=== PATIENT | female | born 1960 | race Caucasian/White ===

== ENCOUNTER 2016-03-21 04:31 | Inpatient (IN) | payer OTHER ==
[~2016-03-21] VITALS: Ht 160 cm; Wt 82.3 kg
[~2016-03-21 04:31] MED LIST: AMLO10TA2 PO; ATEN25TA PO; ETOD30CA PO; LISI40TAB PO; LYRI150C PO; PANT40TA2 PO; TIZA4CAP3 PO; TRAM50TA2 PO; XANA1TAB2 PO
[2016-03-21 05:57] LABS: ALBUMIN 2.8 GM/DL (3.2-5.2); ALBUMIN/GLOBULIN RATIO 0.65 (1.00-1.93); ALKALINE PHOSPHATASE 119 U/L (45-117); ALT/SGPT 22 U/L (12-78); ANION GAP 24 MEQ/L (8-16); AST/SGOT 31 U/L (15-37); BILIRUBIN,DIRECT < 0.1 MG/DL (0.0-0.2); BILIRUBIN,TOTAL 0.2 MG/DL (0.2-1.0); BLOOD UREA NITROGEN 17 MG/DL (7-18); CALCIUM LEVEL 8.7 MG/DL (8.5-10.1); CARBON DIOXIDE LEVEL 12 MEQ/L (21-32); CHLORIDE LEVEL 105 MEQ/L (98-107); CREATININE FOR GFR 1.85 MG/DL (0.55-1.02); GLOMERULAR FILTRATION RATE 30.4 (>51); GLUCOSE, FASTING 163 MG/DL (70-105); POTASSIUM SERUM 4.2 MEQ/L (3.5-5.1); SODIUM LEVEL 141 MEQ/L (136-145); T UPTAKE 33 % (30-39); THYROXINE (T4) 10.3 UG/DL (4.5-12.0); TOTAL PROTEIN 7.1 GM/DL (6.4-8.2)
[2016-03-21 06:11] LABS: BASO # 0.1 K/mm3 (0.0-0.2); BASO % 0.4 % (0.0-1.0); EOS # 0.2 K/mm3 (0.0-0.50); LARGE UNSTAINED CELL # 0.2 K/mm3 (0.0-0.4); LARGE UNSTAINED CELL % 1.3 % (0.0-4.0); LYMPH # 1.9 K/mm3 (1.5-4.5); LYMPH % 11.8 % (24.0-44.0); MEAN CORPUSCULAR HEMOGLOBIN 29.5 pg (27.0-33.0); MEAN CORPUSCULAR HGB CONC 32.2 g/dl (32.0-36.5); MEAN CORPUSCULAR VOLUME 91.6 fl (80.0-96.0); MONO # 0.4 K/mm3 (0.0-0.8); MONO % 2.5 % (0.0-5.0); NEUTROPHILS # 13.6 K/mm3 (1.8-7.7); PLATELET COUNT, AUTOMATED 695 k/mm3 (150-450); RED CELL DISTRIBUTION WIDTH 13.4 % (11.5-14.5); WHITE BLOOD COUNT 16.4 K/mm3 (4.0-10.0)
[2016-03-21 06:16] LABS: AMPHETAMINES LEVEL URINE NEGATIVE (NEGATIVE); BENZODIAZEPINES URINE POSITIVE (NEGATIVE); COCAINE METABOLITE URINE NEGATIVE (NEGATIVE); CONTROL LINE INT CTR LINE PRESENT; METHADONE URINE NEGATIVE (NEGATIVE); OPIATES URINE NEGATIVE (NEGATIVE); TRICYCLIC ANTIDEPRESS URINE NEGATIVE (NEGATIVE)
[2016-03-21 06:18] LABS: ABG BASE EXCESS -5.2 (-2.0-2.0); ABG DEVICE NASAL CANN; ABG HCO3 18.7 MEQ/L (22.0-26.0); ABG PARTIAL PRESSURE CO2 30.3 mmHg (35.0-45.0); ABG PARTIAL PRESSURE O2 112.4 mmHg (75.0-100.0); ABG STANDARD HCO3 20.2 MEQ/L (22.0-26.0); ABG TOTAL CO2 19.6 MEQ/L (22.0-29.0); ABG pH (ARTERIAL) 7.408 UNITS (7.350-7.450)
--- NOTE | 2016-03-21 06:30 | REPUSA ---
CLINICAL HISTORY: Syncope. TECHNIQUE: Multiple axial CT images were obtained through brain without IV contrast material. COMMENTS: The study shows normal configuration of sella turcica. There are no intra or extra-axial collections. There is no mass effect or midline shift. There is no evidence of hematoma formation. No hydrocephalus is present. The ventricles are symmetrical. No abnormal calcifications are present. No significant focal abnormalities are seen either in the posterior fossa or supratentorial compartme nt. IMPRESSION: No acute intracranial pathology. Thank you for your kind referral of this patient.
[2016-03-21 07:01] LABS: CALCIUM OXALATE CRYSTALS MODERATE
[2016-03-21] MEDS ORDERED: PRIMAXIN IV 500 MG VIAL As Ordered ONE (08:06)
[2016-03-21] MEDS ORDERED: ZANA4TAB PO (08:19)
[2016-03-21] MEDS ORDERED: PROA1AER INH (08:19)
--- NOTE | 2016-03-21 08:28 | REP ---
Clinical: Syncope . Comparison: 03/16/2016 . Findings: The mediastinum and cardiac silhouette are stable and within normal limits for portable technique. The lung mendieta demonstrate improved aeration with decreased left upper lobe infiltrate. No obvious pneumothorax. No obvious pleural effusion. Skeletal structures intact. Impression: Improved aeration with nearly resolved left upper lobe infiltrate. Signed by Dario Hassan MD 03/21/2016 08:19 A
[2016-03-21 08:36] LABS: MEAN CORPUSCULAR HEMOGLOBIN 28.8 pg (27.0-33.0); MEAN CORPUSCULAR HGB CONC 32.4 g/dl (32.0-36.5); MEAN CORPUSCULAR VOLUME 88.9 fl (80.0-96.0); RED CELL DISTRIBUTION WIDTH 14.2 % (11.5-14.5); WHITE BLOOD COUNT 22.2 K/mm3 (4.0-10.0)
[2016-03-21 09:06] LABS: MAGNESIUM LEVEL 1.8 MG/DL (1.8-2.4)
[2016-03-21] MEDS ORDERED: tiZANidine 4 MG TAB PO PRN (10:00)
[2016-03-21] MEDS ORDERED: ALBUTEROL 90 MCG/ACT 8GM HFA INHALER INH PRN (10:00)
[2016-03-21] MEDS ORDERED: LR 1,000 ML IV SCH (10:15)
[2016-03-21] MEDS ORDERED: ONDANSETRON 4MG/2ML VIAL (J2405) IV PRN (10:15)
--- NOTE | 2016-03-21 11:04 | REP ---
Clinical: Generalized abdominal pain. Comparison: 03/12/2016. Findings: Lung bases are relatively clear and previously noted bibasilar atelectasis has resolved. Visualized heart and pericardium normal. Liver, spleen, pancreas, gallbladder, left adrenal gland and right kidney are normal for noncontrast evaluation. Right adrenal gland demonstrates 2.2 cm stable benign adenoma. Left kidney demonstrates mild perinephric stranding and 2 mm nonobstructing calculus. The enteric system is without obstruction or acute inflammatory process. Normal terminal ileum and appendix identified in the right lower quadrant. Colonic and sigmoid diverticula noted without acute diverticulitis. Previously identified colitis has resolved. Pelvis demonstrates partially collapsed normal bladder and age-appropriate uterus/adnexa. No pelvic fluid. No ascites. No free air. No adenopathy. Abdominal aorta normal caliber without aneurysm. Musculoskeletal structures intact and stable. Impression: 1. Previously noted colitis resolved. 2. Stable right adrenal adenoma and 2 mm nonobstructing left renal calculus. 3. Colonic and sigmoid diverticula without acute diverticulitis. 4. No acute intra-abdominal or pelvic pathology appreciated. Signed by Dario Hassan MD 03/21/2016 10:55 A
--- NOTE | 2016-03-21 11:30 | EDDOCDS ---
Physician Documentation [facility] Name: Shellie Rod Age: 55 yrs Sex: Female : 1960 Arrival Date: 03/21/2016 Time: 04:31 Bed 1 Private MD: Disposition: 03/21/16 08:31 Hospitalization ordered by Deysi Cordova for Inpatient Admission. Preliminary diagnosis is Other seizures. - Bed requested for PCU. - Status is Inpatient Admission. dls - Condition is Stable. - Problem is new. - Symptoms are resolved. Historical: - Allergies: No known drug Allergies; - Home Meds: 1. Unknown - PMHx: Unable to obtain; - PSHx: Unable to obtain; - Social history: patient is postictal. unable to attain, Smoking status: unknown if patient ever smoked tobacco. - Family history: Not pertinent. - : Unable to assess if pt is on anticoagulants. Unable to Verify Home Med List with the patient / caregiver. - Exposure Risk Screening:: Unable to Assess. 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 LMP N/A - Post-menopause dls Vital Signs: 04:52 BP 86 / 51; Pulse 86; Resp 16; Temp 97.2(A); Pulse Ox 98% 3 lpm ; Pain 0/10; kas2 05:15 BP 121 / 74 (auto/); af2 05:15 Pulse 102 MON; Pulse Ox 99% ; af2 05:30 BP 142 / 96 (auto/); af2 05:30 Pulse 114 MON; Resp 16 S; Pulse Ox 98% on 2 lpm NC; af2 05:45 Pulse 91 MON; Pulse Ox 99% ; af2 05:45 BP 116 / 73 (auto/); af2 06:00 BP 118 / 75 (auto/); af2 06:00 Pulse 87 MON; Resp 18 S; Pulse Ox 96% on 2 lpm NC; af2 06:15 BP 115 / 75 (auto/); dls 06:15 Pulse 81 MON; Pulse Ox 98% ; dls 06:30 BP 136 / 79 (auto/); dls 06:30 Pulse 87 MON; Pulse Ox 99% ; dls 06:45 BP 147 / 85 (auto/); dls 06:45 Pulse 77 MON; Pulse Ox 98% ; dls 07:00 BP 143 / 86 (auto/); dls 07:00 Pulse 83 MON; Pulse Ox 100% ; dls 07:15 BP 133 / 81 (auto/); dls 07:15 Pulse 81 MON; Pulse Ox 99% ; dls 07:29 BP 133 / 81 (auto/); dls 07:29 Pulse 76 MON; Pulse Ox 99% ; dls 07:45 BP 133 / 78 (auto/); dls 07:45 Pulse 78 MON; Pulse Ox 99% ; dls 08:00 BP 127 / 73 (auto/); dls 08:00 Pulse 76 MON; Pulse Ox 99% ; dls 09:00 BP 142 / 73 (auto/); dls 09:00 Pulse 86 MON; Pulse Ox 96% ; dls 09:15 BP 141 / 79 (auto/); dls 09:15 Pulse 83 MON; Pulse Ox 96% ; dls 09:30 BP 141 / 79 (auto/); dls 09:30 Pulse 85 MON; Pulse Ox 98% ; dls 09:45 BP 146 / 77 (auto/); dls 09:45 Pulse 82 MON; Pulse Ox 97% ; dls 10:00 BP 142 / 81 (auto/); dls 10:00 Pulse 88 MON; Pulse Ox 97% ; dls 10:15 BP 158 / 85 (auto/); dls 10:15 Pulse 87 MON; Pulse Ox 96% ; dls 10:30 BP 144 / 71 (auto/); dls 10:35 Pulse 85 MON; Pulse Ox 97% ; dls 10:44 BP 158 / 84 (auto/); dls 10:44 Pulse 84 MON; Pulse Ox 97% ; dls 10:59 BP 158 / 86 (auto/); dls 10:59 Pulse 92 MON; Pulse Ox 98% ; dls 11:14 BP 154 / 86 (auto/); dls 11:14 Pulse 81 MON; Pulse Ox 97% ; dls 11:14 Temp 97.6(T); dls MDM: 05:35 Call Respiratory ordered. cs11 05:35 CT Head Without Contrast Ordered. EDMS 05:35 Call Respiratory complete. tmm1 05:36 CBC with Diff Ordered. EDMS 05:36 MED Profile Ordered. EDMS 05:36 Liver Profile Ordered. EDMS 05:36 Cardiac Marker Panel Ordered. EDMS 05:36 Thyroid Profile Ordered. EDMS 05:36 Ammonia ([place] Tube on Ice, Not [place]) Ordered. EDMS 05:36 -Arterial Blood Gas Ordered. EDMS 05:36 Urine Toxicology Ordered. EDMS 05:36 Urinalysis Ordered. EDMS 05:36 Urine Culture Ordered. EDMS 05:36 Chest, 1 View Ordered. EDMS 05:37 ECG WITH READING ER PHYS+CARDIAG ordered. EDMS 06:02 Financial registration complete. hs2 06:35 [facility] Payment Agreement was scanned into [employer] and attached to record. hs2 07:14 ETHYL ALCOHOL (ETHANOL) Ordered. EDMS 07:20 CBC with Diff Reviewed. sd1 07:20 MED Profile Reviewed. sd1 07:20 Liver Profile Reviewed. sd1 07:20 Ammonia ([place] Tube on Ice, Not [place]) Reviewed. sd1 07:20 -Arterial Blood Gas Reviewed. sd1 07:20 Urine Toxicology Reviewed. sd1 07:20 Urinalysis Reviewed. sd1 07:20 Cardiac Marker Panel Reviewed. sd1 07:20 Thyroid Profile Reviewed. sd1 07:20 CT Head Without Contrast Reviewed. sd1 07:24 BED REQUEST+ADM ordered. EDMS 07:24 Lactic Acid ([place] tube on ice) Ordered. EDMS 07:24 Osmolality, Serum Ordered. EDMS 07:25 Acetaminophen Level Ordered. EDMS 07:25 Complete Blood Count Ordered. EDMS 07:25 Ethyl Alcohol (ethanol) Ordered. EDMS 07:25 Salicylate Level Ordered. EDMS 07:25 Thyroid Stimulating Hormone Ordered. EDMS 07:26 NS 0.9% 1000 ml IV at 250 mL/hr continuous ordered. sd1 08:00 MED Profile Reviewed. sd1 08:00 Liver Profile Reviewed. sd1 08:00 Cardiac Marker Panel Reviewed. sd1 08:00 Thyroid Profile Reviewed. sd1 08:00 ETHYL ALCOHOL (ETHANOL) Reviewed. sd1 08:13 Imipenem-Cilastatin 500 mg IVPB at 100 mL/hr once over 1 hrs; reconstitute first with dy 10mL of NS, then add to 100mL of NS ordered. 08:17 -Blood Culture (Adults Only), peripheral from different site, or from device/port/PICC sd1 etc. if present ordered. 08:18 -Blood Culture Ordered. EDMS 08:29 CARDIAC INJURY PROFILE Ordered. EDMS 08:29 TROPONIN Ordered. EDMS 08:31 -Blood Culture (Adults Only), peripheral from different site, or from device/port/PICC jb5 etc. if present complete. 08:31 BLOOD CULTURES Ordered. EDMS 08:51 MAGNESIUM LEVEL Ordered. EDMS 08:57 T-Sheet-- Draft Copy was scanned into [employer] and attached to record. [facility] 10:01 CT ABD & PELVIS W/O CONTRAST Ordered. EDMS 10:01 C REACTIVE PROTEIN QUANTITATIV Ordered. EDMS 10:01 BASIC METABOLIC PROFILE Ordered. EDMS 10:01 MRI Brain without Contrast Ordered. EDMS 10:04 PHYSICAL THERAPY EVAL & TREAT ordered. EDMS 10:05 Admission / Observation Status ordered. EDMS 10:06 LOW FAT LOW CHOLESTEROL DIET ordered. EDMS Administered Medications: 08:13 CANCELLED (Other Intervention Used): Imipenem-Cilastatin 500 mg IV at calculated rate dy once 08:52 Drug: Imipenem-Cilastatin 500 mg [imipenem-cilastatin 500 mg intravenous solution] dls Route: IVPB; Rate: 100 mL/hr; Infused Over: 1 hrs; Site: left antecubital; 10:20 Follow up: IV Status: Completed infusion dls 08:53 Drug: NS 0.9% 1000 ml [sodium chloride 0.9 % intravenous solution] Route: IV; Rate: 250 dls mL/hr; Site: right wrist; Signatures: Dispatcher [employer] [facility]VA Violeta Garcia MD MD sd1 Licha Aldridge RN Lorelei Bryant RN RN dls Youngs, David, RN RN dy Baker, Janet, MORTGAGE PROFESSIONAL MORTGAGE PROFESSIONAL jb5 Pablo Astorga, DO cs11 Jenna Bennett, MORTGAGE PROFESSIONAL MORTGAGE PROFESSIONAL tmm1 Tiffanie Jaeger RN RN af2 Ann-Marie Holguin, Reg Reg hs2 Henrietta Cortes RN RN michael [facility] The chart was reviewed and I authenticate all verbal orders and agree with the evaluation and treatment provided.Corrections: (The following items were deleted from the chart) 07:14 07:07 ETHYL ALCOHOL (ETHANOL)+LAB ordered. EDMS EDMS 07:49 04:45 Allergies: Unable to obtain; kas2 dy 08:13 07:50 Imipenem-Cilastatin 500 mg IV at calculated rate once ordered. sd1 dy 08:30 08:15 TROPONIN+LAB ordered. EDMS EDMS 08:30 08:15 CARDIAC INJURY PROFILE+LAB ordered. EDVA EDMS 08:51 07:24 MAGNESIUM LEVEL+LAB ordered. EDMS EDMS Attachments: 06:35 [facility] Payment Agreement hs2 08:57 T-Sheet-- Draft Copy [facility]h [facility]
--- NOTE | 2016-03-21 11:30 | EDDOCDS ---
Nurse's Notes [facility] Name: Shellie Rod Age: 55 yrs Sex: Female : 1960 Arrival Date: 03/21/2016 Time: 04:31 Bed 1 Private MD: Diagnosis: Other seizures Presentation: 03/21 04:42 Presenting complaint: EMS states: was in next room to the bathroom and her kas2 thump in the next room. Found patient on the floor face down and unresponsive. EMS got there and patient had two witnessed seizures for them the last one lasting about a minute. SpO2 91% on RA. FSBS 162 mg/dL. No history of seizures. Adult Sepsis Screening: The patient does not have new or worsening altered mentation. Patient's respiratory rate is less than 22. Systolic blood pressure is greater than 100. Patient has a qSOFA score of 0- Negative Sepsis Screen. Suicide/Homicide risk assessment- the patient denies having any suicidal and/or homicidal ideations and does not present with any other emotional, behavioral or mental health complaints. 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 Transition of care: patient was not received from another setting of care. 04:42 Acuity: MATT Level 2 [facility] 04:42 Method Of Arrival: Ambulance [facility] Triage Assessment: 04:45 General: Appears in no apparent distress, well nourished, well groomed, Behavior is kas2 postictal. Pain: Unable to use pain scale. Patient is unresponsive. Pt Declines HIV testing. Neurological: Level of Consciousness is post ictal, Pupils are pinpoint. Cardiovascular: Capillary refill < 3 seconds Heart tones present Rhythm is sinus rhythm No ectopy. Respiratory: Airway is patent Respiratory effort is even, unlabored, Respiratory pattern is regular, symmetrical, snoring Breath sounds are clear bilaterally. GI: Abdomen is distended, obese, Bowel sounds present X 4 quads. Abd is soft and non tender X 4 quads. Derm: Skin is intact, Skin is dry, Skin is pale, Skin temperature is warm. 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 Unknown - PMHx: Unable to obtain; - PSHx: Unable to obtain; - Social history: patient is postictal. unable to attain, Smoking status: unknown if patient ever smoked tobacco. - Family history: Not pertinent. - : Unable to assess if pt is on anticoagulants. Unable to Verify Home Med List with the patient / caregiver. - Exposure Risk Screening:: Unable to Assess. Screenin:13 Screening information is obtained from the patient. Fall risk: At risk due to age, The af2 following interventions are performed due to a positive Fall Risk Screen: Fall Risk is added to Special Handling on the patient Summary Screen. A Fall Risk Bracelet was applied to the patient. Side Rails are placed in the up position. A Call Gould is given with instruction to call for help when getting out of bed. Assistance ADL's: requires no assistance with activities of daily living. Abuse/DV Screen: The patient / caregiver reports he/she is: not in a situation that causes fear, pain or injury. Nutritional screening: No deficits noted. Advance Directives: Further advance directive information is declined. home support is adequate. Assessment: 04:45 General: Appears ill, Behavior is quiet. Neurological: Level of Consciousness is post af2 ictal. Respiratory: Airway is patent Respiratory effort is even. Derm: Skin is pale. 04:55 General: See triage note.. kas2 05:24 General: Appears in no apparent distress, Behavior is cooperative, pt assisted to use af2 bed hunter at this time. . 06:15 General: Appears in no apparent distress, comfortable, Behavior is cooperative. af2 Neurological: Level of Consciousness is awake, alert. Cardiovascular: Rhythm is sinus rhythm No ectopy. Respiratory: Airway is patent Respiratory effort is even, unlabored. Derm: Skin is pale. 08:55 General: Pt resting quietly on stretcher no s/s seizure activity Additional lab studier dls drawn IV NS infusing at 250cc/he right wrist site remains patent and clear IV meds infusing well left antecubital site also remains patent and clear awaiting admission to hospital seizure precautions maintained.. 10:15 General: Pt sleeping off and on vital signs remain stable no s/s of any seizure dls activity.. Vital Signs: 04:52 BP 86 / 51; Pulse 86; Resp 16; Temp 97.2(A); Pulse Ox 98% 3 lpm ; Pain 0/10; kas2 05:15 BP 121 / 74 (auto/); af2 05:15 Pulse 102 MON; Pulse Ox 99% ; af2 05:30 BP 142 / 96 (auto/); af2 05:30 Pulse 114 MON; Resp 16 S; Pulse Ox 98% on 2 lpm NC; af2 05:45 Pulse 91 MON; Pulse Ox 99% ; af2 05:45 BP 116 / 73 (auto/); af2 06:00 BP 118 / 75 (auto/); af2 06:00 Pulse 87 MON; Resp 18 S; Pulse Ox 96% on 2 lpm NC; af2 06:15 BP 115 / 75 (auto/); dls 06:15 Pulse 81 MON; Pulse Ox 98% ; dls 06:30 BP 136 / 79 (auto/); dls 06:30 Pulse 87 MON; Pulse Ox 99% ; dls 06:45 BP 147 / 85 (auto/); dls 06:45 Pulse 77 MON; Pulse Ox 98% ; dls 07:00 BP 143 / 86 (auto/); dls 07:00 Pulse 83 MON; Pulse Ox 100% ; dls 07:15 BP 133 / 81 (auto/); dls 07:15 Pulse 81 MON; Pulse Ox 99% ; dls 07:29 BP 133 / 81 (auto/); dls 07:29 Pulse 76 MON; Pulse Ox 99% ; dls 07:45 BP 133 / 78 (auto/); dls 07:45 Pulse 78 MON; Pulse Ox 99% ; dls 08:00 BP 127 / 73 (auto/); dls 08:00 Pulse 76 MON; Pulse Ox 99% ; dls 09:00 BP 142 / 73 (auto/); dls 09:00 Pulse 86 MON; Pulse Ox 96% ; dls 09:15 BP 141 / 79 (auto/); dls 09:15 Pulse 83 MON; Pulse Ox 96% ; dls 09:30 BP 141 / 79 (auto/); dls 09:30 Pulse 85 MON; Pulse Ox 98% ; dls 09:45 BP 146 / 77 (auto/); dls 09:45 Pulse 82 MON; Pulse Ox 97% ; dls 10:00 BP 142 / 81 (auto/); dls 10:00 Pulse 88 MON; Pulse Ox 97% ; dls 10:15 BP 158 / 85 (auto/); dls 10:15 Pulse 87 MON; Pulse Ox 96% ; dls 10:30 BP 144 / 71 (auto/); dls 10:35 Pulse 85 MON; Pulse Ox 97% ; dls 10:44 BP 158 / 84 (auto/); dls 10:44 Pulse 84 MON; Pulse Ox 97% ; dls 10:59 BP 158 / 86 (auto/); dls 10:59 Pulse 92 MON; Pulse Ox 98% ; dls 11:14 BP 154 / 86 (auto/); dls 11:14 Pulse 81 MON; Pulse Ox 97% ; dls 11:14 Temp 97.6(T); dls Vitals: 04:52 Log In Time N/A - ambulance arrival. [facility] ED Course: 04:42 Henrietta Cortes RN is Primary Nurse. tmm1 04:42 Patient visited by Jenna Bennett PCA. tmm1 04:42 Patient moved to 9 tmm1 04:44 Triage Initiated kas2 04:52 Patient moved to 1 sls1 04:54 Pablo Astorga DO is Attending Physician. cs11 04:54 Patient visited by Pablo Astorga DO. cs11 04:55 Inserted saline lock: 18 gauge in left antecubital area and blood collected. The kas2 patient tolerated the procedure well. No procedures done that require assistance. 04:55 O2 via nasal cannula \T\ 2L/min. kas2 04:56 Patient visited by Henrietta Cortes RN. kas2 04:56 equipment monitor phototypesetting on. Pulse ox on. NIBP on. kas2 05:26 Patient visited by Tiffanie Jaeger RN. af2 06:13 The patient / caregiver is instructed regarding the plan of care and ED course. Patient af2 has correct armband on for positive identification. Placed in gown. 06:14 Patient visited by Tiffanie Jaeger RN. af2 06:14 -Arterial Blood Gas Sent. jc3 06:15 Patient visited by Tiffanie Jaeger RN. af2 06:16 Patient visited by Tiffanie Jaeger RN. af2 06:35 [facility] Payment Agreement was scanned into [employer] and attached to record. hs2 06:37 Patient name changed from Shellie\S\\S\Brimmer\S\ to Shellie\S\ \S\Brimmer. EDMS 06:46 CT Head Without Contrast Returned. EDMS 06:49 Patient visited by Tiffanie Jaeger RN. af2 06:49 EKG done. (by ED staff). Reviewed by Pablo Astorga DO. jrd 07:10 Attending Physician role handed off by Pablo Astorga DO sd1 07:10 Violeta Garcia MD is Attending Physician. sd1 07:35 Primary Nurse role handed off by Henrietta Cortes RN deg 07:55 Patient visited by Aurelio Oconnor. jml1 08:27 -Blood Culture Sent. jb5 08:27 Acetaminophen Level Sent. jb5 08:27 Complete Blood Count Sent. jb5 08:27 Ethyl Alcohol (ethanol) Sent. jb5 08:27 Thyroid Stimulating Hormone Sent. jb5 08:27 Salicylate Level Sent. jb5 08:31 Deysi Cordova is Hospitalizing Provider. sd1 08:37 Chest, 1 View Returned. EDMS 08:52 MAGNESIUM LEVEL Sent. dls 08:57 T-Sheet-- Draft Copy was scanned into [employer] and attached to record. [facility] 09:37 Patient visited by Patricia Ferrell PCA. jb5 11:24 CT ABD & PELVIS W/O CONTRAST Returned. EDMS Administered Medications: 08:13 CANCELLED (Other Intervention Used): Imipenem-Cilastatin 500 mg IV at calculated rate dy once 08:52 Drug: Imipenem-Cilastatin 500 mg [imipenem-cilastatin 500 mg intravenous solution] dls Route: IVPB; Rate: 100 mL/hr; Infused Over: 1 hrs; Site: left antecubital; 10:20 Follow up: IV Status: Completed infusion dls 08:53 Drug: NS 0.9% 1000 ml [sodium chloride 0.9 % intravenous solution] Route: IV; Rate: 250 dls mL/hr; Site: right wrist; RT: 06:15 ABG's drawn from right radial artery pressure held for 5 minutes no bleeding noted jc3 pressure bandage applied specimen sent pt. tolerated well. Order Results: Lab Order: CBC with Diff; SPEC'M 03/21/16 04:47 Test: WHITE BLOOD COUNT; Value: 16.4; Range: 4.0-10.0; Abnormal: Above high normal; Units: K/mm3; Status: F Test: RED BLOOD COUNT; Value: 3.31; Range: 4.00-5.40; Abnormal: Below low normal; Units: M/mm3; Status: F Test: HEMOGLOBIN; Value: 9.8; Range: 12.0-16.0; Abnormal: Below low normal; Units: g/dl; Status: F Test: HEMATOCRIT; Value: 30.3; Range: 36.0-47.0; Abnormal: Below low normal; Units: %; Status: F Test: MEAN CORPUSCULAR VOLUME; Value: 91.6; Range: 80.0-96.0; Units: fl; Status: F Test: MEAN CORPUSCULAR HEMOGLOBIN; Value: 29.5; Range: 27.0-33.0; Units: pg; Status: F Test: MEAN CORPUSCULAR HGB CONC; Value: 32.2; Range: 32.0-36.5; Units: g/dl; Status: F Test: RED CELL DISTRIBUTION WIDTH; Value: 13.4; Range: 11.5-14.5; Units: %; Status: F Test: PLATELET COUNT, AUTOMATED; Value: 695; Range: 150-450; Abnormal: Above high normal; Units: k/mm3; Status: F Test: NEUTROPHILS %; Value: 83.0; Range: 36.0-66.0; Abnormal: Above high normal; Units: %; Status: F Test: LYMPH %; Value: 11.8; Range: 24.0-44.0; Abnormal: Below low normal; Units: %; Status: F Test: MONO %; Value: 2.5; Range: 0.0-5.0; Units: %; Status: F Test: EOS %; Value: 1.0; Range: 0.0-3.0; Units: %; Status: F Test: BASO %; Value: 0.4; Range: 0.0-1.0; Units: %; Status: F Test: LARGE UNSTAINED CELL %; Value: 1.3; Range: 0.0-4.0; Units: %; Status: F Test: NEUTROPHILS #; Value: 13.6; Range: 1.8-7.7; Abnormal: Above high normal; Units: K/mm3; Status: F Test: LYMPH #; Value: 1.9; Range: 1.5-4.5; Units: K/mm3; Status: F Test: MONO #; Value: 0.4; Range: 0.0-0.8; Units: K/mm3; Status: F Test: EOS #; Value: 0.2; Range: 0.0-0.50; Units: K/mm3; Status: F Test: BASO #; Value: 0.1; Range: 0.0-0.2; Units: K/mm3; Status: F Test: LARGE UNSTAINED CELL #; Value: 0.2; Range: 0.0-0.4; Units: K/mm3; Status: F Lab Order: MED Profile; SPEC'M 03/21/16 04:47 Test: GLUCOSE, FASTING; Value: 163; Range: 70-105; Abnormal: Above high normal; Units: MG/DL; Status: F Test: BLOOD UREA NITROGEN; Value: 17; Range: 7-18; Units: MG/DL; Status: F Test: CREATININE FOR GFR; Value: 1.85; Range: 0.55-1.02; Abnormal: Above high normal; Units: MG/DL; Status: F Test: GLOMERULAR FILTRATION RATE; Value: 30.4; Range: >51; Abnormal: Below low normal; Status: F Test: SODIUM LEVEL; Value: 141; Range: 136-145; Units: MEQ/L; Status: F Test: POTASSIUM SERUM; Value: 4.2; Range: 3.5-5.1; Units: MEQ/L; Status: F Test: CHLORIDE LEVEL; Value: 105; Range: 98-107; Units: MEQ/L; Status: F Test: CARBON DIOXIDE LEVEL; Value: 12; Range: 21-32; Abnormal: Below low normal; Units: MEQ/L; Status: F Test: ANION GAP; Value: 24; Range: 8-16; Abnormal: Above high normal; Units: MEQ/L; Status: F Test: CALCIUM LEVEL; Value: 8.7; Range: 8.5-10.1; Units: MG/DL; Status: F Test Note: ; Units are mL/min/1.73 m2 Chronic Kidney Disease Staging per NKF: Stage I & II GFR >=60 Normal to Mildly Decreased Stage III GFR 30-59 Moderately Decreased Stage IV GFR 15-29 Severely Decreased Stage V GFR <15 Very Little GFR Left ESRD GFR <15 on [employer] Lab Order: Liver Profile; SPEC'M 03/21/16 04:47 Test: AST/SGOT; Value: 31; Range: 15-37; Units: U/L; Status: F Test: ALT/SGPT; Value: 22; Range: 12-78; Units: U/L; Status: F Test: ALKALINE PHOSPHATASE; Value: 119; Range: 45-117; Abnormal: Above high normal; Units: U/L; Status: F Test: BILIRUBIN,TOTAL; Value: 0.2; Range: 0.2-1.0; Units: MG/DL; Status: F Test: BILIRUBIN,DIRECT; Value: < 0.1; Range: 0.0-0.2; Units: MG/DL; Status: F Test: TOTAL PROTEIN; Value: 7.1; Range: 6.4-8.2; Units: GM/DL; Status: F Test: ALBUMIN; Value: 2.8; Range: 3.2-5.2; Abnormal: Below low normal; Units: GM/DL; Status: F Test: ALBUMIN/GLOBULIN RATIO; Value: 0.65; Range: 1.00-1.93; Abnormal: Below low normal; Status: F Lab Order: Cardiac Marker Panel; SPEC'M 03/21/16 04:47 Test: CPK CREATINE PHOSPHOKINASE; Value: 51; Range: 26-192; Units: U/L; Status: F Test: CK-MB VALUE MASS; Value: 1.0; Range: 0.0-3.6; Units: NG/ML; Status: F Test: MB/CK RELATIVE INDEX; Value: 1.96; Range: < OR =4; Status: F Test: TROPONIN I; Value: < 0.02; Range: < 0.10; Units: NG/ML; Status: F Test Note: ; DIAGNOSIS CRITERIA MMB ng/ml Relative Index (RI) NON-AMI < or = 5 N/A [place] > 5 < or = 4 AMI > 5 > 4 Lab Order: Thyroid Profile; SPEC'M 03/21/16 04:47 Test: T UPTAKE; Value: 33; Range: 30-39; Units: %; Status: F Test: THYROXINE (T4); Value: 10.3; Range: 4.5-12.0; Units: UG/DL; Status: F Test: FREE THYROXINE INDEX; Value: 3.4; Range: 1.3-4.8; Units: %; Status: F Test: THYROID STIMULATING HORMONE; Value: 3.190; Range: 0.358-3.740; Units: uIU/ML; Status: F Lab Order: Ammonia ([place] Tube on Ice, Not [place]); SPEC'M 03/21/16 04:47 Test: AMMONIA; Value: 49; Range: <32; Abnormal: Above high normal; Units: uMOL/L; Status: F Lab Order: -Arterial Blood Gas; SPEC'M 03/21/16 06:12 Test: ABG pH (ARTERIAL); Value: 7.408; Range: 7.350-7.450; Units: UNITS; Status: F Test: ABG PARTIAL PRESSURE CO2; Value: 30.3; Range: 35.0-45.0; Abnormal: Below low normal; Units: mmHg; Status: F Test: ABG PARTIAL PRESSURE O2; Value: 112.4; Range: 75.0-100.0; Abnormal: Above high normal; Units: mmHg; Status: F Test: ABG TOTAL CO2; Value: 19.6; Range: 22.0-29.0; Abnormal: Below low normal; Units: MEQ/L; Status: F Test: ABG HCO3; Value: 18.7; Range: 22.0-26.0; Abnormal: Below low normal; Units: MEQ/L; Status: F Test: ABG BASE EXCESS; Value: -5.2; Range: -2.0-2.0; Abnormal: Below low normal; Status: F Test: ABG STANDARD HCO3; Value: 20.2; Range: 22.0-26.0; Abnormal: Below low normal; Units: MEQ/L; Status: F Test: ABG O2 SATURATION; Value: 98.2; Range: 95.0-99.0; Units: %; Status: F Test: ABG DEVICE; Value: NASAL FAISAL; Status: F Lab Order: Urine Toxicology; SPEC'M 03/21/16 05:45 Test: AMPHETAMINES LEVEL URINE; Value: NEGATIVE; Range: NEGATIVE; Status: F Test: BARBITURATES URINE; Value: NEGATIVE; Range: NEGATIVE; Status: F Test: BENZODIAZEPINES URINE; Value: POSITIVE; Range: NEGATIVE; Abnormal: Above high normal; Status: F Test: CANNABINOIDS URINE; Value: NEGATIVE; Range: NEGATIVE; Status: F Test: COCAINE METABOLITE URINE; Value: NEGATIVE; Range: NEGATIVE; Status: F Test: METHADONE URINE; Value: NEGATIVE; Range: NEGATIVE; Status: F Test: OPIATES URINE; Value: NEGATIVE; Range: NEGATIVE; Status: F Test: TRICYCLIC ANTIDEPRESS URINE; Value: NEGATIVE; Range: NEGATIVE; Status: F Test Note: ; ALL PRESUMPTIVE POSITIVE FINDINGS ARE UNCONFIRMED NORMAL VALUES THRESHOLD IN NG/ML AMPHETAMINES 1000 METHAMPHETAMINES 1000 BARBITURATES 300 BENZODIAZEPINES 300 CANNABINOIDS (THC) 50 COCAINE METABOLITE 300 METHADONE 300 OPIATES 300 PHENCYCLIDINE 25 TRICYCLIC ANTIDEPRESSANTS 1000 RESULTS ARE FOR MEDICAL PURPOSES ONLY. ALL URINE SPECIMENS WILL BE SAVED FOR 3 DAYS. IF CONFIRMATION OF A PRESUMPTIVE POSTIVE SCREEN RESULT IS DESIRED, CALL CHEMISTRY ([phone]) AND REQUEST URINE TO BE SENT TO REFERENCE LAB. FOR A LIST OF CLOSELY RELATED COMPOUNDS PLEASE CALL THE LAB. Lab Order: Urinalysis; SPEC'M 03/21/16 05:45 Test: APPEARANCE, URINE; Value: TURBID; Range: CLEAR; Abnormal: Above high normal; Status: F Test: COLOR, URINE; Value: TIFFANIE; Range: YELLOW; Status: F Test: PH,URINE; Value: 5.0; Range: 5.0-9.0; Units: UNITS; Status: F Test: SPECIFIC GRAVITY URINE AUTO; Value: 1.015; Range: 1.002-1.035; Status: F Test: PROTEIN, URINE AUTO; Value: 2+; Range: NEGATIVE; Abnormal: Above high normal; Units: mg/dL; Status: F Test: GLUCOSE, URINE (UA) AUTO; Value: NEGATIVE; Range: NEGATIVE; Units: mg/dL; Status: F Test: KETONE, URINE AUTO; Value: NEGATIVE; Range: NEGATIVE; Units: mg/dL; Status: F Test: UROBILINOGEN, URINE AUTO; Value: 0.2; Range: 0.0-2.0; Units: mg/dL; Status: F Test: BILIRUBIN, URINE AUTO; Value: NEGATIVE; Range: NEGATIVE; Status: F Test: NITRITE, URINE AUTO; Value: NEGATIVE; Range: NEGATIVE; Status: F Test: LEUKOCYTE ESTERASE, URINE AUTO; Value: 2+; Range: NEGATIVE; Abnormal: Above high normal; Status: F Test: BLOOD, URINE BLOOD; Value: 1+; Range: NEGATIVE; Abnormal: Above high normal; Status: F Test: SPERM, URINE AUTO; Range: NONE; Status: I Test: WBC, URINE AUTO; Value: 79; Range: 0-3; Abnormal: Above high normal; Units: /HPF; Status: F Test: RBC, URINE AUTO; Value: 35; Range: 0-3; Abnormal: Above high normal; Units: /HPF; Status: F Test: BACTERIA, URINE AUTO; Value: 1+; Range: NEGATIVE; Abnormal: Above high normal; Status: F Test: SQUAMOUS EPITHELIAL CELL UR AU; Value: 127; Range: 0-6; Units: /HPF; Status: F Test: MUCUS, URINE; Value: MODERATE; Range: NEGATIVE; Status: F Test: HYALINE CAST, URINE AUTO; Value: 0; Range: 0-1; Units: /LPF; Status: F Test: GRANULAR CAST, URINE AUTO; Value: 22; Range: NONE; Units: /LPF; Status: F Test: CALCIUM OXALATE CRYSTALS; Value: MODERATE; Range: NONE; Status: F Lab Order: ETHYL ALCOHOL (ETHANOL); [facility] 03/21/16 04:47 Test: ETHYL ALCOHOL (ETHANOL); Value: < 0.003; Range: 0.000-0.010; Units: %; Status: F Lab Order: Lactic Acid ([place] tube on ice); SPEC 03/21/16 08:23 Test: LACTIC ACID LEVEL, LACTATE; Value: 1.1; Range: 0.4-2.0; Units: MMOL/L; Status: F Lab Order: Osmolality, Serum; 03/21/16 08:23 Test: OSMOLALITY SERUM; Value: 291; Range: 275-295; Units: MOSM/KG; Status: F Lab Order: Acetaminophen Level; 03/21/16 08:23 Test: ACETAMINOPHEN LEVEL; Value: < 2.0; Range: 10.0-30.0; Abnormal: Below low normal; Units: UG/ML; Status: F Lab Order: Complete Blood Count; SPEC 03/21/16 08:23 Test: WHITE BLOOD COUNT; Value: 22.2; Range: 4.0-10.0; Abnormal: Above high normal; Units: K/mm3; Status: F Test: RED BLOOD COUNT; Value: 3.20; Range: 4.00-5.40; Abnormal: Below low normal; Units: M/mm3; Status: F Test: HEMOGLOBIN; Value: 9.2; Range: 12.0-16.0; Abnormal: Below low normal; Units: g/dl; Status: F Test: HEMATOCRIT; Value: 28.4; Range: 36.0-47.0; Abnormal: Below low normal; Units: %; Status: F Test: MEAN CORPUSCULAR VOLUME; Value: 88.9; Range: 80.0-96.0; Units: fl; Status: F Test: MEAN CORPUSCULAR HEMOGLOBIN; Value: 28.8; Range: 27.0-33.0; Units: pg; Status: F Test: MEAN CORPUSCULAR HGB CONC; Value: 32.4; Range: 32.0-36.5; Units: g/dl; Status: F Test: RED CELL DISTRIBUTION WIDTH; Value: 14.2; Range: 11.5-14.5; Units: %; Status: F Test: PLATELET COUNT, AUTOMATED; Value: 669; Range: 150-450; Abnormal: Above high normal; Units: k/mm3; Status: F Lab Order: Ethyl Alcohol (ethanol); SPEC' 03/21/16 08:23 Test: ETHYL ALCOHOL (ETHANOL); Value: < 0.003; Range: 0.000-0.010; Units: %; Status: F Lab Order: Salicylate Level; SPEC 03/21/16 08:23 Test: SALICYLATE LEVEL; Value: < 1.7; Range: 5.0-30.0; Abnormal: Below low normal; Units: MG/DL; Status: F Lab Order: Thyroid Stimulating Hormone; SPEC' 03/21/16 08:23 Test: THYROID STIMULATING HORMONE; Value: 1.590; Range: 0.358-3.740; Units: uIU/ML; Status: F Lab Order: CARDIAC INJURY PROFILE; SPEC' 03/21/16 08:23 Test: CPK CREATINE PHOSPHOKINASE; Value: 54; Range: 26-192; Units: U/L; Status: F Test: CK-MB VALUE MASS; Value: 1.1; Range: 0.0-3.6; Units: NG/ML; Status: F Test: MB/CK RELATIVE INDEX; Value: 2.03; Range: < OR =4; Status: F Test Note: ; DIAGNOSIS CRITERIA MMB ng/ml Relative Index (RI) NON-AMI < or = 5 N/A [place] > 5 < or = 4 AMI > 5 > 4 Lab Order: TROPONIN; SPEC'M 03/21/16 08:23 Test: TROPONIN I; Value: 0.02; Range: < 0.10; Units: NG/ML; Status: F Test Note: ; Troponin I Reference Interval for [employer] [place] LOCI: 99th Percentile= 0.00-0.045 ng/ml Risk Stratification: <= 0.10 ng/ml Decreased Risk for Adverse Clinical Events. 0.10-1.50 ng/ml Increased Risk for Adverse Clinical Events. Evaluation of additional criterion and/or repeat testing in 2-6 hours is suggested to rule out myocardial damage. >= 1.50 ng/ml Indicative of Myocardial Injury. Lab Order: MAGNESIUM LEVEL; SPEC'M 03/21/16 08:23 Test: MAGNESIUM LEVEL; Value: 1.8; Range: 1.8-2.4; Units: MG/DL; Status: F Lab Order: C REACTIVE PROTEIN QUANTITATIV; SPEC'M 03/21/16 08:09 Test: C REACTIVE PROTEIN QUANTITATIV; Value: 1.86; Range: 0.00-0.30; Abnormal: Above high normal; Units: MG/DL; Status: F Radiology Order: CT Head Without Contrast Test: CT Head Without Contrast REASON FOR EXAMINATION: Syncope; ; CLINICAL HISTORY: Syncope.; TECHNIQUE: Multiple axial CT images were obtained through brain without IV contrast material.; COMMENTS:; The study shows normal configuration of sella turcica.; There are no intra or extra-axial collections. There is no mass effect or midline shift. There is no; evidence of hematoma formation. No hydrocephalus is present.; The ventricles are symmetrical. No abnormal calcifications are present.; No significant focal abnormalities are seen either in the posterior fossa or supratentorial compartme; nt.; IMPRESSION:; No acute intracranial pathology.; Thank you for your kind referral of this patient.; ; ; Radiology Order: Chest, 1 View Test: Chest, 1 View REASON FOR EXAMINATION: Syncope; Clinical: Syncope .; ; Comparison: 03/16/2016 .; ; Findings:; The mediastinum and cardiac silhouette are stable and within normal limits for; portable technique. The lung mendieta demonstrate improved aeration with decreased; left upper lobe infiltrate. No obvious pneumothorax. No obvious pleural; effusion. Skeletal structures intact.; ; Impression:; Improved aeration with nearly resolved left upper lobe infiltrate.; ; ; Signed by; Dario Hassan MD 03/21/2016 08:19 A; Radiology Order: CT ABD & PELVIS W/O CONTRAST Test: CT ABD & PELVIS W/O CONTRAST REASON FOR EXAMINATION: abd pain; Clinical: Generalized abdominal pain.; ; Comparison: 03/12/2016.; ; Findings:; Lung bases are relatively clear and previously noted bibasilar atelectasis has; resolved. Visualized heart and pericardium normal.; ; Liver, spleen, pancreas, gallbladder, left adrenal gland and right kidney are; normal for noncontrast evaluation. Right adrenal gland demonstrates 2.2 cm stable; benign adenoma. Left kidney demonstrates mild perinephric stranding and 2 mm; nonobstructing calculus. The enteric system is without obstruction or acute; inflammatory process. Normal terminal ileum and appendix identified in the right; lower quadrant. Colonic and sigmoid diverticula noted without acute; diverticulitis. Previously identified colitis has resolved. Pelvis demonstrates; partially collapsed normal bladder and age-appropriate uterus/adnexa. No pelvic; fluid. No ascites. No free air. No adenopathy. Abdominal aorta normal caliber; without aneurysm. Musculoskeletal structures intact and stable.; ; Impression:; 1. Previously noted colitis resolved.; 2. Stable right adrenal adenoma and 2 mm nonobstructing left renal calculus.; 3. Colonic and sigmoid diverticula without acute diverticulitis.; 4. No acute intra-abdominal or pelvic pathology appreciated.; ; ; Signed by; Dario Hassan MD 03/21/2016 10:55 A; Outcome: 08:31 Decision to Hospitalize by Provider. sd1 11:24 Discharge Assessment: Patient awake, alert and oriented x 3. No cognitive and/or dls functional deficits noted. Patient verbalized understanding of disposition instructions. Patient awake and alert. Oriented to person, place and time. patient administered narcotics - no. The following High Risk Discharge criteria are identified: None. Admitted to PCU accompanied by nurse, via stretcher, on monitor, with chart. Condition: stable. CT Study completed. Property :Personal belongings accompany Pt. 11:26 Admission hand-off: Report Faxed Fax receipt verified by PCU staff. dls 11:29 Patient left the ED. dls Signatures: Dispatcher [employer] EDMS Violeta Garcia MD MD sd1 Isabell Carreon, Fire Boss Unit deg Lorelei Rivas, RN RN dls Genie, Lamont, RN RN dy Mariaelena Patricia, GAMEMASTER GAMEMASTER jb5 Andres,Adán jc3 Clair Greer, RN RN sls1 Aurelio cOonnor jml1 Pablo Astorga, DO cs11 Jenna Bennett, GAMEMASTER GAMEMASTER tmm1 Adán Tellez, GAMEMASTER GAMEMASTER jrd Tiffanie JaegerRN RN af2 Ann-Marie Holguin, Reg Reg hs2 Henrietta Cortes RN RN michael2 Violeta Wynn Corrections: (The following items were deleted from the chart) 07:49 04:45 Allergies: Unable to obtain; kas2 dy 08:30 08:27 CARDIAC INJURY PROFILE+LAB sent. jb5 EDMS 08:30 08:27 TROPONIN+LAB sent. 5 EDMS MTDD
[2016-03-21 11:40] VITALS: BP 155/90
[2016-03-21 12:38] LABS: ANION GAP 13 MEQ/L (8-16); BLOOD UREA NITROGEN 12 MG/DL (7-18); CALCIUM LEVEL 8.4 MG/DL (8.5-10.1); CARBON DIOXIDE LEVEL 21 MEQ/L (21-32); CHLORIDE LEVEL 113 MEQ/L (98-107); CREATININE FOR GFR 1.01 MG/DL (0.55-1.02); GLOMERULAR FILTRATION RATE > 60.0 (>51); GLUCOSE, FASTING 77 MG/DL (70-105); POTASSIUM SERUM 3.3 MEQ/L (3.5-5.1); SODIUM LEVEL 147 MEQ/L (136-145)
[2016-03-21] MEDS ORDERED: LORazepam 2 MG/ML VIAL (J2060) IV PRN (12:45)
[2016-03-21] MEDS ORDERED: levETIRAcetam 1,000 MG in D5W 100 ML IV ONE (13:00)
[2016-03-21] MEDS: cefTRIAXone SOD 1 GM in D5W MINI-BAG PLUS 50 ML IV SCH (13:18)
[2016-03-21] MEDS: PANTOPRAZOLE 40MG TAB (PROTONIX) PO SCH (13:18)
[2016-03-21] MEDS: ALPRAZolam 0.5 MG TAB PO PRN (13:18)
[2016-03-21 16:00] VITALS: BP 119/67
[2016-03-21] MEDS ORDERED: POTASSIUM CHLORIDE 10 MEQ SR TABLET PO ONE (16:00)
[2016-03-21 16:02] LABS: MAGNESIUM LEVEL 1.7 MG/DL (1.8-2.4)
[2016-03-21] MEDS: amLODIPine 10 MG TAB PO SCH (16:42)
[2016-03-21] MEDS: ATENOLOL 12.5MG PER 1/2 TABLET PO SCH (16:42)
[2016-03-21] MEDS ORDERED: MAG SULF 1GM/100ML (MAG RUN) 1 GM in APPROPRIATE DILUENT 1 EA IV ONE (17:00)
[2016-03-21 19:17] VITALS: BP 137/85
--- NOTE | 2016-03-21 19:41 | HPE ---
DATE OF ADMISSION: 03/21/2016 PRIMARY CARE PROVIDER: Lorelei Michaud CHIEF COMPLAINT: Seizure disorder. HISTORY OF PRESENT ILLNESS: This is a 55-year-old female patient with underlying medical history of asthma, chronic pain issues, hypertension, chronic neck and back pain. The patient was initially admitted to the hospital on 03/12/2016. Initially got admitted for unresponsiveness and aspiration pneumonia and hypoxic respiratory failure requiring intubation. The patient was subsequently also hypernatremic, dehydration. The patient was subsequently intubated. Following extubation, the patient left against medical advice. This time, per patient and patient's , around 3:00 o'clock this morning, the patient reported stomach upset with no diarrhea, no dysuria, but just stomach upset. Around 3:00 o'clock this morning, the heard the patient making some noise in the bathroom and subsequently was found on the floor unresponsive, shaking. Subsequently, emergency medical services (EMS) was called. When EMS arrived, the patient is more arousable, and lifted onto the stretcher. Subsequently, the patient had another episode and en route here the patient was given Versed for a third episode with EMS. In the emergency room, the patient was a little bit drowsy, but became more responsive, initially postictal. The patient was more responsive. Reported tongue biting with tongue lesions. Denies any illicit drug use. Denies any alcohol drinking. Denies any chest pain, pressure, discomfort. Denies any neurological deficits. Denies any fevers or chills. No urinary or bowel incontinence. The patient is able to move all four extremities. Reported some abrasion of the patient's nose. ALLERGIES: No known drug allergies. HOME MEDICATIONS: - ProAir inhalation four times a day as needed - Xanax 1 mg by mouth as needed for anxiety - Norvasc 10 mg by mouth daily - atenolol 12.5 mg by mouth daily - Protonix 40 mg by mouth daily - Lyrica 150 mg by mouth twice a day - Zanaflex 1 mg by mouth three times a day as needed - Tramadol 10 mg by mouth three times a day as needed PAST SURGICAL HISTORY: None. SOCIAL HISTORY: The patient denies smoking. Denies alcohol drinking. Denies any illicit drug use. Lives at home with . FAMILY HISTORY: Noncontributory. REVIEW OF SYSTEMS: The patient denies any headache. Reported mild drowsiness. Reported episode of seizure, as mentioned above. Denies any vision change or hearing change. Reported tongue biting. Denies any shortness of breath or cough. Denies any chest pain, pressure or discomfort. Denies any nausea or vomiting. Reported stomach upset. Denies any diarrhea or constipation. Denies any urinary complaints. Denies any lower extremity swelling. Denies any abnormal bleeding or bruising. Denies depression or suicidality. PHYSICAL EXAMINATION: VITAL SIGNS: Blood pressure 118/75, pulse 87, respirations 18, temperature 97.2, pulse oximetry 96% on 2 liters nasal cannula. EKG: Sinus rhythm at 75. GENERAL: The patient is alert and oriented times three. In no acute distress. Mildly drowsy. HEENT: Nasal abrasion, no bleeding. Normocephalic. Positive tongue hemorrhage and laceration. NECK: Supple. PULMONARY: Bilaterally clear to auscultation. CARDIAC: Regular rate and rhythm. Normal S1, S2. ABDOMEN: Soft. No significant tenderness. No rebound or guarding. Positive bowel sounds. EXTREMITIES: No edema in bilateral lower extremities. NEUROLOGIC: Cranial nerves II through XII grossly intact. No focal deficit. Able to move all four extremities. LABORATORY DATA: WBC 22, hemoglobin and hematocrit 9.2/28.4, platelets 669. Chemistry: Sodium 147, potassium 3.3, chloride 117, bicarbonate 21, BUN 12, creatinine 1.01. CT scan of the brain showed no acute intracranial pathology. CT of the abdomen, previously resolved colitis. Right adrenal adenoma. Stable 2 mm nonobstructing left renal calculus. Sigmoid diverticula. ASSESSMENT AND PLAN: This is a 55-year-old female patient, obese, with underlying medical history of asthma, hypertension, chronic pain, admitted with episodes of seizure. 1. Episodes of seizure. Loaded with Keppra 1 gram. Started on Keppra 500 mg by mouth twice a day. Telemetry, seizure precautions, fall precautions. Neurology consulted. EEG and MRI. Neuro checks. 2. Leukocytosis. Likely reactive versus underlying pneumonia. The patient was previously treated for aspiration pneumonia. UA has been positive. Possible source includes pneumonia versus urinary tract infection (UTI). We will place the patient on Rocephin for now pending the finalized culture. 3. Chronic kidney disease. BUN and creatinine at baseline. IV fluids for hydration given the patient is mildly hypernatremic. 4. Hypokalemias, supplement potassium. 5. History of asthma. The patient is currently not having any wheeze. Continue inhalers as needed. 6. Chronic pain. Continue home medications. 7. Anxiety. Continue home medications. 8. Hypertension. Continue home medications. Monitor blood pressure. 9. Deep vein thrombosis (DVT) prophylaxis. Heparin subcutaneously. DISPOSITION: Pending MRI, EEG, neurology consultation, finalized cultures.
[2016-03-21] MEDS: SENOKOT S TAB PO SCH (21:42)
[2016-03-21] MEDS: levETIRAcetam 250MG TABLET (KEPPRA) PO SCH (21:42)
[2016-03-21] MEDS: PREGABALIN 75 MG CAP(LYRICA) PO SCH (21:42)
[2016-03-21] MEDS: HEPARIN SOD (PORCINE) 5000 UNITS/ML VIAL SC SCH (21:43)
[2016-03-21] MEDS: ACETAMINOPHEN TAB 650MG DOSE (2X325MG) PO PRN (21:58)
[2016-03-21 23:51] VITALS: BP 136/65
[2016-03-22 05:19] LABS: MEAN CORPUSCULAR HGB CONC 32.4 g/dl (32.0-36.5); MEAN CORPUSCULAR VOLUME 89.2 fl (80.0-96.0); RED CELL DISTRIBUTION WIDTH 14.4 % (11.5-14.5); WHITE BLOOD COUNT 15.1 K/mm3 (4.0-10.0)
[2016-03-22 05:21] VITALS: BP 121/74
[2016-03-22 05:38] LABS: ANION GAP 11 MEQ/L (8-16); BLOOD UREA NITROGEN 7 MG/DL (7-18); CARBON DIOXIDE LEVEL 24 MEQ/L (21-32); CHLORIDE LEVEL 112 MEQ/L (98-107); GLOMERULAR FILTRATION RATE > 60.0 (>51); GLUCOSE, FASTING 83 MG/DL (70-105); POTASSIUM SERUM 3.2 MEQ/L (3.5-5.1); SODIUM LEVEL 147 MEQ/L (136-145)
[2016-03-22 08:00] VITALS: BP 123/56
[2016-03-22] MEDS ORDERED: POTASSIUM CHLORIDE 10 MEQ SR TABLET PO ONE (08:00)
[2016-03-22] MEDS: amLODIPine 10 MG TAB PO SCH (09:33)
[2016-03-22] MEDS: levETIRAcetam 250MG TABLET (KEPPRA) PO SCH ×2 (09:33→21:26)
[2016-03-22] MEDS: PREGABALIN 75 MG CAP(LYRICA) PO SCH ×2 (09:33→21:26)
[2016-03-22] MEDS: ATENOLOL 12.5MG PER 1/2 TABLET PO SCH (09:34)
[2016-03-22] MEDS: PANTOPRAZOLE 40MG TAB (PROTONIX) PO SCH (09:34)
[2016-03-22] MEDS: SENOKOT S TAB PO SCH ×2 (09:34→21:26)
[2016-03-22] MEDS: HEPARIN SOD (PORCINE) 5000 UNITS/ML VIAL SC SCH ×2 (09:34→21:26)
--- NOTE | 2016-03-22 09:48 | ECGEPIP ---
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
[2016-03-22] MEDS ORDERED: KEPP250T5 PO (11:01)
[2016-03-22 12:00] VITALS: BP 119/56
[2016-03-22] MEDS: cefTRIAXone SOD 1 GM in D5W MINI-BAG PLUS 50 ML IV SCH (12:18)
[2016-03-22] MEDS: ACETAMINOPHEN TAB 650MG DOSE (2X325MG) PO PRN (12:59)
--- NOTE | 2016-03-22 15:01 | DSES ---
DATE OF ADMISSION: 03/21/2016 DATE OF DISCHARGE: 03/22/2016 Time patient was seen was this morning at 10 a.m. ADMISSION DIAGNOSES: 1. Episodes of seizure. 2. Leukocytosis. 3. Chronic kidney disease. 4. Hypokalemia. 5. History of asthma. 6. Chronic pain. 7. Anxiety. 8. Hypertension. DISCHARGE DIAGNOSES: 1. Episodes of seizure. 2. Leukocytosis. 3. Chronic kidney disease. 4. Hypokalemia. 5. History of asthma. 6. Chronic pain. 7. Anxiety. 8. Hypertension. 9. Patient also has a stable right adrenal adenoma which was 2.2 cm. Possible followup per primary care provider. CONSULTANTS: Dr. Sunday Gutierrez from neurology. PROCEDURES AND IMAGING: Patient had a CT head on 03/21/2016, showed no acute intracranial pathology. Also on 03/21/2016, patient had a CT of abdomen and pelvis without contrast which showed previously noted colitis resolved, stable right adrenal adenoma, 2 mm nonobstructing left renal calculi, and colonic and sigmoid diverticula without acute diverticulitis, no acute intraabdominal or pelvic pathology appreciated. HISTORY OF PRESENT ILLNESS: 55-year-old female with past medical history of asthma, chronic pain issue, hypertension, chronic neck pain and back pain. Patient initially admitted to hospital on 03/12/2016, for unresponsiveness and aspiration pneumonia and hypoxia, respiratory failure requiring intubation. Patient was subsequently found to be hypernatremic and dehydrated and subsequently intubated. Following extubation, patient left against medical advice (AMA). This time, per patient and her , around 3 a.m. in the morning of admission, patient developed some stomach upset, no diarrhea or dysuria, and also around 3 a.m. her heard patient making some noise in the bathroom. Subsequently, she was found on the floor, unresponsive, and shaking. Also subsequently, emergency medical services (EMS) was called and arrived. At this point patient was more arousable and lifted off the stretcher. On route to the hospital, patient had another episode of seizure and was given Versed by EMS. In the emergency room, patient continued to be a little bit drowsy, however was somewhat responsive and improved by the time of interview. Patient reported tongue biting and tongue lesions. Denies any illicit drug use. Denies any alcohol drinking. Denies any chest pain, pressure, discomfort, or any neurological deficit. Denies any fever or chills. No urinary or bowel incontinence. Patient is able to move all four extremities however and does report to some abrasions at patient's nose. HOSPITAL COURSE: On day of admission, patient was loaded with 1 gram of Keppra and was started on Keppra 500 mg twice a day. Neurology, Dr. Gutierrez, was consulted. EEG and MRI were ordered. Patient refused to go to MRI on the day of admission due to patient feels like she was choking due to the tongue biting. Therefore, on the next day, patient felt better and she agreed with an MRI. EEG was also done on the next day. After discussion with neurologist, Dr. Gutierrez, he agreed that patient may leave the hospital once the MRI and EEG were performed and once patient has been cleared with physical therapy (PT). DISCHARGED: Home with services, possibly per physical therapy (PT) recommendations. ACTIVITY: As tolerated. DIET: Low cholesterol diet. LABORATORY DATA PENDING: Including: Renin aldosterone level. DISCHARGE MEDICATIONS: Including: - Keppra 500 mg one tablet by mouth twice a day Continue home medications: Including: - ProAir two puff inhalation four times a day as needed - Xanax 1 mg one tablet by mouth as needed - amlodipine 10 mg one tablet by mouth daily - atenolol 12.5 mg one tablet by mouth daily - pantoprazole 40 mg one tablet by mouth daily - Lyrica 150 mg one tablet by mouth twice a day - Zanaflex 4 mg one tablet by mouth three times a day as needed Stopped medications: Including: - tramadol 50 mg one tablet by mouth three times a day as needed ADDITIONAL INSTRUCTIONS: Patient should followup with primary care provider within 1 week, also with Dr. Gutierrez within 1-2 weeks. Primary care provider may decide to followup on her adrenal adenoma. If patient develops any additional seizures or any fever greater than 100.4 or any focal weakness or change of sensations, patient should call primary care provider or go to emergency room. Patient has been discussed with attending doctor, Dr. Cordova. My preceptor for this patient encounter was Dr. Deysi Cordova. The preceptor was physically present in the building during the encounter and was fully available. As needed, all aspects of the patient interview, examination, medical decision making process, and medical care plan development were reviewed and approved by the preceptor. The preceptor is aware and concurs with the plan as stated in the body of this note and will attest to such by his cosignature. I have both independently examined this patient as well as reviewed the note. I have discussed in detail with the resident the findings and plan of treatment as documented in the residents note. I will continue to follow the patient and offer further guidance to the patients care as necessary during this hospital stay. Note DC on hold due to positive blood culture and deconditioning. Deysi BERGERON
--- NOTE | 2016-03-22 16:19 | REP ---
INDICATION: Headache and seizure PROCEDURE: Standard axial and sagittal T1 and T2-weighted sequences along with diffusion/ADC mapping sequence. COMPARISON STUDIES: CT dated 03/19/2016 FINDINGS: The ventricles and sulci are age appropriate. No intra-axial or extra-axial lesions are identified. There is no mass effect, or extracerebral collection. No acute or chronic intracranial hemorrhage or infarcts are identified. The cerebral hemispheres, cerebellum and brainstem are unremarkable. The sella and suprasellar regions are unremarkable. The craniocervical junction is within normal limits. The midline structures are within normal limits. The mastoid air cells and paranasal sinuses are unremarkable. The calvarium and skull base are also unremarkable. CONCLUSION: Unremarkable noncontrast MRI of the brain. Signed by Dario Hassan MD 03/22/2016 04:09 P
[2016-03-22 16:24] VITALS: BP 120/75
[2016-03-22] MEDS: ALPRAZolam 0.5 MG TAB PO PRN (16:31)
[2016-03-22 19:29] VITALS: BP 119/72
[2016-03-23] MEDS: ACETAMINOPHEN TAB 650MG DOSE (2X325MG) PO PRN ×4 (00:34→18:16)
[2016-03-23 00:37] VITALS: BP 137/82
[2016-03-23 06:00] VITALS: BP 112/74
[2016-03-23 06:34] LABS: MEAN CORPUSCULAR HEMOGLOBIN 29.2 pg (27.0-33.0); MEAN CORPUSCULAR HGB CONC 32.2 g/dl (32.0-36.5); MEAN CORPUSCULAR VOLUME 90.7 fl (80.0-96.0); RED CELL DISTRIBUTION WIDTH 13.8 % (11.5-14.5); WHITE BLOOD COUNT 11.8 K/mm3 (4.0-10.0)
[2016-03-23 06:42] LABS: ANION GAP 11 MEQ/L (8-16); BLOOD UREA NITROGEN 11 MG/DL (7-18); CALCIUM LEVEL 8.6 MG/DL (8.5-10.1); CARBON DIOXIDE LEVEL 25 MEQ/L (21-32); CHLORIDE LEVEL 110 MEQ/L (98-107); CREATININE FOR GFR 0.93 MG/DL (0.55-1.02); GLOMERULAR FILTRATION RATE > 60.0 (>51); GLUCOSE, FASTING 94 MG/DL (70-105); MAGNESIUM LEVEL 1.6 MG/DL (1.8-2.4); POTASSIUM SERUM 3.5 MEQ/L (3.5-5.1); SODIUM LEVEL 146 MEQ/L (136-145)
[2016-03-23] MEDS ORDERED: POTASSIUM CHLORIDE 10 MEQ SR TABLET PO ONE (07:30)
[2016-03-23] MEDS ORDERED: MAG SULF 1GM/100ML (MAG RUN) 1 GM in APPROPRIATE DILUENT 1 EA IV ONE (07:30)
--- NOTE | 2016-03-23 07:30 | CR ---
DATE OF CONSULTATION: 03/22/2016 REFERRING PHYSICIAN: Deysi Cordova MD REASON FOR CONSULTATION: Seizures. HISTORY OF PRESENT ILLNESS: Shellie Rod is a 55-year-old woman with a history of chronic neck and back pain, hypertension who was at her baseline state of health until the night before. She was also admitted on March 12 for unresponsiveness and had aspiration pneumonia resulting in hypoxic respiratory failure requiring intubation. After extubation, she left against medical advice. The night before her admission this time around 3:00 a.m., the patient reported stomach upset without diarrhea or dysuria. heard her fall down in the bathroom and later found her on the floor with shaking of her arms and legs. When emergency medical services arrived there, the patient had another seizure. She had a third seizure in the ambulance. She has history of chronic low back pain for which she has been taking tramadol for the last few months. She denies any headaches or neck pain. She denies any alcohol intake or major heading injuries in past. PAST MEDICAL HISTORY: Chronic low back pain. Hypertension. Asthma. CURRENT MEDICATIONS: - ProAir inhalation four times a day as needed - Xanax 1 mg by mouth three times a day as needed - Norvasc 10 mg by mouth daily - atenolol 12.5 mg by mouth daily - Protonix 40 mg by mouth daily - Lyrica 150 mg by mouth twice a day - tramadol - patient is unsure whether she takes 50 or 100 mg by mouth three times a day as needed - Zanaflex 2 mg by mouth three times a day as needed SOCIAL HISTORY: She has three children. She lives with her . She does not work. She denies smoking, alcohol or illicit drugs. ALLERGIES: None. FAMILY HISTORY: There is no family history of seizures. REVIEW OF SYSTEMS: All systems were reviewed and were found to be noncontributory except as mentioned in history present illness. PHYSICAL EXAMINATION: Temperature 97.8, pulse 94, respiratory rate 18, blood pressure 123/56. Heart regular rate and rhythm. Lungs clear to auscultation. Abdomen soft, nontender, nondistended. Neurological exam: Patient is awake, alert, oriented to place, person and time. Normal speech, comprehension and repetition. Extraocular muscles are intact. No facial weakness. Tongue and uvula are midline. 5/5 strength in all four extremities. Deep tendon flexes 2+ throughout. Normal sensation. Gait is normal. DIAGNOSTIC STUDIES: CT scan of her head is within normal limits. Her hemoglobin is 8.9. WBC is 15.1, platelet count 671. Her blood alcohol level is less than 0.003. Urine toxicology screen is positive for benzodiazepine, which she probably got in the emergency department. ASSESSMENT: 1. Suspected generalized tonic-clonic seizures. 2. History of chronic low back pain and use of tramadol, which can induce seizures. PLAN 1. Continue physical 150 mg by mouth twice a day. 2. Continue Keppra 500 mg by mouth twice a day. 3. Discontinue tramadol. 4. EEG. 5. Seizure precautions including no driving for six months. 6. Follow with us in one to two weeks after hospital discharge.
[2016-03-23] MEDS ORDERED: MAALOX 30 ML SUSP *UDC PO PRN (08:15)
[2016-03-23] MEDS: ALPRAZolam 0.5 MG TAB PO PRN (08:21)
[2016-03-23] MEDS: SENOKOT S TAB PO SCH ×2 (08:22→20:27)
[2016-03-23] MEDS: PANTOPRAZOLE 40MG TAB (PROTONIX) PO SCH (08:23)
[2016-03-23] MEDS: levETIRAcetam 250MG TABLET (KEPPRA) PO SCH ×2 (08:23→20:27)
[2016-03-23] MEDS: PREGABALIN 75 MG CAP(LYRICA) PO SCH ×2 (08:24→20:27)
[2016-03-23 08:29] VITALS: BP 123/73
[2016-03-23] MEDS: ATENOLOL 12.5MG PER 1/2 TABLET PO SCH (08:31)
[2016-03-23] MEDS: HEPARIN SOD (PORCINE) 5000 UNITS/ML VIAL SC SCH ×2 (08:31→20:28)
[2016-03-23] MEDS: amLODIPine 10 MG TAB PO SCH (08:31)
[2016-03-23 08:35] LABS: INR 1.05
[2016-03-23] MEDS: cefTRIAXone SOD 1 GM in D5W MINI-BAG PLUS 50 ML IV SCH (12:18)
--- NOTE | 2016-03-23 12:30 | EDDOCDS ---
Physician Documentation [facility] Name: Shellie Rod Age: 55 yrs Sex: Female : 1960 Arrival Date: 03/21/2016 Time: 04:31 Bed 1 Private MD: Disposition: 03/21/16 08:31 Hospitalization ordered by Deysi Cordova for Inpatient Admission. Preliminary diagnosis is Other seizures. - Bed requested for PCU. - Status is Inpatient Admission. dls - Condition is Stable. - Problem is new. - Symptoms are resolved. Historical: - Allergies: No known drug Allergies; - Home Meds: 1. Unknown - PMHx: Unable to obtain; - PSHx: Unable to obtain; - Social history: patient is postictal. unable to attain, Smoking status: unknown if patient ever smoked tobacco. - Family history: Not pertinent. - : Unable to assess if pt is on anticoagulants. Unable to Verify Home Med List with the patient / caregiver. - Exposure Risk Screening:: Unable to Assess. 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 LMP N/A - Post-menopause dls Vital Signs: 04:52 BP 86 / 51; Pulse 86; Resp 16; Temp 97.2(A); Pulse Ox 98% 3 lpm ; Pain 0/10; kas2 05:15 BP 121 / 74 (auto/); af2 05:15 Pulse 102 MON; Pulse Ox 99% ; af2 05:30 BP 142 / 96 (auto/); af2 05:30 Pulse 114 MON; Resp 16 S; Pulse Ox 98% on 2 lpm NC; af2 05:45 Pulse 91 MON; Pulse Ox 99% ; af2 05:45 BP 116 / 73 (auto/); af2 06:00 BP 118 / 75 (auto/); af2 06:00 Pulse 87 MON; Resp 18 S; Pulse Ox 96% on 2 lpm NC; af2 06:15 BP 115 / 75 (auto/); dls 06:15 Pulse 81 MON; Pulse Ox 98% ; dls 06:30 BP 136 / 79 (auto/); dls 06:30 Pulse 87 MON; Pulse Ox 99% ; dls 06:45 BP 147 / 85 (auto/); dls 06:45 Pulse 77 MON; Pulse Ox 98% ; dls 07:00 BP 143 / 86 (auto/); dls 07:00 Pulse 83 MON; Pulse Ox 100% ; dls 07:15 BP 133 / 81 (auto/); dls 07:15 Pulse 81 MON; Pulse Ox 99% ; dls 07:29 BP 133 / 81 (auto/); dls 07:29 Pulse 76 MON; Pulse Ox 99% ; dls 07:45 BP 133 / 78 (auto/); dls 07:45 Pulse 78 MON; Pulse Ox 99% ; dls 08:00 BP 127 / 73 (auto/); dls 08:00 Pulse 76 MON; Pulse Ox 99% ; dls 09:00 BP 142 / 73 (auto/); dls 09:00 Pulse 86 MON; Pulse Ox 96% ; dls 09:15 BP 141 / 79 (auto/); dls 09:15 Pulse 83 MON; Pulse Ox 96% ; dls 09:30 BP 141 / 79 (auto/); dls 09:30 Pulse 85 MON; Pulse Ox 98% ; dls 09:45 BP 146 / 77 (auto/); dls 09:45 Pulse 82 MON; Pulse Ox 97% ; dls 10:00 BP 142 / 81 (auto/); dls 10:00 Pulse 88 MON; Pulse Ox 97% ; dls 10:15 BP 158 / 85 (auto/); dls 10:15 Pulse 87 MON; Pulse Ox 96% ; dls 10:30 BP 144 / 71 (auto/); dls 10:35 Pulse 85 MON; Pulse Ox 97% ; dls 10:44 BP 158 / 84 (auto/); dls 10:44 Pulse 84 MON; Pulse Ox 97% ; dls 10:59 BP 158 / 86 (auto/); dls 10:59 Pulse 92 MON; Pulse Ox 98% ; dls 11:14 BP 154 / 86 (auto/); dls 11:14 Pulse 81 MON; Pulse Ox 97% ; dls 11:14 Temp 97.6(T); dls MDM: 05:35 Call Respiratory ordered. cs11 05:35 CT Head Without Contrast Ordered. EDMS 05:35 Call Respiratory complete. tmm1 05:36 CBC with Diff Ordered. EDMS 05:36 MED Profile Ordered. EDMS 05:36 Liver Profile Ordered. EDMS 05:36 Cardiac Marker Panel Ordered. EDMS 05:36 Thyroid Profile Ordered. EDMS 05:36 Ammonia ([place] Tube on Ice, Not [place]) Ordered. EDMS 05:36 -Arterial Blood Gas Ordered. EDMS 05:36 Urine Toxicology Ordered. EDMS 05:36 Urinalysis Ordered. EDMS 05:36 Urine Culture Ordered. EDMS 05:36 Chest, 1 View Ordered. EDMS 05:37 ECG WITH READING ER PHYS+CARDIAG ordered. EDMS 06:02 Financial registration complete. hs2 06:35 [facility] Payment Agreement was scanned into Smart[employer] and attached to record. hs2 07:14 ETHYL ALCOHOL (ETHANOL) Ordered. EDMS 07:20 CBC with Diff Reviewed. sd1 07:20 MED Profile Reviewed. sd1 07:20 Liver Profile Reviewed. sd1 07:20 Ammonia ([place] Tube on Ice, Not [place]) Reviewed. sd1 07:20 -Arterial Blood Gas Reviewed. sd1 07:20 Urine Toxicology Reviewed. sd1 07:20 Urinalysis Reviewed. sd1 07:20 Cardiac Marker Panel Reviewed. sd1 07:20 Thyroid Profile Reviewed. sd1 07:20 CT Head Without Contrast Reviewed. sd1 07:24 BED REQUEST+ADM ordered. EDMS 07:24 Lactic Acid ([place] tube on ice) Ordered. EDMS 07:24 Osmolality, Serum Ordered. EDMS 07:25 Acetaminophen Level Ordered. EDMS 07:25 Complete Blood Count Ordered. EDMS 07:25 Ethyl Alcohol (ethanol) Ordered. EDMS 07:25 Salicylate Level Ordered. EDMS 07:25 Thyroid Stimulating Hormone Ordered. EDMS 07:26 NS 0.9% 1000 ml IV at 250 mL/hr continuous ordered. sd1 08:00 MED Profile Reviewed. sd1 08:00 Liver Profile Reviewed. sd1 08:00 Cardiac Marker Panel Reviewed. sd1 08:00 Thyroid Profile Reviewed. sd1 08:00 ETHYL ALCOHOL (ETHANOL) Reviewed. sd1 08:13 Imipenem-Cilastatin 500 mg IVPB at 100 mL/hr once over 1 hrs; reconstitute first with dy 10mL of NS, then add to 100mL of NS ordered. 08:17 -Blood Culture (Adults Only), peripheral from different site, or from device/port/PICC sd1 etc. if present ordered. 08:18 -Blood Culture Ordered. EDMS 08:29 CARDIAC INJURY PROFILE Ordered. EDMS 08:29 TROPONIN Ordered. EDMS 08:31 -Blood Culture (Adults Only), peripheral from different site, or from device/port/PICC jb5 etc. if present complete. 08:31 BLOOD CULTURES Ordered. EDMS 08:51 MAGNESIUM LEVEL Ordered. EDMS 08:57 T-Sheet-- Draft Copy was scanned into Smartpay and attached to record. se 10:01 CT ABD & PELVIS W/O CONTRAST Ordered. EDMS 10:01 C REACTIVE PROTEIN QUANTITATIV Ordered. EDMS 10:01 BASIC METABOLIC PROFILE Ordered. EDMS 10:01 MRI Brain without Contrast Ordered. EDMS 10:04 PHYSICAL THERAPY EVAL & TREAT ordered. EDMS 10:05 Admission / Observation Status ordered. EDMS 10:06 LOW FAT LOW CHOLESTEROL DIET ordered. EDMS 01 10:05 Rhythm Strip was scanned into [employer] and attached to record. gb 10:06 Radiology Report was scanned into [employer] and attached to record. gb Administered Medications: 03/21 08:13 CANCELLED (Other Intervention Used): Imipenem-Cilastatin 500 mg IV at calculated rate dy once 08:52 Drug: Imipenem-Cilastatin 500 mg [imipenem-cilastatin 500 mg intravenous solution] dls Route: IVPB; Rate: 100 mL/hr; Infused Over: 1 hrs; Site: left antecubital; 10:20 Follow up: IV Status: Completed infusion dls 08:53 Drug: NS 0.9% 1000 ml [sodium chloride 0.9 % intravenous solution] Route: IV; Rate: 250 dls mL/hr; Site: right wrist; Signatures: Dispatcher [employer] EDDC Violeta Garcia MD MD sd1 Licha Aldridge RN Lorelei Bryant RN RN dls Leda Vasquez, Reg Reg gb Lamont Prescott, RN RN Patricia Lawton, SUTURE POLISHER SUTURE POLISHER jb5 Pablo Astorga DO DO cs11 Jenna Bennett, SUTURE POLISHER SUTURE POLISHER tmm1 Tiffanie JaegerRN RN af2 Ann-Marie Holguin, Reg Reg hs2 Henrietta CortesRN RN Violeta Ellis se The chart was reviewed and I authenticate all verbal orders and agree with the evaluation and treatment provided.Corrections: (The following items were deleted from the chart) 07:14 07:07 ETHYL ALCOHOL (ETHANOL)+LAB ordered. EDDC EDMS 07:49 04:45 Allergies: Unable to obtain; kas2 dy 08:13 07:50 Imipenem-Cilastatin 500 mg IV at calculated rate once ordered. sd1 dy 08:30 08:15 TROPONIN+LAB ordered. EDMS EDMS 08:30 08:15 CARDIAC INJURY PROFILE+LAB ordered. EDMS EDMS 08:51 07:24 MAGNESIUM LEVEL+LAB ordered. EDMS EDMS Attachments: 06:35 [facility] Payment Agreement hs2 08:57 T-Sheet-- Draft Copy [facility] Chart Complete [facility]
--- NOTE | 2016-03-23 12:30 | EDDOCDS ---
Physician Documentation [facility] Name: Shellie Rod Age: 55 yrs Sex: Female : 1960 Arrival Date: 03/21/2016 Time: 04:31 Bed 1 Private MD: Disposition: 03/21/16 08:31 Hospitalization ordered by Deysi Cordova for Inpatient Admission. Preliminary diagnosis is Other seizures. - Bed requested for PCU. - Status is Inpatient Admission. dls - Condition is Stable. - Problem is new. - Symptoms are resolved. Historical: - Allergies: No known drug Allergies; - Home Meds: 1. Unknown - PMHx: Unable to obtain; - PSHx: Unable to obtain; - Social history: patient is postictal. unable to attain, Smoking status: unknown if patient ever smoked tobacco. - Family history: Not pertinent. - : Unable to assess if pt is on anticoagulants. Unable to Verify Home Med List with the patient / caregiver. - Exposure Risk Screening:: Unable to Assess. 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 LMP N/A - Post-menopause dls Vital Signs: 04:52 BP 86 / 51; Pulse 86; Resp 16; Temp 97.2(A); Pulse Ox 98% 3 lpm ; Pain 0/10; kas2 05:15 BP 121 / 74 (auto/); af2 05:15 Pulse 102 MON; Pulse Ox 99% ; af2 05:30 BP 142 / 96 (auto/); af2 05:30 Pulse 114 MON; Resp 16 S; Pulse Ox 98% on 2 lpm NC; af2 05:45 Pulse 91 MON; Pulse Ox 99% ; af2 05:45 BP 116 / 73 (auto/); af2 06:00 BP 118 / 75 (auto/); af2 06:00 Pulse 87 MON; Resp 18 S; Pulse Ox 96% on 2 lpm NC; af2 06:15 BP 115 / 75 (auto/); dls 06:15 Pulse 81 MON; Pulse Ox 98% ; dls 06:30 BP 136 / 79 (auto/); dls 06:30 Pulse 87 MON; Pulse Ox 99% ; dls 06:45 BP 147 / 85 (auto/); dls 06:45 Pulse 77 MON; Pulse Ox 98% ; dls 07:00 BP 143 / 86 (auto/); dls 07:00 Pulse 83 MON; Pulse Ox 100% ; dls 07:15 BP 133 / 81 (auto/); dls 07:15 Pulse 81 MON; Pulse Ox 99% ; dls 07:29 BP 133 / 81 (auto/); dls 07:29 Pulse 76 MON; Pulse Ox 99% ; dls 07:45 BP 133 / 78 (auto/); dls 07:45 Pulse 78 MON; Pulse Ox 99% ; dls 08:00 BP 127 / 73 (auto/); dls 08:00 Pulse 76 MON; Pulse Ox 99% ; dls 09:00 BP 142 / 73 (auto/); dls 09:00 Pulse 86 MON; Pulse Ox 96% ; dls 09:15 BP 141 / 79 (auto/); dls 09:15 Pulse 83 MON; Pulse Ox 96% ; dls 09:30 BP 141 / 79 (auto/); dls 09:30 Pulse 85 MON; Pulse Ox 98% ; dls 09:45 BP 146 / 77 (auto/); dls 09:45 Pulse 82 MON; Pulse Ox 97% ; dls 10:00 BP 142 / 81 (auto/); dls 10:00 Pulse 88 MON; Pulse Ox 97% ; dls 10:15 BP 158 / 85 (auto/); dls 10:15 Pulse 87 MON; Pulse Ox 96% ; dls 10:30 BP 144 / 71 (auto/); dls 10:35 Pulse 85 MON; Pulse Ox 97% ; dls 10:44 BP 158 / 84 (auto/); dls 10:44 Pulse 84 MON; Pulse Ox 97% ; dls 10:59 BP 158 / 86 (auto/); dls 10:59 Pulse 92 MON; Pulse Ox 98% ; dls 11:14 BP 154 / 86 (auto/); dls 11:14 Pulse 81 MON; Pulse Ox 97% ; dls 11:14 Temp 97.6(T); dls MDM: 05:35 Call Respiratory ordered. cs11 05:35 CT Head Without Contrast Ordered. EDMS 05:35 Call Respiratory complete. tmm1 05:36 CBC with Diff Ordered. EDMS 05:36 MED Profile Ordered. EDMS 05:36 Liver Profile Ordered. EDMS 05:36 Cardiac Marker Panel Ordered. EDMS 05:36 Thyroid Profile Ordered. EDMS 05:36 Ammonia ([place] Tube on Ice, Not [place]) Ordered. EDMS 05:36 -Arterial Blood Gas Ordered. EDMS 05:36 Urine Toxicology Ordered. EDMS 05:36 Urinalysis Ordered. EDMS 05:36 Urine Culture Ordered. EDMS 05:36 Chest, 1 View Ordered. EDMS 05:37 ECG WITH READING ER PHYS+CARDIAG ordered. EDMS 06:02 Financial registration complete. hs2 06:35 [facility] Payment Agreement was scanned into [employer] and attached to record. hs2 07:14 ETHYL ALCOHOL (ETHANOL) Ordered. EDMS 07:20 CBC with Diff Reviewed. sd1 07:20 MED Profile Reviewed. sd1 07:20 Liver Profile Reviewed. sd1 07:20 Ammonia ([place] Tube on Ice, Not [place]) Reviewed. sd1 07:20 -Arterial Blood Gas Reviewed. sd1 07:20 Urine Toxicology Reviewed. sd1 07:20 Urinalysis Reviewed. sd1 07:20 Cardiac Marker Panel Reviewed. sd1 07:20 Thyroid Profile Reviewed. sd1 07:20 CT Head Without Contrast Reviewed. sd1 07:24 BED REQUEST+ADM ordered. EDMS 07:24 Lactic Acid ([place] tube on ice) Ordered. EDMS 07:24 Osmolality, Serum Ordered. EDMS 07:25 Acetaminophen Level Ordered. EDMS 07:25 Complete Blood Count Ordered. EDMS 07:25 Ethyl Alcohol (ethanol) Ordered. EDMS 07:25 Salicylate Level Ordered. EDMS 07:25 Thyroid Stimulating Hormone Ordered. EDMS 07:26 NS 0.9% 1000 ml IV at 250 mL/hr continuous ordered. sd1 08:00 MED Profile Reviewed. sd1 08:00 Liver Profile Reviewed. sd1 08:00 Cardiac Marker Panel Reviewed. sd1 08:00 Thyroid Profile Reviewed. sd1 08:00 ETHYL ALCOHOL (ETHANOL) Reviewed. sd1 08:13 Imipenem-Cilastatin 500 mg IVPB at 100 mL/hr once over 1 hrs; reconstitute first with dy 10mL of NS, then add to 100mL of NS ordered. 08:17 -Blood Culture (Adults Only), peripheral from different site, or from device/port/PICC sd1 etc. if present ordered. 08:18 -Blood Culture Ordered. EDMS 08:29 CARDIAC INJURY PROFILE Ordered. EDMS 08:29 TROPONIN Ordered. EDMS 08:31 -Blood Culture (Adults Only), peripheral from different site, or from device/port/PICC jb5 etc. if present complete. 08:31 BLOOD CULTURES Ordered. EDMS 08:51 MAGNESIUM LEVEL Ordered. EDMS 08:57 T-Sheet-- Draft Copy was scanned into [employer] and attached to record. se 10:01 CT ABD & PELVIS W/O CONTRAST Ordered. EDMS 10:01 C REACTIVE PROTEIN QUANTITATIV Ordered. EDMS 10:01 BASIC METABOLIC PROFILE Ordered. EDMS 10:01 MRI Brain without Contrast Ordered. EDMS 10:04 PHYSICAL THERAPY EVAL & TREAT ordered. EDMS 10:05 Admission / Observation Status ordered. EDMS 10:06 LOW FAT LOW CHOLESTEROL DIET ordered. EDMS 01 10:05 Rhythm Strip was scanned into [employer] and attached to record. gb 10:06 Radiology Report was scanned into [employer] and attached to record. gb Administered Medications: 03/21 08:13 CANCELLED (Other Intervention Used): Imipenem-Cilastatin 500 mg IV at calculated rate dy once 08:52 Drug: Imipenem-Cilastatin 500 mg [imipenem-cilastatin 500 mg intravenous solution] dls Route: IVPB; Rate: 100 mL/hr; Infused Over: 1 hrs; Site: left antecubital; 10:20 Follow up: IV Status: Completed infusion dls 08:53 Drug: NS 0.9% 1000 ml [sodium chloride 0.9 % intravenous solution] Route: IV; Rate: 250 dls mL/hr; Site: right wrist; Signatures: Dispatcher [employer] EDIL Violeta Garcia MD MD sd1 Licha Aldridge RN Lorelei Bryant RN RN dls Leda Vasquez, Reg Reg gb Lamont Prescott, RN RN Patricia Lawton, ELECTRIC MOTOR ASSEMBLER ELECTRIC MOTOR ASSEMBLER jb5 Pablo Astorga DO DO cs11 Jenna Bennett, ELECTRIC MOTOR ASSEMBLER ELECTRIC MOTOR ASSEMBLER tmm1 Tiffanie JaegerRN RN af2 Ann-Marie Holguin, Reg Reg hs2 Henrietta CortesRN RN Violeta Ellis se The chart was reviewed and I authenticate all verbal orders and agree with the evaluation and treatment provided.Corrections: (The following items were deleted from the chart) 07:14 07:07 ETHYL ALCOHOL (ETHANOL)+LAB ordered. EDIL EDMS 07:49 04:45 Allergies: Unable to obtain; kas2 dy 08:13 07:50 Imipenem-Cilastatin 500 mg IV at calculated rate once ordered. sd1 dy 08:30 08:15 TROPONIN+LAB ordered. EDMS EDMS 08:30 08:15 CARDIAC INJURY PROFILE+LAB ordered. EDMS EDMS 08:51 07:24 MAGNESIUM LEVEL+LAB ordered. EDMS EDMS Attachments: 06:35 [facility] Payment Agreement hs2 08:57 T-Sheet-- Draft Copy [facility] Chart [facility]
--- NOTE | 2016-03-23 12:31 | EDDOCDS ---
Nurse's Notes [facility] Name: Shellie Rod Age: 55 yrs Sex: Female : 1960 Arrival Date: 03/21/2016 Time: 04:31 Bed 1 Private MD: Diagnosis: Other seizures Presentation: 03/21 04:42 Presenting complaint: EMS states: was in next room to the bathroom and her kas2 thump in the next room. Found patient on the floor face down and unresponsive. EMS got there and patient had two witnessed seizures for them the last one lasting about a minute. SpO2 91% on RA. FSBS 162 mg/dL. No history of seizures. Adult Sepsis Screening: The patient does not have new or worsening altered mentation. Patient's respiratory rate is less than 22. Systolic blood pressure is greater than 100. Patient has a qSOFA score of 0- Negative Sepsis Screen. Suicide/Homicide risk assessment- the patient denies having any suicidal and/or homicidal ideations and does not present with any other emotional, behavioral or mental health complaints. 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 Transition of care: patient was not received from another setting of care. 04:42 Acuity: MATT Level 2 [facility] 04:42 Method Of Arrival: Ambulance [facility] Triage Assessment: 04:45 General: Appears in no apparent distress, well nourished, well groomed, Behavior is kas2 postictal. Pain: Unable to use pain scale. Patient is unresponsive. Pt Declines HIV testing. Neurological: Level of Consciousness is post ictal, Pupils are pinpoint. Cardiovascular: Capillary refill < 3 seconds Heart tones present Rhythm is sinus rhythm No ectopy. Respiratory: Airway is patent Respiratory effort is even, unlabored, Respiratory pattern is regular, symmetrical, snoring Breath sounds are clear bilaterally. GI: Abdomen is distended, obese, Bowel sounds present X 4 quads. Abd is soft and non tender X 4 quads. Derm: Skin is intact, Skin is dry, Skin is pale, Skin temperature is warm. 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 Unknown - PMHx: Unable to obtain; - PSHx: Unable to obtain; - Social history: patient is postictal. unable to attain, Smoking status: unknown if patient ever smoked tobacco. - Family history: Not pertinent. - : Unable to assess if pt is on anticoagulants. Unable to Verify Home Med List with the patient / caregiver. - Exposure Risk Screening:: Unable to Assess. Screenin:13 Screening information is obtained from the patient. Fall risk: At risk due to age, The af2 following interventions are performed due to a positive Fall Risk Screen: Fall Risk is added to Special Handling on the patient Summary Screen. A Fall Risk Bracelet was applied to the patient. Side Rails are placed in the up position. A Call Gould is given with instruction to call for help when getting out of bed. Assistance ADL's: requires no assistance with activities of daily living. Abuse/DV Screen: The patient / caregiver reports he/she is: not in a situation that causes fear, pain or injury. Nutritional screening: No deficits noted. Advance Directives: Further advance directive information is declined. home support is adequate. Assessment: 04:45 General: Appears ill, Behavior is quiet. Neurological: Level of Consciousness is post af2 ictal. Respiratory: Airway is patent Respiratory effort is even. Derm: Skin is pale. 04:55 General: See triage note.. kas2 05:24 General: Appears in no apparent distress, Behavior is cooperative, pt assisted to use af2 bed hunter at this time. . 06:15 General: Appears in no apparent distress, comfortable, Behavior is cooperative. af2 Neurological: Level of Consciousness is awake, alert. Cardiovascular: Rhythm is sinus rhythm No ectopy. Respiratory: Airway is patent Respiratory effort is even, unlabored. Derm: Skin is pale. 08:55 General: Pt resting quietly on stretcher no s/s seizure activity Additional lab studier dls drawn IV NS infusing at 250cc/he right wrist site remains patent and clear IV meds infusing well left antecubital site also remains patent and clear awaiting admission to hospital seizure precautions maintained.. 10:15 General: Pt sleeping off and on vital signs remain stable no s/s of any seizure dls activity.. Vital Signs: 04:52 BP 86 / 51; Pulse 86; Resp 16; Temp 97.2(A); Pulse Ox 98% 3 lpm ; Pain 0/10; kas2 05:15 BP 121 / 74 (auto/); af2 05:15 Pulse 102 MON; Pulse Ox 99% ; af2 05:30 BP 142 / 96 (auto/); af2 05:30 Pulse 114 MON; Resp 16 S; Pulse Ox 98% on 2 lpm NC; af2 05:45 Pulse 91 MON; Pulse Ox 99% ; af2 05:45 BP 116 / 73 (auto/); af2 06:00 BP 118 / 75 (auto/); af2 06:00 Pulse 87 MON; Resp 18 S; Pulse Ox 96% on 2 lpm NC; af2 06:15 BP 115 / 75 (auto/); dls 06:15 Pulse 81 MON; Pulse Ox 98% ; dls 06:30 BP 136 / 79 (auto/); dls 06:30 Pulse 87 MON; Pulse Ox 99% ; dls 06:45 BP 147 / 85 (auto/); dls 06:45 Pulse 77 MON; Pulse Ox 98% ; dls 07:00 BP 143 / 86 (auto/); dls 07:00 Pulse 83 MON; Pulse Ox 100% ; dls 07:15 BP 133 / 81 (auto/); dls 07:15 Pulse 81 MON; Pulse Ox 99% ; dls 07:29 BP 133 / 81 (auto/); dls 07:29 Pulse 76 MON; Pulse Ox 99% ; dls 07:45 BP 133 / 78 (auto/); dls 07:45 Pulse 78 MON; Pulse Ox 99% ; dls 08:00 BP 127 / 73 (auto/); dls 08:00 Pulse 76 MON; Pulse Ox 99% ; dls 09:00 BP 142 / 73 (auto/); dls 09:00 Pulse 86 MON; Pulse Ox 96% ; dls 09:15 BP 141 / 79 (auto/); dls 09:15 Pulse 83 MON; Pulse Ox 96% ; dls 09:30 BP 141 / 79 (auto/); dls 09:30 Pulse 85 MON; Pulse Ox 98% ; dls 09:45 BP 146 / 77 (auto/); dls 09:45 Pulse 82 MON; Pulse Ox 97% ; dls 10:00 BP 142 / 81 (auto/); dls 10:00 Pulse 88 MON; Pulse Ox 97% ; dls 10:15 BP 158 / 85 (auto/); dls 10:15 Pulse 87 MON; Pulse Ox 96% ; dls 10:30 BP 144 / 71 (auto/); dls 10:35 Pulse 85 MON; Pulse Ox 97% ; dls 10:44 BP 158 / 84 (auto/); dls 10:44 Pulse 84 MON; Pulse Ox 97% ; dls 10:59 BP 158 / 86 (auto/); dls 10:59 Pulse 92 MON; Pulse Ox 98% ; dls 11:14 BP 154 / 86 (auto/); dls 11:14 Pulse 81 MON; Pulse Ox 97% ; dls 11:14 Temp 97.6(T); dls Vitals: 04:52 Log In Time N/A - ambulance arrival. [facility] ED Course: 04:42 Henrietta Cortes RN is Primary Nurse. tmm1 04:42 Patient visited by Jenna Bennett PCA. tmm1 04:42 Patient moved to 9 tmm1 04:44 Triage Initiated kas2 04:52 Patient moved to 1 sls1 04:54 Pablo Astorga DO is Attending Physician. cs11 04:54 Patient visited by Pablo Astorga DO. cs11 04:55 Inserted saline lock: 18 gauge in left antecubital area and blood collected. The kas2 patient tolerated the procedure well. No procedures done that require assistance. 04:55 O2 via nasal cannula \T\ 2L/min. kas2 04:56 Patient visited by Henrietta Cortes RN. kas2 04:56 library monitor on. Pulse ox on. NIBP on. kas2 05:26 Patient visited by Tiffanie Jaeger RN. af2 06:13 The patient / caregiver is instructed regarding the plan of care and ED course. Patient af2 has correct armband on for positive identification. Placed in gown. 06:14 Patient visited by Tiffanie Jaeger RN. af2 06:14 -Arterial Blood Gas Sent. jc3 06:15 Patient visited by Tiffanie Jaeger RN. af2 06:16 Patient visited by Tiffanie Jaeger RN. af2 06:35 [facility] Payment Agreement was scanned into [employer] and attached to record. hs2 06:37 Patient name changed from Shellie\S\\S\Brimmer\S\ to Shellie\S\ \S\Brimmer. EDMS 06:46 CT Head Without Contrast Returned. EDMS 06:49 Patient visited by Tiffanie Jaeger RN. af2 06:49 EKG done. (by ED staff). Reviewed by Pablo Astorga DO. jrd 07:10 Attending Physician role handed off by Pablo Astorga DO sd1 07:10 Violeta Garcia MD is Attending Physician. sd1 07:35 Primary Nurse role handed off by Henrietta Cortes RN deg 07:55 Patient visited by Aurelio Oconnor. jml1 08:27 -Blood Culture Sent. jb5 08:27 Acetaminophen Level Sent. jb5 08:27 Complete Blood Count Sent. jb5 08:27 Ethyl Alcohol (ethanol) Sent. jb5 08:27 Thyroid Stimulating Hormone Sent. jb5 08:27 Salicylate Level Sent. jb5 08:31 Deysi Cordova is Hospitalizing Provider. sd1 08:37 Chest, 1 View Returned. EDMS 08:52 MAGNESIUM LEVEL Sent. dls 08:57 T-Sheet-- Draft Copy was scanned into [employer] and attached to record. se 09:37 Patient visited by Patricia Ferrell PCA. jb5 11:24 CT ABD & PELVIS W/O CONTRAST Returned. EDMS 03/22 10:05 Rhythm Strip was scanned into [employer] and attached to record. gb 10:06 Radiology Report was scanned into [employer] and attached to record. gb Administered Medications: 03/21 08:13 CANCELLED (Other Intervention Used): Imipenem-Cilastatin 500 mg IV at calculated rate dy once 08:52 Drug: Imipenem-Cilastatin 500 mg [imipenem-cilastatin 500 mg intravenous solution] dls Route: IVPB; Rate: 100 mL/hr; Infused Over: 1 hrs; Site: left antecubital; 10:20 Follow up: IV Status: Completed infusion dls 08:53 Drug: NS 0.9% 1000 ml [sodium chloride 0.9 % intravenous solution] Route: IV; Rate: 250 dls mL/hr; Site: right wrist; Attachments: 03/22 10:05 Rhythm Strip gb RT: 03/21 06:15 ABG's drawn from right radial artery pressure held for 5 minutes no bleeding noted jc3 pressure bandage applied specimen sent pt. tolerated well. Order Results: Lab Order: CBC with Diff; SPEC'M 03/21/16 04:47 Test: WHITE BLOOD COUNT; Value: 16.4; Range: 4.0-10.0; Abnormal: Above high normal; Units: K/mm3; Status: F Test: RED BLOOD COUNT; Value: 3.31; Range: 4.00-5.40; Abnormal: Below low normal; Units: M/mm3; Status: F Test: HEMOGLOBIN; Value: 9.8; Range: 12.0-16.0; Abnormal: Below low normal; Units: g/dl; Status: F Test: HEMATOCRIT; Value: 30.3; Range: 36.0-47.0; Abnormal: Below low normal; Units: %; Status: F Test: MEAN CORPUSCULAR VOLUME; Value: 91.6; Range: 80.0-96.0; Units: fl; Status: F Test: MEAN CORPUSCULAR HEMOGLOBIN; Value: 29.5; Range: 27.0-33.0; Units: pg; Status: F Test: MEAN CORPUSCULAR HGB CONC; Value: 32.2; Range: 32.0-36.5; Units: g/dl; Status: F Test: RED CELL DISTRIBUTION WIDTH; Value: 13.4; Range: 11.5-14.5; Units: %; Status: F Test: PLATELET COUNT, AUTOMATED; Value: 695; Range: 150-450; Abnormal: Above high normal; Units: k/mm3; Status: F Test: NEUTROPHILS %; Value: 83.0; Range: 36.0-66.0; Abnormal: Above high normal; Units: %; Status: F Test: LYMPH %; Value: 11.8; Range: 24.0-44.0; Abnormal: Below low normal; Units: %; Status: F Test: MONO %; Value: 2.5; Range: 0.0-5.0; Units: %; Status: F Test: EOS %; Value: 1.0; Range: 0.0-3.0; Units: %; Status: F Test: BASO %; Value: 0.4; Range: 0.0-1.0; Units: %; Status: F Test: LARGE UNSTAINED CELL %; Value: 1.3; Range: 0.0-4.0; Units: %; Status: F Test: NEUTROPHILS #; Value: 13.6; Range: 1.8-7.7; Abnormal: Above high normal; Units: K/mm3; Status: F Test: LYMPH #; Value: 1.9; Range: 1.5-4.5; Units: K/mm3; Status: F Test: MONO #; Value: 0.4; Range: 0.0-0.8; Units: K/mm3; Status: F Test: EOS #; Value: 0.2; Range: 0.0-0.50; Units: K/mm3; Status: F Test: BASO #; Value: 0.1; Range: 0.0-0.2; Units: K/mm3; Status: F Test: LARGE UNSTAINED CELL #; Value: 0.2; Range: 0.0-0.4; Units: K/mm3; Status: F Lab Order: MED Profile; SPEC'M 03/21/16 04:47 Test: GLUCOSE, FASTING; Value: 163; Range: 70-105; Abnormal: Above high normal; Units: MG/DL; Status: F Test: BLOOD UREA NITROGEN; Value: 17; Range: 7-18; Units: MG/DL; Status: F Test: CREATININE FOR GFR; Value: 1.85; Range: 0.55-1.02; Abnormal: Above high normal; Units: MG/DL; Status: F Test: GLOMERULAR FILTRATION RATE; Value: 30.4; Range: >51; Abnormal: Below low normal; Status: F Test: SODIUM LEVEL; Value: 141; Range: 136-145; Units: MEQ/L; Status: F Test: POTASSIUM SERUM; Value: 4.2; Range: 3.5-5.1; Units: MEQ/L; Status: F Test: CHLORIDE LEVEL; Value: 105; Range: 98-107; Units: MEQ/L; Status: F Test: CARBON DIOXIDE LEVEL; Value: 12; Range: 21-32; Abnormal: Below low normal; Units: MEQ/L; Status: F Test: ANION GAP; Value: 24; Range: 8-16; Abnormal: Above high normal; Units: MEQ/L; Status: F Test: CALCIUM LEVEL; Value: 8.7; Range: 8.5-10.1; Units: MG/DL; Status: F Test Note: ; Units are mL/min/1.73 m2 Chronic Kidney Disease Staging per NKF: Stage I & II GFR >=60 Normal to Mildly Decreased Stage III GFR 30-59 Moderately Decreased Stage IV GFR 15-29 Severely Decreased Stage V GFR <15 Very Little GFR Left ESRD GFR <15 on SAP DEVELOPER Lab Order: Liver Profile; SPEC'M 03/21/16 04:47 Test: AST/SGOT; Value: 31; Range: 15-37; Units: U/L; Status: F Test: ALT/SGPT; Value: 22; Range: 12-78; Units: U/L; Status: F Test: ALKALINE PHOSPHATASE; Value: 119; Range: 45-117; Abnormal: Above high normal; Units: U/L; Status: F Test: BILIRUBIN,TOTAL; Value: 0.2; Range: 0.2-1.0; Units: MG/DL; Status: F Test: BILIRUBIN,DIRECT; Value: < 0.1; Range: 0.0-0.2; Units: MG/DL; Status: F Test: TOTAL PROTEIN; Value: 7.1; Range: 6.4-8.2; Units: GM/DL; Status: F Test: ALBUMIN; Value: 2.8; Range: 3.2-5.2; Abnormal: Below low normal; Units: GM/DL; Status: F Test: ALBUMIN/GLOBULIN RATIO; Value: 0.65; Range: 1.00-1.93; Abnormal: Below low normal; Status: F Lab Order: Cardiac Marker Panel; [facility] 03/21/16 04:47 Test: CPK CREATINE PHOSPHOKINASE; Value: 51; Range: 26-192; Units: U/L; Status: F Test: CK-MB VALUE MASS; Value: 1.0; Range: 0.0-3.6; Units: NG/ML; Status: F Test: MB/CK RELATIVE INDEX; Value: 1.96; Range: < OR =4; Status: F Test: TROPONIN I; Value: < 0.02; Range: < 0.10; Units: NG/ML; Status: F Test Note: ; DIAGNOSIS CRITERIA MMB ng/ml Relative Index (RI) NON-AMI < or = 5 N/A [place] > 5 < or = 4 AMI > 5 > 4 Lab Order: Thyroid Profile; [facility]03/21/16 04:47 Test: T UPTAKE; Value: 33; Range: 30-39; Units: %; Status: F Test: THYROXINE (T4); Value: 10.3; Range: 4.5-12.0; Units: UG/DL; Status: F Test: FREE THYROXINE INDEX; Value: 3.4; Range: 1.3-4.8; Units: %; Status: F Test: THYROID STIMULATING HORMONE; Value: 3.190; Range: 0.358-3.740; Units: uIU/ML; Status: F Lab Order: Ammonia ([place] Tube on Ice, Not [place]); SPEC03/21/16 04:47 Test: AMMONIA; Value: 49; Range: <32; Abnormal: Above high normal; Units: uMOL/L; Status: F Lab Order: -Arterial Blood Gas; 03/21/16 06:12 Test: ABG pH (ARTERIAL); Value: 7.408; Range: 7.350-7.450; Units: UNITS; Status: F Test: ABG PARTIAL PRESSURE CO2; Value: 30.3; Range: 35.0-45.0; Abnormal: Below low normal; Units: mmHg; Status: F Test: ABG PARTIAL PRESSURE O2; Value: 112.4; Range: 75.0-100.0; Abnormal: Above high normal; Units: mmHg; Status: F Test: ABG TOTAL CO2; Value: 19.6; Range: 22.0-29.0; Abnormal: Below low normal; Units: MEQ/L; Status: F Test: ABG HCO3; Value: 18.7; Range: 22.0-26.0; Abnormal: Below low normal; Units: MEQ/L; Status: F Test: ABG BASE EXCESS; Value: -5.2; Range: -2.0-2.0; Abnormal: Below low normal; Status: F Test: ABG STANDARD HCO3; Value: 20.2; Range: 22.0-26.0; Abnormal: Below low normal; Units: MEQ/L; Status: F Test: ABG O2 SATURATION; Value: 98.2; Range: 95.0-99.0; Units: %; Status: F Test: ABG DEVICE; Value: NASAL FAISAL; Status: F Lab Order: Urine Toxicology; 03/21/16 05:45 Test: AMPHETAMINES LEVEL URINE; Value: NEGATIVE; Range: NEGATIVE; Status: F Test: BARBITURATES URINE; Value: NEGATIVE; Range: NEGATIVE; Status: F Test: BENZODIAZEPINES URINE; Value: POSITIVE; Range: NEGATIVE; Abnormal: Above high normal; Status: F Test: CANNABINOIDS URINE; Value: NEGATIVE; Range: NEGATIVE; Status: F Test: COCAINE METABOLITE URINE; Value: NEGATIVE; Range: NEGATIVE; Status: F Test: METHADONE URINE; Value: NEGATIVE; Range: NEGATIVE; Status: F Test: OPIATES URINE; Value: NEGATIVE; Range: NEGATIVE; Status: F Test: TRICYCLIC ANTIDEPRESS URINE; Value: NEGATIVE; Range: NEGATIVE; Status: F Test Note: ; ALL PRESUMPTIVE POSITIVE FINDINGS ARE UNCONFIRMED NORMAL VALUES THRESHOLD IN NG/ML AMPHETAMINES 1000 METHAMPHETAMINES 1000 BARBITURATES 300 BENZODIAZEPINES 300 CANNABINOIDS (THC) 50 COCAINE METABOLITE 300 METHADONE 300 OPIATES 300 PHENCYCLIDINE 25 TRICYCLIC ANTIDEPRESSANTS 1000 RESULTS ARE FOR MEDICAL PURPOSES ONLY. ALL URINE SPECIMENS WILL BE SAVED FOR 3 DAYS. IF CONFIRMATION OF A PRESUMPTIVE POSTIVE SCREEN RESULT IS DESIRED, CALL CHEMISTRY ([phone]) AND REQUEST URINE TO BE SENT TO REFERENCE LAB. FOR A LIST OF CLOSELY RELATED COMPOUNDS PLEASE CALL THE LAB. Lab Order: Urinalysis; SPEC'M 03/21/16 05:45 Test: APPEARANCE, URINE; Value: TURBID; Range: CLEAR; Abnormal: Above high normal; Status: F Test: COLOR, URINE; Value: TIFFANIE; Range: YELLOW; Status: F Test: PH,URINE; Value: 5.0; Range: 5.0-9.0; Units: UNITS; Status: F Test: SPECIFIC GRAVITY URINE AUTO; Value: 1.015; Range: 1.002-1.035; Status: F Test: PROTEIN, URINE AUTO; Value: 2+; Range: NEGATIVE; Abnormal: Above high normal; Units: mg/dL; Status: F Test: GLUCOSE, URINE (UA) AUTO; Value: NEGATIVE; Range: NEGATIVE; Units: mg/dL; Status: F Test: KETONE, URINE AUTO; Value: NEGATIVE; Range: NEGATIVE; Units: mg/dL; Status: F Test: UROBILINOGEN, URINE AUTO; Value: 0.2; Range: 0.0-2.0; Units: mg/dL; Status: F Test: BILIRUBIN, URINE AUTO; Value: NEGATIVE; Range: NEGATIVE; Status: F Test: NITRITE, URINE AUTO; Value: NEGATIVE; Range: NEGATIVE; Status: F Test: LEUKOCYTE ESTERASE, URINE AUTO; Value: 2+; Range: NEGATIVE; Abnormal: Above high normal; Status: F Test: BLOOD, URINE BLOOD; Value: 1+; Range: NEGATIVE; Abnormal: Above high normal; Status: F Test: SPERM, URINE AUTO; Range: NONE; Status: I Test: WBC, URINE AUTO; Value: 79; Range: 0-3; Abnormal: Above high normal; Units: /HPF; Status: F Test: RBC, URINE AUTO; Value: 35; Range: 0-3; Abnormal: Above high normal; Units: /HPF; Status: F Test: BACTERIA, URINE AUTO; Value: 1+; Range: NEGATIVE; Abnormal: Above high normal; Status: F Test: SQUAMOUS EPITHELIAL CELL UR AU; Value: 127; Range: 0-6; Units: /HPF; Status: F Test: MUCUS, URINE; Value: MODERATE; Range: NEGATIVE; Status: F Test: HYALINE CAST, URINE AUTO; Value: 0; Range: 0-1; Units: /LPF; Status: F Test: GRANULAR CAST, URINE AUTO; Value: 22; Range: NONE; Units: /LPF; Status: F Test: CALCIUM OXALATE CRYSTALS; Value: MODERATE; Range: NONE; Status: F Lab Order: ETHYL ALCOHOL (ETHANOL); 03/21/16 04:47 Test: ETHYL ALCOHOL (ETHANOL); Value: < 0.003; Range: 0.000-0.010; Units: %; Status: F Lab Order: Lactic Acid ([place] tube on ice); 03/21/16 08:23 Test: LACTIC ACID LEVEL, LACTATE; Value: 1.1; Range: 0.4-2.0; Units: MMOL/L; Status: F Lab Order: Osmolality, Serum; 03/21/16 08:23 Test: OSMOLALITY SERUM; Value: 291; Range: 275-295; Units: MOSM/KG; Status: F Lab Order: Acetaminophen Level; 03/21/16 08:23 Test: ACETAMINOPHEN LEVEL; Value: < 2.0; Range: 10.0-30.0; Abnormal: Below low normal; Units: UG/ML; Status: F Lab Order: Complete Blood Count; 03/21/16 08:23 Test: WHITE BLOOD COUNT; Value: 22.2; Range: 4.0-10.0; Abnormal: Above high normal; Units: K/mm3; Status: F Test: RED BLOOD COUNT; Value: 3.20; Range: 4.00-5.40; Abnormal: Below low normal; Units: M/mm3; Status: F Test: HEMOGLOBIN; Value: 9.2; Range: 12.0-16.0; Abnormal: Below low normal; Units: g/dl; Status: F Test: HEMATOCRIT; Value: 28.4; Range: 36.0-47.0; Abnormal: Below low normal; Units: %; Status: F Test: MEAN CORPUSCULAR VOLUME; Value: 88.9; Range: 80.0-96.0; Units: fl; Status: F Test: MEAN CORPUSCULAR HEMOGLOBIN; Value: 28.8; Range: 27.0-33.0; Units: pg; Status: F Test: MEAN CORPUSCULAR HGB CONC; Value: 32.4; Range: 32.0-36.5; Units: g/dl; Status: F Test: RED CELL DISTRIBUTION WIDTH; Value: 14.2; Range: 11.5-14.5; Units: %; Status: F Test: PLATELET COUNT, AUTOMATED; Value: 669; Range: 150-450; Abnormal: Above high normal; Units: k/mm3; Status: F Lab Order: Ethyl Alcohol (ethanol); SPEC03/21/16 08: Test: ETHYL ALCOHOL (ETHANOL); Value: < 0.003; Range: 0.000-0.010; Units: %; Status: F Lab Order: Salicylate Level; SPEC03/21/16 08:23 Test: SALICYLATE LEVEL; Value: < 1.7; Range: 5.0-30.0; Abnormal: Below low normal; Units: MG/DL; Status: F Lab Order: Thyroid Stimulating Hormone; SPEC03/21/16 08:23 Test: THYROID STIMULATING HORMONE; Value: 1.590; Range: 0.358-3.740; Units: uIU/ML; Status: F Lab Order: CARDIAC INJURY PROFILE; SPEC03/21/16 08:23 Test: CPK CREATINE PHOSPHOKINASE; Value: 54; Range: 26-192; Units: U/L; Status: F Test: CK-MB VALUE MASS; Value: 1.1; Range: 0.0-3.6; Units: NG/ML; Status: F Test: MB/CK RELATIVE INDEX; Value: 2.03; Range: < OR =4; Status: F Test Note: ; DIAGNOSIS CRITERIA MMB ng/ml Relative Index (RI) NON-AMI < or = 5 N/A [place] > 5 < or = 4 AMI > 5 > 4 Lab Order: TROPONIN; SPEC'M 03/21/16 08:23 Test: TROPONIN I; Value: 0.02; Range: < 0.10; Units: NG/ML; Status: F Test Note: ; Troponin I Reference Interval for iGo LOCI: 99th Percentile= 0.00-0.045 ng/ml Risk Stratification: <= 0.10 ng/ml Decreased Risk for Adverse Clinical Events. 0.10-1.50 ng/ml Increased Risk for Adverse Clinical Events. Evaluation of additional criterion and/or repeat testing in 2-6 hours is suggested to rule out myocardial damage. >= 1.50 ng/ml Indicative of Myocardial Injury. Lab Order: MAGNESIUM LEVEL; SPEC'M 03/21/16 08:23 Test: MAGNESIUM LEVEL; Value: 1.8; Range: 1.8-2.4; Units: MG/DL; Status: F Lab Order: C REACTIVE PROTEIN QUANTITATIV; SPEC'M 03/21/16 08:09 Test: C REACTIVE PROTEIN QUANTITATIV; Value: 1.86; Range: 0.00-0.30; Abnormal: Above high normal; Units: MG/DL; Status: F Radiology Order: CT Head Without Contrast Test: CT Head Without Contrast REASON FOR EXAMINATION: Syncope; ; CLINICAL HISTORY: Syncope.; TECHNIQUE: Multiple axial CT images were obtained through brain without IV contrast material.; COMMENTS:; The study shows normal configuration of sella turcica.; There are no intra or extra-axial collections. There is no mass effect or midline shift. There is no; evidence of hematoma formation. No hydrocephalus is present.; The ventricles are symmetrical. No abnormal calcifications are present.; No significant focal abnormalities are seen either in the posterior fossa or supratentorial compartme; nt.; IMPRESSION:; No acute intracranial pathology.; Thank you for your kind referral of this patient.; ; ; Radiology Order: Chest, 1 View Test: Chest, 1 View REASON FOR EXAMINATION: Syncope; Clinical: Syncope .; ; Comparison: 03/16/2016 .; ; Findings:; The mediastinum and cardiac silhouette are stable and within normal limits for; portable technique. The lung mendieta demonstrate improved aeration with decreased; left upper lobe infiltrate. No obvious pneumothorax. No obvious pleural; effusion. Skeletal structures intact.; ; Impression:; Improved aeration with nearly resolved left upper lobe infiltrate.; ; ; Signed by; Dario Hassan MD 03/21/2016 08:19 A; Radiology Order: CT ABD & PELVIS W/O CONTRAST Test: CT ABD & PELVIS W/O CONTRAST REASON FOR EXAMINATION: abd pain; Clinical: Generalized abdominal pain.; ; Comparison: 03/12/2016.; ; Findings:; Lung bases are relatively clear and previously noted bibasilar atelectasis has; resolved. Visualized heart and pericardium normal.; ; Liver, spleen, pancreas, gallbladder, left adrenal gland and right kidney are; normal for noncontrast evaluation. Right adrenal gland demonstrates 2.2 cm stable; benign adenoma. Left kidney demonstrates mild perinephric stranding and 2 mm; nonobstructing calculus. The enteric system is without obstruction or acute; inflammatory process. Normal terminal ileum and appendix identified in the right; lower quadrant. Colonic and sigmoid diverticula noted without acute; diverticulitis. Previously identified colitis has resolved. Pelvis demonstrates; partially collapsed normal bladder and age-appropriate uterus/adnexa. No pelvic; fluid. No ascites. No free air. No adenopathy. Abdominal aorta normal caliber; without aneurysm. Musculoskeletal structures intact and stable.; ; Impression:; 1. Previously noted colitis resolved.; 2. Stable right adrenal adenoma and 2 mm nonobstructing left renal calculus.; 3. Colonic and sigmoid diverticula without acute diverticulitis.; 4. No acute intra-abdominal or pelvic pathology appreciated.; ; ; Signed by; Dario Hassan MD 03/21/2016 10:55 A; Outcome: 08:31 Decision to Hospitalize by Provider. sd1 11:24 Discharge Assessment: Patient awake, alert and oriented x 3. No cognitive and/or dls functional deficits noted. Patient verbalized understanding of disposition instructions. Patient awake and alert. Oriented to person, place and time. patient administered narcotics - no. The following High Risk Discharge criteria are identified: None. Admitted to PCU accompanied by nurse, via stretcher, on monitor, with chart. Condition: stable. CT Study completed. Property :Personal belongings accompany Pt. 11:26 Admission hand-off: Report Faxed Fax receipt verified by PCU staff. dls 11:29 Patient left the ED. dls Signatures: Dispatcher [employer] EDVioleta Szymanski MD MD sd1 Isabell Carreon, [employer] deg Lorelei Rivas, RN RN dls Leda Vasquez, Reg Reg gb Lamont Prescott, RN RN Patricia Lawton, SECURITY TECH SECURITY TECH jb5 Adán Campos3 Clair Greer, RN RN sls1 Aurelio Oconnor jml1 Pablo Astorga, DO cs11 Jenna Bennett, SECURITY TECH SECURITY TECH tmm1 Adán Tellez, SECURITY TECH SECURITY TECH jrd Tiffanie Jaeger,RN RN af2 AnnM-arie Holguin, Reg Reg hs2 Henrietta Cortes,RN RN michael2 Violeta Wynn Corrections: (The following items were deleted from the chart) 07:49 04:45 Allergies: Unable to obtain; kas2 dy 08:30 08:27 CARDIAC INJURY PROFILE+LAB sent. jb5 EDMS 08:30 08:27 TROPONIN+LAB sent. jb5 EDMS Chart Complete MTDD
[2016-03-23] MEDS ORDERED: SODIUM CHLORIDE 0.9% 1000 ML IV ONE (13:45)
[2016-03-23 14:00] VITALS: BP 109/72
--- NOTE | 2016-03-23 14:18 | IPN ---
DATE: 03/23/2016 Time patient was seen was this morning around 1014. The patient has been seen and examined at the bedside. The patient did not go home yesterday due to she still feels weak and does not feel well. Per patient, she still has abdominal discomfort similar to where she had a seizure last time. Otherwise, she denies any fever or chills, any chest pain, shortness of breath, abdominal pain, nausea, vomiting, diarrhea or constipation. Denies any other current new complaints. PHYSICAL EXAMINATION: VITAL SIGNS: Temperature is 97.7, pulse 78, respirations 18, blood pressure 112/74, with oxygen saturating at 96% in room air. The patient's total input yesterday was 2114, total output was 1395. GENERAL: The patient is a morbidly obese middle-aged female who was alert, awake , oriented times three. Does not appear to be in any distress, resting comfortably in bed with her head elevated at 30 degrees, otherwise following all commands. HEENT: Normocephalic atraumatic. Extraocular muscles intact. Mucosa moist. Neck is supple. No neck lymphadenopathy. CARDIOVASCULAR: Regular rate and rhythm. S1, S2. No murmur, rubs or gallops. LUNGS: Clear to auscultation bilaterally. No rales or rhonchi. ABDOMEN: Positive bowel sounds. Soft, nontender, nondistended. No signs of ecchymosis. EXTREMITIES: No edema, clubbing or cyanosis. SKIN: Warm and dry. NEURO: Cranial nerves II through XII intact. Nonfocal. No auditory deficit. The patient does have a hyperreflexia of bilateral lower extremities however. LABS: WBC 11.8, hemoglobin 9.1, hematocrit 28.1 with platelet count notable for 654. Sodium 146, potassium 3.5, chloride 110, bicarbonate 25, BUN 11, creatinine 0.93 , GFR greater than 60, glucose 94. Serum osmolality was 297, lactic acid 1.9, calcium 8.6, magnesium 1.6, lipase 535. Blood culture times two are pending. MRSA screening is pending. Blood culture from 2 days ago preliminary results shows gram positive cocci in clusters times one. Patient had an MRI of the brain yesterday that shows unremarkable noncontrast MRI of the brain. ASSESSMENT/PLAN: 55-year-old female with the past medical history of obesity, asthma, hypertension, chronic pain admitted for episodes of seizure. 1. Episodes of seizure: Possibly secondary to tramadol. Continue Keppra and neurology has been consulted. Will follow neurology recommendation. The patient also received an MRI of the brain and also EEG. MRI did not show any acute findings. EEG will be read by Dr. Gutierrez and the patient will followup with him outpatient. At this point, the patient was cleared to be discharged yesterday by neurology. However the patient still does not feel well, therefore, she stayed. In addition, her blood culture times one also shows gram positive cocci in clusters. Will continue to monitor. 2. Possible bacteremia with 1 out of 2 positive blood culture for gram positive cocci. The patient is currently on Rocephin. She did have a pneumonia a few weeks ago which has been proven. Chest x-ray on 03/21/2015 does snow resolving left upper lobe infiltrate. Will continue to monitor. Continue Rocephin. 3. The patient does have a mildly elevated lipase today, which was 535, likely secondary to dehydration. Will give the patient a small bolus of normal saline 500 mL and will check lipase again tomorrow morning. 4. Chronic kidney disease. The patient is back to baseline. 5. Hypokalemia, resolved. 6. Hypomagnesemia, repleted. 7. History of asthma: Continue inhaler. 8. Chronic pain: The patient's tramadol has been discontinued due to possibly causing seizure. 9. Anxiety: Continue home medication. 10. Hypertension: Continue home medication. 11. History of leaving against medical advice (AMA). The patient was in the hospital the last time for pneumonia and she left AMA. 12. Deep venous thrombosis prophylaxis: On Subcutaneous heparin. DISPOSITION: Neurology has cleared the patient to leave yesterday, however, today she has a positive blood culture 1 out of 2. In addition, she does not feel well and has abdominal discomfort. Will continue to monitor the patient in the hospital and discharge her once her symptoms improve. The patient has been discussed with the attending doctor, Dr. Cordova. My preceptor for this patient encounter was Dr. Deysi Cordova. The preceptor was physically present in the building during the encounter and was fully available. As needed, all aspects of the patient interview, examination, medical decision making process, and medical care plan development were reviewed and approved by the preceptor. The preceptor is aware and concurs with the plan as stated in the body of this note and will attest to such by his/her cosignature. I have both independently examined this patient as well as reviewed the note. I have discussed in detail with the resident the findings and plan of treatment as documented in the residents note. I will continue to follow the patient and offer further guidance to the patients care as necessary during this hospital stay. Deysi BERGERON
[2016-03-23 22:00] VITALS: BP 116/73
[2016-03-24 06:00] VITALS: BP 105/62
[2016-03-24] MEDS: ACETAMINOPHEN TAB 650MG DOSE (2X325MG) PO PRN ×3 (06:37→20:38)
[2016-03-24 06:42] LABS: MEAN CORPUSCULAR HEMOGLOBIN 28.6 pg (27.0-33.0); MEAN CORPUSCULAR HGB CONC 31.7 g/dl (32.0-36.5); MEAN CORPUSCULAR VOLUME 90.2 fl (80.0-96.0); RED CELL DISTRIBUTION WIDTH 13.7 % (11.5-14.5); WHITE BLOOD COUNT 10.8 K/mm3 (4.0-10.0)
[2016-03-24 06:52] LABS: ANION GAP 9 MEQ/L (8-16); BLOOD UREA NITROGEN 11 MG/DL (7-18); CALCIUM LEVEL 8.8 MG/DL (8.5-10.1); CARBON DIOXIDE LEVEL 27 MEQ/L (21-32); CHLORIDE LEVEL 109 MEQ/L (98-107); CREATININE FOR GFR 0.95 MG/DL (0.55-1.02); GLOMERULAR FILTRATION RATE > 60.0 (>51); GLUCOSE, FASTING 101 MG/DL (70-105); MAGNESIUM LEVEL 1.7 MG/DL (1.8-2.4); POTASSIUM SERUM 3.6 MEQ/L (3.5-5.1); SODIUM LEVEL 145 MEQ/L (136-145)
[2016-03-24] MEDS ORDERED: POTASSIUM CHLORIDE 10 MEQ SR TABLET PO ONE (07:15)
[2016-03-24] MEDS ORDERED: MAG SULF 1GM/100ML (MAG RUN) 1 GM in APPROPRIATE DILUENT 1 EA IV ONE (07:15)
[2016-03-24] MEDS: HEPARIN SOD (PORCINE) 5000 UNITS/ML VIAL SC SCH ×2 (08:39→20:38)
[2016-03-24] MEDS: amLODIPine 10 MG TAB PO SCH (08:40)
[2016-03-24] MEDS: SENOKOT S TAB PO SCH ×2 (08:40→20:38)
[2016-03-24] MEDS: PANTOPRAZOLE 40MG TAB (PROTONIX) PO SCH (08:40)
[2016-03-24] MEDS: PREGABALIN 75 MG CAP(LYRICA) PO SCH ×2 (08:41→20:38)
[2016-03-24] MEDS: ATENOLOL 12.5MG PER 1/2 TABLET PO SCH (08:41)
[2016-03-24] MEDS: levETIRAcetam 250MG TABLET (KEPPRA) PO SCH ×2 (08:42→20:37)
--- NOTE | 2016-03-24 08:42 | EEG ---
DATE OF PROCEDURE: 03/22/2016 REFERRING PHYSICIAN: Dr. Deysi Cordova DIAGNOSIS: Seizure. EEG NUMBER: [id number] CLINICAL HISTORY: The patient is a 55-year-old woman with a history of seizures. She is currently on tramadol, Lyrica, Keppra, ceftriaxone, amlodipine, atenolol, etc. TECHNICAL DESCRIPTION: This digital EEG was recorded by 21 scalp, ear and two EKG electrodes and was reviewed in bipolar and referential montages following reformatting in 10-20 [employer] Electrode Placement System. INTERPRETATION: The patient was noted to be in awake and drowsy states during this EEG. Resting awake background consisted of well-formed posterior dominant rhythm with anterior/posterior gradient comprising of 9 Hz alpha activity measuring 15 - 40 microvolts in amplitude, which was symmetric and reactive to eye opening. Attenuation of posterior dominant rhythm was seen during transition into drowsiness. Stage I and II sleep were reviewed and were symmetric bilaterally. Hyperventilation could not be performed. Photic stimulation at 3-30 Hz elicited symmetric photic driving, especially at mid frequencies. EKG revealed normal sinus rhythm. No focal, lateralizing or epileptiform abnormalities were seen. No clinical or electrographic seizures were recorded. CONCLUSION: This EEG in awake, drowsy states, stage I and II sleep is within normal limits.
[2016-03-24] MEDS: ALPRAZolam 0.5 MG TAB PO PRN ×2 (08:54→20:43)
--- NOTE | 2016-03-24 12:15 | IPN ---
DATE: 03/24/2016 Time patient was seen was this morning at 9:00 a.m. The patient was seen and examined at the bedside. No acute events overnight. The patient feels better. He no longer has an upset stomach. He denies any fever or chills, any chest pain, trouble breathing, any diarrhea or constipation , or any problem with urination. Denies any other current new complaints. PHYSICAL EXAMINATION: VITAL SIGNS: Temperature is 96.7, pulse 91, respirations 18, blood pressure 105/62, with oxygen saturating at 93% on room air. GENERAL: The patient is a morbidly obese female who was alert, awake, oriented times three. Does not appear to be in distress, resting comfortably in bed with head elevated at 30 degrees. HEENT: Normocephalic atraumatic. Extraocular muscles intact. Mucosa moist. Neck is supple. No neck lymphadenopathy. CARDIOVASCULAR: Regular rate and rhythm. S1, S2. Difficult to assess due to body habitus. LUNGS: Clear to auscultation bilaterally. No rales or rhonchi. ABDOMEN: Positive bowel sounds. Soft, nontender, nondistended. No peritoneal signs. No ecchymosis. EXTREMITIES: No edema, clubbing or cyanosis. The patient however does have reduced coordination with impaired finger to nose with the right arm. Otherwise finger to nose was within normal limits on the left side. Also lower extremity heel to byrnes was within normal limits. SKIN: Warm and dry. Neurologic: Cranial nerves II-XII intact. LABS: WBC 10.8, hemoglobin 9, hematocrit 28.5 with a platelet count of 592. Sodium 145, potassium 3.6, chloride 109, bicarbonate 27, BUN 11, creatinine 0.95 , GFR 60, glucose 101, calcium 8.8, magnesium 1.7. Lipase today is slightly improved, it was 428. Blood culture times two shows no growth after 24 hours. Patient's blood culture from three days ago however, one of the two, shows positive for gram positive cocci in clusters. No new imaging. The patient also had an EEG done yesterday. Result today shows the EEG was Stage 1 and Stage 2 and is within normal limits. ASSESSMENT/PLAN: 55-year-old female with the past medical history of obesity, asthma, hypertension, and chronic pain admitted for episode of seizure. 1. Episodes of seizure, possibly secondary to tramadol side effect. Patient has been discontinued. Neurology has been consulted. Appreciate their recommendation. Continue Keppra. MRI of the brain has been negative. EEG has been within normal limits. However, patient still feels weak. Also has positive blood culture. Therefore, the patient stayed waiting for result. Continue patient on antibiotic Rocephin. 2. Possible bacteremia, 1 out of 2 blood cultures. Continue Rocephin currently. Will follow the new blood culture. 3. Mildly elevated lipase yesterday, likely secondary to dehydration and seizure. Patient did receive a small bolus of normal saline 500 mL. Will continue to monitor. 4. Chronic kidney disease. Currently back to baseline. 5. Hypokalemia, resolved. 6. Hypomagnesemia, repleted. 7. History of asthma. Continue inhaler. 8. Chronic pain. Tramadol has been discontinued due to possible seizure. 9. Anxiety. Continue home medication. 10. Hypertension. Continue home medication. 11. History of leaving against medical advice (AMA) on last admission for pneumonia. Continue to monitor. 12. Deep venous thrombosis prophylaxis. On Subcutaneous heparin. DISPOSITION: Neurology has cleared the patient to go two days ago; however, patient's blood culture shows gram positive cocci. Will continue to follow up with the culture and continue patient on IV antibiotic. The patient has been discussed with the attending doctor, Dr. Cordova. My preceptor for this patient encounter was Dr. Deysi Cordova. The preceptor was physically present in the building during the encounter and was fully available. As needed, all aspects of the patient interview, examination, medical decision making process, and medical care plan development were reviewed and approved by the preceptor. The preceptor is aware and concurs with the plan as stated in the body of this note and will attest to such by his/her cosignature. I have both independently examined this patient as well as reviewed the note. I have discussed in detail with the resident the findings and plan of treatment as documented in the residents note. I will continue to follow the patient and offer further guidance to the patients care as necessary during this hospital stay. Deysi BERGERON
[2016-03-24] MEDS: cefTRIAXone SOD 1 GM in D5W MINI-BAG PLUS 50 ML IV SCH (12:49)
[2016-03-24 14:00] VITALS: BP 123/83
[2016-03-24 22:00] VITALS: BP_SYST 117; BP_SYST 139; BP_DIAS 69; BP_DIAS 72
[2016-03-25 06:00] VITALS: BP_SYST 121; BP_SYST 134; BP_DIAS 77; BP_DIAS 78
[2016-03-25 07:26] LABS: MEAN CORPUSCULAR HEMOGLOBIN 28.9 pg (27.0-33.0); MEAN CORPUSCULAR HGB CONC 31.7 g/dl (32.0-36.5); MEAN CORPUSCULAR VOLUME 91.1 fl (80.0-96.0); RED CELL DISTRIBUTION WIDTH 13.8 % (11.5-14.5); WHITE BLOOD COUNT 11.6 K/mm3 (4.0-10.0)
[2016-03-25 07:47] LABS: ANION GAP 11 MEQ/L (8-16); BLOOD UREA NITROGEN 12 MG/DL (7-18); CALCIUM LEVEL 9.1 MG/DL (8.5-10.1); CARBON DIOXIDE LEVEL 26 MEQ/L (21-32); CHLORIDE LEVEL 107 MEQ/L (98-107); CREATININE FOR GFR 0.96 MG/DL (0.55-1.02); GLOMERULAR FILTRATION RATE > 60.0 (>51); GLUCOSE, FASTING 104 MG/DL (70-105); MAGNESIUM LEVEL 1.7 MG/DL (1.8-2.4); POTASSIUM SERUM 3.8 MEQ/L (3.5-5.1); SODIUM LEVEL 144 MEQ/L (136-145)
--- NOTE | 2016-03-25 08:36 | PHACANCOPD ---
PHARMACY VANCOMYCIN DOSING Pt Demographics Demographics Patient Age:55 , Weight:82.500 , Gender: female Adjusted Body Weight Date: 03/25/16, Adjusted Body Weight: [64.44] Kg Vancomycin Vancomycin indication: sepsis Vancomycin Target Ranges: 15-20 mcg/ml Vancomycin Load Y/N: Yes Load Dose Date Time Vancomycin Load Dose: 1500 mg Date: 03/25/16 Time: 0900 Vancomycin Dose Date: 03/25/16. Current Vancomycin Dose: [1g IV Q12H] Intermittent Dosing?: No Labs Labs Item Value Date Time White Blood Count 11.6 K/mm3 H 03/25/16 0702 White Blood Count 10.8 K/mm3 H 03/24/16 0622 White Blood Count 11.8 K/mm3 H 03/23/16 0608 Creatinine 0.96 MG/DL 03/25/16 0702 Creatinine 0.95 MG/DL 03/24/16 0622 Creatinine 0.93 MG/DL 03/23/16 0608 Micro Microbiology 03/23/16 Blood Culture - Preliminary, Resulted No growth after 24 hours . All specim... 03/23/16 Blood Culture - Preliminary, Resulted No growth after 24 hours . All specim... 03/21/16 Blood Culture - Preliminary, Resulted No Growth after 72 hours. All specime... 03/21/16 Blood Culture - Final, Complete Staphylococcus Epidermidis 03/23/16 MRSA Screen - Final, Complete 03/21/16 Urine Culture - Final, Complete Yeast Like Organism Creatinine Clearance Date:03/25/16. Estimated Creatinine Clearance: [~60.3 ml/min]. Pending Labs Vancomycin trough scheduled 03/27/16 @0800 Assessment and Plan Maintaining Current Dose?: Yes Reason for dose change: No Dose Change Pharmacist Note Pharmacist Note Date: 03/25/16. Pharmacist note: Day #1 Vancomycin initiated with a 1500 mg loading dose followed by a maintenance regimen of 1g IV Q12H for the treatment of sepsis - aiming for a goal trough of 15-20 mcg/ml. Patient is currently afebrile, but spiked a fever of 101.2 within the last 24 hours. WBC is elevated. Blood cultures from 03/21/16 grew staph epi 03/22. Repeat blood cultures are pending. MRSA screen was negative and patient has no PMH of MRSA. Patient was previously on vancomycin here at [facility] during 03/11/16 admission for the treatment of sepsis/pneumonia. A trough has been scheduled for 03/27/16 @ 0800, prior to the 5th dose. We will continue to monitor the patient and make adjustments as needed. YUNIOR [facility] Mar 25, 2016 08:36
[2016-03-25] MEDS: ATENOLOL 12.5MG PER 1/2 TABLET PO SCH (08:56)
[2016-03-25] MEDS: PANTOPRAZOLE 40MG TAB (PROTONIX) PO SCH (08:56)
[2016-03-25] MEDS: ASPIRIN 81 MG ENTERIC TAB PO SCH (08:57)
[2016-03-25] MEDS: ALPRAZolam 0.5 MG TAB PO PRN ×3 (08:58→20:52)
[2016-03-25] MEDS: levETIRAcetam 250MG TABLET (KEPPRA) PO SCH ×2 (08:58→20:51)
[2016-03-25] MEDS: amLODIPine 10 MG TAB PO SCH (08:58)
[2016-03-25] MEDS: HEPARIN SOD (PORCINE) 5000 UNITS/ML VIAL SC SCH ×2 (08:59→20:51)
[2016-03-25] MEDS: PREGABALIN 75 MG CAP(LYRICA) PO SCH ×2 (08:59→20:52)
[2016-03-25] MEDS: VANCOMYCIN HCL 1,000 MG, VIAL MATE ADAPTER 1 EACH in D5W 250 ML IV SCH ×2 (09:00→20:51)
[2016-03-25] MEDS: SENOKOT S TAB PO SCH ×2 (09:00→20:52)
[2016-03-25] MEDS ORDERED: MAG SULF 1GM/100ML (MAG RUN) 1 GM in APPROPRIATE DILUENT 1 EA IV ONE (09:00)
[2016-03-25] MEDS ORDERED: VANCOMYCIN HCL 500 MG in D5W MINI-BAG PLUS 100 ML IV ONE (10:00)
--- NOTE | 2016-03-25 12:07 | REP ---
CHEST, TWO VIEWS: Two views of the chest are performed and compared to multiple prior exams, most recent of which is 03/21/2016. There appears to be fibroatelectatic change in the left base. There may be some mild streaky residual infiltrate in the left upper lobe but this appears improved compared to the prior study. No new infiltrates are seen. Cardiac silhouette is upper limits of normal in size. The mediastinal silhouette is unchanged. There are mild degenerative changes of the spine. IMPRESSION: Improved left upper lobe infiltrate with possible mild residual. No new infiltrates. Signed by Ochoa Clark MD 03/25/2016 03:21 P
[2016-03-25] MEDS: cefTRIAXone SOD 1 GM in D5W MINI-BAG PLUS 50 ML IV SCH (13:04)
[2016-03-25 14:00] VITALS: BP 103/64
[2016-03-25] MEDS: ACETAMINOPHEN TAB 650MG DOSE (2X325MG) PO PRN (16:58)
--- NOTE | 2016-03-25 19:24 | IPN ---
DATE: 03/25/2016 TIME SEEN: This morning at 10:45. SUBJECTIVE: The patient is seen and examined at the bedside. No acute events overnight. The patient did have a fever, however, yesterday at 10 p.m. temperature was 101.2. However, the patient denies any chills, denies any additional discomfort in the stomach. However, she did have diarrhea three times yesterday as well. Denies any chest pain, trouble breathing, any nausea or vomiting, any problem with urination. Denies any change of sensation. Denies any weakness on any side of her body. PHYSICAL EXAMINATION: VITAL SIGNS: Temperature was 97.7, pulse 89, respirations 16, blood pressure 121/78, oxygen saturation 97% on room air. GENERAL: The patient is an obese, middle-aged female who is alert, awake, oriented times three. Does not appear to be in distress. Resting comfortably in bed with her head elevated at 30 degrees. HEENT: Normocephalic, atraumatic. Extraocular muscles intact. Mucus moist. NECK: Supple, no neck lymphadenopathy. CARDIOVASCULAR: Regular rate and rhythm. S1, S2. The patient does have a 3/6 systolic heart murmur. LUNGS: Clear to auscultation bilaterally. No wheezes, rales, or rhonchi. ABDOMEN: Positive bowel sounds. Soft, nontender. No peritoneal signs or ecchymosis. EXTREMITIES: No edema, clubbing or cyanosis. SKIN: Warm and dry. NEUROLOGIC: Cranial nerves II through XII intact. Patient's finger to nose has improved on the right side. Muscle strength 5/5 bilaterally upper and lower extremities. LABORATORY DATA: WBC 11.6, hemoglobin 10, hematocrit 31.5, with platelet count of 603. MCV was 91.1%. Sodium 144, potassium 3.8, chloride 107, bicarbonate 26, BUN 11, creatinine was 0.96, GFR greater than 60, fasting glucose 104, calcium 9.1, magnesium 1.7. MICROBIOLOGY: The patient had repeat urinalysis today that shows improvement compared to four days ago with 4 WBC , 4 RBC, and 1+ bacteria. The patient's urine culture is pending. The patient had a respiratory panel this morning that shows negative for respiratory panel, and she also has a blood culture from two days ago that shows no growth after two days. However, her blood culture from four days ago, one out of two shows Staphylococcus epidermidis which was sensitive to gentamicin and Zyvox, tetracycline, Bactrim, vancomycin. Resistant to clindamycin, erythromycin , oxacillin, and penicillin G. IMAGING: The patient had a two-view chest x-ray today, shows improved left upper lobe infiltrate with possible mild residual. No new infiltrate. ASSESSMENT AND PLAN: A 55-year-old female with past medical history of obesity, asthma, hypertension, chronic pain, admitted for episodes of seizure. 1. Episodes of seizure, possibly secondary to tramadol side effect. Neurology has been consulted. We will follow Dr. Gutierrez's recommendation. Recommended to discontinue tramadol and start the patient on Keppra. MRI of the brain has been negative. Electroencephalogram (EEG) was within normal limits. The patient, however, still felt weak. Therefore, she was not discharged two days ago, and also yesterday, blood culture came back to be positive, shows Staphylococcus epidermidis, and the patient has been started on vancomycin today. 2. Possible bacteremia, one out of two blood cultures. The patient has been started on vancomycin. Rocephin has been discontinued. 3. Elevated lipase yesterday. Patient did receive a small bolus of normal saline 500 mL and shows improvement. The patient denies any abdominal pain. The patient, however, does have some diarrhea yesterday and abscess on the stomach is no longer present. 4. Chronic kidney disease. Back to baseline. 5. Hypokalemia, resolved. 6. Hypomagnesemia, repleted. 7. History of asthma. Continue inhaler. 8. Chronic pain. Tramadol discontinued due to possibly causing the seizure. 9. Anxiety. Continue home medication. 10. Hypertension. Continue home medication. 11. History of leaving against medical advice (AMA) on last admission for pneumonia. Continue to monitor. 12. Deep venous thrombosis (DVT) prophylaxis. On subcutaneous heparin. DISPOSITION: Neurology has cleared the patient to leave three days ago; however, patient has positive blood culture; therefore, the patient was kept for further observation. So far, the new blood culture has not shown any organisms. We will IV vancomycin. The patient has been discussed with the attending doctor, Dr. Cordova. My preceptor for this patient encounter was Dr. Deysi Cordova. The preceptor was physically present in the building during the encounter and was fully available as needed. All aspects of the patient interview, examination, medical decision making process, and medical care plan development were reviewed and approved by the preceptor. The preceptor is aware and concurs with the plan as stated in the body of this note and will attest to such by his/her co-signature. I have both independently examined this patient as well as reviewed the note. I have discussed in detail with the resident the findings and plan of treatment as documented in the residents note. I will continue to follow the patient and offer further guidance to the patients care as necessary during this hospital stay. Deysi BERGERON
[2016-03-25 22:00] VITALS: BP 100/63
[2016-03-26 00:06] LABS: ALDOSTERONE <1.0 ng/dL (0.0-30.0)
[2016-03-26] MEDS: ACETAMINOPHEN TAB 650MG DOSE (2X325MG) PO PRN ×2 (05:52→11:41)
[2016-03-26] MEDS: ALPRAZolam 0.5 MG TAB PO PRN ×2 (05:52→11:41)
[2016-03-26 06:00] VITALS: BP 99/63
[2016-03-26 07:03] LABS: MEAN CORPUSCULAR HEMOGLOBIN 29.1 pg (27.0-33.0); MEAN CORPUSCULAR HGB CONC 31.9 g/dl (32.0-36.5); MEAN CORPUSCULAR VOLUME 91.2 fl (80.0-96.0); RED CELL DISTRIBUTION WIDTH 14.7 % (11.5-14.5); WHITE BLOOD COUNT 10.7 K/mm3 (4.0-10.0)
[2016-03-26 07:34] LABS: ANION GAP 11 MEQ/L (8-16); BLOOD UREA NITROGEN 15 MG/DL (7-18); CALCIUM LEVEL 8.6 MG/DL (8.5-10.1); CARBON DIOXIDE LEVEL 25 MEQ/L (21-32); CHLORIDE LEVEL 109 MEQ/L (98-107); CREATININE FOR GFR 0.92 MG/DL (0.55-1.02); GLOMERULAR FILTRATION RATE > 60.0 (>51); GLUCOSE, FASTING 103 MG/DL (70-105); MAGNESIUM LEVEL 1.6 MG/DL (1.8-2.4); POTASSIUM SERUM 3.8 MEQ/L (3.5-5.1); SODIUM LEVEL 145 MEQ/L (136-145)
[2016-03-26] MEDS: ATENOLOL 12.5MG PER 1/2 TABLET PO SCH ×2 (08:16→08:17)
[2016-03-26] MEDS: VANCOMYCIN HCL 1,000 MG, VIAL MATE ADAPTER 1 EACH in D5W 250 ML IV SCH (08:16)
[2016-03-26] MEDS: HEPARIN SOD (PORCINE) 5000 UNITS/ML VIAL SC SCH (08:16)
[2016-03-26] MEDS: PREGABALIN 75 MG CAP(LYRICA) PO SCH (08:16)
[2016-03-26 08:17] VITALS: BP 99/63
[2016-03-26] MEDS: SENOKOT S TAB PO SCH (08:17)
[2016-03-26] MEDS: amLODIPine 10 MG TAB PO SCH (08:17)
[2016-03-26] MEDS: PANTOPRAZOLE 40MG TAB (PROTONIX) PO SCH (08:17)
[2016-03-26] MEDS: ASPIRIN 81 MG ENTERIC TAB PO SCH (08:17)
[2016-03-26] MEDS: levETIRAcetam 250MG TABLET (KEPPRA) PO SCH (08:17)
[2016-03-26] MEDS ORDERED: BACT800T5 PO (09:59)
[2016-03-26] MEDS ORDERED: MAG SULF 1GM/100ML (MAG RUN) 1 GM in APPROPRIATE DILUENT 1 EA IV ONE (10:15)
[2016-03-26] MEDS ORDERED: XANA1TAB2 PO (10:48)
--- NOTE | 2016-03-26 19:20 | DSES ---
DATE OF ADMISSION: 03/21/2016 DATE OF DISCHARGE: 03/26/2016 PRIMARY CARE PROVIDER: Licha Michaud NEUROLOGIST: Dr. Gutierrez FINAL DIAGNOSES: Seizure disorder. Possible Gram-positive bacteremia. Elevated lipase. Acute kidney injury. Hypokalemia. Hypomagnesemia. History of asthma. Chronic pain. Anxiety. Hypertension. Recent history of pneumonia, aspiration. HISTORY OF PRESENT ILLNESS: This is a 55-year-old female patient with underlying medical history of asthma, chronic pain, hypertension, chronic neck and back pain. The patient was initially admitted to the hospital on 03/12/2016 for unresponsiveness, aspiration pneumonia, hypoxic respiratory failure requiring intubation, hypernatremia and dehydration. The patient was extubated and following extubation, the patient left against medical advice. This time, the patient was brought in by . Around 3 o'clock in the morning, reported upset stomach with no diarrhea, no dysuria and around 3 o'clock in the morning, the patient's heard a noise in the bathroom and subsequently found the patient unresponsive on the floor shaking with tonic-clonic movement. Emergency medical services (EMS) arrived. When EMS arrived, the patient was more arousable. When lifted onto the stretcher, the patient had another episodes of seizure. Subsequently, en route here, the patient also had additional seizure, was given Versed by EMS in the emergency room. The patient was a bit drowsy, more responsive, initially postictal, later returned to baseline. Positive tongue biting. Denies any illicit drug use. Denies any alcohol. Denies any chest pain or discomfort. Denies any neurological deficits. Denies any fevers or chills, bowel or bladder incontinence. Subsequently, the patient was admitted. Neurology, Dr. Gutierrez, has been consulted. The patient was loaded on Keppra and had one episode of seizure on the day of admission, given Ativan, loaded on Keppra, started on Keppra 500 mg oral twice a day. Cultures were sent. Initially started on antibiotics for urinary tract infection (UTI) and possible pneumonia given patient left previously against medical advice. Cultures were sent and appreciated and C-reactive protein was followed. Physical therapy was done. As per Dr. Gutierrez, possible seizure due to tramadol given tramadol lowers seizure threshold. Subsequently tramadol was discontinued. The patient had no further episodes of seizure. Originally planned to discharge the patient on 03/22/2016, discharge was postponed for severe deconditioning and also preliminary positive blood culture. Subsequently discharge has been on hold and deep vein thrombosis (DVT) prophylaxis provided, physical therapy was done. Final blood culture returned with Staphylococcus epidermidis. The patient currently feels much better and ready for discharge for further care as an outpatient. Home health care referral has been made. VITAL SIGNS: Temperature 98.4, pulse 96, respirations 14, blood pressure 99/63, pulse oximetry 95% on room air. LABORATORY: WBC 10.7, hemoglobin and hematocrit 9.3 over 29, platelets 444. Sodium 145, potassium 3.8, chloride 109, bicarbonate 25, BUN 15, creatinine 0.92. DISCHARGE MEDICATIONS: - Bactrim double strength one tablet by mouth twice a day for 3 more days - Keppra 500 mg by mouth twice a day - ProAir inhalation four times a day as needed - Norvasc 10 mg by mouth daily - atenolol 12.5 mg by mouth daily - Protonix 40 mg by mouth daily - Lyrica 150 mg by mouth twice a day - Zanaflex 4 mg by mouth three times a day as needed - The patient's Xanax 1 mg by mouth as needed was continued. Tramadol was discontinued. DISCHARGE INSTRUCTIONS: The patient was instructed to followup with primary care provider in 7 days, followup with neurologist in 1-2 weeks. MRI done during this admission was negative. EEG was also done during this admission.
== END 2016-03-26 12:05 | disposition home health service (06) | DRG 53 ==
LOC: M ED 04:31 → M ED INP 10:03 → M PCU 11:35 → M MS5PR 03-23 00:30
PROVIDERS: ADMIT Hospitalist; ATTEND Hospitalist
DX: G40.409 Other generalized epilepsy and epileptic syndromes, not intractable, without status epilepticus (principal); N17.9 Acute kidney failure, unspecified; R78.81 Bacteremia; E83.42 Hypomagnesemia; I12.9 Hypertensive chronic kidney disease with stage 1 through stage 4 chronic kidney disease, or unspecified chronic kidney disease; E66.9 Obesity, unspecified; D72.829 Elevated white blood cell count, unspecified; N18.9 Chronic kidney disease, unspecified; E87.6 Hypokalemia; J45.909 Unspecified asthma, uncomplicated; G89.29 Other chronic pain; F41.9 Anxiety disorder, unspecified; E86.0 Dehydration; M54.5 Low back pain; M54.2 Cervicalgia; R19.7 Diarrhea, unspecified; E78.89 Other lipoprotein metabolism disorders; Z68.32 Body mass index [BMI] 32.0-32.9, adult; B95.8 Unspecified staphylococcus as the cause of diseases classified elsewhere; Z79.899 Other long term (current) drug therapy

== ENCOUNTER → 2016-03-30 | Outpatient (CLI) | payer OTHER ==
[~2016-03-30] MED LIST changes: +BACT800T5 PO; +KEPP250T5 PO; +PROA1AER INH; +ZANA4TAB PO
--- NOTE | 2016-03-30 12:14 | REP ---
PA and lateral chest 03/30/2016 Indication Staphylococcus pneumonia Comparison made with prior chest radiographs 03/11/2016 03/13/16, 03/21/16, 03/25/16 Findings: The cardiomediastinal silhouette is normal. Mild interstitial changes are seen with left upper lobe predominance. This is most compatible with sequela of previous pneumonia. On there were bilateral patchy upper lobe infiltrates. There are no visualized pleural effusions. The bones and soft tissues within normal limits Impression: mild interstitial changes persist within the left upper lobe primarily. Pt. previously had bilateral upper lobe pneumonias as can be seen with aspiration, yet alveolar infiltrates have resolved. Recommend followup to complete resolution Signed by Martha Donato MD 03/30/2016 12:06 P
[2016-03-30 13:22] LABS: BASO % 0.6 % (0.0-1.0); EOS # 0.3 K/mm3 (0.0-0.50); EOS % 3.2 % (0.0-3.0); LYMPH # 1.4 K/mm3 (1.5-4.5); LYMPH % 14.6 % (24.0-44.0); MEAN CORPUSCULAR HEMOGLOBIN 29.9 pg (27.0-33.0); MEAN CORPUSCULAR HGB CONC 32.1 g/dl (32.0-36.5); MEAN CORPUSCULAR VOLUME 93.2 fl (80.0-96.0); MONO # 0.5 K/mm3 (0.0-0.8); MONO % 4.8 % (0.0-5.0); NEUTROPHILS # 7.2 K/mm3 (1.8-7.7); NEUTROPHILS % 75.4 % (36.0-66.0); RED CELL DISTRIBUTION WIDTH 13.8 % (11.5-14.5); WHITE BLOOD COUNT 9.6 K/mm3 (4.0-10.0)
[2016-03-30 13:34] LABS: ALBUMIN 3.1 GM/DL (3.2-5.2); ALBUMIN/GLOBULIN RATIO 0.78 (1.00-1.93); BILIRUBIN,TOTAL 0.4 MG/DL (0.2-1.0); CALCIUM LEVEL 8.9 MG/DL (8.5-10.1); CREATININE FOR GFR 1.79 MG/DL (0.55-1.02); GLOMERULAR FILTRATION RATE 31.5 (>51); POTASSIUM SERUM 4.8 MEQ/L (3.5-5.1); TOTAL PROTEIN 7.1 GM/DL (6.4-8.2)
== END | disposition home or self-care (01) ==
LOC: M WUC 11:19
PROVIDERS: ATTEND Physician Assistant Medical
DX: E86.0 Dehydration (principal); J15.29 Pneumonia due to other staphylococcus

== ENCOUNTER → 2016-04-27 | Outpatient (CLI) | payer OTHER ==
[2016-04-27 13:07] LABS: BASO # 0.1 K/mm3 (0.0-0.2); BASO % 0.8 % (0.0-1.0); EOS # 0.3 K/mm3 (0.0-0.50); EOS % 2.4 % (0.0-3.0); LYMPH # 1.6 K/mm3 (1.5-4.5); LYMPH % 14.5 % (24.0-44.0); MEAN CORPUSCULAR HGB CONC 31.8 g/dl (32.0-36.5); MEAN CORPUSCULAR VOLUME 91.1 fl (80.0-96.0); MONO # 0.3 K/mm3 (0.0-0.8); MONO % 2.5 % (0.0-5.0); NEUTROPHILS # 8.6 K/mm3 (1.8-7.7); NEUTROPHILS % 79.4 % (36.0-66.0); RED CELL DISTRIBUTION WIDTH 13.3 % (11.5-14.5); WHITE BLOOD COUNT 10.8 K/mm3 (4.0-10.0)
[2016-04-27 13:37] LABS: ALBUMIN 4.3 GM/DL (3.2-5.2); ALBUMIN/GLOBULIN RATIO 0.96 (1.00-1.93); BILIRUBIN,TOTAL 0.4 MG/DL (0.2-1.0); CALCIUM LEVEL 9.6 MG/DL (8.5-10.1); CREATININE FOR GFR 2.35 MG/DL (0.55-1.02); PHOSPHORUS LEVEL 3.8 MG/DL (2.5-4.9); TOTAL PROTEIN 8.8 GM/DL (6.4-8.2)
[2016-04-27 13:40] LABS: POTASSIUM SERUM 5.4 MEQ/L (3.5-5.1)
== END | disposition home or self-care (01) ==
LOC: M WUC 11:41
PROVIDERS: ATTEND Physician Assistant Medical
DX: G40.89 Other seizures (principal)

== ENCOUNTER → 2016-05-07 | Outpatient (CLI) | payer OTHER ==
--- NOTE | 2016-05-07 15:13 | REP ---
RENAL ULTRASOUND: HISTORY: Renal failure. The kidneys are normal in echogenicity. The right kidney measures 5 cm in transverse by 4.5 cm in AP by 10.5 cm in cephalocaudal dimensions. The left kidney measures 4 cm in transverse by 4.6 cm in AP by 10.1 cm in cephalocaudal dimensions. There is no hydronephrosis or mass. There are no filling defects in the urinary bladder. IMPRESSION: Normal renal ultrasound. Signed by Pawan Prather MD 05/07/2016 03:30 P
== END | disposition home or self-care (01) ==
LOC: M RAD 13:41
PROVIDERS: ATTEND Physician Assistant Medical
DX: N19 Unspecified kidney failure (principal)

== ENCOUNTER → 2016-06-02 | Outpatient (CLI) | payer OTHER ==
[2016-06-02 18:12] LABS: ALBUMIN 3.9 GM/DL (3.2-5.2); ALKALINE PHOSPHATASE 82 U/L (45-117); ALT/SGPT 22 U/L (12-78); ANION GAP 12 MEQ/L (8-16); AST/SGOT 21 U/L (15-37); BILIRUBIN,TOTAL 0.4 MG/DL (0.2-1.0); BLOOD UREA NITROGEN 20 MG/DL (7-18); CALCIUM LEVEL 9.6 MG/DL (8.5-10.1); CARBON DIOXIDE LEVEL 26 MEQ/L (21-32); CHLORIDE LEVEL 104 MEQ/L (98-107); CREATININE FOR GFR 0.59 MG/DL (0.55-1.02); GLOMERULAR FILTRATION RATE > 60.0 (>51); GLUCOSE, FASTING 90 MG/DL (70-105); POTASSIUM SERUM 3.8 MEQ/L (3.5-5.1); SODIUM LEVEL 142 MEQ/L (136-145); TOTAL PROTEIN 7.8 GM/DL (6.4-8.2)
[2016-06-02 18:17] LABS: BASO # 0.1 K/mm3 (0.0-0.2); BASO % 0.6 % (0.0-1.0); EOS # 0.2 K/mm3 (0.0-0.50); EOS % 2.1 % (0.0-3.0); LYMPH # 3.1 K/mm3 (1.5-4.5); LYMPH % 28.1 % (24.0-44.0); MEAN CORPUSCULAR HEMOGLOBIN 29.6 pg (27.0-33.0); MEAN CORPUSCULAR HGB CONC 32.8 g/dl (32.0-36.5); MEAN CORPUSCULAR VOLUME 90.1 fl (80.0-96.0); MONO # 0.6 K/mm3 (0.0-0.8); MONO % 5.3 % (0.0-5.0); NEUTROPHILS # 6.5 K/mm3 (1.8-7.7); NEUTROPHILS % 62.3 % (36.0-66.0); RED CELL DISTRIBUTION WIDTH 15.2 % (11.5-14.5); WHITE BLOOD COUNT 10.5 K/mm3 (4.0-10.0)
== END ==
LOC: M WUC 12:38
PROVIDERS: ATTEND Physician Assistant Medical
DX: N19 Unspecified kidney failure (principal)

== ENCOUNTER → 2016-06-18 | Outpatient (CLI) | payer OTHER ==
--- NOTE | 2016-06-18 10:32 | REP ---
MR CERVICAL SPINE WITHOUT CONTRAST: HISTORY: Cervicalgia. COMPARISON: 09/09/2015 A disc bulge with associated osteophyte formation is present at the C5-6 level. There is minimal effacement of the thecal sac without spinal cord compression. Bilateral uncinate process hypertrophy is present. This produces minimal narrowing of the C5 neural foramina. There is no other disc bulge or herniation. The remaining neural foramina are patent. The spinal cord is normal in signal intensity. The C5-6 intervertebral disc is decreased in height consistent with disc degeneration. Increased signal intensity on T2-weighted images is present in the endplates of the C5 and C6 vertebral bodies. This represents degenerative change. IMPRESSION: There is cervical spondylosis at the C5-6 level without spinal cord compression. There is no change compared to the previous study. Signed by Pawan Prathre MD 06/18/2016 10:47 A
== END ==
LOC: M RAD 09:26
PROVIDERS: ATTEND Physician Assistant Medical
DX: M47.812 Spondylosis without myelopathy or radiculopathy, cervical region (principal)

== ENCOUNTER → 2016-07-06 | Outpatient (CLI) | payer OTHER ==
--- NOTE | 2016-07-06 12:18 | REP ---
LUMBAR SPINE, SEVEN VIEWS: HISTORY: Back pain. There is no acute fracture or subluxation. The L3-4 through L5-S1 intervertebral discs are decreased in height consistent with disc degeneration. The facet joints are normal in appearance. IMPRESSION: Degenerative change as described above. Signed by Pawan Prather MD 07/06/2016 12:33 P
--- NOTE | 2016-07-06 13:09 | REP ---
RIGHT SHOULDER, THREE VIEWS: HISTORY: Pain. There is no acute fracture or dislocation. The joint spaces are normal in appearance. IMPRESSION: There is no acute fracture or dislocation. Signed by Pawan Prather MD 07/06/2016 01:17 P
== END ==
LOC: M WUC 11:34
PROVIDERS: ATTEND Physician Assistant Medical
DX: M51.36 Other intervertebral disc degeneration, lumbar region (principal); M51.37 Other intervertebral disc degeneration, lumbosacral region

== ENCOUNTER → 2016-08-03 | Outpatient (CLI) | payer OTHER ==
[2016-08-03 13:51] LABS: BASO % 0.5 % (0.0-1.0); EOS # 0.2 K/mm3 (0.0-0.50); LYMPH # 1.9 K/mm3 (1.5-4.5); LYMPH % 17.7 % (24.0-44.0); MEAN CORPUSCULAR HEMOGLOBIN 29.9 pg (27.0-33.0); MEAN CORPUSCULAR HGB CONC 33.4 g/dl (32.0-36.5); MEAN CORPUSCULAR VOLUME 89.5 fl (80.0-96.0); MONO # 0.6 K/mm3 (0.0-0.8); NEUTROPHILS # 7.2 K/mm3 (1.8-7.7); NEUTROPHILS % 72.6 % (36.0-66.0); RED CELL DISTRIBUTION WIDTH 13.6 % (11.5-14.5); WHITE BLOOD COUNT 9.8 K/mm3 (4.0-10.0)
[2016-08-03 14:03] LABS: ALBUMIN 3.7 GM/DL (3.2-5.2); ALBUMIN/GLOBULIN RATIO 0.93 (1.00-1.93); ALKALINE PHOSPHATASE 90 U/L (45-117); ALT/SGPT 35 U/L (12-78); ANION GAP 7 MEQ/L (8-16); AST/SGOT 24 U/L (15-37); BILIRUBIN,TOTAL 0.3 MG/DL (0.2-1.0); BLOOD UREA NITROGEN 15 MG/DL (7-18); CALCIUM LEVEL 9.6 MG/DL (8.5-10.1); CARBON DIOXIDE LEVEL 28 MEQ/L (21-32); CHLORIDE LEVEL 106 MEQ/L (98-107); CREATININE FOR GFR 0.65 MG/DL (0.55-1.02); GLOMERULAR FILTRATION RATE > 60.0 (>51); GLUCOSE, FASTING 101 MG/DL (70-105); POTASSIUM SERUM 3.6 MEQ/L (3.5-5.1); SODIUM LEVEL 141 MEQ/L (136-145); TOTAL PROTEIN 7.7 GM/DL (6.4-8.2)
[2016-08-05 13:38] LABS: ALBUMIN 4.19 GM/DL (3.29-5.55); ALBUMIN % 54.4 % (55.8-66.1); GAMMA GLOBULIN % 12.3 % (11.1-18.8)
[2016-08-10 00:06] LABS: Lyme Disease IgG/IgM Antibodie <0.91 ISR (0.00-0.90); Lyme Disease IgM Ab Quantitati <0.80 index (0.00-0.79)
== END ==
LOC: M WUC 10:02
PROVIDERS: ATTEND Physician Assistant Medical
DX: M13.80 Other specified arthritis, unspecified site (principal)

== ENCOUNTER → 2016-08-06 | Outpatient (CLI) | payer OTHER ==
--- NOTE | 2016-08-06 13:06 | REP ---
MRI LUMBAR SPINE WITHOUT CONTRAST: 08/06/2016. Comparison x-ray: 07/06/2016. Clinical history: Low back pain, sacroiliitis bilateral. Technique: Sagittal T1, T2 STIR images with axial T1 and T2 sequences provided. Findings: Normal lordosis is slightly reduced on the sagittal images. The vertebral body heights and marrow signal are normal throughout the lower thoracic spine from T11 through the S2 segment. The disc space heights show slight narrowing at L4-5 and L5-S1 with slight loss of disc water signal while L3-4 levels and above in the lumbar spine maintain height and water signal compression deformity or destructive lesion in the vertebral bodies. Conus terminates at the T12-L1 level. T11-12, T12-L1, L1-2 and L2-3 disc levels show no bulge herniation and no spinal or foraminal stenosis. At L3-4 there is very mild disc bulge flattening ventral thecal sac. Cross-sectional area of the canal ample. Some hypertrophic facet changes. Foramina show ample perineural fat without nerve root compression. At L4-5 some mild broad-based disc bulge flattening ventral thecal sac. Some ligamentum flavum and facet hypertrophic changes are present, this causes mild central canal stenosis. The left L5 root in the canal is displaced posteriorly. Bulge extends into the left foramen with a small protrusion there. The right foramen shows ample subarachnoid space. Left foramen shows slight loss of perineural fat but no nerve root compression. At L5-S1 disc bulge at posterior osteophytic ridge and this abuts the S1 nerve roots, but cross-sectional area of the canal was adequate. There are some hypertrophic facet change. Foramina show adequate perineural fat. Impression: 1. Some mild degenerative disc changes at L4-5 which shows a broad-based disc bulge abutting and displacing the left L5 nerve root in the central canal and left lateral disc protrusion into the foramen but this does not cause compression of the L4 root. 2. Disc bulge at L5- S1 with central protrusion but not causing a central canal stenosis. Foramina appears adequate. Levels from L3-4 and above were unremarkable. Signed by Gino Berrios MD 08/06/2016 02:55 P
== END ==
LOC: M RAD 11:01
PROVIDERS: ATTEND Pain Medicine Interventional Pain Medicine
DX: M70.60 Trochanteric bursitis, unspecified hip (principal); M46.1 Sacroiliitis, not elsewhere classified; M51.36 Other intervertebral disc degeneration, lumbar region; M79.1 Myalgia; M70.22 Olecranon bursitis, left elbow; M50.20 Other cervical disc displacement, unspecified cervical region; M50.320 Other cervical disc degeneration, mid-cervical region, unspecified level; M47.812 Spondylosis without myelopathy or radiculopathy, cervical region; M51.06 Intervertebral disc disorders with myelopathy, lumbar region; M51.17 Intervertebral disc disorders with radiculopathy, lumbosacral region; Y93.9 Activity, unspecified

== ENCOUNTER → 2016-10-28 | Outpatient (CLI) | payer OTHER ==
[~2016-10-28] MED LIST changes: -PROA1AER INH; +PROAAER10 INH
[2016-10-28 14:06] LABS: BASO % 0.6 % (0.0-1.0); EOS # 0.1 K/mm3 (0.0-0.50); EOS % 1.2 % (0.0-3.0); LYMPH # 1.3 K/mm3 (1.5-4.5); LYMPH % 13.7 % (24.0-44.0); MEAN CORPUSCULAR HEMOGLOBIN 30.8 pg (27.0-33.0); MEAN CORPUSCULAR HGB CONC 33.6 g/dl (32.0-36.5); MEAN CORPUSCULAR VOLUME 91.7 fl (80.0-96.0); MONO # 0.3 K/mm3 (0.0-0.8); MONO % 3.2 % (0.0-5.0); NEUTROPHILS # 7.1 K/mm3 (1.8-7.7); NEUTROPHILS % 80.7 % (36.0-66.0); RED CELL DISTRIBUTION WIDTH 15.5 % (11.5-14.5); WHITE BLOOD COUNT 8.8 K/mm3 (4.0-10.0)
[2016-10-28 14:08] LABS: ALBUMIN 3.6 GM/DL (3.2-5.2); ALBUMIN/GLOBULIN RATIO 0.82 (1.00-1.93); ALKALINE PHOSPHATASE 109 U/L (45-117); ALT/SGPT 42 U/L (12-78); ANION GAP 8 MEQ/L (8-16); AST/SGOT 27 U/L (15-37); BILIRUBIN,TOTAL 0.6 MG/DL (0.2-1.0); BLOOD UREA NITROGEN 16 MG/DL (7-18); CALCIUM LEVEL 9.1 MG/DL (8.5-10.1); CARBON DIOXIDE LEVEL 28 MEQ/L (21-32); CHLORIDE LEVEL 102 MEQ/L (98-107); CREATININE FOR GFR 0.59 MG/DL (0.55-1.02); FERRITIN 42 NG/ML (8-252); GLOMERULAR FILTRATION RATE > 60.0 (>51); GLUCOSE, FASTING 121 MG/DL (70-105); POTASSIUM SERUM 3.3 MEQ/L (3.5-5.1); SODIUM LEVEL 138 MEQ/L (136-145)
[2016-10-28 14:32] LABS: FOLATE > 24.0 NG/ML; VITAMIN B12 LEVEL 413 PG/ML
[2016-10-30 00:06] LABS: Lyme Disease IgG/IgM Antibodie <0.91 ISR (0.00-0.90); Lyme Disease IgM Ab Quantitati <0.80 index (0.00-0.79)
[2016-11-01 14:53] LABS: ALBUMIN 4.56 GM/DL (3.29-5.55); GAMMA GLOBULIN % 13.2 % (11.1-18.8)
== END ==
LOC: M WUC 12:04
PROVIDERS: ATTEND Physician Assistant Medical
DX: R53.83 Other fatigue (principal)

== ENCOUNTER → 2016-11-12 | Outpatient (CLI) | payer OTHER ==
[~2016-11-12] MED LIST changes: +ACID1CAP PO; +FLAG500T PO; +LISI-538 PO; +MULT1TAB10 PO; +POTA10CA PO; +SOMA350T PO; +VANC125C2 PO
--- NOTE | 2016-11-12 15:19 | REP ---
CT abdomen and pelvis with IV and oral contrast: History: Nausea, vomiting, diarrhea. Mid abdominal pain and bloating. Comparison study: March 21, 2016. CT contrast dose: 100 ml of intravenous Isovue 370. CT findings: Preliminary digital over hauler helper radiograph is unremarkable. The lung bases are clear. Liver shows mild diffuse fatty infiltration, but remains normal in size and homogeneous in texture. No gallbladder abnormality is seen. Spleen is unremarkable. There is a low-density lesion in the right adrenal gland consistent with an adrenal adenoma. This measures 2.1 cm in greatest diameter and is unchanged from the March 21, 2016 prior study. Left adrenal is normal. No pancreatic abnormality is observed. The kidneys enhance symmetrically. There is an intrarenal calculus in the lower pole of the left kidney again seen 3 mm in size. No hydronephrosis is seen. Normal appendix is seen. Large and small bowel loops are normal in the abdomen and pelvis. There is mild left colonic diverticulosis. Uterus and adnexal regions are unremarkable. Urinary bladder is intact. No bony destructive lesion is seen. Impression: Left colonic diverticulosis. Intrarenal calculus lower pole left kidney. Mild diffuse fatty infiltration of the liver. Otherwise unremarkable CT study abdomen and pelvis with IV and oral contrast. Signed by Kalen Mccarthy MD 11/12/2016 04:58 P
== END ==
LOC: M RAD 11:15
PROVIDERS: ATTEND Physician Assistant Medical
DX: K57.90 Diverticulosis of intestine, part unspecified, without perforation or abscess without bleeding (principal); K76.0 Fatty (change of) liver, not elsewhere classified

== ENCOUNTER → 2016-11-12 | Outpatient (CLI) | payer OTHER ==
[~2016-11-12] MED LIST changes: +GASTROGRAFIN SOLUTION 30ML (Q9963) As Ordered ONE; +ISOVUE-370 76% 100ML VIAL (Q9967) As Ordered ONE
--- NOTE | 2016-11-12 12:18 | REP ---
CT LUMBAR SPINE WITHOUT CONTRAST: HISTORY: Back pain. COMPARISON: MR 08/06/2016 There is no disc bulge or herniation at the L1-2 and L2-3 levels. The nerves exit the neural foramina without compression. A diffuse disc bulge is present at the L3-4 level. There is minimal compression of the thecal sac. The L3 nerves exit the neural foramina without compression. A diffuse disc bulge is present at the L4-5 level. There is hypertrophy of the ligamenta flava and posterior articulating facets. These findings produce mild central canal stenosis. The L4 nerves exit the neural foramina without compression. A diffuse disc bulge is present at the L5-S1 level. This abuts the thecal sac and S1 nerves. There is hypertrophy of the posterior articulating facets. The L5 nerves exit the neural foramina without compression. The L4-5 intervertebral disc is decreased in height consistent with disc degeneration. The vertebral bodies are normal in height. There is no subluxation. IMPRESSION: 1. Diffuse disc bulge at the L3-4 level with minimal thecal sac compression. 2. Mild central canal stenosis at the L4-5 level secondary to disc bulge , ligamentous and facet hypertrophy. 3. Diffuse bulge at the L5-S1 level. This abuts the thecal sac and S1 nerves. Signed by Pawan Prather MD 11/12/2016 12:21 P
== END ==
LOC: M RAD 11:23
PROVIDERS: ATTEND Neurological Surgery
DX: M51.26 Other intervertebral disc displacement, lumbar region (principal); M51.27 Other intervertebral disc displacement, lumbosacral region
CPT/HCPCS: 72131; Q9963; Q9967

== ENCOUNTER → 2016-12-23 | Outpatient (CLI) | payer OTHER ==
[~2016-12-23] MED LIST changes: -GASTROGRAFIN SOLUTION 30ML (Q9963) As Ordered ONE; -ISOVUE-370 76% 100ML VIAL (Q9967) As Ordered ONE
--- NOTE | 2016-12-23 13:08 | REP ---
LUMBAR SPINE, SEVEN VIEWS: HISTORY: Back pain. COMPARISON: 07/06/2016. There is no acute fracture. The L3-4 through L5-S1 intervertebral discs are decreased in height consistent with disc degeneration. The facet joints are normal in appearance. There are 4 mm of grade 1 spondylolisthesis of L4 and 5 with flexion. This is not seen in neutral extension radiographs. IMPRESSION: Degenerative change as described above. Signed by Pawan Prather MD 12/23/2016 01:16 P
== END ==
LOC: M RAD 11:38
PROVIDERS: ATTEND Neurological Surgery
DX: M51.36 Other intervertebral disc degeneration, lumbar region (principal); M51.37 Other intervertebral disc degeneration, lumbosacral region

== ENCOUNTER → 2016-12-23 | Outpatient (CLI) | payer OTHER ==
--- NOTE | 2016-12-23 13:14 | REP ---
Digital diagnostic bilateral mammography with CAD and focused left breast sonography: History: Left breast lump. Comparison mammography July 29, 2014. Mammographic findings: A skin marker is affixed to the skin at the site of the palpable lump which projects in the upper outer quadrant. Routine views of the left breast are augmented by magnified focal spot compression images. Routine views of the right breast were obtained. There are scattered fibroglandular elements bilaterally in a pattern which is symmetric and unchanged. No density is seen in the area of the palpable lump on the left. No abnormal density or microcalcification or architectural distortion is seen on either side mammographically. Sonographic findings: The left breast is scanned from 12 o'clock to 2 o'clock through the area of palpable lump at 1 o'clock. Mildly heterogeneous fibroglandular background echotexture is seen. No cyst, mass, or acoustic shadowing is seen. No architectural distortion is seen. Impression: BI-RADS category 1 negative bilateral breast imaging. This negative report should not dissuade one from biopsy of a palpable lump depending on its clinical characteristics. Clinical follow-up is advised. This mammogram was interpreted with the aid of an FDA-approved computer-aided detection system. The patient states she/he had a clinical breast exam in November of 2016. The patient letter being requested is m2. Signed by Kalen Mccarthy MD 12/23/2016 05:20 P
== END ==
LOC: M RAD 10:39
PROVIDERS: ATTEND Nurse Practitioner Women's Health
DX: N63.20 Unspecified lump in the left breast, unspecified quadrant (principal)
CPT/HCPCS: 76642; G0204

== ENCOUNTER → 2016-12-24 | Outpatient (CLI) | payer OTHER ==
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
== END ==
LOC: M PAIN 13:45
PROVIDERS: ATTEND Nurse Practitioner Family
DX: G89.29 Other chronic pain (principal); M51.26 Other intervertebral disc displacement, lumbar region; M54.2 Cervicalgia; R19.7 Diarrhea, unspecified; M79.7 Fibromyalgia; J45.909 Unspecified asthma, uncomplicated; F41.9 Anxiety disorder, unspecified; K21.9 Gastro-esophageal reflux disease without esophagitis; Z87.442 Personal history of urinary calculi; Z79.899 Other long term (current) drug therapy

== ENCOUNTER → 2016-12-24 | Outpatient (REF) | payer OTHER | LOC: M LAB REF 13:41 | PROVIDERS: ATTEND Internal Medicine Gastroenterology | DX: Z12.11 Encounter for screening for malignant neoplasm of colon (principal); R19.7 Diarrhea, unspecified ==

== ENCOUNTER 2017-02-04 11:49 | Day surgery (SDC) | payer OTHER ==
[~2017-02-04] VITALS: Ht 160 cm; Wt 93.9 kg
[2017-02-04] MEDS: NS 1,000 ML IV ONE (12:00)
[2017-02-04] MEDS ORDERED: FECAL MICROBIOTA PREPARATION 250 ML BTL (J3590) XX ONE (13:00)
[2017-02-04] MEDS ORDERED: LIDOCAINE 2% INJ 100 MG/5 ML SDV (FOR ANES.) As Ordered ONE (13:52)
[2017-02-04] MEDS ORDERED: PROPOFOL 500 MG/50 ML VIAL As Ordered ONE (13:52)
--- NOTE | 2017-02-04 14:07 | ROOR ---
Patient Name: Shellie Rod Procedure Date: 02/04/2017 1:49 PM Date of : 1960 Age: 56 Room: [facility] Gender: Female Note Status: Finalized Procedure: Total Colonoscopy to Cecum + Fecal Microbiota Transplant (Bacteriotherapy) Indications: Fecal transplant for treatment of Clostridium difficile diarrhea Providers: Billy Sepulveda MD Referring MD: NISH ALVARENGA Requesting Provider: Medicines: Monitored Anesthesia Care Complications: No immediate complications. Procedure: Pre-Anesthesia Assessment: - The heart rate, respiratory rate, oxygen saturations, blood pressure, adequacy of pulmonary ventilation, and response to care were monitored throughout the procedure. The Colonoscope was introduced through the anus and advanced to the cecum, identified by appendiceal orifice and ileocecal valve. The colonoscopy was performed without difficulty. The patient tolerated the procedure well. The quality of the bowel preparation was good. Findings: The perianal and digital rectal examinations were normal. Non-bleeding internal hemorrhoids were found during retroflexion. The hemorrhoids were small and Grade I (internal hemorrhoids that do not prolapse). No other significant abnormalities were identified in a careful examination of the remainder of the colon. Fecal Microbiota Transplant (Bacteriotherapy): Donor stool was prepared as per protocol. Approximately 250 mL of the emulsified donor stool was instilled in the cecum. A detailed colonoscopic exam could not be performed upon scope withdrawal secondary to limited visibility from the instilled stool. The exam was otherwise without abnormality on direct and retroflexion views. Impression: - Non-bleeding internal hemorrhoids. - The examination was otherwise normal on direct and retroflexion views. - Fecal Microbiota Transplant (Bacteriotherapy) performed in the cecum. - No specimens collected. - The exam was otherwise normal to the cecum. Recommendation: - Patient has a contact number available for emergencies. The signs and symptoms of potential delayed complications were discussed with the patient. Return to normal activities tomorrow. Written discharge instructions were provided to the patient. - Resume previous diet. - Discharge patient to home. - Continue present medications. - Repeat colonoscopy PRN. - Return to referring physician. - The findings and recommendations were discussed with the patient's family. Billy Sepulveda MD Billy Sepulveda MD 02/04/2017 2:07:25 PM This report has been signed electronically. Number of Addenda: 0 Note Initiated On: 02/04/2017 1:49 PM Estimated Blood Loss: Estimated blood loss: none.
[2017-02-04 14:20] VITALS: BP 145/86
== END 2017-02-04 15:25 | disposition home or self-care (01) ==
LOC: M OPP 11:49
PROVIDERS: ATTEND Internal Medicine Gastroenterology
DX: A04.71 Enterocolitis due to Clostridium difficile, recurrent (principal); R19.7 Diarrhea, unspecified; K64.0 First degree hemorrhoids; I10 Essential (primary) hypertension; I34.0 Nonrheumatic mitral (valve) insufficiency; M19.90 Unspecified osteoarthritis, unspecified site; F41.9 Anxiety disorder, unspecified; F32.9 Major depressive disorder, single episode, unspecified; R56.9 Unspecified convulsions; J45.909 Unspecified asthma, uncomplicated; G47.30 Sleep apnea, unspecified; R06.83 Snoring; Z79.899 Other long term (current) drug therapy

== ENCOUNTER → 2017-02-15 | Outpatient (CLI) | payer OTHER ==
--- NOTE | 2017-03-02 23:50 | ECWPNPC ---
PATIENT NAME: MARGA GALINDO : 1960 GENDER: FEMALE VISIT DATE: 02/15/2017 DISCHARGE DATE: 02/15/17 1137 VISIT LOCKED DATE TIME: PHYSICIAN: RICHARDSON BEASLEY RESOURCE: RICHARDSON BEASLEY REASON FOR APPOINTMENT 1. MEDS HISTORY OF PRESENT ILLNESS HISTORY OF PRESENT ILLNESS: HERE FOR F/U AFTER INITIAL EVALUATION OF CHRONIC LOW BACK PAIN.SUFFERING FROM CHRONIC C-DIFF AND UNDER GASTROENTEROLOGY CARE.RECENT STOOL TRANSPLANT BUT CONTINUES WITH SEVERE DIARHEA.CURRENTLY USING SOMA 350MG TID WHICH IS SOMEWHART HELPFUL.PRIMARY CARE IS ASKING US TO TAKE OVER MEDICINE MANAGEMENT.PAYAL RECOMMENDED THAT SHE USE SOMA 350MG PRN AND NOT TID.IWILL GIVE HER 60 TABS FOR ONE MONTH SUPPLY. PAIN THE PATIENT DESCRIBES THE PAIN... FALL RISK SCREENING: SCREENING :NO FALLS IN THE PAST YEAR CURRENT MEDICATIONS TAKING PROAIR HFA 108 (90 BASE) MCG/ACT AEROSOL SOLUTION 2 PUFFS NEEDED INHALATION QID PRN TAKING LOSARTAN POTASSIUM 50 MG TABLET 1 TABLET ORALLY ONCE A DAY TAKING NORVASC 5 MG TABLET 1 TABLET ORALLY ONCE A DAY TAKING ATENOLOL 25 MG TABLET 1/2 TABLET ORALLY ONCE A DAY TAKING PANTOPRAZOLE SODIUM 40 MG TABLET DELAYED RELEASE 1 TABLET ORALLY ONCE A DAY TAKING XANAX 1 MG TABLET 1 TABLET ORALLY THREE TIMES DAILY NEEDED TAKING SOMA 350 MG TABLET 1 TABLET NEEDED ORALLY THREE TIMES DAILY NEEDED MEDICATION LIST REVIEWED AND RECONCILED WITH THE PATIENT PAST MEDICAL HISTORY 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 MAYBE 1 PEPSI EVERY OTHER DAY AND RARE EXPRESSO EXERCISE: TRIES TO WALK BUT IT HURTS TOO MUCH, TAKES SOMA TO TRY TO BE ABLE TO DO STUFF. CHRISTIAN [id number] NONE NO GNOSTICIST BELIEFS THAT WOULD IMPACT HEALTH CARE. LANGUAGE LANGUAGES SPOKEN:BERMUDIAN EDUCATION LEVEL OF EDUCATION:HIGH SCHOOL LEARNING BARRIERS / SPECIAL NEEDS BARRIERS TO LEARNING?NO VISION IMPAIRED?YES :CORRECTIVE LENSES MISCELLANEOUS: HAD LIVED IN [place]. JUST CAME BACK HERE (GREW UP HERE) IN 2013 3 KIDS LIVE IN [place]. PAIN CLINIC PFS, CLERGY, PUBLIC HEALTH REFERRALS PFS REFERRAL NEEDED?NO CLERGY REFERRAL NEEDED?NO PUBLIC HEALTH REFERRAL NEEDED?NO WAS THE PROVIDER NOTIFIED OF ANY PERTINENT INFO?NO HAS THE PATIENT BEEN EDUCATED REGARDING HIS/HER PLAN OF CARE?YES HAS THE PATIENT BEEN EDUCATED REGARDING PAIN, THE RISK FOR PAIN, THE IMPORTANCE OF EFFECTIVE PAIN MANAGEMENT, AND THE PAIN ASSESSMENT PROCESS?YES PATIENT: DENIES ABUSE OR MISUSE OF ANY MEDICATION, DENIES USE OF ANY ILLEGAL SUBSTANCES. ADVANCE DIRECTIVES HEALTH CARE PROXY?NO WOULD YOU LIKE MORE INFORMATION?NO LIVING WILL?NO WOULD YOU LIKE MORE INFORMATION?NO HOSPITALIZATION/MAJOR DIAGNOSTIC PROCEDURE SEIZURE UNSURE OF REASON/ POSSIBLE RXN TO TRAMADOL MAR 21 2016 PNEUMONIA FEB 2016 REVIEW OF SYSTEMS REVIEWED BY: PROVIDER: RICHARDSON KAPLAN . CONSTITUTIONAL: ANY CHANGE IN YOUR MEDICAL CONDITION? YES, C-DIFF X1 YEAR. PT STATES SHE HAS HAD THIS SINCE LAST YEAR AFTER BEING HOSPITALIZED. PT STATES SHE HAS BEEN SEEING DR SERNA FOR THIS AND ON RESIDENTIAL ABX, NOT NOW. PT REPORTS STOOL TRANSPLANT DONE 01/2017 . CHILLS NO . FEVER NO . INFECTION: DO YOU HAVE NEW INFECTIONS? NO . DO YOU HAVE HISTORY OF MRSA? NO . MUSCULOSKELETAL: ANY NEW PATTERNS OF PAIN OR NUMBNESS? NO . GASTROENTEROLOGY: ANY NEW CHANGE IN BOWEL CONTROL? NO . GENITOURINARY: ANY NEW CHANGE IN BLADDER CONTROL? NO . IS THERE A CHANCE YOU COULD BE ? NO . HEMATOLOGY/LYMPH: DO YOU TAKE ANY BLOOD THINNERS? (FOR EXAMPLE- COUMADIN, PLAVIX, AGGRENOX, PLATEL, PRADAXA, OR XARELTO) NO . WHEN WAS YOUR LAST DOSE? DATE: TIME: . NEUROLOGY: HAVE YOU FALLEN IN THE PAST 6 MONTHS? NO . ANY NEW EXTREMITY NUMBNESS OR WEAKNESS? NO . CARDIOLOGY: DO YOU HAVE A PACEMAKER OR DEFIBRILLATOR? NO . RESPIRATORY: HAVE YOU BEEN SICK IN THE PAST WEEK? NO . FEVER NO . FLU LIKE SYMPTOMS? NO . COUGH NO . INTEGUMENTARY: DO YOU HAVE ANY RASHES OR OPEN SORES? NO . ALLERGIC/IMMUNO: ARE YOU ALLERGIC TO SHELLFISH OR IV DYE? NO . ANY NEW ALLERGIES? NO . PSYCHIATRIC: DO YOU HAVE THOUGHTS OF HURTING YOURSELF OR SOMEONE ELSE? NO . ARE YOU ABUSED, NEGLECTED, OR IN AN UNSAFE ENVIRONMENT? NO . ENDOCRINOLOGY: ARE YOU DIABETIC? NO . OTHER: DO YOU NEED ANY PRESCRIPTIONS? YES, ATENOLOL . IF YES, PLEASE LIST: ____ . ANY NEW PROBLEMS WITH YOUR MEDICATIONS? NO . WHEN DID YOU LAST EAT? ____ . WHEN DID YOU LAST DRINK? ____ . WHAT DID YOU LAST DRINK? ____ . NAME OF PERSON DRIVING YOU HOME? ____ . DO YOU HAVE ANY OTHER QUESTIONS OR CONCERNS NO . VITAL SIGNS WT 212.0 LBS, HT 63 IN, BMI 37.55 INDEX, BP 118/75 MM HG, HR 130 /MIN, RR 16 /MIN, TEMP 98.0 F, OXYGEN SAT % 96%, [place] [id number], REVIEWED BY: KAILA HR 130, RN Nima AWARE- TL. EXAMINATION GENERAL EXAMINATION: GENERAL APPEARANCE:AWAKE,ALERT. PSYCHAFFECT NORMAL. NECK:TRACHEA MIDLINE. NO CERVICAL OR SUPRACLAVICULAR LYMPHADENOPATHY NOTED. LUNGS:LUNG KIM ARE CLEAR TO AUSCULTATION BILATERALLY. GOOD MOVEMENT OF AIR. HEART:S1, S2 IN A REGULAR RATE AND RHYTHM. NO SIGNIFICANT MURMURS, RUBS OR GALLOPS NOTED. BACK:MULTIPLE AREAS OF TENDERNESS NOTED OVER CERVICAL AXIS AND LUMBAR AXIS.TENDERNESS OVER CERVICAL AND LUMBAR PARASPINALS.. ABDOMEN:SOFT, BOWEL SOUNDS PRESENT. MUSCULOSKELETAL:MUSCLE STRENGTH TESTING 5/5 BILATERAL UPPER AND LOWER EXTREMITIES. NEUROLOGIC EXAM:NORMAL SENSATION OVER UPPER AND LOWER EXTREMITIES. DIAGNOSTIC TESTS REVIEWEDMRI L/S [id number]-REVIEWED. ASSESSMENTS PROTRUSION OF LUMBAR INTERVERTEBRAL DISC - M51.26 (PRIMARY) CERVICALGIA - M54.2 TREATMENT PROTRUSION OF LUMBAR INTERVERTEBRAL DISC DECREASE SOMA TABLET, 350 MG, 1 TABLET NEEDED, ORALLY, Q8H PRN MDD3 #60 TAB SHOULD LAST 30 DAYS, 30 DAY(S), 60, REFILLS 2 PROCEDURE CODES FA211 ESTABILISHED PATIENT [facility]AC[facility] CHARGE DISPOSITION & COMMUNICATION FOLLOW UP 2 MONTHS ELECTRONICALLY SIGNED BY EUSEBIO MATHIAS ON 03/02/2017 AT 01:27 PM EST DISCLAIMER : THIS IS A VISIT SUMMARY EXTRACTED FROM THE [employer] CHART. IT IS NOT A COPY OF THE [employer] PROGRESS NOTE. MTDD
== END ==
LOC: M PAIN 10:30
PROVIDERS: ATTEND Nurse Practitioner Family
DX: G89.29 Other chronic pain (principal); M51.26 Other intervertebral disc displacement, lumbar region; M54.2 Cervicalgia; M79.1 Myalgia; J45.909 Unspecified asthma, uncomplicated; F41.9 Anxiety disorder, unspecified; K21.9 Gastro-esophageal reflux disease without esophagitis; A04.72 Enterocolitis due to Clostridium difficile, not specified as recurrent; Z79.899 Other long term (current) drug therapy; Z88.5 Allergy status to narcotic agent

== ENCOUNTER → 2017-02-15 | Outpatient (REF) | payer OTHER | LOC: M LAB REF 11:14 | PROVIDERS: ATTEND Internal Medicine Gastroenterology | DX: Z12.11 Encounter for screening for malignant neoplasm of colon (principal); R19.7 Diarrhea, unspecified ==

== ENCOUNTER → 2017-03-29 | Outpatient (REF) | payer OTHER ==
[2017-03-30 15:13] LABS: TOTAL PROTEIN,RANDOM URINE 101.1 MG/DL (0.0-12.0)
== END ==
LOC: M LAB REF 03-30 13:26
DX: E87.6 Hypokalemia (principal); I15.9 Secondary hypertension, unspecified; I10 Essential (primary) hypertension; R80.9 Proteinuria, unspecified

== ENCOUNTER → 2017-05-13 | Outpatient (CLI) | payer OTHER | LOC: M PAIN 09:45 | DX: M51.26 Other intervertebral disc displacement, lumbar region (principal); Z86.19 Personal history of other infectious and parasitic diseases; Z79.899 Other long term (current) drug therapy; Z88.8 Allergy status to other drugs, medicaments and biological substances; Z87.19 Personal history of other diseases of the digestive system | CPT/HCPCS: G0463 ==

== ENCOUNTER → 2017-05-30 | Outpatient (REF) | payer OTHER | LOC: M LAB REF 14:44 | DX: R19.7 Diarrhea, unspecified (principal) ==

== ENCOUNTER → 2017-06-27 | Outpatient (CLI) | payer OTHER ==
[~2017-06-27] MED LIST changes: -ACID1CAP PO; -AMLO10TA2 PO; -ATEN25TA PO; -BACT800T5 PO; -ETOD30CA PO; -FLAG500T PO; +ISOVUE-M 300 61% 15ML VIAL (Q9967) As Ordered; -KEPP250T5 PO; +LIDOCAINE 1% SDV INJ 30 ML VIAL As Ordered; -LISI-538 PO; -LISI40TAB PO; -LYRI150C PO; -MULT1TAB10 PO; -PANT40TA2 PO; -POTA10CA PO; -PROAAER10 INH; -SOMA350T PO; -TIZA4CAP3 PO; -TRAM50TA2 PO; -VANC125C2 PO; -XANA1TAB2 PO; -ZANA4TAB PO; +diazePAM 5 MG TAB As Ordered; +diphenhydrAMINE 25 MG CAP As Ordered; +methylPREDNISolone SUSP 40 MG/ML (DEPO-medrol) VIAL (J1030) As Ordered; +oxyCODONE 5MG TAB As Ordered
== END ==
LOC: M PAIN 14:00
DX: G89.29 Other chronic pain (principal); M51.16 Intervertebral disc disorders with radiculopathy, lumbar region; J45.909 Unspecified asthma, uncomplicated; F41.9 Anxiety disorder, unspecified; K21.9 Gastro-esophageal reflux disease without esophagitis; R06.83 Snoring; I12.9 Hypertensive chronic kidney disease with stage 1 through stage 4 chronic kidney disease, or unspecified chronic kidney disease; N18.9 Chronic kidney disease, unspecified; Z79.899 Other long term (current) drug therapy; Z88.5 Allergy status to narcotic agent; Z86.69 Personal history of other diseases of the nervous system and sense organs; Z98.890 Other specified postprocedural states
CPT/HCPCS: J1030

== ENCOUNTER 2017-09-16 10:15 | Day surgery (SDC) | payer OTHER ==
[2017-09-16] MEDS: NS 1,000 ML IV (10:55)
[2017-09-16] MEDS ORDERED: PROPOFOL 200 MG/20 ML VIAL As Ordered ×2 (11:09→11:54)
[2017-09-16] MEDS ORDERED: LIDOCAINE 2% INJ 100 MG/5 ML SDV (FOR ANES.) As Ordered (11:18)
== END 2017-09-16 12:39 | disposition home or self-care (01) ==
LOC: M OPP 10:15
DX: R19.7 Diarrhea, unspecified (principal); K64.0 First degree hemorrhoids; I10 Essential (primary) hypertension; E78.5 Hyperlipidemia, unspecified; I34.1 Nonrheumatic mitral (valve) prolapse; Z86.19 Personal history of other infectious and parasitic diseases; K21.9 Gastro-esophageal reflux disease without esophagitis; M19.90 Unspecified osteoarthritis, unspecified site; M54.9 Dorsalgia, unspecified; F41.9 Anxiety disorder, unspecified; R56.9 Unspecified convulsions; Z78.0 Asymptomatic menopausal state; J45.909 Unspecified asthma, uncomplicated; G47.30 Sleep apnea, unspecified; R06.83 Snoring; Z87.442 Personal history of urinary calculi; Z87.19 Personal history of other diseases of the digestive system; Z79.899 Other long term (current) drug therapy
CPT/HCPCS: 45380

== ENCOUNTER → 2017-09-28 | Outpatient (REF) | payer OTHER ==
[2017-09-28 19:12] LABS: TOTAL PROTEIN,RANDOM URINE 65.2 MG/DL (0.0-12.0)
== END ==
LOC: M LAB REF 17:05
DX: I10 Essential (primary) hypertension (principal); R80.9 Proteinuria, unspecified

== ENCOUNTER → 2017-10-04 | Outpatient (CLI) | payer OTHER | LOC: M PAIN 10:45 | DX: M51.26 Other intervertebral disc displacement, lumbar region (principal); J45.909 Unspecified asthma, uncomplicated; K21.9 Gastro-esophageal reflux disease without esophagitis; I10 Essential (primary) hypertension; E55.9 Vitamin D deficiency, unspecified; E78.5 Hyperlipidemia, unspecified; Z79.899 Other long term (current) drug therapy; Z88.8 Allergy status to other drugs, medicaments and biological substances | CPT/HCPCS: G0463 ==

== ENCOUNTER → 2017-10-06 | Outpatient (CLI) | payer OTHER ==
[~2017-10-06] MED LIST changes: +E-Z-GAS II EFFERVESCENT PACKET (SODIUM BICARB./CITRIC ACID/SIMETHICONE) As Ordered; +E-Z-HD 98% w/w 340GM SUSP BTL As Ordered; +E-Z-PAQUE 96% w/w SUSP 176GM BTL As Ordered; -ISOVUE-M 300 61% 15ML VIAL (Q9967) As Ordered; -LIDOCAINE 1% SDV INJ 30 ML VIAL As Ordered; -diazePAM 5 MG TAB As Ordered; -diphenhydrAMINE 25 MG CAP As Ordered; -methylPREDNISolone SUSP 40 MG/ML (DEPO-medrol) VIAL (J1030) As Ordered; -oxyCODONE 5MG TAB As Ordered
== END ==
LOC: M RAD 09:20
DX: R19.7 Diarrhea, unspecified (principal)
CPT/HCPCS: 74245

== ENCOUNTER → 2017-11-09 | Outpatient (CLI) | payer OTHER ==
[2017-11-09 17:08] LABS: BASO # 0.1 10^3/uL (0.0-0.2); BASO % 0.5 % (0.0-1.0); EOS # 0.2 10^3/uL (0.0-0.50); EOS % 1.5 % (0.0-3.0); HEMATOCRIT 38.8 % (36.0-47.0); HEMOGLOBIN 12.3 g/dl (12.0-15.5); IMMATURE GRANULOCYTE % 0.5 % (0-3.0); LYMPH # 2.1 10^3/uL (1.5-4.5); MEAN CORPUSCULAR HEMOGLOBIN 27.6 pg (27.0-33.0); MEAN CORPUSCULAR HGB CONC 31.7 g/dl (32.0-36.5); MONO # 0.7 10^3/uL (0.0-0.8); MONO % 6.2 % (0.0-5.0); NEUTROPHILS # 7.5 10^3/uL (1.8-7.7); NEUTROPHILS % 71.3 % (36.0-66.0); PLATELET COUNT, AUTOMATED 266 10^3/uL (150-450); RED BLOOD COUNT 4.46 10^6/uL (4.00-5.40); RED CELL DISTRIBUTION WIDTH 14.9 % (11.5-14.5); WHITE BLOOD COUNT 10.5 10^3/uL (4.0-10.0)
[2017-11-09 17:37] LABS: TOTAL 25(OH) VITAMIN D 23.9 NG/ML (30.0-100.0)
[2017-11-09 17:48] LABS: ALBUMIN 3.6 GM/DL (3.2-5.2); ALBUMIN/GLOBULIN RATIO 0.86 (1.00-1.93); ALKALINE PHOSPHATASE 194 U/L (45-117); ALT/SGPT 126 U/L (12-78); ANION GAP 11 MEQ/L (8-16); AST/SGOT 81 U/L (7-37); BILIRUBIN,TOTAL 0.7 MG/DL (0.2-1.0); BLOOD UREA NITROGEN 16 MG/DL (7-18); CALCIUM LEVEL 8.9 MG/DL (8.5-10.1); CARBON DIOXIDE LEVEL 26 MEQ/L (21-32); CHLORIDE LEVEL 101 MEQ/L (98-107); CHOLESTEROL LEVEL 221 MG/DL (<200); CHOLESTEROL RISK RATIO 4.604 (<5); CREATININE FOR GFR 0.64 MG/DL (0.55-1.30); GLOMERULAR FILTRATION RATE > 60.0 (>51); GLUCOSE, FASTING 128 MG/DL (70-100); HDL CHOLESTEROL 48 MG/DL (>40); NON-HDL-C 173 MG/DL; POTASSIUM SERUM 4.1 MEQ/L (3.5-5.1); SODIUM LEVEL 138 MEQ/L (136-145); TOTAL PROTEIN 7.8 GM/DL (6.4-8.2); TRIGLYCERIDES LEVEL 1224 MG/DL (<150)
[2017-11-09 18:26] LABS: ESTIMATED AVERAGE GLUCOSE 108 MG/DL (60-110); HEMOGLOBIN A1c 5.4 %
[2017-11-09 18:44] LABS: MAU/CREAT RATIO 151.1 MCG/MG (0.0-30.0)
== END ==
LOC: M WUC 13:23
DX: E78.2 Mixed hyperlipidemia (principal); R73.09 Other abnormal glucose
CPT/HCPCS: 80053

== ENCOUNTER → 2017-12-13 | Outpatient (CLI) | payer OTHER ==
[~2017-12-13] MED LIST changes: -E-Z-GAS II EFFERVESCENT PACKET (SODIUM BICARB./CITRIC ACID/SIMETHICONE) As Ordered; -E-Z-HD 98% w/w 340GM SUSP BTL As Ordered; -E-Z-PAQUE 96% w/w SUSP 176GM BTL As Ordered; +ISOVUE-M 300 61% 15ML VIAL (Q9967) As Ordered; +LIDOCAINE 1% SDV INJ 30 ML VIAL As Ordered; +diazePAM 5 MG TAB As Ordered; +diphenhydrAMINE 25 MG CAP As Ordered; +methylPREDNISolone SUSP 40 MG/ML (DEPO-medrol) VIAL (J1030) As Ordered; +oxyCODONE 5MG TAB As Ordered
== END ==
LOC: M PAIN 14:45
DX: M51.16 Intervertebral disc disorders with radiculopathy, lumbar region (principal); K52.9 Noninfective gastroenteritis and colitis, unspecified; J45.909 Unspecified asthma, uncomplicated; F41.9 Anxiety disorder, unspecified; K21.9 Gastro-esophageal reflux disease without esophagitis; N18.9 Chronic kidney disease, unspecified; I12.9 Hypertensive chronic kidney disease with stage 1 through stage 4 chronic kidney disease, or unspecified chronic kidney disease; G40.909 Epilepsy, unspecified, not intractable, without status epilepticus; M79.1 Myalgia; Z88.5 Allergy status to narcotic agent; Z79.899 Other long term (current) drug therapy
CPT/HCPCS: J1030

== ENCOUNTER → 2017-12-30 | Outpatient (REF) | payer OTHER ==
[2017-12-30 17:40] LABS: CHLORIDE,RANDOM URINE 42 MEQ/L
== END ==
LOC: M LAB REF 17:04
DX: I15.9 Secondary hypertension, unspecified (principal)
CPT/HCPCS: 82436

== ENCOUNTER → 2018-01-03 | Outpatient (CLI) | payer OTHER | LOC: M PAIN 11:30 | DX: M51.26 Other intervertebral disc displacement, lumbar region (principal); J45.909 Unspecified asthma, uncomplicated; K52.9 Noninfective gastroenteritis and colitis, unspecified; F41.9 Anxiety disorder, unspecified; Z87.442 Personal history of urinary calculi; K21.9 Gastro-esophageal reflux disease without esophagitis; R06.83 Snoring; N18.9 Chronic kidney disease, unspecified; I12.9 Hypertensive chronic kidney disease with stage 1 through stage 4 chronic kidney disease, or unspecified chronic kidney disease; G40.909 Epilepsy, unspecified, not intractable, without status epilepticus; M79.18 Myalgia, other site; Z79.899 Other long term (current) drug therapy; Z88.5 Allergy status to narcotic agent | CPT/HCPCS: G0463 ==

== ENCOUNTER → 2018-01-20 | Outpatient (CLI) | payer OTHER ==
[2018-01-22 00:06] LABS: TISSUE TRANSGLUTAMINASE IgA <2 U/mL (0-3)
== END ==
LOC: M LAB 11:49
DX: K52.9 Noninfective gastroenteritis and colitis, unspecified (principal)
CPT/HCPCS: 82784

== ENCOUNTER → 2018-01-24 | Outpatient (CLI) | payer OTHER | LOC: M PAIN 11:15 | DX: G89.29 Other chronic pain (principal); M51.16 Intervertebral disc disorders with radiculopathy, lumbar region; J45.909 Unspecified asthma, uncomplicated; F41.9 Anxiety disorder, unspecified; K21.9 Gastro-esophageal reflux disease without esophagitis; R06.83 Snoring; N18.9 Chronic kidney disease, unspecified; I12.9 Hypertensive chronic kidney disease with stage 1 through stage 4 chronic kidney disease, or unspecified chronic kidney disease; R56.9 Unspecified convulsions; Z79.899 Other long term (current) drug therapy; Z88.5 Allergy status to narcotic agent | CPT/HCPCS: J1030 ==

== ENCOUNTER → 2018-02-22 | Outpatient (REF) | payer OTHER ==
[2018-02-27 14:10] LABS: 5HIAA 24HR URINE 0.9 mg/24 hr (0.0-14.9); 5HIAA TOTAL URINE 0.9 mg/L (Undefined); PANCREATIC ELASTASE STOOL >500 (>200)
== END ==
LOC: M LAB REF 12:41
DX: K52.9 Noninfective gastroenteritis and colitis, unspecified (principal)
CPT/HCPCS: 83497

== ENCOUNTER → 2018-04-06 | Outpatient (REF) | payer OTHER ==
[~2018-04-06] MED LIST changes: +ACID1CAP PO; +AMLO10TA5 PO; +ATEN25TA PO; +BACT800T5 PO; +DRIS50003 PO; +ETOD30CA PO; +FLAG500T PO; -ISOVUE-M 300 61% 15ML VIAL (Q9967) As Ordered; +KEPP250T5 PO; +KLOR10TA76 PO; -LIDOCAINE 1% SDV INJ 30 ML VIAL As Ordered; +LISI-538 PO; +LISI40TA PO; +LISI40TAB PO; +LOSA100T50 PO; +LYRI150C PO; +MULT1TAB10 PO; +PANT40TA3 PO; +PROAAER10 INH; +SIMV20TA2 PO; +SOMA350T PO; +TIZA4CAP PO; +TRAM50TA2 PO; +VANC125C2 PO; +XANA1TAB2 PO; +ZANA4TAB PO; -diazePAM 5 MG TAB As Ordered; -diphenhydrAMINE 25 MG CAP As Ordered; -methylPREDNISolone SUSP 40 MG/ML (DEPO-medrol) VIAL (J1030) As Ordered; -oxyCODONE 5MG TAB As Ordered
[2018-04-06 13:35] LABS: BASO # 0.1 10^3/uL (0.0-0.2); BASO % 0.6 % (0.0-1.0); EOS # 0.2 10^3/uL (0.0-0.50); EOS % 1.6 % (0.0-3.0); HEMATOCRIT 34.6 % (36.0-47.0); HEMOGLOBIN 10.9 g/dl (12.0-15.5); LYMPH # 2.1 10^3/uL (1.5-4.5); LYMPH % 17.2 % (24.0-44.0); MEAN CORPUSCULAR HEMOGLOBIN 27.7 pg (27.0-33.0); MEAN CORPUSCULAR HGB CONC 31.5 g/dl (32.0-36.5); MONO # 0.9 10^3/uL (0.0-0.8); MONO % 7.6 % (0.0-5.0); NEUTROPHILS # 8.7 10^3/uL (1.8-7.7); NEUTROPHILS % 72.7 % (36.0-66.0); PLATELET COUNT, AUTOMATED 337 10^3/uL (150-450); RED BLOOD COUNT 3.93 10^6/uL (4.00-5.40)
[2018-04-06 13:51] LABS: HEMOGLOBIN A1c 5.4 %
[2018-04-06 14:02] LABS: ALBUMIN 3.5 GM/DL (3.2-5.2); ALT/SGPT 38 U/L (12-78); BILIRUBIN,TOTAL 0.5 MG/DL (0.2-1.0); BLOOD UREA NITROGEN 15 MG/DL (7-18); CALCIUM LEVEL 7.8 MG/DL (8.5-10.1); CARBON DIOXIDE LEVEL 29 MEQ/L (21-32); CHLORIDE LEVEL 100 MEQ/L (98-107); CHOLESTEROL LEVEL 167 MG/DL (<200); CHOLESTEROL RISK RATIO 2.569 (<5); CREATININE FOR GFR 0.59 MG/DL (0.55-1.30); GLOMERULAR FILTRATION RATE > 60.0 (>51); GLUCOSE, FASTING 126 MG/DL (70-100); HDL CHOLESTEROL 65 MG/DL (>40); LDL CHOLESTEROL 38 MG/DL (<100); NON-HDL-C 102 MG/DL; SODIUM LEVEL 140 MEQ/L (136-145); TOTAL PROTEIN 7.3 GM/DL (6.4-8.2); TRIGLYCERIDES LEVEL 319 MG/DL (<150)
[2018-04-06 14:09] LABS: TOTAL 25(OH) VITAMIN D 48.8 NG/ML (30.0-100.0)
== END ==
LOC: M LABWUC 13:12
PROVIDERS: ATTEND Physician Assistant
DX: I10 Essential (primary) hypertension (principal); R73.01 Impaired fasting glucose; E78.2 Mixed hyperlipidemia; E55.9 Vitamin D deficiency, unspecified

== ENCOUNTER → 2018-04-12 | Outpatient (CLI) | payer OTHER ==
--- NOTE | 2018-04-25 02:00 | ECWPNPC ---
PATIENT NAME: MARGA GUZMAN : 1960 GENDER: FEMALE VISIT DATE: 04/12/2018 DISCHARGE DATE: 04/12/18 1153 VISIT LOCKED DATE TIME: PHYSICIAN: RICHARDSON BEASLEY RESOURCE: RICHARDSON BEASLEY REASON FOR APPOINTMENT 1. POST PROC HISTORY OF PRESENT ILLNESS HISTORY OF PRESENT ILLNESS: HERE FOR POST PROCEDURE F/U.HAD L4/5 INTRALAMINAR LESI ON 01-24-18.REPORTING IMPROVEMENT IN PAIN POST PROCEDURE FOR ABOUT 20 DAYS THEN PAIN RETURNED AND HAS BEEN SEVERE SINCE.RATING PAIN VAS 9/10.PAIN HAS BEEN TRAVELING DOWN LEFT LEG. USING SOMA PERIODICALLY FOR SEVERE PAIN WITHOUT MUCH IMPROVEMENT.DISCUSSED MEDICATION AND TREATMENT OPTIONS. PAIN THE PATIENT DESCRIBES THE PAIN... THE PATIENT DESCRIBES THE PAIN... FALL RISK SCREENING: SCREENING :NO FALLS IN THE PAST YEAR CURRENT MEDICATIONS TAKING PROAIR HFA 108 (90 BASE) MCG/ACT AEROSOL SOLUTION 2 PUFFS NEEDED INHALATION QID PRN TAKING TYLENOL EXTRA STRENGTH 500 MG TABLET 1 TABLET NEEDED ORALLY EVERY 8 HRS TAKING PANTOPRAZOLE SODIUM 40 MG TABLET DELAYED RELEASE 1 TABLET ORALLY ONCE A DAY TAKING DRISDOL 31133 UNIT CAPSULE 1 CAPSULE ORALLY WEEKLY TAKING XANAX 1 MG TABLET 1 TABLET ORALLY THREE TIMES DAILY NEEDED TAKING LOSARTAN POTASSIUM 100 MG TABLET 1 TABLET ORALLY ONCE A DAY TAKING ATENOLOL 25 MG TABLET 1 TABLET ORALLY ONCE A DAY IN EVENING TAKING ATENOLOL 50 MG TABLET 1 TABLET ORALLY ONCE A DAY IN A.M. 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 1 SON(S) , 2 DAUGHTER(S) - HEALTHY. DAUGHTERS: 1988, 1998. SOCIAL HISTORY GENERAL: TOBACCO USE ARE YOU A:NONSMOKER ALCOHOL SCREENING DID YOU HAVE A DRINK CONTAINING ALCOHOL IN THE PAST YEAR?YES HOW OFTEN DID YOU HAVE A DRINK CONTAINING ALCOHOL IN THE PAST YEAR?TWO TO THREE TIMES PER WEEK (3 POINTS) POINTS3 INTERPRETATIONPOSITIVE RECREATIONAL DRUG USE DRUG USE?NO CAFFEINE CAFFEINE USE?YES HOW OFTEN AND HOW MUCH? MAYBE 1 PEPSI EVERY OTHER DAY AND RARE EXPRESSO SEXUAL HX HAD SEX IN THE LAST 12 MONTHS (VAGINAL, ORAL, OR ANAL)?NO HAVE YOU EVER HAD AN STD?NO LMP:04/10/2014 HIV / HEP-C SCREENING HIV TEST OFFERED TO PATIENT:YES 06/10/2017 PT DECLINED DATE OFFERED:06/10/2017 BROCHURE PROVIDED TO PATIENTYES HEP-C TEST OFFERED TO PATIENT:YES 06/10/2017 PT DECLINED DATE OFFERED:06/10/2017 TEST ACCEPTED:NO LATTER DAY [id number] NONE NO SCIENTOLOGY BELIEFS THAT WOULD IMPACT HEALTH CARE. LANGUAGE LANGUAGES SPOKEN:TAMAZIGHT EDUCATION LEVEL OF EDUCATION:HIGH SCHOOL LEARNING BARRIERS / SPECIAL NEEDS BARRIERS TO LEARNING?NO VISION IMPAIRED?YES :CORRECTIVE LENSES DOMESTIC VIOLENCE STATUS: DENIES 12/2017 DIET: NO CONCENTRATED SWEETS.. EXERCISE: TRIES TO WALK BUT IT HURTS TOO MUCH, TAKES SOMA TO TRY TO BE ABLE TO DO STUFF. PAIN CLINIC PFS, CLERGY, PUBLIC HEALTH REFERRALS PFS REFERRAL NEEDED?NO CLERGY REFERRAL NEEDED?NO PUBLIC HEALTH REFERRAL NEEDED?NO WAS THE PROVIDER NOTIFIED OF ANY PERTINENT INFO?NO HAS THE PATIENT BEEN EDUCATED REGARDING HIS/HER PLAN OF CARE?YES HAS THE PATIENT BEEN EDUCATED REGARDING PAIN, THE RISK FOR PAIN, THE IMPORTANCE OF EFFECTIVE PAIN MANAGEMENT, AND THE PAIN ASSESSMENT PROCESS?YES ADVANCE DIRECTIVE ADVANCE DIRECTIVE DISCUSSED WITH PATIENT:YES DECLINED INFO AND ASSISTANCE AT THIS TIME REVIEWED WITH PT 01/03/18 1208 BV REVIEWED WITH PT 04/12/18 1102 BV. HOSPITALIZATION/MAJOR DIAGNOSTIC PROCEDURE SEIZURE UNSURE OF REASON/ POSSIBLE RXN TO TRAMADOL MAR 21 2016 PNEUMONIA FEB 2016 REVIEW OF SYSTEMS REVIEWED BY: PROVIDER: RICHARDSON KAPLAN . CONSTITUTIONAL: ANY CHANGE IN YOUR MEDICAL CONDITION? NO . CHILLS NO . FEVER NO . INFECTION: DO YOU HAVE NEW INFECTIONS? NO . DO YOU HAVE HISTORY OF MRSA? NO . MUSCULOSKELETAL: ANY NEW PATTERNS OF PAIN OR NUMBNESS? PT STATES PAIN IN LOWER BACK HAS BEEN INCREASING IN INTENSITY AND FREQUENCY OVER THE PAST COUPLE WEEKS . GASTROENTEROLOGY: ANY NEW CHANGE IN BOWEL CONTROL? NO . GENITOURINARY: ANY NEW CHANGE IN BLADDER CONTROL? NO . IS THERE A CHANCE YOU COULD BE ? NO . HEMATOLOGY/LYMPH: DO YOU TAKE ANY BLOOD THINNERS? (FOR EXAMPLE- COUMADIN, PLAVIX, AGGRENOX, PLATEL, PRADAXA, OR XARELTO) NO . WHEN WAS YOUR LAST DOSE? DATE: TIME: . NEUROLOGY: HAVE YOU FALLEN IN THE PAST 12 MONTHS? NO . ANY NEW EXTREMITY NUMBNESS OR WEAKNESS? NO . CARDIOLOGY: DO YOU HAVE A PACEMAKER OR DEFIBRILLATOR? NO . RESPIRATORY: HAVE YOU BEEN SICK IN THE PAST WEEK? NO . FEVER NO . FLU LIKE SYMPTOMS? NO . COUGH NO . INTEGUMENTARY: DO YOU HAVE ANY RASHES OR OPEN SORES? NO . ALLERGIC/IMMUNO: ARE YOU ALLERGIC TO IV DYE? NO . ANY NEW ALLERGIES? NO . PSYCHIATRIC: DO YOU HAVE THOUGHTS OF HURTING YOURSELF OR SOMEONE ELSE? NO . ARE YOU ABUSED, NEGLECTED, OR IN AN UNSAFE ENVIRONMENT? NO . ENDOCRINOLOGY: ARE YOU DIABETIC? NO . OTHER: DO YOU NEED ANY PRESCRIPTIONS? NO . IF YES, PLEASE LIST: ____ . ANY NEW PROBLEMS WITH YOUR MEDICATIONS? NO . WHEN DID YOU LAST EAT? ____ . WHEN DID YOU LAST DRINK? ____ . WHAT DID YOU LAST DRINK? ____ . NAME OF PERSON DRIVING YOU HOME? ____ . DO YOU HAVE ANY OTHER QUESTIONS OR CONCERNS NO . VITAL SIGNS WT 217.6 LBS, HT 63 IN, BMI 38.54 INDEX, BP 149/78 MM HG, HR 89 /MIN, RR 18 /MIN, TEMP 97.9 F, OXYGEN SAT % 92%, NA INITIALS AW 1101, REVIEWED BY: BV. EXAMINATION GENERAL EXAMINATION: GENERAL APPEARANCE:AWAKE,ALERT . PSYCHAFFECT NORMAL . NECK:TRACHEA MIDLINE. NO CERVICAL OR SUPRACLAVICULAR LYMPHADENOPATHY NOTED . LUNGS:LUNG KIM ARE CLEAR TO AUSCULTATION BILATERALLY. GOOD MOVEMENT OF AIR . HEART:S1, S2 IN A REGULAR RATE AND RHYTHM. NO SIGNIFICANT MURMURS, RUBS OR GALLOPS NOTED . BACK:NONTENDER . DIAGNOSTIC TESTS REVIEWEDMRI L/S [id number]-REVIEWED . 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 PREVENTIVE MEDICINE PAIN CLINIC TEACHING: PROCEDURE TEACHING PT GIVEN WRITTEN AND VERBAL PRE-PROCEDURE INSTRUCTIONS. PT VERBALIZES UNDERSTANDING OF ALL INSTRUCTIONS NIKHIL PAREDES 04/12/2018 11:47:23 AM > . PROCEDURE CODES FA211 ESTABILISHED PATIENT [facility] CHARGE DISPOSITION & COMMUNICATION FOLLOW UP POST (REASON: L4/5 LESI INTRALAMINAR) ELECTRONICALLY SIGNED BY EUSEBIO GOULD ON 04/24/2018 AT 09:08 AM EST DISCLAIMER : THIS IS A VISIT SUMMARY EXTRACTED FROM THE [employer] CHART. IT IS NOT A COPY OF THE [employer] PROGRESS NOTE. RUBIO
== END ==
LOC: M PAIN 10:45
PROVIDERS: ATTEND Nurse Practitioner Family
DX: M51.16 Intervertebral disc disorders with radiculopathy, lumbar region (principal); G89.29 Other chronic pain; J45.909 Unspecified asthma, uncomplicated; F41.9 Anxiety disorder, unspecified; K21.9 Gastro-esophageal reflux disease without esophagitis; I12.9 Hypertensive chronic kidney disease with stage 1 through stage 4 chronic kidney disease, or unspecified chronic kidney disease; I34.1 Nonrheumatic mitral (valve) prolapse; G40.909 Epilepsy, unspecified, not intractable, without status epilepticus; E66.9 Obesity, unspecified; Z68.38 Body mass index [BMI] 38.0-38.9, adult; Z88.5 Allergy status to narcotic agent; Z79.891 Long term (current) use of opiate analgesic; Z79.899 Other long term (current) drug therapy

== ENCOUNTER → 2018-04-17 | Outpatient (CLI) | payer OTHER | LOC: M LRY 10:49 | PROVIDERS: ATTEND Physician Assistant | DX: I12.9 Hypertensive chronic kidney disease with stage 1 through stage 4 chronic kidney disease, or unspecified chronic kidney disease (principal); E55.9 Vitamin D deficiency, unspecified; K21.9 Gastro-esophageal reflux disease without esophagitis; G47.9 Sleep disorder, unspecified; E78.2 Mixed hyperlipidemia; N18.9 Chronic kidney disease, unspecified; I34.1 Nonrheumatic mitral (valve) prolapse ==

== ENCOUNTER → 2018-04-25 | Outpatient (CLI) | payer OTHER | LOC: M PAIN 14:15 | PROVIDERS: ATTEND Anesthesiology | DX: Z53.29 Procedure and treatment not carried out because of patient's decision for other reasons (principal) ==

== ENCOUNTER → 2018-04-25 | Outpatient (CLI) | payer OTHER ==
--- NOTE | 2018-05-06 23:18 | ECWPNPC ---
PATIENT NAME: MARGA GUZMAN : 1960 GENDER: FEMALE VISIT DATE: 04/25/2018 DISCHARGE DATE: 04/25/18 1549 VISIT LOCKED DATE TIME: PHYSICIAN: IVETT BELL MD RESOURCE: IVETT BELL MD REASON FOR APPOINTMENT 1. BACK HISTORY OF PRESENT ILLNESS HISTORY OF PRESENT ILLNESS: PAIN THE PATIENT DESCRIBES THE PAIN... 57 YEAR OLD FEMALE PATIENT WITH A HISTORY OF CHRONIC LOW BACK PAIN. THE PATIENT DESCRIBES THE PAIN ACHING, SHARP, AND INTERMITTENT WITH A PAIN SCORE OF 5-8/10 DEPENDING ON PHYSICAL ACTIVITY. THE PATIENT SAYS THE PAIN STARTS IN HER LOW BACK AREA AND RADIATES DOWN INTO HER LEFT LEG. THE PATIENT HAS HAD LUMBAR EPIDURAL STEROID INJECTIONS IN THE PAST AND SAYS THAT THEY HAVE HELPED RELIEVE HER PAIN. PATIENT DENIES UNEXPLAINABLE WEIGHT LOSS, FEVER, CHILLS, NEW CHANGES ON HER URINARY OR BOWEL CONTROL. FALL RISK SCREENING: SCREENING :NO FALLS IN THE PAST YEAR CURRENT MEDICATIONS TAKING PROAIR HFA 108 (90 BASE) MCG/ACT AEROSOL SOLUTION 2 PUFFS NEEDED INHALATION QID PRN TAKING TYLENOL EXTRA STRENGTH 500 MG TABLET 1 TABLET NEEDED ORALLY EVERY 8 HRS TAKING PANTOPRAZOLE SODIUM 40 MG TABLET DELAYED RELEASE 1 TABLET ORALLY ONCE A DAY TAKING DRISDOL 31728 UNIT CAPSULE 1 CAPSULE ORALLY WEEKLY TAKING LOSARTAN POTASSIUM 100 MG TABLET 1 TABLET ORALLY ONCE A DAY TAKING ATENOLOL 25 MG TABLET 1 TABLET ORALLY ONCE A DAY IN EVENING TAKING ATENOLOL 50 MG TABLET 1 TABLET ORALLY ONCE A DAY IN A.M. 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 1 SON(S) , 2 DAUGHTER(S) - HEALTHY. DAUGHTERS: 1988, 1998. SOCIAL HISTORY GENERAL: TOBACCO USE ARE YOU A:NONSMOKER ALCOHOL SCREENING DID YOU HAVE A DRINK CONTAINING ALCOHOL IN THE PAST YEAR?YES HOW OFTEN DID YOU HAVE A DRINK CONTAINING ALCOHOL IN THE PAST YEAR?TWO TO THREE TIMES PER WEEK (3 POINTS) POINTS3 INTERPRETATIONPOSITIVE RECREATIONAL DRUG USE DRUG USE?NO CAFFEINE CAFFEINE USE?YES HOW OFTEN AND HOW MUCH? MAYBE 1 PEPSI EVERY OTHER DAY AND RARE EXPRESSO SEXUAL HX HAD SEX IN THE LAST 12 MONTHS (VAGINAL, ORAL, OR ANAL)?NO HAVE YOU EVER HAD AN STD?NO LMP:04/10/2014 HIV / HEP-C SCREENING HIV TEST OFFERED TO PATIENT:YES 06/10/2017 PT DECLINED DATE OFFERED:06/10/2017 BROCHURE PROVIDED TO PATIENTYES HEP-C TEST OFFERED TO PATIENT:YES 06/10/2017 PT DECLINED DATE OFFERED:06/10/2017 TEST ACCEPTED:NO MANDAEN [id number] NONE NO SIKH BELIEFS THAT WOULD IMPACT HEALTH CARE. LANGUAGE LANGUAGES SPOKEN:OMANI EDUCATION LEVEL OF EDUCATION:HIGH SCHOOL LEARNING BARRIERS / SPECIAL NEEDS BARRIERS TO LEARNING?NO VISION IMPAIRED?YES :CORRECTIVE LENSES DOMESTIC VIOLENCE STATUS: DENIES 12/2017 DIET: NO CONCENTRATED SWEETS.. EXERCISE: TRIES TO WALK BUT IT HURTS TOO MUCH, TAKES SOMA TO TRY TO BE ABLE TO DO STUFF. PAIN CLINIC PFS, CLERGY, PUBLIC HEALTH REFERRALS PFS REFERRAL NEEDED?NO CLERGY REFERRAL NEEDED?NO PUBLIC HEALTH REFERRAL NEEDED?NO WAS THE PROVIDER NOTIFIED OF ANY PERTINENT INFO?NO HAS THE PATIENT BEEN EDUCATED REGARDING HIS/HER PLAN OF CARE?YES HAS THE PATIENT BEEN EDUCATED REGARDING PAIN, THE RISK FOR PAIN, THE IMPORTANCE OF EFFECTIVE PAIN MANAGEMENT, AND THE PAIN ASSESSMENT PROCESS?YES ADVANCE DIRECTIVE ADVANCE DIRECTIVE DISCUSSED WITH PATIENT:YES DECLINED HCP INFO AND ASSISTANCE AT THIS TIME. REVIEWED WITH PT 01/03/18 1208 BV REVIEWED WITH PT 04/12/18 1102 BVREVIEWED WITH PATIENT 04/25/18 1500 JS. HOSPITALIZATION/MAJOR DIAGNOSTIC PROCEDURE SEIZURE UNSURE OF REASON/ POSSIBLE RXN TO TRAMADOL MAR 21 2016 PNEUMONIA FEB 2016 REVIEW OF SYSTEMS REVIEWED BY: PROVIDER: IVETT BELL MD . CONSTITUTIONAL: ANY CHANGE IN YOUR MEDICAL CONDITION? NO . CHILLS NO . FEVER NO . INFECTION: DO YOU HAVE NEW INFECTIONS? NO . DO YOU HAVE HISTORY OF MRSA? NO . MUSCULOSKELETAL: ANY NEW PATTERNS OF PAIN OR NUMBNESS? NO . GASTROENTEROLOGY: ANY NEW CHANGE IN BOWEL CONTROL? NO . GENITOURINARY: ANY NEW CHANGE IN BLADDER CONTROL? NO . IS THERE A CHANCE YOU COULD BE ? NO . HEMATOLOGY/LYMPH: DO YOU TAKE ANY BLOOD THINNERS? (FOR EXAMPLE- COUMADIN, PLAVIX, AGGRENOX, PLATEL, PRADAXA, OR XARELTO) NO . WHEN WAS YOUR LAST DOSE? DATE: TIME: . NEUROLOGY: HAVE YOU FALLEN IN THE PAST 12 MONTHS? NO . ANY NEW EXTREMITY NUMBNESS OR WEAKNESS? NO . CARDIOLOGY: DO YOU HAVE A PACEMAKER OR DEFIBRILLATOR? NO . RESPIRATORY: HAVE YOU BEEN SICK IN THE PAST WEEK? NO . FEVER NO . FLU LIKE SYMPTOMS? NO . COUGH NO . INTEGUMENTARY: DO YOU HAVE ANY RASHES OR OPEN SORES? YES, RASH TO BACK AND ABDOMEN . ALLERGIC/IMMUNO: ARE YOU ALLERGIC TO IV DYE? NO . ANY NEW ALLERGIES? NO . PSYCHIATRIC: DO YOU HAVE THOUGHTS OF HURTING YOURSELF OR SOMEONE ELSE? NO . ARE YOU ABUSED, NEGLECTED, OR IN AN UNSAFE ENVIRONMENT? NO . ENDOCRINOLOGY: ARE YOU DIABETIC? NO . OTHER: DO YOU NEED ANY PRESCRIPTIONS? NO . IF YES, PLEASE LIST: ____ . ANY NEW PROBLEMS WITH YOUR MEDICATIONS? NO . WHEN DID YOU LAST EAT? ____ . WHEN DID YOU LAST DRINK? ____ . WHAT DID YOU LAST DRINK? ____ . NAME OF PERSON DRIVING YOU HOME? ____ . DO YOU HAVE ANY OTHER QUESTIONS OR CONCERNS NO . VITAL SIGNS WT 215 LBS, HT 63 IN, BMI 38.08 INDEX, BP 138/84 MM HG, HR 96 /MIN, RR 18 /MIN, TEMP 97.4 F, OXYGEN SAT % 94%, SAFE IN ENV? (Y/N) YES, REVIEWED BY: TRACY. EXAMINATION GENERAL EXAMINATION: PATIENT IS ALERT O X 3 AND COOPERATIVE. THERE IS A RASH OVER THE BACK, NECK, AND STOMACH AREAS. PATIENT IS LIMPING FROM HER LEFT LEG. LEFT LEG IS WEAKER AT EXTENSION AND FLEXION. STRAIGHT LEG RAISE OF THE LEFT LEG IS POSITIVE AT 45 DEGREES FOR RADICULOPATHY. MRI OF THE LUMBAR SPINE DONE ON 08/06/2016 SHOWS A BULGING DISC AT L4-L5. ASSESSMENTS INTERVERTEBRAL DISC DISORDER WITH RADICULOPATHY OF LUMBAR REGION - M51.16 (PRIMARY) TREATMENT INTERVERTEBRAL DISC DISORDER WITH RADICULOPATHY OF LUMBAR REGION CLINICAL NOTES: WE DISCUSSED SEVERAL ISSUES WITH MRS. GUZMAN'S PAIN MANAGEMENT CASE. I WOULD LIKE A CLEARANCE FOR A LUMBAR EPIDURAL STEROID INJECTION FROM THE PATIENT'S PRIMARY CARE PHYSICIAN REGARDING THE PATIENT'S RASH. I WILL SEND A CONSULT TO DR. DALAL WELL REGARDING THE SKIN RASH. THE PATIENT WILL FOLLOW UP WITH A NURSE PRACTITIONER IN 3 WEEKS. INSTRUCTIONS WERE GIVEN, QUESTIONS WERE ANSWERED, PATIENT REPORTS UNDERSTANDING AND AGREES WITH THE PLAN. I, VENU AYALA, DOCUMENTED THE ABOVE INFORMATION ACTING A SCRIBE FOR DR. BELL. I HAVE REVIEWED THE ABOVE DOCUMENT, WRITTEN BY VENU SINGLETONIBMoraima AND I VERIFY THAT IT IS ACCURATE. PROCEDURE CODES FA211 ESTABILISHED PATIENT [facility] FACILITY CHARGE [id number] CURRENT MEDS W/DOSAGES DOCUMENTED G8730 PAIN ASSESS POS TOOL F/U PLAN DOC DISPOSITION & COMMUNICATION FOLLOW UP 3 WEEKS ELECTRONICALLY SIGNED BY IVETT BELL MD, ON 05/06/2018 AT 06:49 PM EST DISCLAIMER : THIS IS A VISIT SUMMARY EXTRACTED FROM THE [employer] CHART. IT IS NOT A COPY OF THE [employer] PROGRESS NOTE. MTDD
== END ==
LOC: M PAIN 14:30
PROVIDERS: ATTEND Anesthesiology
DX: M51.16 Intervertebral disc disorders with radiculopathy, lumbar region (principal); G89.29 Other chronic pain; J45.909 Unspecified asthma, uncomplicated; R56.9 Unspecified convulsions; N18.9 Chronic kidney disease, unspecified; I12.9 Hypertensive chronic kidney disease with stage 1 through stage 4 chronic kidney disease, or unspecified chronic kidney disease; F41.9 Anxiety disorder, unspecified; K21.9 Gastro-esophageal reflux disease without esophagitis; Z79.899 Other long term (current) drug therapy; Z88.5 Allergy status to narcotic agent

== ENCOUNTER 2018-06-06 10:45 | Emergency (ER) | payer OTHER ==
[~2018-06-06] VITALS: Ht 160 cm; Wt 96.8 kg
[~2018-06-06 10:45] MED LIST changes: -BUTR10DI TOP; -LISI40TA52 PO; +LISI40TAB PO; +VANC125C2 PO; -VANC125C3 PO
[2018-06-06] MEDS ORDERED: BUTR10DI TOP (11:20)
[2018-06-06] MEDS ORDERED: NS 1,000 ML IV ONE (12:15)
[2018-06-06] MEDS ORDERED: ONDANSETRON 4MG/2ML VIAL (J2405) IV ONE ×2 (12:15→16:00)
[2018-06-06 12:18] LABS: BASO # 0.1 10^3/uL (0.0-0.2); BASO % 0.4 % (0.0-1.0); EOS % 0.3 % (0.0-3.0); HEMATOCRIT 36.4 % (36.0-47.0); HEMOGLOBIN 11.3 g/dl (12.0-15.5); LYMPH # 1.7 10^3/uL (1.5-4.5); LYMPH % 12.5 % (24.0-44.0); MEAN CORPUSCULAR HEMOGLOBIN 25.5 pg (27.0-33.0); MEAN CORPUSCULAR VOLUME 82.2 fl (80.0-96.0); MONO # 0.6 10^3/uL (0.0-0.8); MONO % 4.5 % (0.0-5.0); NEUTROPHILS # 11.1 10^3/uL (1.8-7.7); NEUTROPHILS % 82.1 % (36.0-66.0); PLATELET COUNT, AUTOMATED 277 10^3/uL (150-450); RED BLOOD COUNT 4.43 10^6/uL (4.00-5.40); WHITE BLOOD COUNT 13.5 10^3/uL (4.0-10.0)
[2018-06-06 12:33] LABS: ALBUMIN 3.7 GM/DL (3.2-5.2); ALT/SGPT 49 U/L (12-78); BILIRUBIN,DIRECT 0.2 MG/DL (0.0-0.2); BILIRUBIN,TOTAL 0.6 MG/DL (0.2-1.0); BLOOD UREA NITROGEN 23 MG/DL (7-18); CARBON DIOXIDE LEVEL 27 MEQ/L (21-32); CHLORIDE LEVEL 102 MEQ/L (98-107); GLOMERULAR FILTRATION RATE > 60.0 (>51); GLUCOSE, FASTING 137 MG/DL (70-100); LIPASE 188 U/L (73-393); POTASSIUM SERUM 3.7 MEQ/L (3.5-5.1); SODIUM LEVEL 137 MEQ/L (136-145); TOTAL PROTEIN 8.1 GM/DL (6.4-8.2)
[2018-06-06] MEDS ORDERED: ISOVUE-370 76% 125ML VIAL (Q9967 PER ML) As Ordered ONE (14:58)
--- NOTE | 2018-06-06 15:19 | ECGEPIP ---
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
--- NOTE | 2018-06-06 15:48 | REP ---
CT ABDOMEN AND PELVIS WITH IV CONTRAST: TECHNIQUE: Axial contrast enhanced images from the lung bases to the pubic symphysis using 100 mL Isovue 370 intravenous contrast material with multiplanar reformations. Visualized lung bases demonstrate no infiltrate. Liver, spleen, and left adrenal are unremarkable. Right adrenal demonstrates an oval nodule 2.3 cm in maximum diameter, unchanged since prior CTs dating back to 03/21/2016, consistent with an adenoma. Pancreas is unremarkable in appearance with no mass. There is a tiny cyst in the lower pole of the right kidney. There is a 3 mm intrarenal calculus in the lower pole of the left kidney. There is no hydroureteronephrosis. There is no abdominal aortic aneurysm. There is no adenopathy. There is no free air or free fluid. I see no bowel wall thickening. A few sigmoid diverticula are present. There is no evidence of appendicitis. I see no pelvic mass. The urinary bladder is mildly distended and grossly unremarkable. IMPRESSION: No acute abnormalities. No evidence of bowel inflammation or appendicitis. Stable right adrenal adenoma. Mild sigmoid diverticulosis without evidence of acute diverticulitis. Tiny right renal cyst. Tiny intrarenal calculus left kidney. No hydronephrosis. Electronically Signed by Ochoa Clark MD 06/07/2018 01:02 P
[2018-06-06 16:36] VITALS: BP 128/80
== END 2018-06-06 16:43 | disposition home or self-care (01) ==
LOC: M ED 10:45
DX: K57.30 Diverticulosis of large intestine without perforation or abscess without bleeding (principal); K59.09 Other constipation; R11.2 Nausea with vomiting, unspecified; K64.4 Residual hemorrhoidal skin tags; I10 Essential (primary) hypertension; K21.9 Gastro-esophageal reflux disease without esophagitis; E78.5 Hyperlipidemia, unspecified; J45.909 Unspecified asthma, uncomplicated; F41.9 Anxiety disorder, unspecified; G47.30 Sleep apnea, unspecified; M54.5 Low back pain; Z86.19 Personal history of other infectious and parasitic diseases; Z79.899 Other long term (current) drug therapy
CPT/HCPCS: 74177; 80048; 80076; 81001; 83690; 85025; 93005; 96361; 96374; 96376; 99284; J2405; Q9967

== ENCOUNTER → 2018-06-06 | Outpatient (CLI) | payer OTHER ==
[~2018-06-06] MED LIST changes: +BUTR10DI TOP; +LISI40TA52 PO; -LISI40TAB PO; -VANC125C2 PO; +VANC125C3 PO
== END ==
LOC: M PAIN 10:00
PROVIDERS: ATTEND Nurse Practitioner Family
DX: M51.16 Intervertebral disc disorders with radiculopathy, lumbar region (principal); Z53.29 Procedure and treatment not carried out because of patient's decision for other reasons

== ENCOUNTER → 2018-06-30 | Outpatient (REF) | payer OTHER ==
[~2018-06-30] MED LIST changes: +BUTR10DI TOP; +LISI40TA52 PO; -LISI40TAB PO; -VANC125C2 PO; +VANC125C3 PO
[2018-06-30 18:46] LABS: PERCENT SATURATION 5.7 % (13.2-45.0)
== END ==
LOC: M LAB REF 17:21
PROVIDERS: ATTEND Internal Medicine Nephrology
DX: I12.9 Hypertensive chronic kidney disease with stage 1 through stage 4 chronic kidney disease, or unspecified chronic kidney disease (principal); D64.9 Anemia, unspecified

== ENCOUNTER → 2018-07-11 | Outpatient (CLI) | payer OTHER ==
[~2018-07-11] MED LIST changes: +ISOVUE-M 300 61% 15ML VIAL (Q9967) As Ordered ONE; +LIDOCAINE 1% SDV INJ 30 ML VIAL As Ordered ONE; +diazePAM 5 MG TAB As Ordered ONE; +diphenhydrAMINE 25 MG CAP As Ordered ONE; +methylPREDNISolone SUSP 40 MG/ML (DEPO-medrol) VIAL (J1030) As Ordered ONE; +oxyCODONE 5MG TAB As Ordered ONE
--- NOTE | 2018-07-11 13:37 | REP ---
Partial lumbar spine series: Three views . History: Injection procedure for pain. 19 seconds of fluoroscopy time is reported. Findings: A sequence of three fluoroscopically obtained last image hold procedural spot radiographs of the lumbar spine document needle position and contrast injection associated with injection procedure. Electronically Signed by Kalen Mccarthy MD 07/11/2018 01:29 P
--- NOTE | 2018-07-23 23:58 | ECWPNPC ---
PATIENT NAME: MARGA GUZMAN : 1960 GENDER: FEMALE VISIT DATE: 07/11/2018 DISCHARGE DATE: 07/11/18 1227 VISIT LOCKED DATE TIME: PHYSICIAN: IVETT BELL MD RESOURCE: IVETT BELL MD REASON FOR APPOINTMENT 1. L4/5 LESI INTRALAMINAR HISTORY OF PRESENT ILLNESS HISTORY OF PRESENT ILLNESS: PAIN THE PATIENT DESCRIBES THE PAIN... FALL RISK SCREENING: SCREENING :NO FALLS REPORTED IN THE LAST YEAR CURRENT MEDICATIONS TAKING PROAIR HFA 108 (90 BASE) MCG/ACT AEROSOL SOLUTION 2 PUFFS NEEDED INHALATION QID PRN, NOTES: NOT IN A WHILE TAKING TYLENOL EXTRA STRENGTH 500 MG TABLET 1 TABLET NEEDED ORALLY EVERY 8 HRS, NOTES: 07-09-18899 TAKING DRISDOL 67132 UNIT CAPSULE 1 CAPSULE ORALLY WEEKLY, NOTES: SATURDAYS TAKING LOSARTAN POTASSIUM 100 MG TABLET 1 TABLET ORALLY ONCE A DAY, NOTES: 07-11-18799 TAKING ATENOLOL 25 MG TABLET 1 TABLET ORALLY ONCE A DAY IN EVENING, NOTES: 07-10-182099 TAKING ATENOLOL 50 MG TABLET 1 TABLET ORALLY ONCE A DAY IN A.M., NOTES: 07-11-182099 TAKING ATORVASTATIN CALCIUM 40 MG TABLET 1 TABLET ORALLY ONCE A DAY, NOTES: 07-10-182199 TAKING BUTRANS 10 MCG/HR PATCH WEEKLY 1 PATCH TO SKIN TRANSDERMAL 1 PATCH [id number], NOTES: HAS ON TAKING SOMA 350 MG TABLET 1 TABLET NEEDED ORALLY Q8H PRN MDD2 #60 TAB SHOULD LAST 30 DAYS, NOTES: 07-10-182099 TAKING PANTOPRAZOLE SODIUM 40 MG TABLET DELAYED RELEASE 1 TABLET ORALLY ONCE A DAY, NOTES: 07-11-18 08 MEDICATION LIST REVIEWED AND RECONCILED WITH THE PATIENT PAST MEDICAL HISTORY 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 1 SON(S) , 2 DAUGHTER(S) - HEALTHY. DAUGHTERS: 1988, 1998. SOCIAL HISTORY GENERAL: TOBACCO USE ARE YOU A:NONSMOKER ALCOHOL SCREENING DID YOU HAVE A DRINK CONTAINING ALCOHOL IN THE PAST YEAR?YES HOW OFTEN DID YOU HAVE A DRINK CONTAINING ALCOHOL IN THE PAST YEAR?TWO TO THREE TIMES PER WEEK (3 POINTS) POINTS3 INTERPRETATIONPOSITIVE RECREATIONAL DRUG USE DRUG USE?NO CAFFEINE CAFFEINE USE?YES HOW OFTEN AND HOW MUCH? MAYBE 1 PEPSI EVERY OTHER DAY AND RARE EXPRESSO SEXUAL HX HAD SEX IN THE LAST 12 MONTHS (VAGINAL, ORAL, OR ANAL)?NO HAVE YOU EVER HAD AN STD?NO LMP:04/10/2014 HIV / HEP-C SCREENING HIV TEST OFFERED TO PATIENT:YES 06/10/2017 PT DECLINED DATE OFFERED:06/10/2017 BROCHURE PROVIDED TO PATIENTYES HEP-C TEST OFFERED TO PATIENT:YES 06/10/2017 PT DECLINED DATE OFFERED:06/10/2017 TEST ACCEPTED:NO [id number] NONE NO CHEONDOISM BELIEFS THAT WOULD IMPACT HEALTH CARE. LANGUAGE LANGUAGES SPOKEN:SPANISH EDUCATION LEVEL OF EDUCATION:HIGH SCHOOL LEARNING BARRIERS / SPECIAL NEEDS BARRIERS TO LEARNING?NO VISION IMPAIRED?YES :CORRECTIVE LENSES DOMESTIC VIOLENCE STATUS: DENIES 12/2017 DIET: NO CONCENTRATED SWEETS.. EXERCISE: TRIES TO WALK BUT IT HURTS TOO MUCH, TAKES SOMA TO TRY TO BE ABLE TO DO STUFF. PAIN CLINIC PFS, CLERGY, PUBLIC HEALTH REFERRALS PFS REFERRAL NEEDED?NO CLERGY REFERRAL NEEDED?NO PUBLIC HEALTH REFERRAL NEEDED?NO WAS THE PROVIDER NOTIFIED OF ANY PERTINENT INFO?NO HAS THE PATIENT BEEN EDUCATED REGARDING HIS/HER PLAN OF CARE?YES HAS THE PATIENT BEEN EDUCATED REGARDING PAIN, THE RISK FOR PAIN, THE IMPORTANCE OF EFFECTIVE PAIN MANAGEMENT, AND THE PAIN ASSESSMENT PROCESS?YES ADVANCE DIRECTIVE ADVANCE DIRECTIVE DISCUSSED WITH PATIENT:YES DECLINED HCP INFO AND ASSISTANCE AT THIS TIME. REVIEWED WITH PT 01/03/18 1208 BV REVIEWED WITH PT 04/12/18 1102 BVREVIEWED WITH PATIENT 04/25/18 1500 JS. HOSPITALIZATION/MAJOR DIAGNOSTIC PROCEDURE SEIZURE UNSURE OF REASON/ POSSIBLE RXN TO TRAMADOL MAR 21 2016 PNEUMONIA FEB 2016 REVIEW OF SYSTEMS REVIEWED BY: PROVIDER: . CONSTITUTIONAL: ANY CHANGE IN YOUR MEDICAL CONDITION? NO . CHILLS NO . FEVER NO . INFECTION: DO YOU HAVE NEW INFECTIONS? NO . DO YOU HAVE HISTORY OF MRSA? NO . MUSCULOSKELETAL: ANY NEW PATTERNS OF PAIN OR NUMBNESS? NO . GASTROENTEROLOGY: ANY NEW CHANGE IN BOWEL CONTROL? NO . GENITOURINARY: ANY NEW CHANGE IN BLADDER CONTROL? NO . IS THERE A CHANCE YOU COULD BE ? NO . HEMATOLOGY/LYMPH: DO YOU TAKE ANY BLOOD THINNERS? (FOR EXAMPLE- COUMADIN, PLAVIX, AGGRENOX, PLATEL, PRADAXA, OR XARELTO) NO . WHEN WAS YOUR LAST DOSE? DATE: TIME: . NEUROLOGY: HAVE YOU FALLEN IN THE PAST 12 MONTHS? NO . ANY NEW EXTREMITY NUMBNESS OR WEAKNESS? NO . CARDIOLOGY: DO YOU HAVE A PACEMAKER OR DEFIBRILLATOR? NO . RESPIRATORY: HAVE YOU BEEN SICK IN THE PAST WEEK? NO . FEVER NO . FLU LIKE SYMPTOMS? NO . COUGH NO . INTEGUMENTARY: DO YOU HAVE ANY RASHES OR OPEN SORES? NO . ALLERGIC/IMMUNO: ARE YOU ALLERGIC TO IV DYE? NO . ANY NEW ALLERGIES? NO . PSYCHIATRIC: DO YOU HAVE THOUGHTS OF HURTING YOURSELF OR SOMEONE ELSE? NO . ARE YOU ABUSED, NEGLECTED, OR IN AN UNSAFE ENVIRONMENT? NO . ENDOCRINOLOGY: ARE YOU DIABETIC? NO . OTHER: DO YOU NEED ANY PRESCRIPTIONS? NO . IF YES, PLEASE LIST: ____ . ANY NEW PROBLEMS WITH YOUR MEDICATIONS? NO . WHEN DID YOU LAST EAT? ____6 PM LAST NIGHT . WHEN DID YOU LAST DRINK? ____0200 THIS MORNING . WHAT DID YOU LAST DRINK? ____WATER . NAME OF PERSON DRIVING YOU HOME? ____CASSIDY KONG . DO YOU HAVE ANY OTHER QUESTIONS OR CONCERNS NO . VITAL SIGNS WT 215.6 LBS, HT 63 IN, BMI 38.19 INDEX, BP 138/83 MM HG, HR 94 /MIN, RR 18 /MIN, TEMP 97.8 F, OXYGEN SAT % 95%, SAFE IN ENV? (Y/N) YES, NA INITIALS NM 10:51, REVIEWED BY: KG. ASSESSMENTS INTERVERTEBRAL DISC DISORDER WITH RADICULOPATHY OF LUMBAR REGION - M51.16 (PRIMARY) TREATMENT INTERVERTEBRAL DISC DISORDER WITH RADICULOPATHY OF LUMBAR REGION [facility] FLUORO GUIDE SPINE INJECTION (PAIN)[id number] PROCEDURES PRE PROCEDURE DIAGNOSIS LUMBAR DISC DISORDER WITH RADICULOPATHY POST PROCEDURE DIAGNOSIS LUMBAR DISC DISORDER WITH RADICULOPATHY PROCEDURE LUMBAR EPIDURAL STEROID INJECTION UNDER FLUOROSCOPIC GUIDANCE SURGEON DR. 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 I EVALUATED THE PATIENT AND REVIEWED THE CHART. I WENT OVER THE RISKS, ALTERNATIVES, AND BENEFITS ASSOCIATED WITH THIS PROCEDURE. THE PATIENT WOULD LIKE TO PROCEED AND GIVES CONSENT TO PERFORMED THE PROCEDURE. THE PATIENT DENIES UNEXPLAINABLE WEIGHT LOSS, FEVER, CHILLS, OR NEW CHANGES IN URINARY OR BOWEL CONTROL. DESCRIPTION OF PROCEDURE THE PATIENT WAS BROUGHT TO THE PROCEDURE ROOM AND PLACED IN THE PRONE POSITION. THE LUMBOSACRAL AREA WAS CLEANED WITH BETADINE SOLUTION AND DRAPED ASEPTICALLY. THE PROCEDURE WAS DONE UNDER STERILE CONDITIONS. I CHECKED LATERALITY AND THE LEVEL WHERE THE PROCEDURE WAS GOING TO BE PERFORMED WITH THE PATIENT AND THE SUPPORTING STAFF AT THE MOMENT OF THE TIME OUT IN THE PROCEDURE ROOM. UNDER FLUOROSCOPIC GUIDANCE, THE TARGET POINT WAS SELECTED AT THE INTERLAMINAR LEVEL OF L4-L5. LIDOCAINE WAS USED TO NUMB THE SKIN AND THE SUBCUTANEOUS TISSUE BELOW IT. EPIDURAL TUOHY NEEDLE, 17-GAUGE, WAS ADVANCED UNDER FLUOROSCOPIC GUIDANCE AND FOLLOWING PATIENT FEEDBACK UNTIL THE EPIDURAL SPACE WAS REACHED, 7 CM DEEP INTO THE SKIN BY THE LOSS OF RESISTANCE TECHNIQUE. ISOVUE M DYE 30%, 0.25 ML, WAS INJECTED SHOWING ADEQUATE SPREAD OF THE DYE. THEN, A SOLUTION OF 3 ML OF NORMAL SALINE WITH DEPO-MEDROL 60 MG WAS INJECTED SLOWLY FOLLOWING PATIENT FEEDBACK. THERE WAS NO EVIDENCE OF BLOOD, PARESTHESIA OR CEREBROSPINAL FLUID DURING THE PROCEDURE. THE PATIENT WAS SENT TO THE RECOVERY ROOM. THE PATIENT WAS MOVING THE EXTREMITIES AND DOING WELL. THERE WAS NO COMPLICATION DURING THE PROCEDURE. FLUOROSCOPY TIME WAS 19 SECONDS. POST PROCEDURE NOTE THE PATIENT WILL BE SEEN IN A FOLLOW UP IN THE NEXT FEW WEEKS. INSTRUCTIONS WERE GIVEN, QUESTIONS WERE ANSWERED, AND THE PATIENT EXPRESSED UNDERSTANDING AND AGREES WITH THE PLAN. I, JING DOMINGUEZ, DOCUMENTED THE ABOVE INFORMATION ACTING A SCRIBE FOR DR. BELL. I HAVE REVIEWED THE ABOVE DOCUMENT, WRITTEN BY JING DOMINGUEZ SCRIBMoraima AND I VERIFY THAT IT IS ACCURATE. PROCEDURE CODES 24104 LUMBAR/SACRAL W/ IMAGING 6045F RADXPS IN END [id number] PXD DISPOSITION & COMMUNICATION FOLLOW UP 2 WEEKS ELECTRONICALLY SIGNED BY IVETT BELL MD, MD ON 07/23/2018 AT 08:34 PM EDT DISCLAIMER : THIS IS A VISIT SUMMARY EXTRACTED FROM THE [employer] CHART. IT IS NOT A COPY OF THE [employer] PROGRESS NOTE. MTDD
== END ==
LOC: M PAIN 11:00
PROVIDERS: ATTEND Anesthesiology
DX: G89.29 Other chronic pain (principal); M51.16 Intervertebral disc disorders with radiculopathy, lumbar region; J45.909 Unspecified asthma, uncomplicated; F41.9 Anxiety disorder, unspecified; N18.9 Chronic kidney disease, unspecified; I12.9 Hypertensive chronic kidney disease with stage 1 through stage 4 chronic kidney disease, or unspecified chronic kidney disease; R56.9 Unspecified convulsions; Z79.891 Long term (current) use of opiate analgesic; Z79.899 Other long term (current) drug therapy; Z88.5 Allergy status to narcotic agent
CPT/HCPCS: 62323; J1030; Q9967

== ENCOUNTER → 2018-07-20 | Outpatient (CLI) | payer OTHER ==
[~2018-07-20] MED LIST changes: -ISOVUE-M 300 61% 15ML VIAL (Q9967) As Ordered ONE; -LIDOCAINE 1% SDV INJ 30 ML VIAL As Ordered ONE; -diazePAM 5 MG TAB As Ordered ONE; -diphenhydrAMINE 25 MG CAP As Ordered ONE; -methylPREDNISolone SUSP 40 MG/ML (DEPO-medrol) VIAL (J1030) As Ordered ONE; -oxyCODONE 5MG TAB As Ordered ONE
--- NOTE | 2018-07-24 16:25 | SLEEPCENT ---
DATE OF PROCEDURE: 07/20/2018 ORDERED BY: EUSEBIO Morales Nocturnal polysomnography was performed for evaluation of sleep physiology in this patient with a history of excessive somnolence. For testing, 7 hours and 2 minutes of data were reviewed. They were 210 minutes of sleep identified. Sleep latency was prolonged at 113 minutes. Rapid eye movement (REM) latency was prolonged at 114 minutes. Sleep architecture showed fragmentation. There were two REM cycles noted. Overall sleep efficiency 51%. The electrocardiogram showed a sinus rhythm with an average heart rate of 84 beats per minute. EEG showed coarsening in background but normal waveforms for awake and sleep. No focal events were identified. There were 186 respiratory events identified of 10 seconds in duration or greater for an apnea-hypopnea index of 53.1. The events were primarily obstructive, more frequent but not exclusive to the supine posture. Arousals from respiratory events occurred 21.4 times per hour and oxygen desaturations were seen into the 60s. There was some activity in the limb leads as well. Limb movement arousal index was 4.3. IMPRESSION: Severe obstructive sleep apnea syndrome (G47.33). Apnea-hypopnea index 53.1. RECOMMENDATIONS: The patient should be encouraged to return to the sleep disorder center for pressure therapy. In the interim, alcohol and sedative avoidance should be practiced and caution exercised during the operation of motor vehicles.
== END ==
LOC: M SLEEP 19:40
PROVIDERS: ATTEND Nurse Practitioner Family
DX: G47.33 Obstructive sleep apnea (adult) (pediatric) (principal)

== ENCOUNTER → 2018-08-16 | Outpatient (CLI) | payer OTHER ==
--- NOTE | 2018-08-28 00:37 | ECWPNPC ---
PATIENT NAME: MARGA GUZMAN : 1960 GENDER: FEMALE VISIT DATE: 08/16/2018 DISCHARGE DATE: 08/16/18 1207 VISIT LOCKED DATE TIME: PHYSICIAN: RICHARDSON BEASLEY RESOURCE: RICHARDSON BEASLEY REASON FOR APPOINTMENT 1. LOW BACK HISTORY OF PRESENT ILLNESS HISTORY OF PRESENT ILLNESS: HERE FOR POST PROCEDURE F/U.HAD L4/5-LESI ON 07/11/18.REPORTS 2 WEEKS IMPROVEMENT IN PAIN THEN PAIN ABRUPTLY RETURNED TO NORMAL.STARTED BUTRANS PATCH AT LAST VISIT AND THIS CAUSED ALOT OF SITE ITCHING AND DIDNT HELP W PAIN.RATING PAIN VAS 7/10.PAIN RADIATES INTO HIPS. PAIN THE PATIENT DESCRIBES THE PAIN... FALL RISK SCREENING: SCREENING :NO FALLS REPORTED IN THE LAST YEAR CURRENT MEDICATIONS TAKING TYLENOL EXTRA STRENGTH 500 MG TABLET 1 TABLET NEEDED ORALLY EVERY 8 HRS TAKING DRISDOL 14866 UNIT CAPSULE 1 CAPSULE ORALLY WEEKLY, NOTES: SATURDAYS TAKING LOSARTAN POTASSIUM 100 MG TABLET 1 TABLET ORALLY ONCE A DAY TAKING ATENOLOL 25 MG TABLET 1 TABLET ORALLY ONCE A DAY IN EVENING TAKING ATENOLOL 50 MG TABLET 1 TABLET ORALLY ONCE A DAY IN A.M. 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 1 SON(S) , 2 DAUGHTER(S) - HEALTHY. DAUGHTERS: 1988, 1998. SOCIAL HISTORY GENERAL: TOBACCO USE ARE YOU A:NONSMOKER HIV / HEP-C SCREENING HIV TEST OFFERED TO PATIENT:YES 06/10/2017 PT DECLINED DATE OFFERED:06/10/2017 BROCHURE PROVIDED TO PATIENTYES HEP-C TEST OFFERED TO PATIENT:YES 06/10/2017 PT DECLINED DATE OFFERED:06/10/2017 TEST ACCEPTED:NO EDUCATION LEVEL OF EDUCATION:HIGH SCHOOL DIET: NO CONCENTRATED SWEETS.. LANGUAGE LANGUAGES SPOKEN:FILIPINO DOMESTIC VIOLENCE STATUS: DENIES 12/2017 RECREATIONAL DRUG USE DRUG USE?NO EXERCISE: TRIES TO WALK BUT IT HURTS TOO MUCH, TAKES SOMA TO TRY TO BE ABLE TO DO STUFF. LEARNING BARRIERS / SPECIAL NEEDS BARRIERS TO LEARNING?NO VISION IMPAIRED?YES :CORRECTIVE LENSES PAIN CLINIC PFS, CLERGY, PUBLIC HEALTH REFERRALS PFS REFERRAL NEEDED?NO CLERGY REFERRAL NEEDED?NO PUBLIC HEALTH REFERRAL NEEDED?NO WAS THE PROVIDER NOTIFIED OF ANY PERTINENT INFO?NO HAS THE PATIENT BEEN EDUCATED REGARDING HIS/HER PLAN OF CARE?YES HAS THE PATIENT BEEN EDUCATED REGARDING PAIN, THE RISK FOR PAIN, THE IMPORTANCE OF EFFECTIVE PAIN MANAGEMENT, AND THE PAIN ASSESSMENT PROCESS?YES LATEX QUESTIONNAIRE LATEX ALLERGY : HAVE YOU EVER DEVELOPED ANY TYPE OF REACTION AFTER HANDLING LATEX PRODUCTS SUCH RUBBER GLOVES, CONDOMS, DIAPHRAGMS, BALLOONS, SOCKS, OR UNDERWEAR?NO LATEX ALLERGY : HAVE YOU EVER DEVELOPED ANY TYPE OF REACTION DURING OR AFTER DENTAL APPOINTMENT, VAGINAL/RECTAL EXAMINATION, SURGICAL PROCEDURE, OR ANY OTHER EXPOSURE?NO LATEX RISK : HAVE YOU EVER HAD ANY DIFFICULTY BREATHING OR HIVES AFTER EATING OR HANDLING ANY FRUITS, OR VEGETABLES; SUCH KIWI, BANANAS, STONE FRUITS, OR CHESTNUTSNO LATEX RISK : DO YOU HAVE A PREVIOUS PERSONAL HISTORY OF MORE THAN NINE SURGERIES, SPINA BIFIDA, OR REPEATED CATHERTIZATIONS? NO LATEX RISK : ARE YOU FREQUENTLY EXPOSED TO LATEX PRODUCTS IN YOUR OCCUPATION?NO DATE ASKED : 08/16/2018 CAFFEINE CAFFEINE USE?YES HOW OFTEN AND HOW MUCH? MAYBE 1 PEPSI EVERY OTHER DAY AND RARE EXPRESSO ADVANCE DIRECTIVE ADVANCE DIRECTIVE DISCUSSED WITH PATIENT:YES DECLINED HCP INFO AND ASSISTANCE AT THIS TIME. 08/16/18 ROMAN CATHOLIC [id number] NONE NO CONGREGATIONAL BELIEFS THAT WOULD IMPACT HEALTH CARE. ALCOHOL SCREENING DID YOU HAVE A DRINK CONTAINING ALCOHOL IN THE PAST YEAR?YES HOW OFTEN DID YOU HAVE A DRINK CONTAINING ALCOHOL IN THE PAST YEAR?TWO TO THREE TIMES PER WEEK (3 POINTS) POINTS3 INTERPRETATIONPOSITIVE SEXUAL HX HAD SEX IN THE LAST 12 MONTHS (VAGINAL, ORAL, OR ANAL)?NO HAVE YOU EVER HAD AN STD?NO LMP:04/10/2014 REVIEWED WITH PT 01/03/18 1208 BV REVIEWED WITH PT 04/12/18 1102 BVREVIEWED WITH PATIENT 04/25/18 1500 JS REVIEWED WITH PT 08/16/18 1120 BV. HOSPITALIZATION/MAJOR DIAGNOSTIC PROCEDURE SEIZURE UNSURE OF REASON/ POSSIBLE RXN TO TRAMADOL MAR 21 2016 PNEUMONIA FEB 2016 REVIEW OF SYSTEMS REVIEWED BY: PROVIDER: RICHARDSON KAPLAN . CONSTITUTIONAL: ANY CHANGE IN YOUR MEDICAL CONDITION? NO . CHILLS NO . FEVER NO . INFECTION: DO YOU HAVE NEW INFECTIONS? NO . DO YOU HAVE HISTORY OF MRSA? NO . MUSCULOSKELETAL: ANY NEW PATTERNS OF PAIN OR NUMBNESS? NO . GASTROENTEROLOGY: ANY NEW CHANGE IN BOWEL CONTROL? NO . GENITOURINARY: ANY NEW CHANGE IN BLADDER CONTROL? NO . IS THERE A CHANCE YOU COULD BE ? NO . HEMATOLOGY/LYMPH: DO YOU TAKE ANY BLOOD THINNERS? (FOR EXAMPLE- COUMADIN, PLAVIX, AGGRENOX, PLATEL, PRADAXA, OR XARELTO) NO . WHEN WAS YOUR LAST DOSE? DATE: TIME: . NEUROLOGY: HAVE YOU FALLEN IN THE PAST 12 MONTHS? NO . ANY NEW EXTREMITY NUMBNESS OR WEAKNESS? NO . CARDIOLOGY: DO YOU HAVE A PACEMAKER OR DEFIBRILLATOR? NO . RESPIRATORY: HAVE YOU BEEN SICK IN THE PAST WEEK? NO . FEVER NO . FLU LIKE SYMPTOMS? NO . COUGH NO . INTEGUMENTARY: DO YOU HAVE ANY RASHES OR OPEN SORES? NO . ALLERGIC/IMMUNO: ARE YOU ALLERGIC TO IV DYE? NO . ANY NEW ALLERGIES? NO . PSYCHIATRIC: DO YOU HAVE THOUGHTS OF HURTING YOURSELF OR SOMEONE ELSE? NO . ARE YOU ABUSED, NEGLECTED, OR IN AN UNSAFE ENVIRONMENT? NO . ENDOCRINOLOGY: ARE YOU DIABETIC? NO . OTHER: DO YOU NEED ANY PRESCRIPTIONS? YES, SOMA AND WOULD LIKE TO DISCUSS BUTRANS PATCH . IF YES, PLEASE LIST: ____ . ANY NEW PROBLEMS WITH YOUR MEDICATIONS? YES, BUTRANS PATCH HAS BEEN CAUSING ITCHY SKIN AT SITE OF APPLICATION . WHEN DID YOU LAST EAT? ____ . WHEN DID YOU LAST DRINK? ____ . WHAT DID YOU LAST DRINK? ____ . NAME OF PERSON DRIVING YOU HOME? ____ . DO YOU HAVE ANY OTHER QUESTIONS OR CONCERNS NO . VITAL SIGNS WT 216.0 LBS, HT 63 IN, BMI 38.26 INDEX, BP 103/54 MM HG, HR 104 /MIN, RR 18 /MIN, TEMP 96.2 F, OXYGEN SAT % 92%, NA INITIALS AW 1108, REVIEWED BY: BV. EXAMINATION GENERAL EXAMINATION: GENERAL APPEARANCE: AWAKE,ALERT ,PLEAASANT . PSYCH AFFECT NORMAL . LUNGS: LUNG KIM ARE CLEAR TO AUSCULTATION BILATERALLY. GOOD MOVEMENT OF AIR . HEART: S1, S2 IN A REGULAR RATE AND RHYTHM. NO SIGNIFICANT MURMURS, RUBS OR GALLOPS NOTED . MUSCULOSKELETAL: WEAK OVER LEFT LEG. LUMBAR SACRAL SPINE PALPATION: + FOR PAIN OVER L/S SPINE. + FOR PAIN OVER L/S PARASPINALS.SLE +45 DEGREES LEFT. NEUROLOGIC EXAM: NORMAL SENSATION LIGHT TOUCH BILAT. LOWER EXTREMITIES. DIAGNOSTIC TESTS REVIEWED MRI L/S [id number]. ASSESSMENTS INTERVERTEBRAL DISC DISORDER WITH RADICULOPATHY OF LUMBAR REGION - M51.16 (PRIMARY) TREATMENT INTERVERTEBRAL DISC DISORDER WITH RADICULOPATHY OF LUMBAR REGION STOP SOMA TABLET, 350 MG, 1 TABLET NEEDED, ORALLY, Q8H PRN MDD2 #60 TAB SHOULD LAST 30 DAYS STOP BUTRANS PATCH WEEKLY, 10 MCG/HR, 1 PATCH TO SKIN, TRANSDERMAL, 1 PATCH [id number], NOTES: HAS ON START PERCOCET TABLET, 5-325 MG, 1 TABLET NEEDED, ORALLY, EVERY 8-12H PRN MDD2 #50 TAB SHOULD LAST 30 DAYS, 30 DAY(S), 50, REFILLS 0 NOTES: LEFT-L4/5 TRANSFORAMINAL LESI, ISTOP REGISTRY REVIEWED AND DEMONSTRATES COMPLLIANCE. , RISKS AND BENEFITS OF NARCOTIC/OPIOD MEDICATIONS WERE REVIEWED WITH PATIENT - THIS INCLUDES BUT IS NOT LIMITED TO RISK OF DEPENDANCE/DEVELOPMENT OF ADDICTION, MOOD DISTURBANCE AND DEPRESSION, OSTEOPOROSIS, HORMONAL AND LABIDAL CHANGES, RESPIRATORY DEPRESSION AND . PATIENT IS ADVISED NOT TO DRIVE OR DRINK ALCOHOL WHILE ON THESE MEDICATIONS. PREVENTIVE MEDICINE PAIN CLINIC TEACHING: PROCEDURE TEACHING PT GIVEN WRITTEN AND VERBAL PRE PROCEDURE INSTRUCTIONS. PT VERBALIZES UNDERSTANDING OF ALL INSTRUCTIONS. NIKHIL PAREDES 08/16/2018 12:08:15 PM > . PROCEDURE CODES FA211 ESTABILISHED PATIENT [facility] CHARGE DISPOSITION & COMMUNICATION FOLLOW UP POST (REASON: LEFT-L4/5 TRANSFORAMINAL LESI) ELECTRONICALLY SIGNED BY EUSEBIO GOULD ON 08/27/2018 AT 09:53 AM EDT DISCLAIMER : THIS IS A VISIT SUMMARY EXTRACTED FROM THE [employer] CHART. IT IS NOT A COPY OF THE [employer] PROGRESS NOTE. RUBIO
== END ==
LOC: M PAIN 11:00
PROVIDERS: ATTEND Nurse Practitioner Family
DX: M51.16 Intervertebral disc disorders with radiculopathy, lumbar region (principal); J45.909 Unspecified asthma, uncomplicated; Z86.59 Personal history of other mental and behavioral disorders; Z86.19 Personal history of other infectious and parasitic diseases; K21.9 Gastro-esophageal reflux disease without esophagitis; I10 Essential (primary) hypertension; Z88.5 Allergy status to narcotic agent; Z79.899 Other long term (current) drug therapy

== ENCOUNTER → 2018-10-12 | Outpatient (CLI) | payer OTHER ==
[~2018-10-12] MED LIST changes: +BUPIVACAINE HCL 0.25% 30 ML VIAL As Ordered ONE; +ISOVUE-M 200 41% 20ML VIAL (Q9966) As Ordered ONE; +LIDOCAINE 1% SDV INJ 30 ML VIAL As Ordered ONE; +dexameTHASONE 10 MG/1 ML VIAL PRES.FREE (J1100) As Ordered ONE; +diazePAM 5 MG TAB As Ordered ONE; +diphenhydrAMINE 25 MG CAP As Ordered ONE; +oxyCODONE 5MG TAB As Ordered ONE
--- NOTE | 2018-10-12 15:05 | REP ---
C-ARM VIEWS LUMBAR SPINE: CLINICAL HISTORY: Pain. Two C-Arm views lumbar spine performed during left transforaminal epidural steroid injection by Dr. Balderas. Two needles are seen overlying the lower lumbar spine. 42 seconds fluoroscopy time utilized. Electronically Signed by Ochoa Clark MD 10/12/2018 05:45 P
--- NOTE | 2018-10-21 00:47 | ECWPNPC ---
PATIENT NAME: MARGA GUZMAN : 1960 GENDER: FEMALE VISIT DATE: 10/12/2018 DISCHARGE DATE: 10/12/18 1414 VISIT LOCKED DATE TIME: PHYSICIAN: IVETT BELL MD RESOURCE: IVETT BELL MD REASON FOR APPOINTMENT 1. LEFT-L4/5 TRANSFORAMINAL LESI HISTORY OF PRESENT ILLNESS HISTORY OF PRESENT ILLNESS: PAIN THE PATIENT DESCRIBES THE PAIN... FALL RISK SCREENING: SCREENING :NO FALLS REPORTED IN THE LAST YEAR CURRENT MEDICATIONS TAKING TYLENOL EXTRA STRENGTH 500 MG TABLET 1 TABLET NEEDED ORALLY EVERY 8 HRS, NOTES: 10/11/18 TAKING DRISDOL 47323 UNIT CAPSULE 1 CAPSULE ORALLY WEEKLY, NOTES: SATURDAYS TAKING LOSARTAN POTASSIUM 100 MG TABLET 1 TABLET ORALLY ONCE A DAY, NOTES: 10/12/18 0600 TAKING ATENOLOL 25 MG TABLET 1 TABLET ORALLY ONCE A DAY IN EVENING, NOTES: 10/11/18 PM TAKING ATENOLOL 50 MG TABLET 1 TABLET ORALLY ONCE A DAY IN A.M., NOTES: 10/12/18 0600 TAKING ATORVASTATIN CALCIUM 40 MG TABLET 1 TABLET ORALLY ONCE A DAY, NOTES: 10/11/18 1800 TAKING PROAIR HFA 108 (90 BASE) MCG/ACT AEROSOL SOLUTION 2 PUFFS NEEDED INHALATION QID PRN, NOTES: 10/11/18 TAKING PANTOPRAZOLE SODIUM 40 MG TABLET DELAYED RELEASE 1 TABLET ORALLY ONCE A DAY, NOTES: 10/12/18 0600 TAKING PERCOCET 5-325 MG TABLET 1 TABLET NEEDED ORALLY EVERY 8-12H PRN MDD2 #50 TAB SHOULD LAST 30 DAYS, NOTES: 10/11/18 PM TAKING IRON (FERROUS SULFATE) 325 MG TABLET 1 TABLET ORALLY ONCE A DAY, NOTES: 10/12/18 0600 MEDICATION LIST REVIEWED AND RECONCILED WITH THE PATIENT PAST MEDICAL HISTORY 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 1 SON(S) , 2 DAUGHTER(S) - HEALTHY. DAUGHTERS: 1988, 1998. SOCIAL HISTORY GENERAL: TOBACCO USE ARE YOU A:NONSMOKER HIV / HEP-C SCREENING HIV TEST OFFERED TO PATIENT:YES 06/10/2017 PT DECLINED DATE OFFERED:06/10/2017 BROCHURE PROVIDED TO PATIENTYES HEP-C TEST OFFERED TO PATIENT:YES 06/10/2017 PT DECLINED DATE OFFERED:06/10/2017 TEST ACCEPTED:NO EDUCATION LEVEL OF EDUCATION:HIGH SCHOOL DIET: NO CONCENTRATED SWEETS.. LANGUAGE LANGUAGES SPOKEN:[place]STR[place]IAN DOMESTIC VIOLENCE STATUS: DENIES 12/2017 RECREATIONAL DRUG USE DRUG USE?NO EXERCISE: TRIES TO WALK BUT IT HURTS TOO MUCH, TAKES SOMA TO TRY TO BE ABLE TO DO STUFF. LEARNING BARRIERS / SPECIAL NEEDS BARRIERS TO LEARNING?NO VISION IMPAIRED?YES :CORRECTIVE LENSES PAIN CLINIC PFS, CLERGY, PUBLIC HEALTH REFERRALS PFS REFERRAL NEEDED?NO CLERGY REFERRAL NEEDED?NO PUBLIC HEALTH REFERRAL NEEDED?NO WAS THE PROVIDER NOTIFIED OF ANY PERTINENT INFO?NO HAS THE PATIENT BEEN EDUCATED REGARDING HIS/HER PLAN OF CARE?YES HAS THE PATIENT BEEN EDUCATED REGARDING PAIN, THE RISK FOR PAIN, THE IMPORTANCE OF EFFECTIVE PAIN MANAGEMENT, AND THE PAIN ASSESSMENT PROCESS?YES LATEX QUESTIONNAIRE LATEX ALLERGY : HAVE YOU EVER DEVELOPED ANY TYPE OF REACTION AFTER HANDLING LATEX PRODUCTS SUCH RUBBER GLOVES, CONDOMS, DIAPHRAGMS, BALLOONS, SOCKS, OR UNDERWEAR?NO LATEX ALLERGY : HAVE YOU EVER DEVELOPED ANY TYPE OF REACTION DURING OR AFTER DENTAL APPOINTMENT, VAGINAL/RECTAL EXAMINATION, SURGICAL PROCEDURE, OR ANY OTHER EXPOSURE?NO LATEX RISK : HAVE YOU EVER HAD ANY DIFFICULTY BREATHING OR HIVES AFTER EATING OR HANDLING ANY FRUITS, OR VEGETABLES; SUCH KIWI, BANANAS, STONE FRUITS, OR CHESTNUTSNO LATEX RISK : DO YOU HAVE A PREVIOUS PERSONAL HISTORY OF MORE THAN NINE SURGERIES, SPINA BIFIDA, OR REPEATED CATHERIZATIONS? NO LATEX RISK : ARE YOU FREQUENTLY EXPOSED TO LATEX PRODUCTS IN YOUR OCCUPATION?NO DATE ASKED : 08/16/2018 CAFFEINE CAFFEINE USE?YES HOW OFTEN AND HOW MUCH? MAYBE 1 PEPSI EVERY OTHER DAY AND RARE EXPRESSO ADVANCE DIRECTIVE ADVANCE DIRECTIVE DISCUSSED WITH PATIENT:YES DECLINED HCP INFO AND ASSISTANCE AT THIS TIME. 10/12/18 [facility] [id number] NONE NO ADVENTIST BELIEFS THAT WOULD IMPACT HEALTH CARE. ALCOHOL SCREENING DID YOU HAVE A DRINK CONTAINING ALCOHOL IN THE PAST YEAR?YES HOW OFTEN DID YOU HAVE A DRINK CONTAINING ALCOHOL IN THE PAST YEAR?TWO TO THREE TIMES PER WEEK (3 POINTS) POINTS3 INTERPRETATIONPOSITIVE SEXUAL HX HAD SEX IN THE LAST 12 MONTHS (VAGINAL, ORAL, OR ANAL)?NO HAVE YOU EVER HAD AN STD?NO LMP:04/10/2014 REVIEWED WITH PT 01/03/18 1208 BV REVIEWED WITH PT 04/12/18 1102 BVREVIEWED WITH PATIENT 04/25/18 1500 JS REVIEWED WITH PT 08/16/18 1120 BVREVIEWED WITH PT 10/12/18 1245 BV. HOSPITALIZATION/MAJOR DIAGNOSTIC PROCEDURE SEIZURE UNSURE OF REASON/ POSSIBLE RXN TO TRAMADOL MAR 21 2016 PNEUMONIA FEB 2016 REVIEW OF SYSTEMS REVIEWED BY: PROVIDER: . CONSTITUTIONAL: ANY CHANGE IN YOUR MEDICAL CONDITION? NO . CHILLS NO . FEVER NO . INFECTION: DO YOU HAVE NEW INFECTIONS? NO . DO YOU HAVE HISTORY OF MRSA? NO . MUSCULOSKELETAL: ANY NEW PATTERNS OF PAIN OR NUMBNESS? NO . GASTROENTEROLOGY: ANY NEW CHANGE IN BOWEL CONTROL? NO . GENITOURINARY: ANY NEW CHANGE IN BLADDER CONTROL? NO . IS THERE A CHANCE YOU COULD BE ? NO . HEMATOLOGY/LYMPH: DO YOU TAKE ANY BLOOD THINNERS? (FOR EXAMPLE- COUMADIN, PLAVIX, AGGRENOX, PLATEL, PRADAXA, OR XARELTO) NO . WHEN WAS YOUR LAST DOSE? DATE: TIME: . NEUROLOGY: HAVE YOU FALLEN IN THE PAST 12 MONTHS? NO . ANY NEW EXTREMITY NUMBNESS OR WEAKNESS? NO . CARDIOLOGY: DO YOU HAVE A PACEMAKER OR DEFIBRILLATOR? NO . RESPIRATORY: HAVE YOU BEEN SICK IN THE PAST WEEK? NO . FEVER NO . FLU LIKE SYMPTOMS? NO . COUGH NO . INTEGUMENTARY: DO YOU HAVE ANY RASHES OR OPEN SORES? NO . ALLERGIC/IMMUNO: ARE YOU ALLERGIC TO IV DYE? NO . ANY NEW ALLERGIES? NO . PSYCHIATRIC: DO YOU HAVE THOUGHTS OF HURTING YOURSELF OR SOMEONE ELSE? NO . ARE YOU ABUSED, NEGLECTED, OR IN AN UNSAFE ENVIRONMENT? NO . ENDOCRINOLOGY: ARE YOU DIABETIC? NO . OTHER: DO YOU NEED ANY PRESCRIPTIONS? NO . IF YES, PLEASE LIST: ____ . ANY NEW PROBLEMS WITH YOUR MEDICATIONS? NO . WHEN DID YOU LAST EAT? ____10/11/18 . WHEN DID YOU LAST DRINK? 10/12/18 0900 . WHAT DID YOU LAST DRINK? WATER . NAME OF PERSON DRIVING YOU HOME? ASHLEY GALINDO . DO YOU HAVE ANY OTHER QUESTIONS OR CONCERNS NO . VITAL SIGNS WT 213.2 LBS, HT 63 IN, BMI 37.76 INDEX, BP 101/68 MM HG, HR 91 /MIN, RR 18 /MIN, TEMP 96.8 F, OXYGEN SAT % 95%, NA INITIALS SC 11:07, REVIEWED BY: BV. ASSESSMENTS INTERVERTEBRAL DISC DISORDER WITH RADICULOPATHY OF LUMBAR REGION - M51.16 (PRIMARY) PROCEDURES PN LUMBAR TRANSFORAMINAL BLOCKS PRE PROCEDURE DIAGNOSIS LUMBAR DISC DISORDER WITH RADICULOPATHY POST PROCEDURE DIAGNOSIS LUMBAR DISC DISORDER WITH RADICULOPATHY PROCEDURE LEFT L4 AND LEFT L5 TRANSFORAMINAL EPIDURAL STEROID INJECTION UNDER FLUOROSCOPIC GUIDANCE SURGEON DR IVETT BELL PACKAGING MECHANIC NONE ANESTHESIA LOCAL PRE PROCEDURE NOTE PATIENT WITH HISTORY OF CHRONIC LOW BACK PAIN. I EVALUATE THE PATIENT AND REVIEWED THE CHART. I WENT OVER THE RISKS, ALTERNATIVES, AND BENEFITS ASSOCIATED WITH THIS PROCEDURE. THE PATIENT WOULD LIKE TO PROCEED AND GIVE CONSENT TO PERFORMED THE PROCEDURE. THE PATIENT DENIES UNEXPLAINABLE WEIGHT LOSS, FEVER, CHILLS, OR CHANGES IN URINARY OR BOWEL CONTROL DESCRIPTION OF PROCEDURE THE PATIENT WAS BROUGHT TO THE PROCEDURE ROOM AND PLACED IN THE PRONE POSITION. THE LUMBOSACRAL AREA WAS CLEANED WITH BETADINE SOLUTION AND DRAPED ASEPTICALLY. THE PROCEDURE WAS DONE UNDER STERILE CONDITIONS. I CHECKED LATERALITY AND THE LEVEL WHERE THE PROCEDURE WAS GOING TO BE PERFORMED WITH THE PATIENT AND THE SUPPORTING STAFF AT THE MOMENT OF THE TIME OUT IN THE PROCEDURE ROOM. UNDER FLUOROSCOPIC GUIDANCE, TARGETS WERE SELECTED AT THE LEFT TRANSFORAMINAL OPENING OF L4 AND L5. TARGET POINT WAS SELECTED AFTER LATERAL ROTATION AND TILT OF THE MAGNIFIER OF THE C-ARM. LIDOCAINE 0.5% WAS USED TO NUMB THE SKIN AND THE SUBCUTANEOUS TISSUE BELOW IT. AN EPIMED INTRODUCER 18-GAUGE WAS ADVANCED UNTIL WE WENT CLOSE TO THE SELECTED TRANSFORAMINAL OPENINGS. AFTER PROPER POSITION OF THE NEEDLES WAS ACHIEVED, A 22-GAUGE EPIMED NEEDLE WAS PLACED INSIDE OF THE INTRODUCER AND ADVANCED TO THE TRANSFORAMINAL OPENING OF THE SELECTED SITES. WHEN PROPER POSITION OF THE NEEDLE WAS ACHIEVED, ISOVUE M-200 DYE WAS INJECTED SHOWING ADEQUATE SPREAD OF THE DYE. THIS WAS DONE UNDER DIGITAL SUBTRACTION AND ANGIOGRAPHY. THERE WAS NO VASCULAR UPDATE. THEN, A SOLUTION OF 2 ML OF BUPIVACAINE 0.25% AND DEXAMETHASONE 10 MG WAS INJECTED AT EACH SITE. THERE WAS NO EVIDENCE OF BLOOD, PARESTHESIA OR CEREBROSPINAL FLUID DURING THE PROCEDURE. THE PATIENT WAS SENT TO THE RECOVERY ROOM. THE PATIENT WAS MOVING THE EXTREMITIES AND DOING WELL. THERE WAS NO COMPLICATION DURING THE PROCEDURE. FLUOROSCOPY TIME WAS 42 SECONDS POST PROCEDURE NOTE THE PROCEDURE DONE WAS DISCUSSED WITH THE PATIENT. THE PATIENT WILL BE SEEN IN A FOLLOW UP IN THE NEXT FEW WEEKS. INSTRUCTIONS WERE GIVEN, QUESTIONS WERE ANSWERED, AND THE PATIENT EXPRESSED UNDERSTANDING AND AGREES WITH THE PLAN. I, VENU AYALA, DOCUMENTED THE ABOVE INFORMATION ACTING A SCRIBE FOR DR. BELL. I HAVE REVIEWED THE ABOVE DOCUMENT, WRITTEN BY VENU SINGLETONIBMoraima AND I VERIFY THAT IT IS ACCURATE. PROCEDURE CODES 6045F RADXPS IN END [id number] PXD 02547 INJ FORAMEN EPIDURAL L/S, [place]: [place] [address] INJ FORAMEN EPIDURAL ADD-ON, MODIFIERS: LT DISPOSITION & COMMUNICATION FOLLOW UP 3 WEEKS ELECTRONICALLY SIGNED BY IVETT BELL MD, MD ON 10/20/2018 AT 02:12 PM EDT DISCLAIMER : THIS IS A VISIT SUMMARY EXTRACTED FROM THE [employer] CHART. IT IS NOT A COPY OF THE [employer] PROGRESS NOTE. RUBIO
== END ==
LOC: M PAIN 11:15
PROVIDERS: ATTEND Anesthesiology
DX: M51.16 Intervertebral disc disorders with radiculopathy, lumbar region (principal); M79.18 Myalgia, other site; K52.9 Noninfective gastroenteritis and colitis, unspecified; J45.909 Unspecified asthma, uncomplicated; F41.9 Anxiety disorder, unspecified; K21.9 Gastro-esophageal reflux disease without esophagitis; N18.9 Chronic kidney disease, unspecified; I12.9 Hypertensive chronic kidney disease with stage 1 through stage 4 chronic kidney disease, or unspecified chronic kidney disease; G40.909 Epilepsy, unspecified, not intractable, without status epilepticus; Z87.442 Personal history of urinary calculi; R06.83 Snoring; Z88.5 Allergy status to narcotic agent; Z79.891 Long term (current) use of opiate analgesic; Z79.899 Other long term (current) drug therapy
CPT/HCPCS: 64483; 64484; J1100; Q9966

== ENCOUNTER → 2018-11-02 | Outpatient (CLI) | payer OTHER ==
[~2018-11-02] MED LIST changes: -BUPIVACAINE HCL 0.25% 30 ML VIAL As Ordered ONE; -ISOVUE-M 200 41% 20ML VIAL (Q9966) As Ordered ONE; -LIDOCAINE 1% SDV INJ 30 ML VIAL As Ordered ONE; -dexameTHASONE 10 MG/1 ML VIAL PRES.FREE (J1100) As Ordered ONE; -diazePAM 5 MG TAB As Ordered ONE; -diphenhydrAMINE 25 MG CAP As Ordered ONE; -oxyCODONE 5MG TAB As Ordered ONE
--- NOTE | 2018-11-22 02:10 | ECWPNPC ---
PATIENT NAME: MARGA GUZMAN : 1960 GENDER: FEMALE VISIT DATE: 11/02/2018 DISCHARGE DATE: 11/02/18 0851 VISIT LOCKED DATE TIME: PHYSICIAN: RICHARDSON BEASLEY RESOURCE: RICHARDSON BEASLEY REASON FOR APPOINTMENT 1. POST PROC HISTORY OF PRESENT ILLNESS HISTORY OF PRESENT ILLNESS: HERE FOR POST PROCEDURE F/U.HAD LEFT L4/5 TRANSFORAMINAL ON 10/12/18.REPORTING A SEVERE INCREASE IN PAIN POST PROCEDURE THAT CONTINUES TODAY.PAIN IS LOCATED IN RIGHT LUMBAR PARASPINAL REGION.DISCUSSED MEDICATION AND TREATMENT OPTIONS.REPORTING MULTIPLE DRUG INTOLERANCES AND POSSIBLE SEIZURE ASSOCIATED WITH TRAMADOL IN PAST.REPORTING DIFFICULTY WITH SLEEP DUE TO UNCONTROLLED PAIN.DISCUSSED USE OF OXYCODONE 5/325.SHE IS REPORTING MINIMAL IMPROVEMENT FOR SHORT TIME AFTER TAKING THIS.NO RECENT FEVER OR REDNESS /SWELLING AT INJECTION SITE.CONTINUES WITH DIARHEA.NORMAL URINATION.RATING PAIN VAS 8/10. PAIN THE PATIENT DESCRIBES THE PAIN... FALL RISK SCREENING: SCREENING :NO FALLS REPORTED IN THE LAST YEAR CURRENT MEDICATIONS TAKING TYLENOL EXTRA STRENGTH 500 MG TABLET 1 TABLET NEEDED ORALLY EVERY 8 HRS TAKING DRISDOL 17313 UNIT CAPSULE 1 CAPSULE ORALLY WEEKLY TAKING LOSARTAN POTASSIUM 100 MG TABLET 1 TABLET ORALLY ONCE A DAY, NOTES: 10/12/18 0600 TAKING ATENOLOL 25 MG TABLET 1 TABLET ORALLY ONCE A DAY IN EVENING TAKING ATENOLOL 50 MG TABLET 1 TABLET ORALLY ONCE A DAY IN A.M. 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 1 SON(S) , 2 DAUGHTER(S) - HEALTHY. DAUGHTERS: 1988, 1998. SOCIAL HISTORY GENERAL: TOBACCO USE ARE YOU A:NONSMOKER HIV / HEP-C SCREENING HIV TEST OFFERED TO PATIENT:YES 06/10/2017 PT DECLINED DATE OFFERED:06/10/2017 BROCHURE PROVIDED TO PATIENTYES HEP-C TEST OFFERED TO PATIENT:YES 06/10/2017 PT DECLINED DATE OFFERED:06/10/2017 TEST ACCEPTED:NO EDUCATION LEVEL OF EDUCATION:HIGH SCHOOL DIET: NO CONCENTRATED SWEETS.. LANGUAGE LANGUAGES SPOKEN:[place]ZAKH DOMESTIC VIOLENCE STATUS: DENIES 12/2017 RECREATIONAL DRUG USE DRUG USE?NO EXERCISE: TRIES TO WALK BUT IT HURTS TOO MUCH, TAKES SOMA TO TRY TO BE ABLE TO DO STUFF. LEARNING BARRIERS / SPECIAL NEEDS BARRIERS TO LEARNING?NO VISION IMPAIRED?YES :CORRECTIVE LENSES PAIN CLINIC PFS, CLERGY, PUBLIC HEALTH REFERRALS PFS REFERRAL NEEDED?NO CLERGY REFERRAL NEEDED?NO PUBLIC HEALTH REFERRAL NEEDED?NO WAS THE PROVIDER NOTIFIED OF ANY PERTINENT INFO?NO HAS THE PATIENT BEEN EDUCATED REGARDING HIS/HER PLAN OF CARE?YES HAS THE PATIENT BEEN EDUCATED REGARDING PAIN, THE RISK FOR PAIN, THE IMPORTANCE OF EFFECTIVE PAIN MANAGEMENT, AND THE PAIN ASSESSMENT PROCESS?YES LATEX QUESTIONNAIRE LATEX ALLERGY : HAVE YOU EVER DEVELOPED ANY TYPE OF REACTION AFTER HANDLING LATEX PRODUCTS SUCH RUBBER GLOVES, CONDOMS, DIAPHRAGMS, BALLOONS, SOCKS, OR UNDERWEAR?NO LATEX ALLERGY : HAVE YOU EVER DEVELOPED ANY TYPE OF REACTION DURING OR AFTER DENTAL APPOINTMENT, VAGINAL/RECTAL EXAMINATION, SURGICAL PROCEDURE, OR ANY OTHER EXPOSURE?NO LATEX RISK : HAVE YOU EVER HAD ANY DIFFICULTY BREATHING OR HIVES AFTER EATING OR HANDLING ANY FRUITS, OR VEGETABLES; SUCH KIWI, BANANAS, STONE FRUITS, OR CHESTNUTSNO LATEX RISK : DO YOU HAVE A PREVIOUS PERSONAL HISTORY OF MORE THAN NINE SURGERIES, SPINA BIFIDA, OR REPEATED CATHERIZATIONS? NO LATEX RISK : ARE YOU FREQUENTLY EXPOSED TO LATEX PRODUCTS IN YOUR OCCUPATION?NO DATE ASKED : 08/16/2018 CAFFEINE CAFFEINE USE?YES HOW OFTEN AND HOW MUCH? MAYBE 1 PEPSI EVERY OTHER DAY AND RARE EXPRESSO ADVANCE DIRECTIVE ADVANCE DIRECTIVE DISCUSSED WITH PATIENT:YES DECLINED HCP INFO AND ASSISTANCE AT THIS TIME. 11/02/18 SCIENTOLOGY [id number] NONE NO QUAKER BELIEFS THAT WOULD IMPACT HEALTH CARE. ALCOHOL SCREENING DID YOU HAVE A DRINK CONTAINING ALCOHOL IN THE PAST YEAR?YES HOW OFTEN DID YOU HAVE A DRINK CONTAINING ALCOHOL IN THE PAST YEAR?TWO TO THREE TIMES PER WEEK (3 POINTS) POINTS3 INTERPRETATIONPOSITIVE SEXUAL HX HAD SEX IN THE LAST 12 MONTHS (VAGINAL, ORAL, OR ANAL)?NO HAVE YOU EVER HAD AN STD?NO LMP:04/10/2014 REVIEWED WITH PT 01/03/18 1208 BV REVIEWED WITH PT 04/12/18 1102 BVREVIEWED WITH PATIENT 04/25/18 1500 JS REVIEWED WITH PT 08/16/18 1120 BVREVIEWED WITH PT 10/12/18 1245 BVREVIEWED WITH PT 11/02/18 1103 BV. HOSPITALIZATION/MAJOR DIAGNOSTIC PROCEDURE SEIZURE UNSURE OF REASON/ POSSIBLE RXN TO TRAMADOL MAR 21 2016 PNEUMONIA FEB 2016 REVIEW OF SYSTEMS REVIEWED BY: PROVIDER: RICHARDSON KAPLAN . CONSTITUTIONAL: ANY CHANGE IN YOUR MEDICAL CONDITION? NO . CHILLS NO . FEVER NO . INFECTION: DO YOU HAVE NEW INFECTIONS? NO . DO YOU HAVE HISTORY OF MRSA? NO . MUSCULOSKELETAL: ANY NEW PATTERNS OF PAIN OR NUMBNESS? YES, PT HAS HAD INCREASING INTENSE PAIN OVER THE PAST MONTH IN LOW BACK/LEFT HIP . GASTROENTEROLOGY: ANY NEW CHANGE IN BOWEL CONTROL? NO . GENITOURINARY: ANY NEW CHANGE IN BLADDER CONTROL? NO . IS THERE A CHANCE YOU COULD BE ? NO . HEMATOLOGY/LYMPH: DO YOU TAKE ANY BLOOD THINNERS? (FOR EXAMPLE- COUMADIN, PLAVIX, AGGRENOX, PLATEL, PRADAXA, OR XARELTO) NO . WHEN WAS YOUR LAST DOSE? DATE: TIME: . NEUROLOGY: HAVE YOU FALLEN IN THE PAST 12 MONTHS? NO . ANY NEW EXTREMITY NUMBNESS OR WEAKNESS? NO . CARDIOLOGY: DO YOU HAVE A PACEMAKER OR DEFIBRILLATOR? NO . RESPIRATORY: HAVE YOU BEEN SICK IN THE PAST WEEK? NO . FEVER NO . FLU LIKE SYMPTOMS? NO . COUGH NO . INTEGUMENTARY: DO YOU HAVE ANY RASHES OR OPEN SORES? NO . ALLERGIC/IMMUNO: ARE YOU ALLERGIC TO IV DYE? NO . ANY NEW ALLERGIES? NO . PSYCHIATRIC: DO YOU HAVE THOUGHTS OF HURTING YOURSELF OR SOMEONE ELSE? NO . ARE YOU ABUSED, NEGLECTED, OR IN AN UNSAFE ENVIRONMENT? NO . ENDOCRINOLOGY: ARE YOU DIABETIC? NO . OTHER: DO YOU NEED ANY PRESCRIPTIONS? YES, PERCOCET . IF YES, PLEASE LIST: ____ . ANY NEW PROBLEMS WITH YOUR MEDICATIONS? NO . WHEN DID YOU LAST EAT? ____ . WHEN DID YOU LAST DRINK? ____ . WHAT DID YOU LAST DRINK? ____ . NAME OF PERSON DRIVING YOU HOME? ____ . DO YOU HAVE ANY OTHER QUESTIONS OR CONCERNS YES, PT WOULD LIKE TO DISCUSS PAIN MEDICATION, STATES CURRENT MEDICATION IS NOT MANAGING HER PAIN WELL . VITAL SIGNS WT 214 LBS, HT 63 IN, BMI 37.90 INDEX, BP 140/97 MM HG, HR 107 /MIN, RR 18 /MIN, TEMP 96.2 F, OXYGEN SAT % 96%, NA INITIALS AW 1036, REVIEWED BY: BV. EXAMINATION GENERAL EXAMINATION: GENERAL AWAKE,ALERT ,PLEAASANT . PSYCH AFFECT NORMAL . LUNGS: LUNG KIM ARE CLEAR TO AUSCULTATION BILATERALLY. GOOD MOVEMENT OF AIR . HEART: S1, S2 IN A REGULAR RATE AND RHYTHM. NO SIGNIFICANT MURMURS, RUBS OR GALLOPS NOTED . MUSCULOSKELETAL: MUSCLE STRENGTH TESTING 4/5 BILATERAL LOWER EXTREMITIES. LUMBAR SACRAL SPINE TRIGGER POINTS:, ELICITED WITH PALPATION OVER RIGHT LUMBAR PARAVERTEBRAL MUSCLES AND AGGREVATION WITH ROM IN THIS AREA. ASSESSMENTS MYALGIA, OTHER SITE - M79.18 (PRIMARY) TREATMENT MYALGIA, OTHER SITE INCREASE PERCOCET TABLET, 7.5-325 MG, 1 TABLET NEEDED, ORALLY, EVERY 8-12H PRN MDD2 #50 TAB SHOULD LAST 30 DAYS, 30 DAY(S), 50, REFILLS 0 NOTES: TPI LEFT LUMBAR, ISTOP REGISTRY REVIEWED AND DEMONSTRATES COMPLLIANCE. BRINGS IN MEDICATIONS WHICH IS APPROPRIATE FOR WHAT WAS DISPENSED. RECENT URINE TOXICOLOGY REVIEWED. NO UNAUTHORIZED MEDICATIONS. NO ILLICIT SUBSTANCES AND PRESCRIBED MEDICATIONS WERE PRESENT. , RISKS AND BENEFITS OF NARCOTIC/OPIOD MEDICATIONS WERE REVIEWED WITH PATIENT - THIS INCLUDES BUT IS NOT LIMITED TO RISK OF DEPENDANCE/DEVELOPMENT OF ADDICTION, MOOD DISTURBANCE AND DEPRESSION, OSTEOPOROSIS, HORMONAL AND LABIDAL CHANGES, RESPIRATORY DEPRESSION AND . PATIENT IS ADVISED NOT TO DRIVE OR DRINK ALCOHOL WHILE ON THESE MEDICATIONS. PREVENTIVE MEDICINE PAIN CLINIC TEACHING: PROCEDURE TEACHING PT GIVEN WRITTEN AND VERBAL PRE PROCEDURE INSTRUCTIONS. PT VERBALIZES UNDERSTANDING OF ALL INSTRUCTIONS. NIKHIL PAREDES 11/02/2018 11:43:28 AM > . PROCEDURE CODES FA211 ESTABILISHED PATIENT [facility] FACILITY CHARGE DISPOSITION & COMMUNICATION FOLLOW UP POST (REASON: TPI LEFT LUMBAR) ELECTRONICALLY SIGNED BY EUSEBIO GOULD ON 11/21/2018 AT 04:45 PM EDT DISCLAIMER : THIS IS A VISIT SUMMARY EXTRACTED FROM THE [employer] CHART. IT IS NOT A COPY OF THE [employer] PROGRESS NOTE. RUBIO
== END ==
LOC: M PAIN 10:30
PROVIDERS: ATTEND Nurse Practitioner Family
DX: M79.18 Myalgia, other site (principal); J44.9 Chronic obstructive pulmonary disease, unspecified; Z86.59 Personal history of other mental and behavioral disorders; K21.9 Gastro-esophageal reflux disease without esophagitis; I10 Essential (primary) hypertension; G40.909 Epilepsy, unspecified, not intractable, without status epilepticus; Z88.5 Allergy status to narcotic agent; Z79.899 Other long term (current) drug therapy

== ENCOUNTER → 2018-12-15 | Outpatient (CLI) | payer OTHER ==
[~2018-12-15] MED LIST changes: +BUPIVACAINE HCL 0.25% 10 ML VIAL As Ordered ONE; +BUPIVACAINE HCL 0.25% 30 ML VIAL As Ordered ONE; +TRIAMCINOLONE ACETONIDE SUSP 40 MG/ML VIAL (J3301) As Ordered ONE; +diazePAM 5 MG TAB As Ordered ONE; +diphenhydrAMINE 25 MG CAP As Ordered ONE; +oxyCODONE 5MG TAB As Ordered ONE
--- NOTE | 2018-12-23 00:05 | ECWPNPC ---
PATIENT NAME: MARGA GUZMAN : 1960 GENDER: FEMALE VISIT DATE: 12/15/2018 DISCHARGE DATE: 12/15/18 1243 VISIT LOCKED DATE TIME: PHYSICIAN: IVETT BELL MD RESOURCE: IVETT BELL MD REASON FOR APPOINTMENT 1. TPI BILATERAL LUMBAR HISTORY OF PRESENT ILLNESS HISTORY OF PRESENT ILLNESS: PAIN THE PATIENT DESCRIBES THE PAIN... FALL RISK SCREENING: SCREENING :NO FALLS REPORTED IN THE LAST YEAR CURRENT MEDICATIONS TAKING TYLENOL EXTRA STRENGTH 500 MG TABLET 1 TABLET NEEDED ORALLY EVERY 8 HRS TAKING DRISDOL 34188 UNIT CAPSULE 1 CAPSULE ORALLY WEEKLY TAKING LOSARTAN POTASSIUM 100 MG TABLET 1 TABLET ORALLY ONCE A DAY TAKING ATENOLOL 25 MG TABLET 1 TABLET ORALLY ONCE A DAY IN EVENING TAKING ATENOLOL 50 MG TABLET 1 TABLET ORALLY ONCE A DAY IN A.M. 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 1 SON(S) , 2 DAUGHTER(S) - HEALTHY. DAUGHTERS: 1988, 1998. SOCIAL HISTORY GENERAL: TOBACCO USE ARE YOU A:NONSMOKER HIV / HEP-C SCREENING HIV TEST OFFERED TO PATIENT:YES 06/10/2017 PT DECLINED DATE OFFERED:06/10/2017 HEP-C TEST OFFERED TO PATIENT:YES 06/10/2017 PT DECLINED DATE OFFERED:06/10/2017 TEST ACCEPTED:NO BROCHURE PROVIDED TO PATIENTYES EDUCATION LEVEL OF EDUCATION:HIGH SCHOOL DIET: NO CONCENTRATED SWEETS.. LANGUAGE LANGUAGES SPOKEN:POLISH DOMESTIC VIOLENCE STATUS: DENIES 12/2017 RECREATIONAL DRUG USE DRUG USE?NO EXERCISE: TRIES TO WALK BUT IT HURTS TOO MUCH, TAKES SOMA TO TRY TO BE ABLE TO DO STUFF. LEARNING BARRIERS / SPECIAL NEEDS BARRIERS TO LEARNING?NO VISION IMPAIRED?YES :CORRECTIVE LENSES PAIN CLINIC PFS, CLERGY, PUBLIC HEALTH REFERRALS PFS REFERRAL NEEDED?NO CLERGY REFERRAL NEEDED?NO PUBLIC HEALTH REFERRAL NEEDED?NO WAS THE PROVIDER NOTIFIED OF ANY PERTINENT INFO?YES HAS THE PATIENT BEEN EDUCATED REGARDING HIS/HER PLAN OF CARE?YES HAS THE PATIENT BEEN EDUCATED REGARDING PAIN, THE RISK FOR PAIN, THE IMPORTANCE OF EFFECTIVE PAIN MANAGEMENT, AND THE PAIN ASSESSMENT PROCESS?YES LATEX QUESTIONNAIRE LATEX ALLERGY : HAVE YOU EVER DEVELOPED ANY TYPE OF REACTION AFTER HANDLING LATEX PRODUCTS SUCH RUBBER GLOVES, CONDOMS, DIAPHRAGMS, BALLOONS, SOCKS, OR UNDERWEAR?NO LATEX ALLERGY : HAVE YOU EVER DEVELOPED ANY TYPE OF REACTION DURING OR AFTER DENTAL APPOINTMENT, VAGINAL/RECTAL EXAMINATION, SURGICAL PROCEDURE, OR ANY OTHER EXPOSURE?NO LATEX RISK : HAVE YOU EVER HAD ANY DIFFICULTY BREATHING OR HIVES AFTER EATING OR HANDLING ANY FRUITS, OR VEGETABLES; SUCH KIWI, BANANAS, STONE FRUITS, OR CHESTNUTSNO LATEX RISK : DO YOU HAVE A PREVIOUS PERSONAL HISTORY OF MORE THAN NINE SURGERIES, SPINA BIFIDA, OR REPEATED CATHERIZATIONS? NO LATEX RISK : ARE YOU FREQUENTLY EXPOSED TO LATEX PRODUCTS IN YOUR OCCUPATION?NO DATE ASKED : 12/15/2018 CAFFEINE CAFFEINE USE?YES HOW OFTEN AND HOW MUCH? MAYBE 1 PEPSI EVERY OTHER DAY AND RARE EXPRESSO ADVANCE DIRECTIVE ADVANCE DIRECTIVE DISCUSSED WITH PATIENT:YES DECLINED HCP INFO AND ASSISTANCE AT THIS TIME. HINDU [id number] NONE NO SABIANIST BELIEFS THAT WOULD IMPACT HEALTH CARE. ALCOHOL SCREENING DID YOU HAVE A DRINK CONTAINING ALCOHOL IN THE PAST YEAR?YES HOW OFTEN DID YOU HAVE A DRINK CONTAINING ALCOHOL IN THE PAST YEAR?TWO TO THREE TIMES PER WEEK (3 POINTS) POINTS3 INTERPRETATIONPOSITIVE SEXUAL HX HAD SEX IN THE LAST 12 MONTHS (VAGINAL, ORAL, OR ANAL)?NO LMP:04/10/2014 HAVE YOU EVER HAD AN STD?NO REVIEWED WITH PT 01/03/18 1208 BV REVIEWED WITH PT 04/12/18 1102 BVREVIEWED WITH PATIENT 04/25/18 1500 JS REVIEWED WITH PT 08/16/18 1120 BVREVIEWED WITH PT 10/12/18 1245 BVREVIEWED WITH PT 11/02/18 1103 BV. HOSPITALIZATION/MAJOR DIAGNOSTIC PROCEDURE SEIZURE UNSURE OF REASON/ POSSIBLE RXN TO TRAMADOL MAR 21 2016 PNEUMONIA FEB 2016 REVIEW OF SYSTEMS REVIEWED BY: PROVIDER: . CONSTITUTIONAL: ANY CHANGE IN YOUR MEDICAL CONDITION? NO . CHILLS NO . FEVER NO . INFECTION: DO YOU HAVE NEW INFECTIONS? NO . DO YOU HAVE HISTORY OF MRSA? NO . MUSCULOSKELETAL: ANY NEW PATTERNS OF PAIN OR NUMBNESS? NO . GASTROENTEROLOGY: ANY NEW CHANGE IN BOWEL CONTROL? NO . GENITOURINARY: ANY NEW CHANGE IN BLADDER CONTROL? NO . IS THERE A CHANCE YOU COULD BE ? NO . HEMATOLOGY/LYMPH: DO YOU TAKE ANY BLOOD THINNERS? (FOR EXAMPLE- COUMADIN, PLAVIX, AGGRENOX, PLATEL, PRADAXA, OR XARELTO) NO . WHEN WAS YOUR LAST DOSE? DATE: TIME: . NEUROLOGY: HAVE YOU FALLEN IN THE PAST 12 MONTHS? NO . ANY NEW EXTREMITY NUMBNESS OR WEAKNESS? NO . CARDIOLOGY: DO YOU HAVE A PACEMAKER OR DEFIBRILLATOR? NO . RESPIRATORY: HAVE YOU BEEN SICK IN THE PAST WEEK? NO . FEVER NO . FLU LIKE SYMPTOMS? NO . COUGH NO . INTEGUMENTARY: DO YOU HAVE ANY RASHES OR OPEN SORES? NO . ALLERGIC/IMMUNO: ARE YOU ALLERGIC TO IV DYE? NO . ANY NEW ALLERGIES? NO . PSYCHIATRIC: DO YOU HAVE THOUGHTS OF HURTING YOURSELF OR SOMEONE ELSE? NO . ARE YOU ABUSED, NEGLECTED, OR IN AN UNSAFE ENVIRONMENT? NO . ENDOCRINOLOGY: ARE YOU DIABETIC? NO . OTHER: DO YOU NEED ANY PRESCRIPTIONS? NO . IF YES, PLEASE LIST: ____ . ANY NEW PROBLEMS WITH YOUR MEDICATIONS? NO . WHEN DID YOU LAST EAT? 12/14 6:30P . WHEN DID YOU LAST DRINK? 12/15 7AM . WHAT DID YOU LAST DRINK? WATER . NAME OF PERSON DRIVING YOU HOME? ASHLEY GARCIA . DO YOU HAVE ANY OTHER QUESTIONS OR CONCERNS NO . VITAL SIGNS WT 218.8 LBS, HT 63 IN, BMI 38.75 INDEX, BP 161/90 MM HG, HR 94 /MIN, RR 18 /MIN, TEMP 97.4 F, OXYGEN SAT % 94%, SAFE IN ENV? (Y/N) Y, NA INITIALS AW 0848, REVIEWED BY: DS. ASSESSMENTS MYALGIA, OTHER SITE - M79.18 (PRIMARY) PROCEDURES PN TRIGGER POINT INJECTION WITH STEROIDS PRE PROCEDURE DIAGNOSIS 1. MYALGIA 2. PAIN AT RIGHT AND LEFT LOW BACK AREA. POST PROCEDURE DIAGNOSIS 1. MYALGIA 2. PAIN AT RIGHT AND LEFT LOW BACK AREA. PROCEDURE TRIGGER POINT INJECTION AT RIGHT AND LEFT LOW BACK AREA. SURGEON DR. IVETT BELL MAKE UP WORKER NONE ANESTHESIA LOCAL PRE PROCEDURE NOTE THE PATIENT HAS A HISTORY OF CHRONIC PAIN AT THE RIGHT AND LEFT LOW BACK AREA. I EVALUATED THE PATIENT AND REVIEWED THE CHART. THERE IS EVIDENCE OF BANDS OF TISSUE WITH RESTRICTION OF MOVEMENT AND PRESENCE OF TRIGGER POINT AT THE AFFECTED AREA. I WENT OVER THE RISKS, ALTERNATIVES, AND BENEFITS ASSOCIATED WITH THIS PROCEDURE. THE PATIENT WOULD LIKE TO PROCEED AND GIVES CONSENT TO PERFORM THE PROCEDURE. THE PATIENT DENIES UNEXPLAINABLE WEIGHT LOSS, FEVER, CHILLS, OR NEW CHANGES IN URINARY OR BOWEL CONTROL DESCRIPTION OF PROCEDURE THE PATIENT WAS BROUGHT TO THE PROCEDURE ROOM AND PLACED IN THE SITTING POSITION. THE AREA WAS CLEANED WITH ALCOHOL. THE PROCEDURE WAS DONE USING ASEPTIC STERILE TECHNIQUE. I CHECKED LATERALITY AND THE LEVEL WHERE THE PROCEDURE WAS GOING TO BE PERFORMED WITH THE PATIENT AND THE SUPPORTING STAFF AT THE MOMENT OF THE TIME OUT IN THE PROCEDURE ROOM. USING A 25-GAUGE NEEDLE, TRIGGER POINTS WERE INJECTED AT THE RIGHT AND LEFT LOW BACK AREA WITH A TOTAL OF 40 ML OF BUPIVACAINE 0.25% AND KENALOG 40 MG. THERE WAS NO EVIDENCE OF BLOOD, PARESTHESIA OR CEREBROSPINAL FLUID DURING THE PROCEDURE. THE PATIENT WAS SENT TO THE RECOVERY ROOM. THE PATIENT WAS MOVING THE EXTREMITIES AND DOING WELL. THERE WAS NO COMPLICATION DURING THE PROCEDURE POST PROCEDURE NOTE THE PATIENT WILL BE SEEN IN A FOLLOW UP IN THE NEXT FEW WEEKS. INSTRUCTIONS WERE GIVEN, QUESTIONS WERE ANSWERED, AND THE PATIENT EXPRESSED UNDERSTANDING AND AGREES WITH THE PLAN. I, JING DOMINGUEZ, DOCUMENTED THE ABOVE INFORMATION ACTING A SCRIBE FOR DR. BELL. I HAVE REVIEWED THE ABOVE DOCUMENT, WRITTEN BY JING FULTON AND I VERIFY THAT IT IS ACCURATE. PROCEDURE CODES 64313 INJ TRIGGER POINT 03/22 [facility] [place] & COMMUNICATION FOLLOW UP 3 WEEKS ELECTRONICALLY SIGNED BY IVETT BELL MD, MD ON 12/22/2018 AT 05:38 PM EDT DISCLAIMER : THIS IS A VISIT SUMMARY EXTRACTED FROM THE [employer] CHART. IT IS NOT A COPY OF THE [facility] PROGRESS NOTE. MTDD
== END ==
LOC: M PAIN 08:45
PROVIDERS: ATTEND Anesthesiology
DX: M79.18 Myalgia, other site (principal); K52.9 Noninfective gastroenteritis and colitis, unspecified; J45.909 Unspecified asthma, uncomplicated; F41.9 Anxiety disorder, unspecified; K21.9 Gastro-esophageal reflux disease without esophagitis; R06.83 Snoring; N18.9 Chronic kidney disease, unspecified; I12.9 Hypertensive chronic kidney disease with stage 1 through stage 4 chronic kidney disease, or unspecified chronic kidney disease; G40.909 Epilepsy, unspecified, not intractable, without status epilepticus; Z79.891 Long term (current) use of opiate analgesic; Z79.899 Other long term (current) drug therapy; Z88.5 Allergy status to narcotic agent
CPT/HCPCS: 20552; J3301

== ENCOUNTER → 2019-01-01 | Outpatient (CLI) | payer OTHER ==
[~2019-01-01] MED LIST changes: -BUPIVACAINE HCL 0.25% 10 ML VIAL As Ordered ONE; -BUPIVACAINE HCL 0.25% 30 ML VIAL As Ordered ONE; -TRIAMCINOLONE ACETONIDE SUSP 40 MG/ML VIAL (J3301) As Ordered ONE; -diazePAM 5 MG TAB As Ordered ONE; -diphenhydrAMINE 25 MG CAP As Ordered ONE; -oxyCODONE 5MG TAB As Ordered ONE
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
== END ==
LOC: M PAIN 11:00
PROVIDERS: ATTEND Nurse Practitioner Family
DX: M79.18 Myalgia, other site (principal); I10 Essential (primary) hypertension; F41.9 Anxiety disorder, unspecified; F32.9 Major depressive disorder, single episode, unspecified; Z79.891 Long term (current) use of opiate analgesic; Z79.899 Other long term (current) drug therapy; Z88.5 Allergy status to narcotic agent

== ENCOUNTER 2019-02-12 15:11 | Inpatient (IN) | payer OTHER ==
[~2019-02-12] VITALS: Ht 160 cm; Wt 96.4 kg
[~2019-02-12 15:11] MED LIST changes: -SIMV20TA2 PO; +SIMV20TA22 PO
--- NOTE | 2019-02-12 15:44 | REP ---
Clinical: Lower chest and abdominal pain . Comparison: 03/30/2016 . Technique: PA and lateral. Findings: The mediastinum and cardiac silhouette are normal. The lung mendieta are clear and without acute consolidation, effusion, or pneumothorax. The skeletal structures are intact and normal. Impression: 1. No acute cardiopulmonary process. Electronically Signed by Dario Hassan MD 02/12/2019 03:35 P
[2019-02-12] MEDS ORDERED: POTA2.5T PO (18:03)
[2019-02-12 18:06] LABS: VENOUS BASE EXCESS 12.1 (-2.0-2.0); VENOUS HCO3 36.4 MEQ/L (23.0-27.0); VENOUS O2 SATURATION 88.7 % (60.0-80.0); VENOUS PARTIAL PRESSURE CO2 45.8 mmHg (38.0-50.0); VENOUS PARTIAL PRESSURE O2 55.9 mmHg (30.0-50.0); VENOUS PH 7.518 UNITS (7.330-7.430); VENOUS STANDARD HCO3 35.6 MEQ/L; VENOUS TOTAL CO2 37.8 MEQ/L (24.0-28.0)
[2019-02-12 18:17] LABS: BASO % 0.4 % (0.0-1.0); EOS # 0.2 10^3/uL (0.0-0.5); EOS % 1.6 % (0.0-3.0); HEMATOCRIT 33.3 % (36.0-47.0); HEMOGLOBIN 10.8 g/dl (12.0-15.5); LYMPH # 1.5 10^3/uL (1.5-5.0); LYMPH % 16.2 % (24.0-44.0); MEAN CORPUSCULAR HGB CONC 32.4 g/dl (32.0-36.5); MEAN CORPUSCULAR VOLUME 92.5 fl (80.0-96.0); MONO # 0.6 10^3/uL (0.0-0.8); MONO % 6.7 % (0.0-5.0); NEUTROPHILS % 74.7 % (36.0-66.0); PLATELET COUNT, AUTOMATED 243 10^3/uL (150-450); WHITE BLOOD COUNT 9.4 10^3/uL (4.0-10.0)
[2019-02-12 18:29] LABS: INR 1.05; PROTHROMBIN TIME 13.4 SECONDS (11.8-14.0)
[2019-02-12 18:30] LABS: PARTIAL THROMBOPLASTIN TIME 25.8 SECONDS (25.0-38.4)
[2019-02-12 18:40] LABS: ALBUMIN 3.2 GM/DL (3.2-5.2); ALT/SGPT 51 U/L (12-78); AMYLASE 30 U/L (25-115); BILIRUBIN,DIRECT 0.2 MG/DL (0.0-0.2); BILIRUBIN,TOTAL 0.7 MG/DL (0.2-1.0); BLOOD UREA NITROGEN 9 MG/DL (7-18); CALCIUM LEVEL 7.4 MG/DL (8.5-10.1); CARBON DIOXIDE LEVEL 34 MEQ/L (21-32); CHLORIDE LEVEL 97 MEQ/L (98-107); CK-MB VALUE MASS < 1.0 NG/ML (<3.6); CPK CREATINE PHOSPHOKINASE 82 U/L (26-192); CREATININE FOR GFR 0.65 MG/DL (0.55-1.30); GLOMERULAR FILTRATION RATE > 60.0 (>51); GLUCOSE, FASTING 113 MG/DL (70-100); LIPASE 155 U/L (73-393); MAGNESIUM LEVEL 0.9 MG/DL (1.8-2.4); MB/CK RELATIVE INDEX 1.22 (< OR =4); POTASSIUM SERUM 2.2 MEQ/L (3.5-5.1); SODIUM LEVEL 140 MEQ/L (136-145); TOTAL PROTEIN 6.9 GM/DL (6.4-8.2); TROPONIN I < 0.02 NG/ML (< 0.10)
[2019-02-12] MEDS ORDERED: CALCIUM GLUCONATE 1,000 MG in D5W MINI-BAG PLUS 100 ML IV ONE ×2 (19:00→20:00)
[2019-02-12] MEDS ORDERED: MAG SULF 1GM/100ML (MAG RUN) 1 GM in IV 1 EA IV ONE (19:00)
[2019-02-12] MEDS ORDERED: ATOR40TA75 PO (19:18)
[2019-02-12] MEDS ORDERED: POTA1TAB14 PO (19:18)
[2019-02-12] MEDS ORDERED: ATEN25TA PO (19:18)
[2019-02-12] MEDS ORDERED: PERC7.5T11 PO (19:18)
[2019-02-12] MEDS ORDERED: ACET-897 PO (19:18)
[2019-02-12] MEDS ORDERED: AMIL25TA PO (19:18)
[2019-02-12] MEDS ORDERED: POTA99TA5 PO (19:18)
[2019-02-12] MEDS ORDERED: XANA1TAB2 PO (19:18)
[2019-02-12] MEDS ORDERED: ATEN50TA2 PO (19:18)
[2019-02-12] MEDS: POTASSIUM CHLORIDE 10 MEQ SR TABLET PO SCH ×3 (19:37→21:35)
--- NOTE | 2019-02-12 19:43 | HPEPDOC ---
General Date of Admission Feb 12, 2019 at 18:48 Date of Service: Feb 12, 2019 Chief Complaint The patient is a 58-year-old female admitted with a reason for visit of Hypocalcemia/Hypoalemia/Hypomagnesemia. Source: Patient Exam Limitations: No limitations Timing/Duration: 24 hours Severity: Moderate History of Present Illness Patient is 58 years old female with past history of anxiety, IBS, C. difficile infection with fecal transplant in 2017, hypertension, hyperlipidemia presented hospital with profound electrolytes imbalance. Patient stated that she saw learning and development administrator today for regular checkup and she was found to have hypomagnesemia, hypokalemia, hypocalcemia. Patient denies any fever, chills, nausea, vomiting, shortness of breath, palpitations or dysuria. Patient stated that she usually has up to 5 bowel movements daily due to IBS. In emergency room patient was found to have profound electrolytes abnormalities,, chest x-ray negative for acute cardiopulmonary diseases. EKG was negative for acute ischemic abnormalities. Home Medications Scheduled Amiloride HCl (Amiloride HCl) 5 Mg Tablet, 5 MG PO DAILY, (Reported) NEW RX FROM DR SAVAGE FROM 02/12/19 - HAS NOT STARTED YET Atenolol (Atenolol) 50 Mg Tablet, 50 MG PO DAILY, (Reported) Atenolol (Atenolol) 25 Mg Tablet, 25 MG PO QHS, (Reported) Atorvastatin Calcium (Atorvastatin Calcium) 40 Mg Tablet, 40 MG PO QHS, (Reported) Ergocalciferol (Vitamin D2) (isdol) 50,000 Unit Cap, 50,000 UNIT PO QWEEK, (Reported) HASN'T TAKEN FOR A FEW MONTHS - NEW RX CALLED IN 02/12/[address] SAVAGE Losartan Potassium (Losartan Potassium) 100 Mg Tab, 100 MG PO DAILY, (Reported) Pantoprazole Sodium (Pantoprazole Sodium) 40 Mg Tab, 40 MG PO DAILY, (Reported) Potassium Chloride (Potassium Chloride) 20 Meq Tablet.er, 20 MEQ PO DAILY, (Reported) NEW RX FROM DR SAVAGE ON 02/12/19 - HAS NOT STARTED YET Potassium Gluconate (Potassium Gluconate) 99 Mg Tablet, 99 MG PO DAILY, (Reported) Scheduled PRN Acetaminophen (Tylenol Extra Strength) 500 Mg Tablet, 1,000 MG PO TID PRN for PAIN, (Reported) Albuterol Sulfate (Proair Hfa) 108 Mcg/Act Aer, 2 PUFF INH QID PRN for SHORTNESS OF BREATH, (Reported) Alprazolam (Xanax) 1 Mg Tablet, 1 MG PO BID PRN for ANXIETY, (Reported) Oxycodone HCl/Acetaminophen (Percocet 7.5-325 mg Tablet) 1 Each Tablet, 1 TAB PO BID PRN for PAIN, (Reported) Allergies Coded Allergies: tramadol (Verified Adverse Reaction, Severe, SEIZURES, 02/12/19) SEIZURES Past Medical History Medical History Hypertension, obstructive sleep apnea, anxiety, C. difficile infection of the fecal transplant, hyperlipidemia, IBS, asthma Family History Father had diabetes Social History * Smoker: Denies Alcohol: Denies Drugs: denies A-FIB/CHADSVASC A-FIB History Current/History of A-Fib/PAF?: No Current PO Anticoag Therapy: No Review of Systems Constitutional: Denies: Chills, Fever Eyes: Denies: Pain, Vision change ENT: Denies: Head Aches, Ear Pain Skin: Denies: Rash Pulmonary: Denies: Dyspnea, Cough Cardiovascular: Denies: Chest Pain, Palpitations Gastrointestinal: Denies: Nausea, Vomiting Genitourinary: Denies: Dysuria, Frequency Hematologic: Denies: Bruising Endocrine: Denies: Polydipsia, Polyphagia Musculoskeletal: Denies: Neck Pain Neurological: Denies: Weakness, Numbness Psych: Denies: Mood Normal, Anxiety Physical Examination General Exam: Positive: Alert, Cooperative Eye Exam: Positive: PERRLA, Conjunctiva & lids normal ENT Exam: Positive: Atraumatic Neck Exam: Positive: Supple; Negative: JVD Chest Exam: Positive: Clear to auscultation Heart Exam: Positive: Rate Normal; Negative: Tachycardic Telemetry: Positive: No significant arrhythmia Abdomen Exam: Positive: Normal bowel sounds, BS Hyperactive Extremity Exam: Negative: Clubbing, Cyanosis Skin Exam: Positive: Nl turgor and temperature Neuro Exam: Positive: Normal Gait, Strength at 5/5 X4 ext, Cranial Nerves 3-12 NL Psych Exam: Positive: Mental status NL Vital Signs Vital Signs Date Time Temp Pulse Resp B/P (MAP) Pulse Ox O2 Delivery O2 Flow Rate FiO2 02/12/19 18:41 99 18 91 Room Air 02/12/19 17:57 177/83 (114) 02/12/19 15:11 96.9 Laboratory Data Labs 24H Laboratory Tests 2 02/12/19 17:45: Immature Granulocyte % (Auto) 0.4, Neutrophils (%) (Auto) 74.7H, Lymphocytes (%) (Auto) 16.2L, Monocytes (%) (Auto) 6.7H, Eosinophils (%) (Auto) 1.6, Basophils (%) (Auto) 0.4, Neutrophils # (Auto) 7.0, Lymphocytes # (Auto) 1.5, Monocytes # (Auto) 0.6, Eosinophils # (Auto) 0.2, Basophils # (Auto) 0.0, Nucleated Red Blood Cells % (auto) 0.0, Prothrombin Time 13.4, Prothromb Time International Ratio 1.05, Activated Partial Thromboplast Time 25.8, Urine Color STRAW, Urine Appearance CLEAR, Urine pH 7.0, Urine Specific [place] 1.003, Urine Protein NEGA TIVE, Urine Glucose (UA) NEGATIVE, Urine Ketones NEGATIVE, Urine Blood NEGATIVE, Urine Nitrite NEGATIVE, Urine Bilirubin NEGATIVE, Urine Urobilinogen 0.2, Urine Leukocyte Esterase NEGATIVE, Urine WBC (Auto) 1, Urine RBC (Auto) 2, Urine Hyaline Casts (Auto) 0, Urine Bacteria (Auto) NEGATIVE, Urine Squamous Epithelial Cells 0, Urine Mucus (Auto) SMALL, Urine Sperm (Auto) , Blood Gas Bicarbonate Standard 35.6, Venous Blood pH 7.518H, Venous Blood Partial Pressure CO2 45.8, Venous Blood Partial Pressure O2 55.9H, Venous Blood Total Carbon Dioxide 37.8H, Venous Blood HCO3 36.4H, Venous Blood Oxygen Saturation 88.7H, Venous Blood Base Excess 12.1H, Anion Gap 9, Glomerular Filtration Rate > 60.0, Calcium Level 7.4L, Whole Blood Ionized Calcium 3.7L, Phosphorus Level 2.0L, Magnesium Level 0.9*L, Total Bilirubin 0.7, Direct Bilirubin 0.2, Aspartate Amino Transf (AST/SGOT) 46H, Alanine Aminotransferase (ALT/SGPT) 51, Alkaline Phosphatase 90, Total Creatine Kinase 82, Creatine Kinase MB < 1.0, Creatine Kinase MB Relative Index 1.22, Troponin I < 0.02, Total Protein 6.9, Albumin 3.2, Albumin/Globulin Ratio 0.86L, Amylase Level 30, Lipase 155 CBC/BMP Laboratory Tests 02/12/19 17:45 Assessment/Plan Patient is 58 years old female with past mental history of anxiety, IBS, C. difficile infection with fecal transplant in 2017, hypertension, hyperlipidemia presented hospital with profound electrolytes imbalance. Patient stated that she saw learning and development administrator today for regular checkup and she was found to have hypomagnesemia, hypokalemia, hypocalcemia. Problems (1) Hypokalemia Status: Acute Problem Text: IV potassium Potassium level every 4 hours night monitor Telemetry (2) IBS (irritable bowel syndrome) Status: Chronic Problem Text: Follow-up with nurse recruiter in the outpatient settings I will check patient for C. difficile infection given his previous history and multiple episodes of diarrhea. (3) Hypomagnesemia Status: Acute Problem Text: Replaced Continue to monitor (4) Hypocalcemia Status: Acute Problem Text: Replaced Continue to monitor Plan / VTE VTE Prophylaxis Ordered?: Yes ALMA MORE DO Feb 12, 2019 19:43
--- NOTE | 2019-02-12 20:01 | ECGEPIP ---
[facility] - ED Test Date: 2019-02-12 Pat Name: MARGA GUZMAN Department: Room: - Gender: Female Electronic Technologist: PMO : 1960 Requested By: JOSE Castillo Order Number: [id number] Reading MD: Nakul Mayo Measurements Intervals [place] Rate: 99 P: 65 PA: 161 QRS: 16 QRSD: 89 T: 40 QT: 406 QTc: 523 Interpretive Statements SINUS RHYTHM NSTTW ABNORMALITIES SIMILAR TO 06/06/18 Electronically Signed on 02-12-2019 20:01:03 EST by Nakul Mayo
[2019-02-12 20:03] LABS: IONIZED CALCIUM 3.7 MG/DL (4.5-5.3)
[2019-02-12 20:34] LABS: MAGNESIUM LEVEL 1.2 MG/DL (1.8-2.4); PHOSPHORUS LEVEL 2.8 MG/DL (2.5-4.9)
[2019-02-12] MEDS: KCL 40MEQ in NS 1000ML 1,000 ML IV SCH (20:40)
[2019-02-12] MEDS: NEUTRA-PHOS 1.5 GM PACKET PO SCH (20:40)
[2019-02-12] MEDS: MAG SULF 1GM/100ML (MAG RUN) 1 GM in IV 1 EA IV SCH ×3 (20:42→22:55)
[2019-02-12 21:20] VITALS: BP 150/64
[2019-02-12] MEDS: HEPARIN SOD (PORCINE) 5000 UNITS/ML VIAL SC SCH (21:37)
[2019-02-12] MEDS ORDERED: MAGNESIUM GLUCONATE 500 MG TAB PO ONE (22:15)
[2019-02-12] MEDS ORDERED: ACETAMINOPHEN 500 MG TAB PO PRN (22:15)
[2019-02-12] MEDS ORDERED: ALBUTEROL 90 MCG/ACT 8GM HFA INHALER INH PRN (22:15)
[2019-02-12] MEDS ORDERED: ALPRAZolam 0.5 MG TAB PO PRN (22:15)
[2019-02-12] MEDS ORDERED: PILL CUTTER 1 EACH XX PRN (22:30)
[2019-02-12] MEDS: ATORVASTATIN 20 MG TAB PO SCH (22:55)
[2019-02-13] VITALS (7 sets, daily range): BP systolic 135–164; BP diastolic 66–87
[2019-02-13] MEDS ORDERED: CALCIUM GLUCONATE 1,000 MG in D5W MINI-BAG PLUS 100 ML IV ONE ×2
[2019-02-13] MEDS: PERCOCET 5MG/325MG TAB PO PRN ×3 (00:05→19:00)
[2019-02-13 00:42] LABS: MAGNESIUM LEVEL 2.5 MG/DL (1.8-2.4); PHOSPHORUS LEVEL 2.4 MG/DL (2.5-4.9)
[2019-02-13] MEDS: KCL 40MEQ in NS 1000ML 1,000 ML IV SCH (03:33)
[2019-02-13 04:27] LABS: HEMOGLOBIN 9.6 g/dl (12.0-15.5); MEAN CORPUSCULAR HEMOGLOBIN 29.6 pg (27.0-33.0); MEAN CORPUSCULAR VOLUME 95.7 fl (80.0-96.0); PLATELET COUNT, AUTOMATED 201 10^3/uL (150-450); RED BLOOD COUNT 3.24 10^6/uL (4.00-5.40); WHITE BLOOD COUNT 6.5 10^3/uL (4.0-10.0)
[2019-02-13 05:05] LABS: BLOOD UREA NITROGEN 7 MG/DL (7-18); CALCIUM LEVEL 7.2 MG/DL (8.5-10.1); CARBON DIOXIDE LEVEL 35 MEQ/L (21-32); CHLORIDE LEVEL 104 MEQ/L (98-107); CREATININE FOR GFR 0.56 MG/DL (0.55-1.30); GLOMERULAR FILTRATION RATE > 60.0 (>51); GLUCOSE, FASTING 107 MG/DL (70-100); MAGNESIUM LEVEL 2.2 MG/DL (1.8-2.4); SODIUM LEVEL 144 MEQ/L (136-145)
[2019-02-13] MEDS: KCL 40MEQ IN D5/0.45NS 1000ML 1,000 ML IV SCH ×2 (05:32→13:37)
[2019-02-13] MEDS ORDERED: IBUPROFEN 400 MG TAB PO PRN (05:45)
[2019-02-13 06:18] LABS: ALBUMIN 2.7 GM/DL (3.2-5.2)
[2019-02-13] MEDS: NEUTRA-PHOS 1.5 GM PACKET PO SCH (08:30)
[2019-02-13] MEDS: LOSARTAN 50 MG TAB PO SCH (08:31)
[2019-02-13] MEDS: ATENOLOL 50 MG TAB PO SCH (08:31)
[2019-02-13] MEDS: PANTOPRAZOLE 40MG TAB (PROTONIX) PO SCH (08:31)
[2019-02-13] MEDS: HEPARIN SOD (PORCINE) 5000 UNITS/ML VIAL SC SCH ×2 (08:32→20:01)
[2019-02-13] MEDS ORDERED: MAGNESIUM GLUCONATE 500 MG TAB PO SCH (09:00)
[2019-02-13] MEDS ORDERED: POTASSIUM CHLORIDE 10 MEQ SR TABLET PO ONE (09:30)
[2019-02-13 10:18] LABS: FREE T4 0.9 NG/DL (0.76-1.46); THYROID STIMULATING HORMONE 3.16 uIU/ML (0.358-3.740)
[2019-02-13] MEDS: CALCIUM/VITAMIN D 500 MG TAB PO SCH ×2 (10:39→20:03)
[2019-02-13] MEDS: CALCIUM GLUCONATE 1,000 MG in D5W MINI-BAG PLUS 100 ML IV SCH ×2 (10:41→13:39)
[2019-02-13 12:29] LABS: MAGNESIUM LEVEL 1.9 MG/DL (1.8-2.4)
[2019-02-13] MEDS: POTASSIUM CHLORIDE 10 MEQ SR TABLET PO SCH ×2 (13:36→16:07)
[2019-02-13] MEDS ORDERED: FUROSEMIDE 40 MG/4 ML VIAL (J1940) IV ONE (20:00)
[2019-02-13] MEDS: ATORVASTATIN 20 MG TAB PO SCH (20:03)
[2019-02-13] MEDS: MAGNESIUM GLUCONATE 500 MG TAB PO SCH (20:03)
--- NOTE | 2019-02-13 20:34 | ECGEPIP ---
[facility] Test Date: 2019-02-13 Pat Name: MARGA GUZMAN Department: Room: [place] [address] Gender: Female It Applications Manager: MARTIN : 1960 Requested By: ALMA MORE Order Number: [id number] Reading MD: Judit Vides Measurements Intervals [place] Rate: 83 P: 61 NE: 159 QRS: 4 QRSD: 88 T: 6 QT: 437 QTc: 516 Interpretive Statements SINUS RHYTHM PROLONGED QT INTERVAL SIMILAR TO 02/12/19 Electronically Signed on 02-13-2019 20:33:46 EST by Judit Vides
--- NOTE | 2019-02-13 21:02 | CR ---
DATE OF CONSULTATION: 02/13/2019 Requesting Physician: Dr Lisa Cordero Consulting Physician: Dr Jose Jean REASON FOR CONSULTATION: Hypocalcemia, hypomagnesemia, and hypokalemia. HISTORY OF PRESENT ILLNESS: Patient is a 58-year-old female who presented to the emergency room after seeing her outpatient nephrology provider, Dr. Elsi Mcadams. In the nephrology office, she had labs done which showed hypocalcemia, hypokalemia, and hypomagnesemia. Patient was initially going to be started on amiloride and potassium chloride on that office visit, but was unable to start as she got a phone call on her way home saying that she should report to the emergency room due to the severe nature of her electrolyte abnormalities. In talking with the patient, the patient says she has a history of irritable bowel syndrome with diarrhea predominance. Patient did have a Clostridium (C) difficile infection in February of 2016 and ended up needing a fecal transplant in 2017. Patient stated that over the last few days she has noticed increased bowel movements with some days getting to 8-10 bowel movements per day. She said prior to going into the office yesterday she noticed about 3-4 episodes of diarrhea prior to her 1 o'clock appointment. Since being in the hospital today, patient has not had any diarrhea. HOME MEDICATIONS: - atenolol 50 mg daily - atenolol 25 mg at night - atorvastatin 40 mg daily - vitamin D 50,000 units every week, but she had not been taking this for a few months - losartan 100 mg daily - pantoprazole 40 mg daily - potassium gluconate 99 mg daily - acetaminophen extra strength 1000 mg three times a day - albuterol inhaler up to four times a day as needed for shortness of breath - alprazolam 1 mg twice a day for anxiety - Percocet 7.5-325 mg one tablet twice a day as needed PAST MEDICAL HISTORY: Hypertension, obstructive sleep apnea, anxiety, C. difficile infection in February 2016 requiring fecal transplant, hyperlipidemia, irritable bowel syndrome with diarrhea predominance, and asthma. FAMILY HISTORY: Patient is not well aware of most of her family history as she says she does not talk to her family. As far as she knows, she does not know of any family members who have electrolyte disturbances. SOCIAL HISTORY: Patient denies smoking cigarettes, drinking alcohol, or taking illicit drugs. ALLERGIES: TRAMADOL. REVIEW OF SYSTEMS: GENERAL: Patient denies fever. HEENT: Patient denies headaches or vision changes. CARDIOVASCULAR: Patient denies chest pain. RESPIRATORY: Patient denies shortness of breath or cough. GASTROINTESTINAL (GI): Patient denies nausea and vomiting, but has had episodes of diarrhea, but none since being in the hospital. GENITOURINARY (): Patient denies pain or discomfort with urination. SKIN: Patient denies any rashes. All Other ROS is negative PHYSICAL EXAMINATION: VITAL SIGNS: Temperature 97.1, pulse 87, respiratory rate 18, blood pressure 164/87, pulse oximetry 97% on 2 liters per minute via nasal cannula. GENERAL: Patient is an alert and oriented female patient who was sitting up in the hospital bed when I walked in. Patient did not appear to be in any acute distress. HEENT: Normocephalic, atraumatic with anicteric sclerae and moist mucous membranes. NECK: Supple with possible jugular venous distention (JVD), however it was difficult to assess. CARDIOVASCULAR: Regular rate and rhythm with no murmurs. RESPIRATORY: Clear to auscultation bilaterally. ABDOMEN: Soft and nontender to palpation. EXTREMITIES: Did not show any evidence of edema in her bilateral lower extremities. NEUROLOGIC: Patient was able to move all four of extremities and was able to follow commands. SKIN: Skin of the abdomen, face, neck, arms, and legs was examined and did not show any evidence of rash or bruising. LABORATORIES: White blood cells 6.5, hemoglobin 9.6, hematocrit 31.0, platelet count 201. Sodium 144, potassium 3.0, chloride 104, carbon dioxide 35, BUN 7, creatinine 0.56, glucose 107, calcium 7.2, phosphorous 3.0, magnesium 2.2, albumin 2.7. Urinalysis performed on 02/12/2019 showed negative protein, glucose, ketones, blood, nitrite, bilirubin, leukocyte esterase. A venous blood gas from 02/12/2019 showed pH of 7.518, pCO2 of 45.8, pO2 55.9, HCO3 36.4. IMAGING: A chest x-ray performed on 02/12/2019 showed no acute cardiopulmonary process. ASSESSMENT AND PLAN: Patient is a 58-year-old female who presented with electrolyte disturbances including hypocalcemia, hypokalemia, and hypomagnesemia. 1. Hypokalemia: Patient has been aggressively repleted with both oral and IV potassium. Patient is currently on 100 mL of dextrose 5% (D5) half normal saline with 40 mEq of potassium chloride per liter. At this time, we will continue to monitor the patient's potassium levels. With her potassium level being 2.2 upon arrival to the hospital, patient's total body potassium level was decreased, so she would need aggressive supplementation over a few days in order to bring her potassium up to the normal limits. Patient's diarrhea that she had been experiencing can be the cause of this hypokalemia, however Gitelman syndrome cannot be ruled out at this time. We cannot test for Gitelman syndrome at this time due to the aggressive repletion of all the patient's electrolytes, so the patient will need to be observed in the hospital until her electrolytes return back to normal and then she can followup in the nephrology office for further workup for Gitelman syndrome. 2. Hypocalcemia: Patient's calcium level was 7.4 with an ionized calcium level of 3.7. This has been improving with both IV and oral calcium. Again, patient's diarrhea could be the cause of the hypocalcemia, however Gitelman syndrome cannot be ruled out as above. 3. Hypomagnesemia: Patient's magnesium was 0.9 upon arrival to the hospital. Again, she is getting aggressive IV and oral supplementation. Patient's magnesium level has returned to the normal limit at 2.2. We will continue to monitor this. Again, diarrhea can explain this, however Gitelman syndrome will need to be ruled out outpatient. DISPOSITION: The patient will most likely need an additional 24-48 hours of monitoring and electrolyte supplementation in order to fully replete her magnesium, calcium, and potassium levels. We will continue to monitor the patient and follow along throughout the patient's hospitalization. Patient can followup with the nephrology office upon discharge for further workup for possible genetic syndrome to explain the patient's electrolyte disturbance. My faculty preceptor for this patient encounter was physically present during the encounter and was fully available. All aspects of the patient interview, examination, medical decision making process, and medical care plan development were reviewed and approved by the faculty preceptor. The faculty preceptor is aware and concurs with the plan as stated in the body of this note and will attest to such by his cosignature. Nephrology Attending Note. Pt was seen and examined with the resident and I agree with the plan with following additions. Assessment: Hypokalemia Hypomagnesemia Hypocalcemia Metabolic alkalosis H/o HTN Plan: cont IVF, IV and oral K, IV and oral Mg, IV and oral Calcium start Amiloride 5 mg bid. OK to cont ARB. Rest of work up once pt is stable. Family history not known. Pt gives h/o electrolyte abnormalities since adult age. 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 MTDD
[2019-02-14 01:56] LABS: BLOOD UREA NITROGEN 6 MG/DL (7-18); CALCIUM LEVEL 7.8 MG/DL (8.5-10.1); CARBON DIOXIDE LEVEL 32 MEQ/L (21-32); CHLORIDE LEVEL 102 MEQ/L (98-107); CREATININE FOR GFR 0.73 MG/DL (0.55-1.30); GLOMERULAR FILTRATION RATE > 60.0 (>51); GLUCOSE, FASTING 125 MG/DL (70-100); MAGNESIUM LEVEL 1.5 MG/DL (1.8-2.4); POTASSIUM SERUM 3.7 MEQ/L (3.5-5.1); SODIUM LEVEL 141 MEQ/L (136-145)
[2019-02-14] MEDS ORDERED: MAGNESIUM OXIDE 400 MG TAB (MAG-OX) PO ONE (02:45)
[2019-02-14 04:00] VITALS: BP 138/70
[2019-02-14 05:25] LABS: HEMATOCRIT 31.6 % (36.0-47.0); HEMOGLOBIN 9.9 g/dl (12.0-15.5); MEAN CORPUSCULAR HEMOGLOBIN 30.3 pg (27.0-33.0); MEAN CORPUSCULAR HGB CONC 31.3 g/dl (32.0-36.5); MEAN CORPUSCULAR VOLUME 96.6 fl (80.0-96.0); PLATELET COUNT, AUTOMATED 218 10^3/uL (150-450); RED BLOOD COUNT 3.27 10^6/uL (4.00-5.40); WHITE BLOOD COUNT 6.6 10^3/uL (4.0-10.0)
[2019-02-14 05:47] LABS: BLOOD UREA NITROGEN 6 MG/DL (7-18); CALCIUM LEVEL 7.6 MG/DL (8.5-10.1); CARBON DIOXIDE LEVEL 33 MEQ/L (21-32); CHLORIDE LEVEL 102 MEQ/L (98-107); CREATININE FOR GFR 0.67 MG/DL (0.55-1.30); GLOMERULAR FILTRATION RATE > 60.0 (>51); GLUCOSE, FASTING 124 MG/DL (70-100); POTASSIUM SERUM 3.4 MEQ/L (3.5-5.1); SODIUM LEVEL 140 MEQ/L (136-145)
[2019-02-14] MEDS: KCL 40MEQ IN D5/0.45NS 1000ML 1,000 ML IV SCH (06:06)
[2019-02-14] MEDS ORDERED: POTASSIUM CHLORIDE 10 MEQ SR TABLET PO ONE (07:30)
[2019-02-14] MEDS ORDERED: MAG SULF 1GM/100ML (MAG RUN) 1 GM in IV 1 EA IV ONE (07:30)
[2019-02-14 08:00] VITALS: BP 158/94
[2019-02-14] MEDS: PANTOPRAZOLE 40MG TAB (PROTONIX) PO SCH (08:19)
[2019-02-14] MEDS: PERCOCET 5MG/325MG TAB PO PRN (08:20)
[2019-02-14] MEDS: MAGNESIUM GLUCONATE 500 MG TAB PO SCH (08:20)
[2019-02-14 08:21] VITALS: BP 158/94
[2019-02-14] MEDS: LOSARTAN 50 MG TAB PO SCH (08:21)
[2019-02-14] MEDS ORDERED: K-TA1TAB PO (08:21)
[2019-02-14] MEDS ORDERED: AMIL5TAB4 PO (08:21)
[2019-02-14] MEDS ORDERED: MAGN50TA PO (08:21)
[2019-02-14] MEDS ORDERED: CALCD50TA PO (08:21)
[2019-02-14] MEDS: HEPARIN SOD (PORCINE) 5000 UNITS/ML VIAL SC SCH (08:22)
[2019-02-14] MEDS: ATENOLOL 50 MG TAB PO SCH (08:22)
[2019-02-14] MEDS: CALCIUM/VITAMIN D 500 MG TAB PO SCH (08:22)
[2019-02-14] MEDS: LEVALBUTEROL 1.25 MG/0.5 ML CONCENTRATE NEB NEB SCH ×3 (08:49→09:45)
[2019-02-14] MEDS ORDERED: aMILoride 5 MG TAB PO SCH (09:00)
[2019-02-14] MEDS ORDERED: CETIRIZINE (ZyrTEC) 10 MG TAB PO ONE (09:00)
[2019-02-14] MEDS ORDERED: FLUTICASONE PROP 0.05% NASAL SPRAY 16 GM (FLONASE) SCH (09:00)
--- NOTE | 2019-02-14 09:02 | REP ---
Clinical: Shortness of breath . Comparison: 02/12/2019 Findings: The mediastinum and cardiac silhouette are stable and within normal limits for portable technique. The lung mendieta are clear without acute consolidation, effusion, or pneumothorax. Skeletal structures are intact. Impression: No acute cardiopulmonary process appreciated. Electronically Signed by Dario Hassan MD 02/14/2019 08:53 A
[2019-02-14 10:27] LABS: NT-PRO BNP 1276 PG/ML (<125)
[2019-02-14 12:00] VITALS: BP 138/82
--- NOTE | 2019-02-14 12:28 | IPN ---
DATE OF SERVICE: 02/13/2019 This morning the patient continued to complain of increased bowel movements about 5-6 daily, previously evaluated by Dr. Sepulveda with negative colonoscopy. The patient is nervous about taking any antimotility drug as it could go into a constipation state. Therefore, she also complains of severe generalized weakness due to electrolyte abnormalities. Her intravenous (IV) fluids have been changed to half normal saline to D5-1/2 normal saline due to hypotonic solution previously. The patient's potassium and magnesium have improved from admission of 2.2 to current 3.0. She currently has magnesium 1.9 and 2 and has calcium at 4. Vitals: Temperature 97.5, pulse 93, respiratory rate 18, blood pressure 143/84, 96% on 2 liters nasal cannula. Generally, the patient is awake, alert, oriented, answering questions appropriately. Anicteric sclerae. No jaundice. No jugular venous distention (JVD) or thyromegaly. Moist mucous membranes. Lungs are clear to auscultation. No wheezing or rales. Heart: S1, S2, sinus. Abdomen is soft, nontender, nondistended. Positive bowel sounds. Extremities: No cyanosis or clubbing. Skin warm, dry well perfused, and pink in color. LAB DATA: White count 6.5, hemoglobin 9.6, hematocrit 31, platelet count 201. Sodium 144, potassium 3, chloride 104, bicarbonate 35, BUN 7, creatinine 0.56, glucose of 107. Magnesium 1.9. Ionized calcium of 4. ASSESSMENT AND PLAN: This is a 58-year-old female, history of Clostridium (C) difficile with fecal transplant 2016, irritable bowel syndrome managed by Dr. Sepulveda as outpatient with negative colonoscopy found to have a polyp which is benign, history of anxiety which she thinks triggers her increased bowel movements with irritable bowel syndrome (IBS). The patient has been fighting with her daughter, who previously worked with her and she had to tell them to leave her house. She has not been in contact with her daughter for the past month. The daughter's boyfriend previously lived with her. Due to increasing anxiety, the patient's irritable bowel has worsened to the point where she is having 5-6 bowel movements daily. Otherwise, denies any fever, chills, any sick contacts. The patient was admitted for profound hypokalemia, hypomagnesemia, hypocalcemia after being seen by Dr. Elsi Mcadams at the nephrology office for routine followup. In the emergency room (ER), the patient was given supplemental electrolytes which improved overnight. The patient is to be started on oral supplements and discharged in the morning if stable. Nephrology has been consulted. Gastrointestinal (GI) panel has been obtained as the patient continues to say that she has ongoing diarrhea. We have not seen one bowel movement during this admission yet. IMPRESSION: 1. Electrolytes abnormalities most likely due to GI loss. We have not seen any recurrent diarrhea here. We are obtained a GI panel and C diff by PCR. She has been repleted potassium, magnesium, and calcium both intravenously and orally. We are awaiting stabilization over the next 24 hours and discharge in the morning. 2. History of anxiety and irritable bowel syndrome. Previous history of C diff status post fecal transplant by Dr. Sepulveda. Prior colonoscopy showed a polyp, which is benign according to the patient. No further changes in medications per patient's last visit with Dr. Sepulveda. Will check a GI panel and C diff PCR and antimotility agent if patient agrees to decrease her stool output. 3. Obesity. Body mass index (BMI) of 37.28 complicating her care. 4. Hypertension and hyperlipidemia with metabolic syndrome. Resumed on her home atenolol, losartan for blood pressure and atorvastatin for hypercholesterolemia. DISPOSITION: Discharge home in the morning if stable electrolytes overnight. [facility]
[2019-02-14 13:10] LABS: ALBUMIN 3.1 GM/DL (3.2-5.2); BLOOD UREA NITROGEN 6 MG/DL (7-18); CALCIUM LEVEL 8.7 MG/DL (8.5-10.1); CARBON DIOXIDE LEVEL 31 MEQ/L (21-32); CHLORIDE LEVEL 103 MEQ/L (98-107); CREATININE FOR GFR 0.73 MG/DL (0.55-1.30); GLOMERULAR FILTRATION RATE > 60.0 (>51); GLUCOSE, FASTING 124 MG/DL (70-100); PHOSPHORUS LEVEL 1.5 MG/DL (2.5-4.9); POTASSIUM SERUM 4.4 MEQ/L (3.5-5.1); SODIUM LEVEL 140 MEQ/L (136-145)
--- NOTE | 2019-02-14 20:39 | IPN ---
DATE: 02/14/2019 SUBJECTIVE The patient was seen and examined at the bedside today morning. She is afebrile, hemodynamically stable. The patient was short of breath overnight. She was given a dose of IV Lasix and she had a good diuretic response. She made more than 5 liters of urine yesterday. Her renal function is stable. She became hypokalemic again with the IV diuretics that was given. The patient was given oral potassium. It stopped the IV fluid today morning. Magnesium was also low at 1.5 so she was given IV magnesium. The patient reports that she is feeling better and she actually wants to go home today. OBJECTIVE Vital signs: Temperature is 98.3 degrees Fahrenheit, blood pressure 158/94, pulse is 96, respiratory rate of 20, saturating 92% on room air. Intake and output: Urine output recorded as 5.4 liters yesterday, 1450 mL of so far today since overnight. Weight in bed scale is 96.4 mL. PHYSICAL EXAMINATION General: The patient is awake, alert, oriented times three. Laying in bed, no apparent distress. Head and neck examination: Extraocular muscles intact. Pupils are equally round and reactive to light. Mucous membranes are moist. Neck is supple. There is no jugular venous distention (JVD). Cardiovascular: S1, S2, regular rate. No edema of the bilateral lower extremities. Respiratory: Chest is clear to auscultation bilaterally. Bilateral equal air entry. No rales or rhonchi. Abdomen: Soft, positive bowel sounds. Nontender. No organomegaly. Musculoskeletal: No clubbing or cyanosis. Pulses are 2+. [employer]: No focal deficit. Power is 5/5 in all extremities. LAB REVIEW: CBC showed WBC of 6.6, hemoglobin 9.9, platelets are 218. BMP showed sodium 140, potassium 3.4, chloride 102, bicarb 33, BUN of 6, creatinine 0.67, glucose 124, calcium 7.6. BMP was 1276, ionized calcium last night +4 and magnesium last night was 1.5. CURRENT INPATIENT MEDICATIONS The patient's medications were all reviewed by me. I stopped the IV fluids. I ordered a dose of magnesium sulfate 1 gram IV today morning. The patient has been started on amiloride 5 mg by mouth twice a day. She was also given magnesium oxide 400 mg one dose at night and she continues to be on magnesium gluconate 500 mg by mouth twice a day. The patient was also given a dose of potassium chloride 40 mEq times one dose. ASSESSMENT/PLAN 1. Hypokalemia. The patient was given an additional dose of oral potassium chloride 40 mEq in the morning. She has been started on amiloride 5 mg by mouth twice a day. 2. Hypocalcemia. The patient continues to be on calcium tablets. Calcium level is improving. 3. Hypomagnesemia. Continue the magnesium gluconate 500 mg by mouth twice a day on discharge. Amiloride which has been started would also help with renal magnesium wasting. 4. DISPOSITION: The patient is going to have another lab draw done in the afternoon. If the electrolytes are within the acceptable range, then she can be discharged. She already has an appointment with nephrology office on coming Tuesday.
--- NOTE | 2019-02-15 16:08 | DSES ---
DATE OF ADMISSION: 02/12/2019 DATE OF DISCHARGE: 02/14/2019 CONSULTING DURING ADMISSION: Dr. Jean, olive picker PRIMARY DISCHARGE DIAGNOSES: 1. Hypokalemia. 2. Hypocalcemia. 3. Hypomagnesemia. 4. Fluid overload. 5. Chronic diarrhea. 6. History of irritable bowel syndrome. 7. Prolonged QT interval with abnormal EKG. 8. History of Clostridium difficile infection with fecal transplant 2016. 9. History of anxiety. 10. Hypertension. 11. Hyperlipidemia. DISCHARGE MEDICATIONS: - amiloride 5 mg twice a day - calcium with vitamin D 500 mg twice a day - magnesium gluconate 500 mg twice a day - potassium chloride 20 mEq twice a day - Tylenol 1 gram three times a day as needed for pain - albuterol - ProAir HFA two puffs four times a day - Xanax 1 mg twice a day - atenolol 50 mg daily, 25 mg at bedtime - atorvastatin 40 mg at bedtime - losartan 100 mg daily - vitamin D 50,000 units weekly - Percocet one tablet twice a day as needed for pain - Protonix 40 mg daily FOLLOWUP INSTRUCTIONS: Patient is to followup with primary care physician and olive picker within 7 days of hospital discharge for electrolyte management and workup for electrolyte abnormalities. Followup with Dr. Sepulveda regarding chronic diarrhea causing electrolyte abnormalities. HOSPITAL COURSE: This is a 58-year-old female with history of irritable bowel syndrome, followed by Dr. Sepulveda, with negative colonoscopy, Clostridium (C) difficile with fecal transplant, irritable bowel syndrome with diarrhea predominance presents with 8-10 bowel movements daily and was seen at nephrology services, Dr. Hayden Mcadams, due to persistent electrolyte abnormalities with low potassium, magnesium, and calcium. Patient was initially going to be started on amiloride and potassium chloride but was directed to the emergency room due to severe electrolyte abnormalities for repletion. Potassium on admission was 2.2, magnesium was 0.9, and calcium was 3.7. Patient was given intravenous (IV) gluconate, intravenous magnesium. She continued to complaint of three loose bowel movements in the hospital, but nothing was documented by nursing. Patient received a total of 3 liters on 02/13/2019 and was negative 2325. Due to complaints of fluid overload was given one dose of Lasix. She complained of nasal congestion, some shortness of breath. Chest x-ray was normal with lungs being clear. No signs of pulmonary edema or engorged vasculature. Patient was stable for hospital discharge with outpatient followup with Dr. Jean or Dr. Mcadams for workup. LABORATORY DATA ON DISCHARGE: White count 6.6, hemoglobin 9.9, hematocrit 31, platelet count 218. Sodium 140, potassium 3.4, chloride 102, bicarbonate 33, BUN 6, creatinine 0.67, glucose 124, magnesium 1.5. Respiratory panel February 14 was negative. Chest x-ray February 14: Lungs are clear without acute consolidation, effusion, or pneumothorax. Skeletal structures are intact. Mediastinum and cardiac silhouette are stable and within normal limits for portable technique. No acute cardiopulmonary process appreciated. TIME SPENT ON DISCHARGE: 30 minutes. [facility]
== END 2019-02-14 14:05 | disposition home or self-care (01) | DRG 641 ==
LOC: M ED 15:11 → M ED INP 18:48 → M PCU 21:20
PROVIDERS: ADMIT General Practice; ATTEND General Practice
DX: E87.6 Hypokalemia (principal); E83.42 Hypomagnesemia; E83.51 Hypocalcemia; R19.7 Diarrhea, unspecified; E78.5 Hyperlipidemia, unspecified; I10 Essential (primary) hypertension; F41.9 Anxiety disorder, unspecified; K58.9 Irritable bowel syndrome, unspecified; Z79.899 Other long term (current) drug therapy; Z88.8 Allergy status to other drugs, medicaments and biological substances; G47.33 Obstructive sleep apnea (adult) (pediatric); J45.909 Unspecified asthma, uncomplicated; E87.3 Alkalosis; E66.9 Obesity, unspecified; Z68.37 Body mass index [BMI] 37.0-37.9, adult

== ENCOUNTER 2019-02-25 16:55 | Inpatient (IN) | payer OTHER ==
[~2019-02-25] VITALS: Ht 160 cm; Wt 92.4 kg
[~2019-02-25 16:55] MED LIST changes: +ACET-897 PO; +AMIL25TA PO; +AMIL5TAB4 PO; +ATEN50TA2 PO; +ATOR40TA75 PO; +CALCD50TA PO; +K-TA1TAB PO; +MAGN50TA PO; +PERC7.5T11 PO; +POTA1TAB14 PO; +POTA2.5T PO; +POTA99TA5 PO
[2019-02-25 17:42] LABS: BASO # 0.1 10^3/uL (0.0-0.2); BASO % 0.7 % (0.0-1.0); EOS # 0.2 10^3/uL (0.0-0.5); EOS % 1.4 % (0.0-3.0); HEMATOCRIT 45.9 % (36.0-47.0); HEMOGLOBIN 13.3 g/dl (12.0-15.5); LYMPH # 3.1 10^3/uL (1.5-5.0); MEAN CORPUSCULAR VOLUME 100.2 fl (80.0-96.0); MONO # 0.8 10^3/uL (0.0-0.8); MONO % 4.9 % (0.0-5.0); NEUTROPHILS # 11.4 10^3/uL (1.5-8.5); NEUTROPHILS % 72.6 % (36.0-66.0); PLATELET COUNT, AUTOMATED 462 10^3/uL (150-450); RED BLOOD COUNT 4.58 10^6/uL (4.00-5.40); WHITE BLOOD COUNT 15.6 10^3/uL (4.0-10.0)
[2019-02-25 18:19] LABS: ALBUMIN 4.3 GM/DL (3.2-5.2); BILIRUBIN,DIRECT 0.2 MG/DL (0.0-0.2); BILIRUBIN,TOTAL 0.7 MG/DL (0.2-1.0); CALCIUM LEVEL 10.4 MG/DL (8.5-10.1); CREATININE FOR GFR 1.92 MG/DL (0.55-1.30); GLOMERULAR FILTRATION RATE 28.8 (>51); MAGNESIUM LEVEL 1.6 MG/DL (1.8-2.4); PHOSPHORUS LEVEL 4.2 MG/DL (2.5-4.9); THYROID STIMULATING HORMONE 1.56 uIU/ML (0.358-3.740); THYROXINE (T4) 8.2 UG/DL (4.5-12.0); TOTAL PROTEIN 8.9 GM/DL (6.4-8.2)
[2019-02-25 18:21] LABS: POTASSIUM SERUM 8.4 MEQ/L (3.5-5.1)
[2019-02-25] MEDS ORDERED: SODIUM BICARBONATE 8.4% INJ 50 ML SYRINGE IV STA (18:22)
[2019-02-25] MEDS ORDERED: CALCIUM CHLORIDE 10% 1 GM/10 ML SYR IV STA (18:22)
[2019-02-25] MEDS ORDERED: DEXTROSE 50% 50 ML SYRINGE IV STA (18:26)
[2019-02-25] MEDS ORDERED: HumuLIN R (REGULAR) INSULIN (NovoLIN R) **100U/ML** PER UNIT IV ONE (18:30)
[2019-02-25] MEDS ORDERED: MAGN500T6 PO (18:42)
[2019-02-25] MEDS ORDERED: CALC500T44 PO (18:42)
[2019-02-25] MEDS ORDERED: POTA20TA6 PO (18:42)
[2019-02-25] MEDS ORDERED: AMIL5TAB4 PO (18:42)
[2019-02-25] MEDS ORDERED: SOD POLYSTYRENE SULFONATE SUSP 15 GM/60 ML UD PO ONE (19:00)
--- NOTE | 2019-02-25 19:28 | HPEPDOC ---
[facility] Medical History & Physical Date of Admission Feb 25, 2019 Date of Service: Feb 25, 2019 Attending Physician: SILVANO VILLALTA MD History and Physical TIME OF SERVICE: 10:40 PM CHIEF COMPLAINT: Weakness HISTORY OF PRESENT ILLNESS: This is a 57-year-old female who presents with complaints of intermittent muscle weakness associated with blurry vision, that occurs at around 3 or 4 PM in the afternoon for the last 2-3 days. As a result of the weakness she has fallen. She denies change in sensation in her arms or her legs. She reports having fevers and chills; she has chronic diarrhea. She was last admitted on February 12 for management of hypocalcemia, hypokalemia and hypomagnesemia and was discharged home with potassium and magnesium supplements. REVIEW OF SYSTEMS: 12 point review of systems negative except as listed in HPI PAST MEDICAL/ SURGICAL HISTORY: History of C. difficile status post fecal transplant Chronic back pain IBS Chronic hypertension Dyslipidemia Anxiety ARIELA Tramadol induced seizures SOCIAL HISTORY: She does not smoke, drink alcohol or use illicit drugs FAMILY HISTORY: Diabetes ALLERGIES: Please see below HOME MEDICATIONS: Please see below PHYSICAL EXAMINATION: VITAL SIGNS: Please see below NORMAL PHYSICAL EXAM GEN: well nourished / well developed/ NAD INTEGUMENT:not flushed/ not jaundice HEENT: normocephalic / atraumatic / mucus membranes moist and pink CVS: RRR/NMRG/ radial pulses intact / no lower extremity edema LUNGS: there is equal air entry bilaterally / lungs are clear to auscultation bilaterally on room air ABDOMEN: bowel sounds are present / the abdomen is soft & not tender with palpation MSK/EXTREMITIES: Strength is 5 out of 5 in all extremities/ she does have hyperreflexia/does not have clonus NEURO: CN 2-12 are intact /ocular movements are intact./ speech is not dysarthric PSYCH: alert and oriented to person place and time/ able to understand and follow all commands LABORATORY DATA: See below. IMAGING: CT of the head "IMPRESSION: No evidence of bleed.No evidence of mass effect." CT of the chest "IMPRESSION: No evidence of infiltrate or mass. Ectasias of the ascending aorta." MICROBIOLOGY: Please see below. ASSESSMENT: Ms. Ochoa is a 58 yr old with a past medical history of IBS, hypertension, dyslipidemia, anxiety ARIELA that will be admitted for management of weakness, likely due to hyperkalemia. PLAN: 1. Weakness due to hyperkalemia The hyperkalemia order set was placed in the ER She has had 3 bowel movements Plan: Admit to medical floor/telemetry/ pending repeat BMP may order repeat calcium gluconate, sodium bicarbonate, glucose with insulin, albuterol and Kayexalate / discontinue magnesium and potassium supplements/follow-up on Lyme disease and autoimmune panel and with neurologist, Dr. Gutierrez / if her symptoms recur, the daytime team may consider PT consult 2. Uncontrolled hypertension Plan: Resume amiloride, atenolol and losartan 3. Anxiety Plan: Resume alprazolam 4. Sleep apnea Plan May use own CPAP 5. Obesity BMI 35.2 This complicates care. She has already been diagnosed with sleep apnea Plan: f/u A1C / can f/u w PCP for STOP BANG questionnaire & benefits clerk consult / recommend cardiovascular exercise for 40 min 4-5 days a week DVT prophylaxis with Lovenox. Disposition likely home after more than 2 midnight's stay Vital Signs Vital Signs Date Time Temp Pulse Resp B/P (MAP) Pulse Ox O2 Delivery O2 Flow Rate FiO2 02/25/19 17:36 02/25/19 16:55 98.2 95 18 99 Room Air Laboratory Data Labs 24H Laboratory Tests 2 02/25/19 17:16: Immature Granulocyte % (Auto) 0.4, Neutrophils (%) (Auto) 72.6H, Lymphocytes (%) (Auto) 20.0L, Monocytes (%) (Auto) 4.9, Eosinophils (%) (Auto) 1.4, Basophils (%) (Auto) 0.7, Neutrophils # (Auto) 11.4H, Lymphocytes # (Auto) 3.1, Monocytes # (Auto) 0.8, Eosinophils # (Auto) 0.2, Basophils # (Auto) 0.1, Nucleated Red Blood Cells % (auto) 0.0, Anion Gap 9, Glomerular Filtration Rate 28.8L, Calcium Level 10.4H, Phosphorus Level 4.2, Magnesium Level 1.6L, Total Bilirubin 0.7, Direct Bilirubin 0.2, Aspartate Amino Transf (AST/SGOT) 23, Alanine Aminotransferase (ALT/SGPT) 46, Alkaline Phosphatase 105, Total Creatine Kinase 24L, Total Protein 8.9H, Albumin 4.3, Albumin/Globulin Ratio 0.93L, Thyroid Stimulating Hormone (TSH) 1.560, Free Thyroxine Index 3.0, Thyroxine (T4) 8.2, Triiodothyronine (T3) Uptake 37 02/25/19 17:39: POC Glucose (Misc Panel) 146H, POC Sodium (Misc Panel) 131L, POC Potassium (Misc Panel) 8.6*H, POC Chloride (Misc Panel) 113H, POC Total CO2 (Misc Panel) 16.0L, POC Blood Urea Nitrogen (Misc Panel 46H, POC Ionized Calcium (Misc Panel) 5.6H, POC Creatinine (Misc Panel) 1.8H, POC Hematocrit (Misc Panel) 46.0 02/25/19 17:50: CBC/BMP Laboratory Tests 02/25/19 17:16 Home Medications Scheduled Amiloride HCl (Amiloride HCl) 5 Mg Tablet, 5 MG PO BID Atenolol (Atenolol) 50 Mg Tablet, 50 MG PO DAILY Atenolol (Atenolol) 25 Mg Tablet, 25 MG PO QHS Atorvastatin Calcium (Atorvastatin Calcium) 40 Mg Tablet, 40 MG PO QHS Calcium Carbonate/Vitamin D3 (Calcium 500-Vit D3 200 Tablet) 1 Each Tablet, 1 TAB PO BID Ergocalciferol (Vitamin D2) (Drisdol) 50,000 Unit Cap, 50,000 UNIT PO QWEEK Losartan Potassium (Losartan Potassium) 100 Mg Tab, 100 MG PO DAILY Magnesium Gluconate (Magnesium Gluconate) 27 Mg Tablet, 500 MG PO BID Pantoprazole Sodium (Pantoprazole Sodium) 40 Mg Tab, 40 MG PO DAILY Scheduled PRN Acetaminophen (Tylenol Extra Strength) 500 Mg Tablet, 1,000 MG PO TID PRN for PAIN Albuterol Sulfate (Proair Hfa) 108 Mcg/Act Aer, 2 PUFF INH QID PRN for SHORTNESS OF BREATH Alprazolam (Xanax) 1 Mg Tablet, 1 MG PO BID PRN for ANXIETY Oxycodone HCl/Acetaminophen (Percocet 7.5-325 mg Tablet) 1 Each Tablet, 1 TAB PO BID PRN for PAIN Allergies Coded Allergies: tramadol (Verified Adverse Reaction, Severe, SEIZURES, 02/12/19) SEIZURES A-FIB/CHADSVASC A-FIB History Current/History of A-Fib/PAF?: No Current PO Anticoag Therapy: No SILVANO VILLALTA MD Feb 25, 2019 19:28
[2019-02-25 20:05] VITALS: BP 160/74
--- NOTE | 2019-02-25 20:05 | REPVR ---
PROCEDURE INFORMATION: Exam: CT Head Without Contrast Exam date and time: 02/25/2019 7:06 PM Age: 58 years old Clinical history: Weakness, extremity; Additional info: [place] TECHNIQUE: Imaging protocol: Computed tomography of the head without contrast. Radiation optimization: All CT scans at this facility use at least one of these dose optimization techniques: automated exposure control; mA and/or kV adjustment per patient size (includes targeted exams where dose is matched to clinical indication); or iterative reconstruction. COMPARISON: CT Head without contrast 03/21/2016 5:52 AM FINDINGS: Brain: Normal. No hemorrhage. Unremarkable white matter. No mass effect. Ventricles: Normal. No ventriculomegaly. Bones/joints: Unremarkable. No acute fracture. Sinuses: Visualized sinuses are unremarkable. No fluid levels. Mastoid air cells: Visualized mastoid air cells are well aerated. Soft tissues: Unremarkable. IMPRESSION: No evidence of bleed. No evidence of mass effect. Electronically signed by: Santosh Loera On 02/25/2019 20:05:12 PM
--- NOTE | 2019-02-25 20:18 | REPVR ---
PROCEDURE INFORMATION: Exam: CT Chest Without Contrast Exam date and time: 02/25/2019 7:06 PM Age: 58 years old Clinical history: Abnormal findings; Other: Mass? TECHNIQUE: Imaging protocol: Computed tomography of the chest without contrast. 3D rendering: MIP reconstructed images were created and reviewed. Radiation optimization: All CT scans at this facility use at least one of these dose optimization techniques: automated exposure control; mA and/or kV adjustment per patient size (includes targeted exams where dose is matched to clinical indication); or iterative reconstruction. COMPARISON: CT Chest without contrast 03/13/2016 4:38 PM FINDINGS: Lungs: There is mild bibasilar atelectasis. The lungs appear otherwise clear. On the CT examination of 2015 there was extensive bilateral infiltrates and these have all cleared. Pleural space: There is no evidence of pneumothorax. Heart: The heart is normal in size and there is no pericardial effusion. Aorta: There is ectasias of the ascending aorta measuring approximately 3.9 cm. Lymph nodes: There are a few scattered small lymph nodes in the mediastinum. Bones/joints: Unremarkable. No acute fracture. Soft tissues: Unremarkable. IMPRESSION: No evidence of infiltrate or mass. Ectasias of the ascending aorta. Electronically signed by: Santosh Loera On 02/25/2019 20:18:05 PM
[2019-02-25] MEDS: aMILoride 5 MG TAB PO SCH (21:00)
[2019-02-25] MEDS ORDERED: HEPARIN SOD (PORCINE) 5000 UNITS/ML VIAL SC SCH (22:00)
[2019-02-25] MEDS ORDERED: ALBUTEROL 90 MCG/ACT 8GM HFA INHALER INH PRN (22:30)
[2019-02-25] MEDS: ATORVASTATIN 20 MG TAB PO SCH (23:10)
[2019-02-25] MEDS: ALPRAZolam 0.5 MG TAB PO PRN (23:10)
[2019-02-25] MEDS: CALCIUM/VITAMIN D 500 MG TAB PO SCH (23:11)
[2019-02-25] MEDS: atenoloL 25 MG TAB PO SCH (23:11)
[2019-02-25] MEDS: PERCOCET 5MG/325MG TAB PO PRN (23:12)
[2019-02-25 23:33] LABS: CALCIUM LEVEL 10.6 MG/DL (8.5-10.1); CREATININE FOR GFR 1.91 MG/DL (0.55-1.30); GLOMERULAR FILTRATION RATE 28.9 (>51); POTASSIUM SERUM 6.7 MEQ/L (3.5-5.1)
[2019-02-26] VITALS: BP 136/70
[2019-02-26 04:00] VITALS: BP 117/60
[2019-02-26 05:46] LABS: HEMATOCRIT 40.5 % (36.0-47.0); HEMOGLOBIN 12.1 g/dl (12.0-15.5); MEAN CORPUSCULAR HEMOGLOBIN 29.7 pg (27.0-33.0); MEAN CORPUSCULAR HGB CONC 29.9 g/dl (32.0-36.5); MEAN CORPUSCULAR VOLUME 99.5 fl (80.0-96.0); PLATELET COUNT, AUTOMATED 390 10^3/uL (150-450); RED BLOOD COUNT 4.07 10^6/uL (4.00-5.40)
[2019-02-26 05:54] LABS: CALCIUM LEVEL 10.1 MG/DL (8.5-10.1); CREATININE FOR GFR 2.23 MG/DL (0.55-1.30); GLOMERULAR FILTRATION RATE 24.2 (>51); MAGNESIUM LEVEL 1.5 MG/DL (1.8-2.4); POTASSIUM SERUM 5.3 MEQ/L (3.5-5.1)
[2019-02-26] MEDS ORDERED: DEXTROSE 50% 50 ML SYRINGE IV STA (05:57)
[2019-02-26] MEDS ORDERED: HumuLIN R (REGULAR) INSULIN (NovoLIN R) **100U/ML** PER UNIT IV STA (05:57)
[2019-02-26] MEDS ORDERED: SOD POLYSTYRENE SULFONATE SUSP 15 GM/60 ML UD PO ONE (06:00)
[2019-02-26] MEDS ORDERED: ALBUTEROL SULFATE 2.5 MG/0.5 ML INH NEB SOLN NEB ONE (06:00)
[2019-02-26] MEDS ORDERED: CALCIUM GLUCONATE 1,000 MG in D5W MINI-BAG PLUS 100 ML IV ONE (06:00)
[2019-02-26 07:09] VITALS: BP 96/61
[2019-02-26] MEDS: LOSARTAN 50 MG TAB PO SCH (07:49)
[2019-02-26] MEDS: atenoloL 50 MG TAB PO SCH (07:49)
[2019-02-26] MEDS: aMILoride 5 MG TAB PO SCH ×2 (08:01→21:15)
[2019-02-26] MEDS: MAG SULF 1GM/100ML (MAG RUN) 1 GM in IV 1 EA IV SCH ×2 (08:01→09:14)
[2019-02-26] MEDS: CALCIUM/VITAMIN D 500 MG TAB PO SCH ×2 (08:01→21:15)
[2019-02-26] MEDS: PANTOPRAZOLE 40MG TAB (PROTONIX) PO SCH (08:01)
[2019-02-26] MEDS: PERCOCET 5MG/325MG TAB PO PRN ×2 (08:02→21:15)
[2019-02-26] MEDS: ENOXAPARIN 30 MG/0.3 ML SYR (J1650) SC SCH (08:02)
[2019-02-26 10:42] LABS: HEMOGLOBIN A1c 5.8 %
[2019-02-26] MEDS: ALPRAZolam 0.5 MG TAB PO PRN ×2 (11:31→23:48)
[2019-02-26 12:00] VITALS: BP 114/65
[2019-02-26] MEDS ORDERED: SLF 3 ML SYR IV PRN (14:45)
[2019-02-26 16:00] VITALS: BP 129/75
--- NOTE | 2019-02-26 16:44 | ECGEPIP ---
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
--- NOTE | 2019-02-26 17:07 | IPNPDOC ---
Date Seen The patient was seen on 02/26/19. Progress Note SUBJECTIVE: Patient reported feeling better this morning but states that her episodes of weakness are normally in the afternoon. K improved to 5.3 this morning follow by 5.0. She offered no complaints this morning. OBJECTIVE PHYSICAL EXAMINATION: VITAL SIGNS: Please see below. General: No acute distress, Alert Eyes: Normal sclera, EOMI, CAITIE HENT: Atraumatic, neck supple, moist mucous membranes Cardiovascular: Normal rate, normal rhythm. No murmurs appreciated. Pulmonary: Clear to auscultation b/l, no wheezing GI: Soft, nontender, nondistended Skin: Warm and dry Neuro: CN grossly intact. No focal deficits. Strengths equal b/l. Psych: oriented x 3 LABORATORY DATA, IMAGING STUDIES, MICROBIOLOGY: Please see below. DVT prophylaxis ordered?: Lovenox ASSESSMENT AND PLAN: 1. Episodic weakness - Suspect 2/2 hyperkalemia. - hx chronic diarrhea and recently started on magnesium and K supplement on last admission. - Initial K 8.4 on presentation, trending down now. - CT head without evidence of acute pathology. - Symptoms improving. Holding K supplement and monitor for recurrence. - Neurology consulted. 2. HTN - resume home meds. monitor BP. 3. Anxiety - restart home benzo. 4. Sleep Apnea - May use own CPAP. 5. Obesity - BMI 35.2 complicates nursing care. DVT ppx: Lovenox Dispo: Home after symptoms resolve VS, I&O, 24H, Fishbone Vital Signs/I&O Vital Signs Date Time Temp Pulse Resp B/P (MAP) Pulse Ox O2 Delivery O2 Flow Rate FiO2 02/26/19 12:00 98.5 88 17 114/65 (81) 94 Room Air I&O- Last 24 Hours up to 6 AM 02/26/19 06:00 Intake Total 360 ml Output Total 0 ml Balance 360 ml Laboratory Data 24H LABS Laboratory Tests 2 02/25/19 17:16: Immature Granulocyte % (Auto) 0.4, Neutrophils (%) (Auto) 72.6H, Lymphocytes (%) (Auto) 20.0L, Monocytes (%) (Auto) 4.9, Eosinophils (%) (Auto) 1.4, Basophils (%) (Auto) 0.7, Neutrophils # (Auto) 11.4H, Lymphocytes # (Auto) 3.1, Monocytes # (Auto) 0.8, Eosinophils # (Auto) 0.2, Basophils # (Auto) 0.1, Nucleated Red Blood Cells % (auto) 0.0, Anion Gap 9, Glomerular Filtration Rate 28.8L, Calcium Level 10.4H, Phosphorus Level 4.2, Magnesium Level 1.6L, Total Bilirubin 0.7, Direct Bilirubin 0.2, Aspartate Amino Transf (AST/SGOT) 23, Alanine Aminotrans ferase (ALT/SGPT) 46, Alkaline Phosphatase 105, Total Creatine Kinase 24L, Total Protein 8.9H, Albumin 4.3, Albumin/Globulin Ratio 0.93L, Thyroid Stimulating Hormone (TSH) 1.560, Free Thyroxine Index 3.0, Thyroxine (T4) 8.2, Triiodothyronine (T3) Uptake 37 02/25/19 17:39: POC Glucose (Misc Panel) 146H, POC Sodium (Misc Panel) 131L, POC Potassium (Misc Panel) 8.6*H, POC Chloride (Misc Panel) 113H, POC Total CO2 (Misc Panel) 16.0L, POC Blood Urea Nitrogen (Misc Panel 46H, POC Ionized Calcium (Misc Panel) 5.6H, POC Creatinine (Misc Panel) 1.8H, POC Hematocrit (Misc Panel) 46.0 02/25/19 17:50: 02/25/19 22:57: Anion Gap 8, Glomerular Filtration Rate 28.9L, Calcium Level 10.6H 02/26/19 04:45: Nucleated Red Blood Cells % (auto) 0.0, Anion Gap 9, Glomerular Filtration Rate 24.2L, Calcium Level 10.1, Magnesium Level 1.5L 02/26/19 10:03: Estimated Mean Plasma Glucose 120H, Hemoglobin A1c 5.8 CBC/BMP Laboratory Tests 02/25/19 17:16 02/25/19 22:57 02/26/19 04:45 02/26/19 10:03 CARINA MCKEON MD Feb 26, 2019 17:07
[2019-02-26] MEDS: NS 1,000 ML IV SCH (17:46)
[2019-02-26 20:00] VITALS: BP 131/67
[2019-02-26] MEDS: atenoloL 25 MG TAB PO SCH (21:15)
[2019-02-26] MEDS: ATORVASTATIN 20 MG TAB PO SCH (21:15)
[2019-02-26] MEDS: SLF 3 ML SYR IV SCH (21:16)
[2019-02-27] VITALS (8 sets, daily range): BP systolic 98–129; BP diastolic 59–79
[2019-02-27] MEDS: ACETAMINOPHEN TAB 650MG DOSE (2X325MG) PO PRN (03:26)
[2019-02-27] MEDS: NS 1,000 ML IV SCH ×3 (03:26→23:40)
[2019-02-27] MEDS: SLF 3 ML SYR IV SCH ×3 (05:00→22:00)
[2019-02-27 05:08] LABS: HEMATOCRIT 34.3 % (36.0-47.0); HEMOGLOBIN 10.6 g/dl (12.0-15.5); MEAN CORPUSCULAR HGB CONC 30.9 g/dl (32.0-36.5); MEAN CORPUSCULAR VOLUME 97.2 fl (80.0-96.0); PLATELET COUNT, AUTOMATED 319 10^3/uL (150-450); RED BLOOD COUNT 3.53 10^6/uL (4.00-5.40); WHITE BLOOD COUNT 9.5 10^3/uL (4.0-10.0)
[2019-02-27 05:30] LABS: CREATININE FOR GFR 1.61 MG/DL (0.55-1.30); GLOMERULAR FILTRATION RATE 35.2 (>51); POTASSIUM SERUM 4.8 MEQ/L (3.5-5.1)
--- NOTE | 2019-02-27 07:03 | CR ---
DATE OF CONSULTATION: 02/26/2019 REFERRING PHYSICIAN: Trista North MD REASON FOR CONSULTATION: Weakness. HISTORY OF PRESENT ILLNESS: Shellie Ochoa is a 57-year-old woman who was admitted at [facility] on 02/12/2019 due to hypocalcemic, hypokalemia and hypomagnesemia, and was discharged home on calcium, potassium and magnesium supplements. She has been taking potassium chloride 20 mEq twice a day. The patient states that 5-6 days ago she started feeling weak. Her legs would give out. She was unable to lift her legs. She had difficulty lifting her arms and raising her head off the bed. Her weakness would fluctuate. She would feel weak more in the afternoon and evening. She would sleep and would wake up stronger and as the day would go by her weakness would get worse. She had mild blurred vision. She denies dysphagia, double vision, drooping of eyelids, shortness of breath, leg pain, headaches, loss of consciousness, urinary incontinence. She has chronic back pain. She had seizures in 2017 when she was admitted with pneumonia and renal failure. She fell twice yesterday. She was unable to get into car and was unable to get out of car yesterday. Her brought her to [facility]. She was treated with calcium gluconate and Kayexalate and her potassium has decreased from 8.4 to 6.7 to 5.3 and 5 most recently. DIAGNOSTIC STUDIES: Her potassium is summarized above. Sodium was 134, creatinine was 1.9 and increased to 2.23. GFR decreased from 28 to 24. CK was 24, TSH was 1.5. PAST MEDICAL HISTORY: Pneumonia. Tramadol induced seizures. Chronic kidney disease. Anxiety. Dyslipidemia. Sleep apnea. Hypertension. Back pain. Irritable bowel syndrome. C. difficile colitis status post fecal transplant. SOCIAL HISTORY: She denies smoking, alcohol or illicit drugs. FAMILY HISTORY: Diabetes. ALLERGIES: 1. TRAMADOL which caused seizures. HOME MEDICATIONS: - amiloride 5 mg by mouth twice a day - atenolol 50 mg by mouth daily - atenolol 25 mg by mouth daily - Lipitor 40 mg by mouth daily - calcium carbonate with vitamin D3 500/200 by mouth twice a day - vitamin D2 50,000 units once a week - losartan 100 mg by mouth daily - magnesium gluconate 500 mg by mouth twice a day - Protonix 40 mg by mouth daily - potassium chloride 20 mEq by mouth twice a day PHYSICAL EXAMINATION: Temperature 97.5, pulse 90, respiratory rate 18, blood pressure 129/75, 95% saturation on room air. Heart regular rate and rhythm. Lungs clear to auscultation. Abdomen soft, nontender, nondistended. No pedal edema. No musculoskeletal abnormalities. No rash. No signs of meningeal irritation. Patient is awake, alert and oriented to place, person and time. Normal speech comprehension and repetition. Extraocular muscles are intact. No facial weakness. Tongue and uvula are midline. 5/5 strength in all four extremities. Deep tendon reflexes 2+ throughout. Normal sensation. Recent and distant memory is intact. Visual mendieta are full to confrontation. There is no nystagmus. IMAGING: CT scan of head is unremarkable. CT scan of chest showed ectasia of ascending aorta without any thymus enlargement. ASSESSMENT: 1. Severe hyperkalemia likely induced by supplement, potassium sparing diuretics and mild renal insufficiency. 2. Weakness, likely related to severe hyperkalemia and it is improving as her potassium has significantly improved. 3. Rule out Lambert-Eaton myasthenic syndrome (LEMS), although my index of suspicion is low. PLAN: 1. Her acetylcholine receptor antibody, muscle specific kinase (MuSK) antibody, voltage-gated calcium channel (VGCC) antibody have been ordered and are pending. 2. Intravenous fluids to improve her renal dysfunction. 3. Follow with our office in 2-3 weeks after hospital discharge. Her antibody will take a couple of weeks to be reported.
[2019-02-27 08:06] LABS: MAGNESIUM LEVEL 2.4 MG/DL (1.8-2.4)
[2019-02-27] MEDS: aMILoride 5 MG TAB PO SCH ×2 (08:15→20:35)
[2019-02-27] MEDS: LOSARTAN 50 MG TAB PO SCH (08:15)
[2019-02-27] MEDS: atenoloL 50 MG TAB PO SCH (08:15)
[2019-02-27] MEDS: PANTOPRAZOLE 40MG TAB (PROTONIX) PO SCH (08:15)
[2019-02-27] MEDS: CALCIUM/VITAMIN D 500 MG TAB PO SCH ×2 (08:15→20:35)
[2019-02-27] MEDS: ENOXAPARIN 30 MG/0.3 ML SYR (J1650) SC SCH (08:16)
[2019-02-27] MEDS: PERCOCET 5MG/325MG TAB PO PRN ×2 (08:49→20:35)
[2019-02-27] MEDS: ALPRAZolam 0.5 MG TAB PO PRN (12:01)
--- NOTE | 2019-02-27 19:29 | IPNPDOC ---
Date Seen The patient was seen on 02/27/19. Progress Note SUBJECTIVE: Patient reported feeling better, with no acute episode of weakness yesterday reported. Had passed PT and ambulating but reported that she is still tremulous and anxious about going home. K 4.8 this AM. OBJECTIVE PHYSICAL EXAMINATION: VITAL SIGNS: Please see below. General: No acute distress, Alert Eyes: Normal sclera, EOMI, CAITIE HENT: Atraumatic, neck supple, moist mucous membranes Cardiovascular: Normal rate, normal rhythm. No murmurs appreciated. Pulmonary: Clear to auscultation b/l, no wheezing GI: Soft, nontender, nondistended Skin: Warm and dry Neuro: CN grossly intact. No focal deficits. Strengths equal b/l. Psych: oriented x 3 LABORATORY DATA, IMAGING STUDIES, MICROBIOLOGY: Please see below. DVT prophylaxis ordered?: Lovenox ASSESSMENT AND PLAN: 1. Episodic weakness - Suspect 2/2 hyperkalemia. - hx chronic diarrhea and recently started on magnesium and K supplement on last admission. - Initial K 8.4 on presentation, trending down now. - CT head without evidence of acute pathology. - Symptoms improving. Holding K supplement and monitor for recurrence. - Neurology evaluated. 2. HTN - resume home meds. monitor BP. 3. Anxiety - restart home benzo. 4. Sleep Apnea - May use own CPAP. 5. Obesity - BMI 35.2 complicates nursing care. DVT ppx: Lovenox Dispo: Home after symptoms resolve VS, I&O, 24H, Fishbone Vital Signs/I&O Vital Signs Date Time Temp Pulse Resp B/P (MAP) Pulse Ox O2 Delivery O2 Flow Rate FiO2 02/27/19 16:00 98.0 74 18 119/59 (79) 97 Room Air I&O- Last 24 Hours up to 6 AM 02/27/19 06:00 Intake Total 2270 ml Output Total 1100 ml Balance 1170 ml Laboratory Data 24H LABS Laboratory Tests 2 02/27/19 04:34: Nucleated Red Blood Cells % (auto) 0.0, Anion Gap 8, Glomerular Filtration Rate 35.2L, Calcium Level 9.0, Magnesium Level 2.4 CBC/BMP Laboratory Tests 02/27/19 04:34 CARINA MCKEON MD Feb 27, 2019 19:29
[2019-02-27] MEDS: ATORVASTATIN 20 MG TAB PO SCH (20:35)
[2019-02-27] MEDS: atenoloL 25 MG TAB PO SCH (20:36)
[2019-02-28] MEDS: ALPRAZolam 0.5 MG TAB PO PRN ×2 (00:10→12:07)
[2019-02-28 02:24] VITALS: BP 108/60
[2019-02-28 06:00] VITALS: BP 122/65
[2019-02-28] MEDS: SLF 3 ML SYR IV SCH ×2 (06:00→14:12)
[2019-02-28 07:05] LABS: HEMATOCRIT 33.8 % (36.0-47.0); HEMOGLOBIN 10.3 g/dl (12.0-15.5); MEAN CORPUSCULAR HGB CONC 30.5 g/dl (32.0-36.5); MEAN CORPUSCULAR VOLUME 98.5 fl (80.0-96.0); PLATELET COUNT, AUTOMATED 275 10^3/uL (150-450); RED BLOOD COUNT 3.43 10^6/uL (4.00-5.40); WHITE BLOOD COUNT 7.9 10^3/uL (4.0-10.0)
[2019-02-28 07:26] LABS: CALCIUM LEVEL 9.2 MG/DL (8.5-10.1); CREATININE FOR GFR 1.11 MG/DL (0.55-1.30); GLOMERULAR FILTRATION RATE 54.1 (>51); POTASSIUM SERUM 4.3 MEQ/L (3.5-5.1)
[2019-02-28 08:48] VITALS: BP 135/64
[2019-02-28] MEDS: ENOXAPARIN 30 MG/0.3 ML SYR (J1650) SC SCH (08:55)
[2019-02-28] MEDS: PANTOPRAZOLE 40MG TAB (PROTONIX) PO SCH (08:55)
[2019-02-28] MEDS: atenoloL 50 MG TAB PO SCH (08:56)
[2019-02-28] MEDS: CALCIUM/VITAMIN D 500 MG TAB PO SCH (08:56)
[2019-02-28] MEDS: LOSARTAN 50 MG TAB PO SCH (08:56)
[2019-02-28] MEDS: NS 1,000 ML IV SCH (08:57)
[2019-02-28] MEDS: PERCOCET 5MG/325MG TAB PO PRN (08:59)
[2019-02-28] MEDS: aMILoride 5 MG TAB PO SCH (09:54)
--- NOTE | 2019-02-28 11:06 | DS.PDOC ---
Discharge Summary General Date of Admission Feb 25, 2019 at 19:23 Date of Discharge 02/28/19 Discharge Summary PROCEDURES PERFORMED DURING STAY: [None]. ADMITTING DIAGNOSES: 1. Weakness secondary to Hyperkalemia 2. Uncontrolled HTN 3. Anxiety 4. ARIELA 5. Obesity DISCHARGE DIAGNOSES: 1. Weakness secondary to Hyperkalemia 2. Uncontrolled HTN 3. Anxiety 4. ARIELA 5. Obesity COMPLICATIONS/CHIEF COMPLAINT: Hyperkalemia, Weakness. HISTORY OF PRESENT ILLNESS: "This is a 57-year-old female who presents with complaints of intermittent muscle weakness associated with blurry vision, that occurs at around 3 or 4 PM in the afternoon for the last 2-3 days. As a result of the weakness she has fallen. She denies change in sensation in her arms or her legs. She reports having fevers and chills; she has chronic diarrhea. She was last admitted on February 12 for management of hypocalcemia, hypokalemia and hypomagnesemia and was discharged home with potassium and magnesium supplements." HOSPITAL COURSE: Patient was found to have elevated K of 8.4 on arrival and was treated with improvement to 4.3 with resolution of symptoms. She complained of episodic episodes of weakness at home which has not recurred after treatment of her hyperkalemia. She had worked with physical therapy and ambulated well and had c leared for home. Patient was cleared yesterday but had been very anxious about going home because her is working during the day. She initially stated that her took off and asked if she could go home today instead but later stated that he is now working on as well. Explained to patient that she has cleared with PT and has not had any events or issues at all for the past few days now with correction of electrolytes. Had offered her home services but patient refused despite her anxiety. She was also evaluated by Neurology whose impression was also weakness from K, did order workup for Lambert eaton Syndrome that can be followed up as outpatient. Patient to be discharged home to f/u with PMD and Neurology. Holding K supplement. Should she need it in the future, it can be resume at much smaller dose and frequency. DISCHARGE MEDICATIONS: Please see below. ALLERGIES: Please see below. PHYSICAL EXAMINATION ON DISCHARGE: VITAL SIGNS: Please see below. General: No acute distress, Alert Eyes: Normal sclera, EOMI, CAITIE HENT: Atraumatic, neck supple, moist mucous membranes Cardiovascular: Normal rate, normal rhythm. No murmurs appreciated. Pulmonary: Clear to auscultation b/l, no wheezing GI: Soft, nontender, nondistended Skin: Warm and dry Neuro: CN grossly intact. No focal deficits. Strengths equal b/l. Psych: oriented x 3, anxious about going home. LABORATORY DATA: Please see below. IMAGING: CT of the head "IMPRESSION: No evidence of bleed.No evidence of mass effect." CT of the chest "IMPRESSION: No evidence of infiltrate or mass. Ectasias of the ascending aorta." ACTIVITY: [As tolerated]. DIET: Progress diet as tolerated. DISCHARGE PLAN: Follow-up with PCP in 1 week. Follow-up with neurologists in 2-3 weeks. RE: Rule out Lambert-Eaton Syndrome Stop potassium supplements. DISPOSITION: Home. DISCHARGE INSTRUCTIONS: Follow-up with PCP in 1 week. Follow-up with neurologists in 2-3 weeks. RE: Rule out Lambert-Eaton Syndrome Stop potassium supplements. ITEMS TO FOLLOWUP ON ON OUTPATIENT: 1. PCP in 1 week 2. Neurology 2-3 weeks DISCHARGE CONDITION: [Stable]. TIME SPENT ON DISCHARGE: 35 minutes. Vital Signs/I&Os Vital Signs Date Time Temp Pulse Resp B/P (MAP) Pulse Ox O2 Delivery O2 Flow Rate FiO2 02/28/19 09:29 18 02/28/19 08:59 Room Air 02/28/19 08:48 97.2 80 135/64 (87) 97 I&O- Last 24 Hours up to 6 AM 02/28/19 06:00 Intake Total 2195 ml Output Total 1600 ml Balance 595 ml Laboratory Data Labs 24H Laboratory Tests 2 02/28/19 06:51: Nucleated Red Blood Cells % (auto) 0.0, Anion Gap 7L, Glomerular Filtration Rate 54.1, Calcium Level 9.2 CBC/BMP Laboratory Tests 02/28/19 06:51 Discharge Medications Scheduled Amiloride HCl (Amiloride HCl) 5 Mg Tablet, 5 MG PO BID, (Reported) Atenolol (Atenolol) 50 Mg Tablet, 50 MG PO DAILY, (Reported) Atenolol (Atenolol) 25 Mg Tablet, 25 MG PO QHS, (Reported) Atorvastatin Calcium (Atorvastatin Calcium) 40 Mg Tablet, 40 MG PO QHS, (Reported) Calcium Carbonate/Vitamin D3 (Calcium 500-Vit D3 200 Tablet) 1 Each Tablet, 1 TAB PO BID, (Reported) Ergocalciferol (Vitamin D2) (Drisdol) 50,000 Unit Cap, 50,000 UNIT PO QWEEK, (Reported) Losartan Potassium (Losartan Potassium) 100 Mg Tab, 100 MG PO DAILY, (Reported) Magnesium Gluconate (Magnesium Gluconate) 27 Mg Tablet, 500 MG PO BID, (Reported) Pantoprazole Sodium (Pantoprazole Sodium) 40 Mg Tab, 40 MG PO DAILY, (Reported) Scheduled PRN Acetaminophen (Tylenol Extra Strength) 500 Mg Tablet, 1,000 MG PO TID PRN for PAIN, (Reported) Albuterol Sulfate (Proair Hfa) 108 Mcg/Act Aer, 2 PUFF INH QID PRN for SHORTNESS OF BREATH, (Reported) Alprazolam (Xanax) 1 Mg Tablet, 1 MG PO BID PRN for ANXIETY, (Reported) Oxycodone HCl/Acetaminophen (Percocet 7.5-325 mg Tablet) 1 Each Tablet, 1 TAB PO BID PRN for PAIN, (Reported) Allergies Coded Allergies: tramadol (Verified Adverse Reaction, Severe, SEIZURES, 02/12/19) SEIZURES ATTENDING NOTE I have personally performed a face to face diagnostic evaluation on this patient. I have reviewed and agree with the discharge plan. TROY TORRES PA-C Feb 28, 2019 11:06 CARINA MCKEON MD Feb 28, 2019 15:30
[2019-02-28 14:00] VITALS: BP 108/68
[2019-02-28] MEDS: ACETAMINOPHEN TAB 650MG DOSE (2X325MG) PO PRN (15:46)
== END 2019-02-28 17:40 | disposition home or self-care (01) | DRG 641 ==
LOC: M ED 16:55 → M ED INP 19:23 → M PCU 20:18 → M MS5PR 02-27 20:43 → M MS4PR 02-28 08:30
PROVIDERS: ADMIT Internal Medicine; ATTEND Internal Medicine
DX: E87.5 Hyperkalemia (principal); G47.33 Obstructive sleep apnea (adult) (pediatric); I12.9 Hypertensive chronic kidney disease with stage 1 through stage 4 chronic kidney disease, or unspecified chronic kidney disease; F41.9 Anxiety disorder, unspecified; E66.9 Obesity, unspecified; M62.81 Muscle weakness (generalized); Z79.899 Other long term (current) drug therapy; Z88.8 Allergy status to other drugs, medicaments and biological substances; Z68.35 Body mass index [BMI] 35.0-35.9, adult; N18.9 Chronic kidney disease, unspecified

== ENCOUNTER → 2019-03-26 | Outpatient (REF) | payer OTHER ==
[~2019-03-26] MED LIST changes: +CALC500T44 PO; +MAGN500T6 PO; +POTA20TA6 PO
[2019-03-26 17:39] LABS: ALBUMIN 3.5 GM/DL (3.2-5.2); CALCIUM LEVEL 9.3 MG/DL (8.5-10.1); CREATININE FOR GFR 1.56 MG/DL (0.55-1.30); GLOMERULAR FILTRATION RATE 36.5 (>51); MAGNESIUM LEVEL 2.1 MG/DL (1.8-2.4); PHOSPHORUS LEVEL 2.5 MG/DL (2.5-4.9); POTASSIUM SERUM 4.5 MEQ/L (3.5-5.1)
== END ==
LOC: M LAB REF 17:19
PROVIDERS: ATTEND Internal Medicine Nephrology
DX: I10 Essential (primary) hypertension (principal); E83.42 Hypomagnesemia

== ENCOUNTER → 2019-04-12 | Outpatient (CLI) | payer OTHER ==
[~2019-04-12] MED LIST changes: +BUPIVACAINE HCL 0.25% 30 ML VIAL As Ordered ONE; +TRIAMCINOLONE ACETONIDE SUSP 40 MG/ML VIAL (J3301) As Ordered ONE; +diazePAM 5 MG TAB As Ordered ONE; +diphenhydrAMINE 25 MG CAP As Ordered ONE; +oxyCODONE 5MG TAB As Ordered ONE
--- NOTE | 2019-04-27 02:11 | ECWPNPC ---
PATIENT NAME: MARGA GUZMAN : 1960 GENDER: FEMALE VISIT DATE: 04/12/2019 DISCHARGE DATE: 04/12/19 1448 VISIT LOCKED DATE TIME: PHYSICIAN: IVETT BELL MD RESOURCE: IVETT BELL MD REASON FOR APPOINTMENT 1. TPI BILAT LOW BACK HISTORY OF PRESENT ILLNESS HISTORY OF PRESENT ILLNESS: PAIN THE PATIENT DESCRIBES THE PAIN... FALL RISK SCREENING: SCREENING :NO FALLS REPORTED IN THE LAST YEAR CURRENT MEDICATIONS TAKING MAGNESIUM OXIDE 500 MG TABLET DIRECTED ORALLY BID TAKING CALCIUM CARB-ERGOCALCIFEROL 500-200 MG-UNIT TABLET 1 TABLET WITH MEALS ORALLY TWICE A DAY, NOTES: 500-400 MG 1 BID TAKING TYLENOL EXTRA STRENGTH 500 MG TABLET 1 TABLET NEEDED ORALLY EVERY 8 HRS, NOTES: 04/11/2019 TAKING DRISDOL 86111 UNIT CAPSULE 1 CAPSULE ORALLY WEEKLY, NOTES: SATURDAYS TAKING ATENOLOL 25 MG TABLET 1 TABLET ORALLY ONCE A DAY IN EVENING, NOTES: 04/12/2019 0700 TAKING ATORVASTATIN CALCIUM 40 MG TABLET 1 TABLET ORALLY ONCE A DAY, NOTES: 04/11/2019 1830 TAKING PROAIR HFA 108 (90 BASE) MCG/ACT AEROSOL SOLUTION 2 PUFFS NEEDED INHALATION QID PRN, NOTES: HAS NOT USED LATELY TAKING PANTOPRAZOLE SODIUM 40 MG TABLET DELAYED RELEASE 1 TABLET ORALLY ONCE A DAY, NOTES: 04/12/2019 0700 TAKING XANAX 1 MG TABLET 1 TABLET NEEDED ORALLY TWICE A DAY NEEDED, NOTES: 04/09/2019 TAKING PERCOCET 7.5-325 MG TABLET 1 TABLET NEEDED ORALLY EVERY 8-12H PRN MDD2 #50 TAB SHOULD LAST 30 DAYS, NOTES: 04/11/2019 1830 NOT-TAKING LOSARTAN POTASSIUM 100 MG TABLET 1 TABLET ORALLY ONCE A DAY NOT-TAKING ATENOLOL 50 MG TABLET 1 TABLET ORALLY ONCE A DAY IN A.M. 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 1 SON(S) , 2 DAUGHTER(S) - HEALTHY. DAUGHTERS: 1988, 1998. SOCIAL HISTORY GENERAL: TOBACCO USE ARE YOU A:NONSMOKER HIV / HEP-C SCREENING HIV TEST OFFERED TO PATIENT:YES 06/10/2017 PT DECLINED DATE OFFERED:06/10/2017 HEP-C TEST OFFERED TO PATIENT:YES 06/10/2017 PT DECLINED DATE OFFERED:06/10/2017 TEST ACCEPTED:NO BROCHURE PROVIDED TO PATIENTYES EDUCATION LEVEL OF EDUCATION:HIGH SCHOOL DIET: NO CONCENTRATED SWEETS.. LANGUAGE LANGUAGES SPOKEN:ALGERIAN DOMESTIC VIOLENCE STATUS: DENIES 12/2017 RECREATIONAL DRUG USE DRUG USE?NO EXERCISE: TRIES TO WALK BUT IT HURTS TOO MUCH, TAKES SOMA TO TRY TO BE ABLE TO DO STUFF. LEARNING BARRIERS / SPECIAL NEEDS BARRIERS TO LEARNING?NO VISION IMPAIRED?YES :CORRECTIVE LENSES PAIN CLINIC PFS, CLERGY, PUBLIC HEALTH REFERRALS PFS REFERRAL NEEDED?NO CLERGY REFERRAL NEEDED?NO PUBLIC HEALTH REFERRAL NEEDED?NO WAS THE PROVIDER NOTIFIED OF ANY PERTINENT INFO?YES HAS THE PATIENT BEEN EDUCATED REGARDING HIS/HER PLAN OF CARE?YES HAS THE PATIENT BEEN EDUCATED REGARDING PAIN, THE RISK FOR PAIN, THE IMPORTANCE OF EFFECTIVE PAIN MANAGEMENT, AND THE PAIN ASSESSMENT PROCESS?YES LATEX QUESTIONNAIRE LATEX ALLERGY : HAVE YOU EVER DEVELOPED ANY TYPE OF REACTION AFTER HANDLING LATEX PRODUCTS SUCH RUBBER GLOVES, CONDOMS, DIAPHRAGMS, BALLOONS, SOCKS, OR UNDERWEAR?NO LATEX ALLERGY : HAVE YOU EVER DEVELOPED ANY TYPE OF REACTION DURING OR AFTER DENTAL APPOINTMENT, VAGINAL/RECTAL EXAMINATION, SURGICAL PROCEDURE, OR ANY OTHER EXPOSURE?NO DATE ASKED : 12/15/2018 LATEX RISK : HAVE YOU EVER HAD ANY DIFFICULTY BREATHING OR HIVES AFTER EATING OR HANDLING ANY FRUITS, OR VEGETABLES; SUCH KIWI, BANANAS, STONE FRUITS, OR CHESTNUTSNO LATEX RISK : DO YOU HAVE A PREVIOUS PERSONAL HISTORY OF MORE THAN NINE SURGERIES, SPINA BIFIDA, OR REPEATED CATHERIZATIONS? NO LATEX RISK : ARE YOU FREQUENTLY EXPOSED TO LATEX PRODUCTS IN YOUR OCCUPATION?NO CAFFEINE CAFFEINE USE?YES HOW OFTEN AND HOW MUCH? MAYBE 1 PEPSI EVERY OTHER DAY AND RARE EXPRESSO ADVANCE DIRECTIVE ADVANCE DIRECTIVE DISCUSSED WITH PATIENT:YES DECLINED HCP INFO AND ASSISTANCE AT THIS TIME. JAINISM [id number] NONE NO YAZDANISM BELIEFS THAT WOULD IMPACT HEALTH CARE. ALCOHOL SCREENING DID YOU HAVE A DRINK CONTAINING ALCOHOL IN THE PAST YEAR?YES HOW OFTEN DID YOU HAVE A DRINK CONTAINING ALCOHOL IN THE PAST YEAR?TWO TO THREE TIMES PER WEEK (3 POINTS) POINTS3 INTERPRETATIONPOSITIVE SEXUAL HX HAD SEX IN THE LAST 12 MONTHS (VAGINAL, ORAL, OR ANAL)?NO LMP:04/10/2014 HAVE YOU EVER HAD AN STD?NO REVIEWED WITH PT 01/03/18 1208 BV REVIEWED WITH PT 04/12/18 1102 BVREVIEWED WITH PATIENT 04/25/18 1500 JS REVIEWED WITH PT 08/16/18 1120 BVREVIEWED WITH PT 10/12/18 1245 BVREVIEWED WITH PT 11/02/18 1103 BVREVIEWED WITH PATIENT 04/12/2019 1403 NLJ. HOSPITALIZATION/MAJOR DIAGNOSTIC PROCEDURE SEIZURE UNSURE OF REASON/ POSSIBLE RXN TO TRAMADOL MAR 21 2016 PNEUMONIA FEB 2016 REVIEW OF SYSTEMS REVIEWED BY: PROVIDER: . CONSTITUTIONAL: ANY CHANGE IN YOUR MEDICAL CONDITION? NO . CHILLS NO . FEVER NO . INFECTION: DO YOU HAVE NEW INFECTIONS? NO . DO YOU HAVE HISTORY OF MRSA? NO . MUSCULOSKELETAL: ANY NEW PATTERNS OF PAIN OR NUMBNESS? NO . GASTROENTEROLOGY: ANY NEW CHANGE IN BOWEL CONTROL? NO . GENITOURINARY: ANY NEW CHANGE IN BLADDER CONTROL? NO . IS THERE A CHANCE YOU COULD BE ? NO . HEMATOLOGY/LYMPH: DO YOU TAKE ANY BLOOD THINNERS? (FOR EXAMPLE- COUMADIN, PLAVIX, AGGRENOX, PLATEL, PRADAXA, OR XARELTO) NO . WHEN WAS YOUR LAST DOSE? DATE: TIME: . NEUROLOGY: HAVE YOU FALLEN IN THE PAST 12 MONTHS? NO . ANY NEW EXTREMITY NUMBNESS OR WEAKNESS? NO . CARDIOLOGY: DO YOU HAVE A PACEMAKER OR DEFIBRILLATOR? NO . RESPIRATORY: HAVE YOU BEEN SICK IN THE PAST WEEK? NO . FEVER NO . FLU LIKE SYMPTOMS? NO . COUGH NO . INTEGUMENTARY: DO YOU HAVE ANY RASHES OR OPEN SORES? NO . ALLERGIC/IMMUNO: ARE YOU ALLERGIC TO IV DYE? NO . ANY NEW ALLERGIES? NO . PSYCHIATRIC: DO YOU HAVE THOUGHTS OF HURTING YOURSELF OR SOMEONE ELSE? NO . ARE YOU ABUSED, NEGLECTED, OR IN AN UNSAFE ENVIRONMENT? NO . ENDOCRINOLOGY: ARE YOU DIABETIC? NO . OTHER: DO YOU NEED ANY PRESCRIPTIONS? NO . IF YES, PLEASE LIST: ____ . ANY NEW PROBLEMS WITH YOUR MEDICATIONS? NO . WHEN DID YOU LAST EAT? 04/11/2019 1830 . WHEN DID YOU LAST DRINK? 04/12/2019 1100AM . WHAT DID YOU LAST DRINK? [place] [employer] . NAME OF PERSON DRIVING YOU HOME? ASHLEY LEDESMA . DO YOU HAVE ANY OTHER QUESTIONS OR CONCERNS NO . VITAL SIGNS WT 204.4 LBS, HT 63 IN, BMI 36.20 INDEX, BP 138/90 MM HG, HR 102 /MIN, RR 16 /MIN, TEMP 97.4 F, OXYGEN SAT % 96%, SAFE IN ENV? (Y/N) YES, NA INITIALS TL 1330, REVIEWED BY: NLJ. ASSESSMENTS MYALGIA, OTHER SITE - M79.18 (PRIMARY) PROCEDURES PN TRIGGER POINT INJECTION WITH STEROIDS PRE PROCEDURE DIAGNOSIS 1. MYALGIA 2. PAIN AT RIGHT AND LEFT LOW BACK AREA. POST PROCEDURE DIAGNOSIS 1. MYALGIA 2. PAIN AT RIGHT AND LEFT LOW BACK AREA. PROCEDURE TRIGGER POINT INJECTION AT RIGHT AND LEFT LOW BACK AREA. SURGEON DR. IVETT BELL PROFESSIONAL FIGHTER NONE ANESTHESIA LOCAL PRE PROCEDURE NOTE THE PATIENT HAS A HISTORY OF CHRONIC PAIN AT THE RIGHT AND LEFT LOW BACK AREA. I EVALUATED THE PATIENT AND REVIEWED THE CHART. THERE IS EVIDENCE OF BANDS OF TISSUE WITH RESTRICTION OF MOVEMENT AND PRESENCE OF TRIGGER POINT AT THE AFFECTED AREA. I WENT OVER THE RISKS, ALTERNATIVES, AND BENEFITS ASSOCIATED WITH THIS PROCEDURE. THE PATIENT WOULD LIKE TO PROCEED AND GIVES CONSENT TO PERFORM THE PROCEDURE. THE PATIENT DENIES UNEXPLAINABLE WEIGHT LOSS, FEVER, CHILLS, OR NEW CHANGES IN URINARY OR BOWEL CONTROL DESCRIPTION OF PROCEDURE THE PATIENT WAS BROUGHT TO THE PROCEDURE ROOM AND PLACED IN THE SITTING POSITION. THE AREA WAS CLEANED WITH ALCOHOL. THE PROCEDURE WAS DONE USING ASEPTIC STERILE TECHNIQUE. I CHECKED LATERALITY AND THE LEVEL WHERE THE PROCEDURE WAS GOING TO BE PERFORMED WITH THE PATIENT AND THE SUPPORTING STAFF AT THE MOMENT OF THE TIME OUT IN THE PROCEDURE ROOM. USING A 25-GAUGE NEEDLE, TRIGGER POINTS WERE INJECTED AT THE RIGHT AND LEFT LOW BACK AREA WITH A TOTAL OF 40 ML OF BUPIVACAINE 0.25% AND KENALOG 40 MG. THERE WAS NO EVIDENCE OF BLOOD, PARESTHESIA OR CEREBROSPINAL FLUID DURING THE PROCEDURE. THE PATIENT WAS SENT TO THE RECOVERY ROOM. THE PATIENT WAS MOVING THE EXTREMITIES AND DOING WELL. THERE WAS NO COMPLICATION DURING THE PROCEDURE POST PROCEDURE NOTE THE PATIENT WILL BE SEEN IN A FOLLOW UP IN THE NEXT FEW WEEKS. I AM LOOKING FOR LONG LASTING PAIN RELIEF WITH THIS INJECTION. INSTRUCTIONS WERE GIVEN, QUESTIONS WERE ANSWERED, AND THE PATIENT EXPRESSED UNDERSTANDING AND AGREES WITH THE PLAN. I, JING DOMINGUEZ, DOCUMENTED THE ABOVE INFORMATION ACTING A SCRIBE FOR DR. BELL. I HAVE REVIEWED THE ABOVE DOCUMENT, WRITTEN BY JING DOMINGUEZ SCRIBMoraima AND I VERIFY THAT IT IS ACCURATE. PROCEDURE CODES 79271 INJ TRIGGER POINT 03/22 [facility] COMMUNICATION FOLLOW UP 3 WEEKS ELECTRONICALLY SIGNED BY IVETT BELL MD, MD ON 04/26/2019 AT 11:48 AM EST DISCLAIMER : THIS IS A VISIT SUMMARY EXTRACTED FROM THE [employer] CHART. IT IS NOT A COPY OF THE [employer] PROGRESS NOTE. RUBIO
== END ==
LOC: M PAIN 13:45
PROVIDERS: ATTEND Anesthesiology
DX: M79.18 Myalgia, other site (principal); J45.909 Unspecified asthma, uncomplicated; Z86.59 Personal history of other mental and behavioral disorders; Z86.19 Personal history of other infectious and parasitic diseases; K21.9 Gastro-esophageal reflux disease without esophagitis; I10 Essential (primary) hypertension; G40.909 Epilepsy, unspecified, not intractable, without status epilepticus; Z88.5 Allergy status to narcotic agent; Z79.899 Other long term (current) drug therapy
CPT/HCPCS: 20552; J3301

== ENCOUNTER → 2019-04-18 | Outpatient (REF) | payer OTHER ==
[~2019-04-18] MED LIST changes: -BUPIVACAINE HCL 0.25% 30 ML VIAL As Ordered ONE; -TRIAMCINOLONE ACETONIDE SUSP 40 MG/ML VIAL (J3301) As Ordered ONE; -diazePAM 5 MG TAB As Ordered ONE; -diphenhydrAMINE 25 MG CAP As Ordered ONE; -oxyCODONE 5MG TAB As Ordered ONE
== END ==
LOC: M LAB REF 17:01
PROVIDERS: ATTEND Nurse Practitioner Family
DX: N39.0 Urinary tract infection, site not specified (principal)

== ENCOUNTER → 2019-05-01 | Outpatient (CLI) | payer OTHER ==
--- NOTE | 2019-05-02 02:06 | ECWPNPC ---
PATIENT NAME: MARGA GUZMAN : 1960 GENDER: FEMALE VISIT DATE: 05/01/2019 DISCHARGE DATE: 05/01/19 1132 VISIT LOCKED DATE TIME: PHYSICIAN: RICHARDSON BEASLEY RESOURCE: RICHARDSON BEASLEY REASON FOR APPOINTMENT 1. POST TPI HISTORY OF PRESENT ILLNESS HISTORY OF PRESENT ILLNESS: HERE FOR POST PROCEDURE F/U.HAD TPI BILAT. LOW BACK WITH ONLY A FEW DAYS IMPROVEMENT IN PAIN .RATING PAIN VAS 8/10.DESCRIBES PAIN ACROSS LOW BACK CONTINUOUS,ACHING AND SORE.SHE IS SICK TODAY WITH FLU LIKE SYMPTOMS. PAIN THE PATIENT DESCRIBES THE PAIN... FALL RISK SCREENING: SCREENING :NO FALLS REPORTED IN THE LAST YEAR CURRENT MEDICATIONS TAKING MAGNESIUM OXIDE 500 MG TABLET DIRECTED ORALLY BID TAKING CALCIUM CARB-ERGOCALCIFEROL 500-200 MG-UNIT TABLET 1 TABLET WITH MEALS ORALLY TWICE A DAY TAKING TYLENOL EXTRA STRENGTH 500 MG TABLET 1 TABLET NEEDED ORALLY EVERY 8 HRS TAKING DRISDOL 09004 UNIT CAPSULE 1 CAPSULE ORALLY WEEKLY TAKING ATENOLOL 25 MG TABLET 1 TABLET ORALLY ONCE A DAY IN EVENING TAKING ATORVASTATIN CALCIUM 40 MG TABLET 1 TABLET ORALLY ONCE A DAY TAKING PROAIR HFA 108 (90 BASE) MCG/ACT AEROSOL SOLUTION 2 PUFFS NEEDED INHALATION QID PRN TAKING PANTOPRAZOLE SODIUM 40 MG TABLET DELAYED RELEASE 1 TABLET ORALLY ONCE A DAY TAKING XANAX 1 MG TABLET 1 TABLET NEEDED ORALLY TWICE A DAY NEEDED TAKING PERCOCET 7.5-325 MG TABLET 1 TABLET NEEDED ORALLY EVERY 8-12H PRN MDD2 #50 TAB SHOULD LAST 30 DAYS TAKING AMILORIDE HCL 5 MG TABLET 1 TABLET WITH FOOD ORALLY ONCE A DAY NOT-TAKING LOSARTAN POTASSIUM 100 MG TABLET 1 TABLET ORALLY ONCE A DAY NOT-TAKING ATENOLOL 50 MG TABLET 1 TABLET ORALLY ONCE A DAY IN A.M. 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 1 SON(S) , 2 DAUGHTER(S) - HEALTHY. DAUGHTERS: 1988, 1998. SOCIAL HISTORY GENERAL: TOBACCO USE ARE YOU A:NONSMOKER HIV / HEP-C SCREENING HIV TEST OFFERED TO PATIENT:YES 06/10/2017 PT DECLINED DATE OFFERED:06/10/2017 HEP-C TEST OFFERED TO PATIENT:YES 06/10/2017 PT DECLINED DATE OFFERED:06/10/2017 TEST ACCEPTED:NO BROCHURE PROVIDED TO PATIENTYES EDUCATION LEVEL OF EDUCATION:HIGH SCHOOL DIET: NO CONCENTRATED SWEETS.. LANGUAGE LANGUAGES SPOKEN:FRISIAN DOMESTIC VIOLENCE STATUS: DENIES 12/2017 RECREATIONAL DRUG USE DRUG USE?NO EXERCISE: TRIES TO WALK BUT IT HURTS TOO MUCH, TAKES SOMA TO TRY TO BE ABLE TO DO STUFF. LEARNING BARRIERS / SPECIAL NEEDS BARRIERS TO LEARNING?NO VISION IMPAIRED?YES :CORRECTIVE LENSES PAIN CLINIC PFS, CLERGY, PUBLIC HEALTH REFERRALS PFS REFERRAL NEEDED?NO CLERGY REFERRAL NEEDED?NO PUBLIC HEALTH REFERRAL NEEDED?NO WAS THE PROVIDER NOTIFIED OF ANY PERTINENT INFO?YES HAS THE PATIENT BEEN EDUCATED REGARDING HIS/HER PLAN OF CARE?YES HAS THE PATIENT BEEN EDUCATED REGARDING PAIN, THE RISK FOR PAIN, THE IMPORTANCE OF EFFECTIVE PAIN MANAGEMENT, AND THE PAIN ASSESSMENT PROCESS?YES LATEX QUESTIONNAIRE LATEX ALLERGY : HAVE YOU EVER DEVELOPED ANY TYPE OF REACTION AFTER HANDLING LATEX PRODUCTS SUCH RUBBER GLOVES, CONDOMS, DIAPHRAGMS, BALLOONS, SOCKS, OR UNDERWEAR?NO LATEX ALLERGY : HAVE YOU EVER DEVELOPED ANY TYPE OF REACTION DURING OR AFTER DENTAL APPOINTMENT, VAGINAL/RECTAL EXAMINATION, SURGICAL PROCEDURE, OR ANY OTHER EXPOSURE?NO DATE ASKED : 12/15/2018 LATEX RISK : HAVE YOU EVER HAD ANY DIFFICULTY BREATHING OR HIVES AFTER EATING OR HANDLING ANY FRUITS, OR VEGETABLES; SUCH KIWI, BANANAS, STONE FRUITS, OR CHESTNUTSNO LATEX RISK : DO YOU HAVE A PREVIOUS PERSONAL HISTORY OF MORE THAN NINE SURGERIES, SPINA BIFIDA, OR REPEATED CATHERIZATIONS? NO LATEX RISK : ARE YOU FREQUENTLY EXPOSED TO LATEX PRODUCTS IN YOUR OCCUPATION?NO CAFFEINE CAFFEINE USE?YES HOW OFTEN AND HOW MUCH? MAYBE 1 PEPSI EVERY OTHER DAY AND RARE EXPRESSO ADVANCE DIRECTIVE ADVANCE DIRECTIVE DISCUSSED WITH PATIENT:YES DECLINED HCP INFO AND ASSISTANCE AT THIS TIME. PROTESTANT [id number] NONE NO DRUZE BELIEFS THAT WOULD IMPACT HEALTH CARE. ALCOHOL SCREENING DID YOU HAVE A DRINK CONTAINING ALCOHOL IN THE PAST YEAR?YES HOW OFTEN DID YOU HAVE A DRINK CONTAINING ALCOHOL IN THE PAST YEAR?TWO TO THREE TIMES PER WEEK (3 POINTS) POINTS3 INTERPRETATIONPOSITIVE SEXUAL HX HAD SEX IN THE LAST 12 MONTHS (VAGINAL, ORAL, OR ANAL)?NO LMP:04/10/2014 HAVE YOU EVER HAD AN STD?NO REVIEWED WITH PT 01/03/18 1208 BV REVIEWED WITH PT 04/12/18 1102 BVREVIEWED WITH PATIENT 04/25/18 1500 JS REVIEWED WITH PT 08/16/18 1120 BVREVIEWED WITH PT 10/12/18 1245 BVREVIEWED WITH PT 11/02/18 1103 BVREVIEWED WITH PATIENT 04/12/2019 1403 NLJ. HOSPITALIZATION/MAJOR DIAGNOSTIC PROCEDURE SEIZURE UNSURE OF REASON/ POSSIBLE RXN TO TRAMADOL MAR 21 2016 PNEUMONIA FEB 2016 REVIEW OF SYSTEMS REVIEWED BY: PROVIDER: RICHARDSON KAPLAN . CONSTITUTIONAL: ANY CHANGE IN YOUR MEDICAL CONDITION? NO . CHILLS NO . FEVER NO . INFECTION: DO YOU HAVE NEW INFECTIONS? NO . DO YOU HAVE HISTORY OF MRSA? NO . MUSCULOSKELETAL: ANY NEW PATTERNS OF PAIN OR NUMBNESS? NO . GASTROENTEROLOGY: ANY NEW CHANGE IN BOWEL CONTROL? NO . GENITOURINARY: ANY NEW CHANGE IN BLADDER CONTROL? NO . IS THERE A CHANCE YOU COULD BE ? NO . HEMATOLOGY/LYMPH: DO YOU TAKE ANY BLOOD THINNERS? (FOR EXAMPLE- COUMADIN, PLAVIX, AGGRENOX, PLATEL, PRADAXA, OR XARELTO) NO . WHEN WAS YOUR LAST DOSE? DATE: TIME: . NEUROLOGY: HAVE YOU FALLEN IN THE PAST 12 MONTHS? YES, HIGH POTASSIUM HOSPITALIZED FOR THIS 02/2019 . ANY NEW EXTREMITY NUMBNESS OR WEAKNESS? NO . CARDIOLOGY: DO YOU HAVE A PACEMAKER OR DEFIBRILLATOR? NO . RESPIRATORY: HAVE YOU BEEN SICK IN THE PAST WEEK? YES, CURRENTLY SICK WITH GASTIC UPSET, FEVER . FEVER YES . FLU LIKE SYMPTOMS? NO . COUGH NO . INTEGUMENTARY: DO YOU HAVE ANY RASHES OR OPEN SORES? NO . ALLERGIC/IMMUNO: ARE YOU ALLERGIC TO IV DYE? NO . ANY NEW ALLERGIES? NO . PSYCHIATRIC: DO YOU HAVE THOUGHTS OF HURTING YOURSELF OR SOMEONE ELSE? NO . ARE YOU ABUSED, NEGLECTED, OR IN AN UNSAFE ENVIRONMENT? NO . ENDOCRINOLOGY: ARE YOU DIABETIC? NO . OTHER: DO YOU NEED ANY PRESCRIPTIONS? YES, PERCOSET . IF YES, PLEASE LIST: ____ . ANY NEW PROBLEMS WITH YOUR MEDICATIONS? NO . WHEN DID YOU LAST EAT? ____ . WHEN DID YOU LAST DRINK? ____ . WHAT DID YOU LAST DRINK? ____ . NAME OF PERSON DRIVING YOU HOME? ____ . DO YOU HAVE ANY OTHER QUESTIONS OR CONCERNS NO . VITAL SIGNS WT 200 LBS, HT 63 IN, BMI 35.42 INDEX, BP 134/94 MM HG, HR 119 /MIN, RR 16 /MIN, TEMP 99.0 F, OXYGEN SAT % 97, SAFE IN ENV? (Y/N) Y, REVIEWED BY: EM. EXAMINATION GENERAL EXAMINATION: EXAM DEFERRED DUE TO ILLNESS. ASSESSMENTS MYALGIA, OTHER SITE - M79.18 (PRIMARY) TREATMENT MYALGIA, OTHER SITE REFILL PERCOCET TABLET, 7.5-325 MG, 1 TABLET NEEDED, ORALLY, EVERY 8-12H PRN MDD2 #50 TAB SHOULD LAST 30 DAYS, 30 DAYS, 50, REFILLS 0 NOTES: ISTOP REGISTRY REVIEWED AND DEMONSTRATES COMPLLIANCE. BRINGS IN MEDICATIONS WHICH IS APPROPRIATE FOR WHAT WAS DISPENSED. RECENT URINE TOXICOLOGY REVIEWED. NO UNAUTHORIZED MEDICATIONS. NO ILLICIT SUBSTANCES AND PRESCRIBED MEDICATIONS WERE PRESENT. PROCEDURE CODES FA211 ESTABILISHED PATIENT [facility] FACILITY CHARGE DISPOSITION & COMMUNICATION FOLLOW UP 2 MONTHS (REASON: MED MGMNT) ELECTRONICALLY SIGNED BY EUSEBIO GOULD ON 05/01/2019 AT 12:29 PM EST DISCLAIMER : THIS IS A VISIT SUMMARY EXTRACTED FROM THE [employer] CHART. IT IS NOT A COPY OF THE [employer] PROGRESS NOTE. MTDD
== END ==
LOC: M PAIN 10:30
PROVIDERS: ATTEND Nurse Practitioner Family
DX: M79.18 Myalgia, other site (principal); J45.909 Unspecified asthma, uncomplicated; Z86.59 Personal history of other mental and behavioral disorders; Z86.19 Personal history of other infectious and parasitic diseases; K21.9 Gastro-esophageal reflux disease without esophagitis; I10 Essential (primary) hypertension; G40.909 Epilepsy, unspecified, not intractable, without status epilepticus; Z88.5 Allergy status to narcotic agent; Z79.899 Other long term (current) drug therapy

== ENCOUNTER → 2019-08-24 | Outpatient (CLI) | payer OTHER ==
--- NOTE | 2019-08-28 04:01 | ECWPNPC ---
PATIENT NAME: MARGA GUZMAN : 1960 GENDER: FEMALE VISIT DATE: 08/24/2019 DISCHARGE DATE: 08/24/19 1142 VISIT LOCKED DATE TIME: PHYSICIAN: RICHARDSON BEASLEY RESOURCE: RICHARDSON BEASLEY REASON FOR APPOINTMENT 1. BACK PAT DONE HISTORY OF PRESENT ILLNESS GENERAL: BEING SEEN TODAY FOR FOLLOW-UP OF CHRONIC LOW BACK PAIN. PAIN HAS INCREASED ACROSS HER LOWER BACK, LEFT GREATER THAN RIGHT. PAIN RADIATES INTO HER LEFT HIP AREA. REVIEWED MRI OF THE LS-SPINE. USING PERCOCET 7.5/325 PERIODICALLY FOR SEVERE PAIN EPISODES. DISCUSSED MEDICATION AND TREATMENT OPTIONS. -. FALL RISK SCREENING: SCREENING :TWO OR MORE FALLS WITHOUT INJURY IN THE PAST YEAR PAIN SCREENING: PATIENT HAS A COMPLAINT OF ACUTE OR CHRONIC PAIN :YES 08/24/19 INTENSITY OF PAIN (SCALE OF 1 TO 10):8 WHAT DOES YOUR PAIN FEEL LIKE:ACHING, CONTINOUS, SHARP PAIN IS INCREASED BY: SITTING STANDING TOO LONG PAIN IS DECREASED BY: MEDS, RESTING NURSING NOTE: -. PAIN CENTER INTAKE QUESTIONS: DO YOU HAVE A HISTORY OF MRSA? :YES DO YOU TAKE A BLOOD THINNERS? :NO DO YOU HAVE ANY BLEEDING DISORDERS? :NO ANY NEW NUMBNESS OR WEAKNESS IN YOUR LEGS OR ARMS? :NO ANY PACEMAKER,DEFIBRILLATOR, OR DORSAL COLUMN STIMULATOR? :NO DO YOU HAVE ANY RASHES OR OPEN SORES? :NO ARE YOU ALLERGIC TO IV DYE? :NO ARE YOU DIABETIC? :NO ANY NEW PROBLEMS WITH YOUR MEDICATIONS? :NO HAVE YOU RECEIVED A VACCINE IN THE PAST 30 DAYS? :NO DO YOU PLAN TO RECEIVE A VACCINE IN THE NEXT 21 DAYS? :NO DO YOU NEED ANY PRESCRIPTION? :YES PERCOSET DO YOU TAKE ANY IMMUNOSUPPRESSIVE MEDICATIONS? :NO CURRENT MEDICATIONS TAKING MAGNESIUM OXIDE 500 MG TABLET DIRECTED ORALLY BID TAKING CALCIUM CARB-ERGOCALCIFEROL 500-200 MG-UNIT TABLET 1 TABLET WITH MEALS ORALLY TWICE A DAY TAKING TYLENOL EXTRA STRENGTH 500 MG TABLET 1 TABLET NEEDED ORALLY EVERY 8 HRS TAKING DRISDOL 62429 UNIT CAPSULE 1 CAPSULE ORALLY WEEKLY TAKING ATENOLOL 25 MG TABLET 1 TABLET ORALLY ONCE A DAY IN EVENING TAKING ATORVASTATIN CALCIUM 40 MG TABLET 1 TABLET ORALLY ONCE A DAY TAKING PROAIR HFA 108 (90 BASE) MCG/ACT AEROSOL SOLUTION 2 PUFFS NEEDED INHALATION QID PRN TAKING PANTOPRAZOLE SODIUM 40 MG TABLET DELAYED RELEASE 1 TABLET ORALLY ONCE A DAY TAKING XANAX 1 MG TABLET 1 TABLET NEEDED ORALLY TWICE A DAY NEEDED TAKING AMILORIDE HCL 5 MG TABLET 1 TABLET WITH FOOD ORALLY ONCE A DAY TAKING PERCOCET 7.5-325 MG TABLET 1 TABLET NEEDED ORALLY EVERY 8-12H PRN MDD2 #50 TAB SHOULD LAST 30 DAYS NOT-TAKING LOSARTAN POTASSIUM 100 MG TABLET 1 TABLET ORALLY ONCE A DAY NOT-TAKING ATENOLOL 50 MG TABLET 1 TABLET ORALLY ONCE A DAY IN A.M. 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 1 SON(S) , 2 DAUGHTER(S) - HEALTHY. DAUGHTERS: 1988, 1998. SOCIAL HISTORY GENERAL: TOBACCO USE ARE YOU A:NONSMOKER LATEX QUESTIONNAIRE LATEX ALLERGY : HAVE YOU EVER DEVELOPED ANY TYPE OF REACTION AFTER HANDLING LATEX PRODUCTS SUCH RUBBER GLOVES, CONDOMS, DIAPHRAGMS, BALLOONS, SOCKS, OR UNDERWEAR?NO LATEX ALLERGY : HAVE YOU EVER DEVELOPED ANY TYPE OF REACTION DURING OR AFTER DENTAL APPOINTMENT, VAGINAL/RECTAL EXAMINATION, SURGICAL PROCEDURE, OR ANY OTHER EXPOSURE?NO DATE ASKED : 12/15/2018 LATEX RISK : HAVE YOU EVER HAD ANY DIFFICULTY BREATHING OR HIVES AFTER EATING OR HANDLING ANY FRUITS, OR VEGETABLES; SUCH KIWI, BANANAS, STONE FRUITS, OR CHESTNUTSNO LATEX RISK : DO YOU HAVE A PREVIOUS PERSONAL HISTORY OF MORE THAN NINE SURGERIES, SPINA BIFIDA, OR REPEATED CATHERIZATIONS? NO LATEX RISK : ARE YOU FREQUENTLY EXPOSED TO LATEX PRODUCTS IN YOUR OCCUPATION?NO ALCOHOL SCREENING DID YOU HAVE A DRINK CONTAINING ALCOHOL IN THE PAST YEAR?YES HOW OFTEN DID YOU HAVE A DRINK CONTAINING ALCOHOL IN THE PAST YEAR?TWO TO THREE TIMES PER WEEK (3 POINTS) POINTS3 INTERPRETATIONPOSITIVE RECREATIONAL DRUG USE DRUG USE?NO CAFFEINE CAFFEINE USE?YES HOW OFTEN AND HOW MUCH? MAYBE 1 PEPSI EVERY OTHER DAY AND RARE EXPRESSO SEXUAL HX HAD SEX IN THE LAST 12 MONTHS (VAGINAL, ORAL, OR ANAL)?NO LMP:04/10/2014 HAVE YOU EVER HAD AN STD?NO HIV / HEP-C SCREENING HIV TEST OFFERED TO PATIENT:YES 06/10/2017 PT DECLINED DATE OFFERED:06/10/2017 HEP-C TEST OFFERED TO PATIENT:YES 06/10/2017 PT DECLINED DATE OFFERED:06/10/2017 TEST ACCEPTED:NO BROCHURE PROVIDED TO PATIENTYES YAZDANISM [id number] NONE NO DRUZE BELIEFS THAT WOULD IMPACT HEALTH CARE. LANGUAGE LANGUAGES SPOKEN:UPPER SORBIAN EDUCATION LEVEL OF EDUCATION:HIGH SCHOOL LEARNING BARRIERS / SPECIAL NEEDS BARRIERS TO LEARNING?NO VISION IMPAIRED?YES :CORRECTIVE LENSES DOMESTIC VIOLENCE STATUS: DENIES 12/2017 DIET: NO CONCENTRATED SWEETS.. EXERCISE: TRIES TO WALK BUT IT HURTS TOO MUCH, TAKES SOMA TO TRY TO BE ABLE TO DO STUFF. PAIN CLINIC PFS, CLERGY, PUBLIC HEALTH REFERRALS PFS REFERRAL NEEDED?NO CLERGY REFERRAL NEEDED?NO PUBLIC HEALTH REFERRAL NEEDED?NO WAS THE PROVIDER NOTIFIED OF ANY PERTINENT INFO?YES HAS THE PATIENT BEEN EDUCATED REGARDING HIS/HER PLAN OF CARE?YES HAS THE PATIENT BEEN EDUCATED REGARDING PAIN, THE RISK FOR PAIN, THE IMPORTANCE OF EFFECTIVE PAIN MANAGEMENT, AND THE PAIN ASSESSMENT PROCESS?YES ADVANCE DIRECTIVE ADVANCE DIRECTIVE DISCUSSED WITH PATIENT:YES DECLINED HCP INFO AND ASSISTANCE AT THIS TIME. REVIEWED WITH PT 01/03/18 1208 BV REVIEWED WITH PT 04/12/18 1102 BVREVIEWED WITH PATIENT 04/25/18 1500 JS REVIEWED WITH PT 08/16/18 1120 BVREVIEWED WITH PT 10/12/18 1245 BVREVIEWED WITH PT 11/02/18 1103 BVREVIEWED WITH PATIENT 04/12/2019 1403 NLJ. HOSPITALIZATION/MAJOR DIAGNOSTIC PROCEDURE SEIZURE UNSURE OF REASON/ POSSIBLE RXN TO TRAMADOL MAR 21 2016 PNEUMONIA FEB 2016 REVIEW OF SYSTEMS CONSTITUTIONAL: ANY RECENT FEVER OR ILLNESS NO . CHILLS NO . GASTROENTEROLOGY: BOWEL INCONTINENCE NO . ANY NEW CHANGE IN BOWEL CONTROL? NO . ABDOMINAL PAIN NO . CONSTIPATION NO . GENITOURINARY: ANY NEW CHANGE IN BLADDER CONTROL? NO . IS THERE A CHANCE YOU COULD BE ? NO . URINARY INCONTINENCE NO . CARDIOLOGY: CHEST PRESSURE NO . CHEST PAIN NO . RESPIRATORY: COUGH NO . SHORTNESS OF BREATH NO . VITAL SIGNS WT 200 LBS, HT 63 IN, BMI 35.42 INDEX, BP 156/81 MM HG, HR 103 /MIN, RR 18 /MIN, TEMP 96.6 F, OXYGEN SAT % 97%, SAFE IN ENV? (Y/N) Y, NA INITIALS AW 1012, REVIEWED BY: EM. EXAMINATION GENERAL EXAMINATION: GENERAL ALERT,NO DISTRESS . PSYCH AFFECT NORMAL . LUNGS: LUNG SOUNDS ARE CLEAR . HEART: HEART RATE REGULAR . MUSCULOSKELETAL: MST 5/5 BILAT. LOWER EXTREMITIES . LUMBAR: TENDERNESS BILAT. SIJ . POSITIVE GREGORY'S TESTING BILATERAL LOWER EXTREMITIES.. DIAGNOSTIC TESTS REVIEWEDMRI L/S SPINE. 2017. ASSESSMENTS BILATERAL SACROILIITIS - M46.1 (PRIMARY) TREATMENT BILATERAL SACROILIITIS REFILL PERCOCET TABLET, 7.5-325 MG, 1 TABLET NEEDED, ORALLY, EVERY 8-12H PRN MDD2 #50 TAB SHOULD LAST 30 DAYS, 30 DAYS, 50, REFILLS 0 NOTES: BILATERAL SIJ , ISTOP REGISTRY REVIEWED AND DEMONSTRATES COMPLLIANCE. URINE/ORAL SWAB TOXICOLOGY TODAY. , RISKS OF NARCOTIC/OPIOD MEDICATIONS INCLUDES BUT IS NOT LIMITED TO RISK OF DEPENDANCE/DEVELOPMENT OF ADDICTION, MOOD DISTURBANCE AND DEPRESSION, OSTEOPOROSIS, HORMONAL AND LABIDAL CHANGES, RESPIRATORY DEPRESSION AND . PATIENT IS ADVISED NOT TO DRIVE OR DRINK ALCOHOL WHILE ON THESE MEDICATIONS. OTHERS CLINICAL NOTES: PRE SCREENING CALL DONE 08/23/19 EM. PROCEDURE CODES FA211 ESTABILISHED PATIENT [facility] CHARGE DISPOSITION & COMMUNICATION FOLLOW UP POST (REASON: BILATERAL SIJ) ELECTRONICALLY SIGNED BY EUSEBIO GOULD ON 08/27/2019 AT 03:26 PM EDT DISCLAIMER : THIS IS A VISIT SUMMARY EXTRACTED FROM THE [employer] CHART. IT IS NOT A COPY OF THE [employer] PROGRESS NOTE. RUBIO
== END ==
LOC: M PAIN 10:30
PROVIDERS: ATTEND Nurse Practitioner Family
DX: M46.1 Sacroiliitis, not elsewhere classified (principal)

== ENCOUNTER → 2019-09-08 | Outpatient (CLI) | payer OTHER | LOC: M LABSMTC 09:30 | PROVIDERS: ATTEND Anesthesiology | DX: Z11.59 Encounter for screening for other viral diseases (principal) | CPT/HCPCS: C9803; U0003 ==

== ENCOUNTER → 2019-09-11 | Outpatient (CLI) | payer OTHER ==
[~2019-09-11] MED LIST changes: +BUPIVACAINE HCL 0.25% 30ML VIAL As Ordered ONE; +ISOVUE-M 300 61% 15ML VIAL As Ordered ONE; +LIDOCAINE 1% SDV 30ML VIAL As Ordered ONE; +TRIAMCINOLONE ACETONIDE SUSP 40 MG/ML VIAL (J3301) As Ordered ONE; +diazePAM 5 MG TAB As Ordered ONE; +diphenhydrAMINE 25MG CAP As Ordered ONE; +oxyCODONE 5MG TAB As Ordered ONE
--- NOTE | 2019-09-11 15:47 | REP ---
C-ARM VIEWS SACROILIAC JOINTS. CLINICAL HISTORY: Pain. Two C-arm views of the bilateral sacroiliac joints performed during injection by Dr. Balderas. [place] overlie each sacroiliac joint. 26 seconds of fluoroscopy time utilized. Electronically Signed by Ochoa Clark MD 09/12/2019 04:39 P
--- NOTE | 2019-09-12 01:20 | ECWPNPC ---
PATIENT NAME: MARGA GUZMAN : 1960 GENDER: FEMALE VISIT DATE: 09/11/2019 DISCHARGE DATE: 09/11/19 142 VISIT LOCKED DATE TIME: PHYSICIAN: IVETT BELL MD RESOURCE: IVETT BELL MD REASON FOR APPOINTMENT 1. BILATERAL SIJ HISTORY OF PRESENT ILLNESS GENERAL: -. FALL RISK SCREENING: SCREENING :TWO OR MORE FALLS WITHOUT INJURY IN THE PAST YEAR DUE TO THE HYPERKALEMIA PAIN SCREENING: PATIENT HAS A COMPLAINT OF ACUTE OR CHRONIC PAIN :YES LOCATION OF PAIN:LOW BACK, LEG(S) LEFT IS GREATER THAN RIGHT INTENSITY OF PAIN (SCALE OF 1 TO 10):9 WHAT DOES YOUR PAIN FEEL LIKE:ACHING, CONTINOUS DURATION:CONTINOUS, CONSTANT, STEADY, AWAKENS FROM SLEEP PAIN IS INCREASED BY: PROLONGED WALKING, BENDING, CLEANING PAIN IS DECREASED BY: TYLENOL OR PERCOCET, SOMETIMES HOT SHOWER NURSING NOTE: -. PAIN CENTER INTAKE QUESTIONS: DO YOU HAVE A HISTORY OF MRSA? :YES SEVERAL YEARS AGO BOTH HANDS AND BETWEEN HER EYES DO YOU TAKE A BLOOD THINNERS? :NO DO YOU HAVE ANY BLEEDING DISORDERS? :NO ANY NEW NUMBNESS OR WEAKNESS IN YOUR LEGS OR ARMS? :NO ANY PACEMAKER,DEFIBRILLATOR, OR DORSAL COLUMN STIMULATOR? :NO DO YOU HAVE ANY RASHES OR OPEN SORES? :NO ARE YOU ALLERGIC TO IV DYE? :NO ARE YOU DIABETIC? :NO ANY NEW PROBLEMS WITH YOUR MEDICATIONS? :NO HAVE YOU RECEIVED A VACCINE IN THE PAST 30 DAYS? :NO DO YOU PLAN TO RECEIVE A VACCINE IN THE NEXT 21 DAYS? :NO DO YOU TAKE ANY IMMUNOSUPPRESSIVE MEDICATIONS? :NO ANY HISTORY OF SEIZURES? :YES POSSIBLE DUE TO TRAMADOL 03/21/2016 ANY HISTORY OF CARDIAC ISSUES OR EVENTS? :NO DO YOU HAVE SLEEP APNEA? :YES-UNABLE TO TOLERATE CPAP. ANY RECENT HEAD INJURY? :NO DO YOU HAVE ANY NEW INFECTIONS? :NO IS THERE A CHANCE YOU COULD BE ? :NO ARE YOU BREAST FEEDING? :NO WHEN DID YOU LAST EAT? : -09/10/19 1800 WHEN DID YOU LAST DRINK? : -09/11/19 1000 WHAT DID YOU LAST DRINK? : -WATER NAME OF PERSON DRIVING YOU HOME? : -ASHLEY GALINDO DO YOU HAVE ANY OTHER QUESTIONS OR CONCERNS? : NO CURRENT MEDICATIONS TAKING MAGNESIUM OXIDE 500 MG TABLET DIRECTED ORALLY BID, NOTES: 09/11/19829 TAKING CALCIUM CARB-ERGOCALCIFEROL 500-200 MG-UNIT TABLET 1 TABLET WITH MEALS ORALLY TWICE A DAY, NOTES: 09/11/19829 TAKING TYLENOL EXTRA STRENGTH 500 MG TABLET 1 TABLET NEEDED ORALLY EVERY 8 HRS, NOTES: 09/10/191499 TAKING DRISDOL 09750 UNIT CAPSULE 1 CAPSULE ORALLY WEEKLY, NOTES: 4 DAYS AGO TAKING ATENOLOL 25 MG TABLET 1 TABLET ORALLY BID, NOTES: 82909/11/19 TAKING ATORVASTATIN CALCIUM 40 MG TABLET 1 TABLET ORALLY ONCE A DAY, NOTES: 09/10/191999 TAKING PROAIR HFA 108 (90 BASE) MCG/ACT AEROSOL SOLUTION 2 PUFFS NEEDED INHALATION QID PRN, NOTES: NONE RECENTLY TAKING PANTOPRAZOLE SODIUM 40 MG TABLET DELAYED RELEASE 1 TABLET ORALLY ONCE A DAY, NOTES: 82909/11/19 TAKING XANAX 1 MG TABLET 1 TABLET NEEDED ORALLY TWICE A DAY NEEDED, NOTES: 09/10/191499 TAKING AMILORIDE HCL 5 MG TABLET 1 TABLET WITH FOOD ORALLY ONCE A DAY, NOTES: 09/10/191999 TAKING PERCOCET 7.5-325 MG TABLET 1 TABLET NEEDED ORALLY EVERY 8-12H PRN MDD2 #50 TAB SHOULD LAST 30 DAYS, NOTES: 09/10/19999 NOT-TAKING LOSARTAN POTASSIUM 100 MG TABLET 1 TABLET ORALLY ONCE A DAY NOT-TAKING ATENOLOL 50 MG TABLET 1 TABLET ORALLY ONCE A DAY IN A.M. 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 1 SON(S) , 2 DAUGHTER(S) - HEALTHY. DAUGHTERS: 1988, 1998. SOCIAL HISTORY GENERAL: TOBACCO USE ARE YOU A:NONSMOKER LATEX QUESTIONNAIRE LATEX ALLERGY : HAVE YOU EVER DEVELOPED ANY TYPE OF REACTION AFTER HANDLING LATEX PRODUCTS SUCH RUBBER GLOVES, CONDOMS, DIAPHRAGMS, BALLOONS, SOCKS, OR UNDERWEAR?NO LATEX ALLERGY : HAVE YOU EVER DEVELOPED ANY TYPE OF REACTION DURING OR AFTER DENTAL APPOINTMENT, VAGINAL/RECTAL EXAMINATION, SURGICAL PROCEDURE, OR ANY OTHER EXPOSURE?NO LATEX RISK : HAVE YOU EVER HAD ANY DIFFICULTY BREATHING OR HIVES AFTER EATING OR HANDLING ANY FRUITS, OR VEGETABLES; SUCH KIWI, BANANAS, STONE FRUITS, OR CHESTNUTSNO LATEX RISK : DO YOU HAVE A PREVIOUS PERSONAL HISTORY OF MORE THAN NINE SURGERIES, SPINA BIFIDA, OR REPEATED CATHERIZATIONS? NO LATEX RISK : ARE YOU FREQUENTLY EXPOSED TO LATEX PRODUCTS IN YOUR OCCUPATION?NO DATE ASKED : 09/10/2019 ALCOHOL SCREENING DID YOU HAVE A DRINK CONTAINING ALCOHOL IN THE PAST YEAR?YES HOW OFTEN DID YOU HAVE A DRINK CONTAINING ALCOHOL IN THE PAST YEAR?TWO TO THREE TIMES PER WEEK (3 POINTS) POINTS3 INTERPRETATIONPOSITIVE RECREATIONAL DRUG USE DRUG USE?NO CAFFEINE CAFFEINE USE?YES HOW OFTEN AND HOW MUCH? MAYBE 1 PEPSI EVERY OTHER DAY AND RARE EXPRESSO SEXUAL HX HAD SEX IN THE LAST 12 MONTHS (VAGINAL, ORAL, OR ANAL)?NO LMP:04/10/2014 HAVE YOU EVER HAD AN STD?NO HIV / HEP-C SCREENING HIV TEST OFFERED TO PATIENT:YES 06/10/2017 PT DECLINED DATE OFFERED:06/10/2017 HEP-C TEST OFFERED TO PATIENT:YES 06/10/2017 PT DECLINED DATE OFFERED:06/10/2017 TEST ACCEPTED:NO BROCHURE PROVIDED TO PATIENTYES HINDUISM [id number] NONE NO RELIGION BELIEFS THAT WOULD IMPACT HEALTH CARE. LANGUAGE LANGUAGES SPOKEN:INDONESIAN EDUCATION LEVEL OF EDUCATION:HIGH SCHOOL LEARNING BARRIERS / SPECIAL NEEDS BARRIERS TO LEARNING?NO VISION IMPAIRED?YES :CORRECTIVE LENSES DOMESTIC VIOLENCE STATUS: DO YOU FEEL SAFE IN YOUR ENVIRONMENT?YES DIET: NO CONCENTRATED SWEETS.. EXERCISE: TRIES TO WALK BUT IT HURTS TOO MUCH, TAKES SOMA TO TRY TO BE ABLE TO DO STUFF. PAIN CLINIC PFS, CLERGY, PUBLIC HEALTH REFERRALS PFS REFERRAL NEEDED?NO CLERGY REFERRAL NEEDED?NO PUBLIC HEALTH REFERRAL NEEDED?NO HAS THE PATIENT BEEN EDUCATED REGARDING HIS/HER PLAN OF CARE?YES HAS THE PATIENT BEEN EDUCATED REGARDING PAIN, THE RISK FOR PAIN, THE IMPORTANCE OF EFFECTIVE PAIN MANAGEMENT, AND THE PAIN ASSESSMENT PROCESS?YES ADVANCE DIRECTIVE ADVANCE DIRECTIVE DISCUSSED WITH PATIENT:YES 09/10/2019 PT DOES NOT HAVE ANY ADVANCED DIRECTIVES AND SHE DECLINES INFORMATION ON HCP AT THIS TIME. HOSPITALIZATION/MAJOR DIAGNOSTIC PROCEDURE SEIZURE UNSURE OF REASON/ POSSIBLE RXN TO TRAMADOL MAR 21 2016 PNEUMONIA FEB 2016 LOW K+ 01/2019 HIGH K+ 02/2019 VITAL SIGNS WT 212.4 LBS, HT 63 IN, BMI 37.62 INDEX, BP 127/79 MM HG, HR 105 /MIN, RR 16 /MIN, TEMP 97.0 F, OXYGEN SAT % 96%, SAFE IN ENV? (Y/N) YES, NA INITIALS SC 12:26, REVIEWED BY: AMY. EXAMINATION GENERAL EXAMINATION: THE PATIENT IS ALERT, ORIENTED TIMES THREE AND COOPERATIVE. HEART SHOWS REGULAR RHYTHM, NO MURMURS AND NO GALLOPS. LUNGS ARE CLEAR TO AUSCULTATION. ASSESSMENTS SACROILIITIS, NOT ELSEWHERE CLASSIFIED - M46.1 (PRIMARY) SACROILIAC JOINT DYSFUNCTION - M53.3 TREATMENT SACROILIITIS, NOT ELSEWHERE CLASSIFIED [facility] FLUORO GUIDANCE (PAIN)[id number] PROCEDURES PAIN NURSING RECORD PRE-PROCEDURE IV SITE N/A, PRE-PROCEDURE ORAL MEDICATIONS BENADRYL 25 MG PO, VALIUM 5 MG PO, AND OXYCODONE 5 MG PO GIVEN AT 1238 BY Aisha BALLESTEROS RN. INSTRUCTED RE POSSIBLE SLEEPINESS AND DIZZINESS. Ricardo ROSE RN PROCEDURE IN ROOM 1250, PHYSICIAN IN ROOM 1314, START 1317, FINISH 1325, PHYSICIAN OUT OF ROOM 1335, OUT OF ROOM 1335, STEROID KENALOG, O2 RA, ECG OTHER SINUS TACHYCARDIA, PATIENT SHIELDED YES, SAFETY STRAP YES, PREP CHLOROPREP STERILE TRAY PREPARED BY Aisha BALLESTEROS RN. PREP BY Ricardo ROSE RN., IV INFUSED N/A, DRESSING TEGADERM DR. BELL LOC: 1. ALERT, ORIENTED RESP: 1. REGULAR, NO DYSPNEA COLOR: 1. PINK SKIN: 1. WARM, DRY POSITION: 1. PRONE VITALS: 1255 148/89 106-16 97%. ELEVATED HEART RATE REPORTED TO DR. BELL. Ricardo ROSE RN 1310 150/101 106-16 97% 1325 176/112 106-16 99% 1340 153/76 101-16 98% DISCHARGE: POST PAIN 0/10, DRESSING SITE DRY AND INTACT, IV N/A, GAIT STEADY, TEACHING COMPLETED, PATIENT ACKNOWLEDGES UNDERSTANDING YES, PATIENT DISCHARGED AT 1350 PN SI PRE PROCEDURE DIAGNOSIS SACROILIITIS, SACROILIAC JOINT DYSFUNCTION POST PROCEDURE DIAGNOSIS SACROILIITIS, SACROILIAC JOINT DYSFUNCTION PROCEDURE BILATERAL SACROILIAC JOINT BLOCK SURGEON DR. IVETT BELL TELEPHONE ASSEMBLER NONE ANESTHESIA LOCAL PRE PROCEDURE NOTE THE PATIENT WITH HISTORY OF CHRONIC LOW BACK PAIN. I EVALUATED THE PATIENT AND REVIEWED THE CHART. I WENT OVER THE RISKS, ALTERNATIVES, AND BENEFITS ASSOCIATED WITH THIS PROCEDURE. I DISCUSSED THAT THE USE OF STEROIDS MAY CONTRIBUTE TO IMMUNOSUPPRESSION OF THE PATIENT'S BODY AGAINST INFECTIONS SUCH COVID-19. THE PATIENT IS AWARE OF THE POTENTIAL COMPLICATIONS ASSOCIATED WITH THIS VIRUS, INCLUDING, BUT NOT LIMITED TO, . I DISCUSSED THE USE OF DEXAMETHASONE INSTEAD OF KENALOG; HOWEVER, THE PATIENT WOULD LIKE TO MOVE FORWARD WITH KENALOG. THE PATIENT WOULD LIKE TO PROCEED AND GAVE CONSENT TO PERFORM THE PROCEDURE. THE PATIENT DENIES UNEXPLAINABLE WEIGHT LOSS, FEVER, CHILLS, OR NEW CHANGES IN URINARY OR BOWEL CONTROL. THE PATIENT IS COVID-19 NEGATIVE DESCRIPTION OF PROCEDURE THE PATIENT WAS BROUGHT TO THE PROCEDURE ROOM AND PLACED IN THE PRONE POSITION. THE LUMBOSACRAL AREA WAS CLEANED WITH CHLORAPREP SOLUTION AND DRAPED ASEPTICALLY. THE PROCEDURE WAS DONE UNDER STERILE CONDITIONS. I CHECKED LATERALITY AND THE LEVEL WHERE THE PROCEDURE WAS GOING TO BE PERFORMED WITH THE PATIENT AND THE SUPPORTING STAFF AT THE MOMENT OF THE TIME OUT IN THE PROCEDURE ROOM. UNDER FLUOROSCOPIC GUIDANCE, TARGET POINT WAS SELECTED AT THE LOWER BORDER OF THE RIGHT AND LEFT SACROILIAC JOINT. TARGET POINT WAS SELECTED AFTER MEDIAL ROTATION AND TILT OF THE MAGNIFIER OF THE C-ARM. LIDOCAINE WAS USED TO NUMB THE SKIN AND SUBCUTANEOUS TISSUE BELOW IT. A SPINAL NEEDLE, 22-GAUGE, WAS ADVANCED UNDER FLUOROSCOPIC GUIDANCE AND FOLLOWING PATIENT FEEDBACK UNTIL THE TARGET AREA WAS TOUCHED. THE POSITION OF THE NEEDLE WAS VERIFIED WITH AP AND LATERAL VIEWS. AFTER PROPER POSITION OF THE NEEDLE WAS ACHIEVED, ISOVUE M DYE 30%, 0.25 ML, WAS INJECTED SHOWING SPREAD OF THE DYE. THEN, A SOLUTION OF 20 MG OF KENALOG WAS INJECTED IN EACH JOINT WITH 3 ML OF BUPIVACAINE 0.125%. THERE WAS NO EVIDENCE OF BLOOD, PARESTHESIA OR CEREBROSPINAL FLUID DURING THE PROCEDURE. THE PATIENT WAS SENT TO THE RECOVERY ROOM. THE PATIENT WAS MOVING THE EXTREMITIES AND DOING WELL. THERE WAS NO COMPLICATION DURING THE PROCEDURE. EBL LESS THAN 5 ML. FLUOROSCOPY TIME WAS 26 SECONDS POST PROCEDURE NOTE CONSIDER MORE PRE-SEDATION MEDICATIONS NEXT TIME. THE PROCEDURE DONE WAS DISCUSSED WITH THE PATIENT. THE PATIENT WILL BE SEEN IN A FOLLOW UP IN THE NEXT FEW WEEKS. I AM LOOKING FOR LONG LASTING PAIN RELIEF FOR THE PATIENT WITH THIS INTERVENTION. INSTRUCTIONS WERE GIVEN, QUESTIONS WERE ANSWERED, AND THE PATIENT EXPRESSED UNDERSTANDING AND AGREES WITH THE PLAN. THE PATIENT IS AWARE TO STAY A HOME FOR THE NEXT WEEK, IF POSSIBLE, DUE TO COVID-19. I, JAXSON CAMPOS, DOCUMENTED THE ABOVE INFORMATION ACTING A SCRIBE FOR DR. BELL. I HAVE REVIEWED THE ABOVE DOCUMENT, WRITTEN BY JAXSON CAMPOS, TOUR DRIVER, AND I VERIFY THAT IT IS ACCURATE PROCEDURE CODES 15582 INJECT SACROILIAC JOINT, MODIFIERS: 50 DISPOSITION & COMMUNICATION FOLLOW UP F/UP WITH [employer] LABORATORY DIRECTOR (REASON: POST JOVANA SIJ) ELECTRONICALLY SIGNED BY IVETT BELL MD, ON 09/11/2019 AT 04:59 PM EDT DISCLAIMER : THIS IS A VISIT SUMMARY EXTRACTED FROM THE [employer] CHART. IT IS NOT A COPY OF THE [employer] PROGRESS NOTE. RUBIO
== END ==
LOC: M PAIN 12:45
PROVIDERS: ATTEND Anesthesiology
DX: M46.1 Sacroiliitis, not elsewhere classified (principal); M53.3 Sacrococcygeal disorders, not elsewhere classified
CPT/HCPCS: G0260; J3301; Q9967

== ENCOUNTER → 2019-12-19 | Outpatient (REF) | payer OTHER ==
[~2019-12-19] MED LIST changes: -AMLO10TA5 PO; +AMLO1TAB25 PO; -BUPIVACAINE HCL 0.25% 30ML VIAL As Ordered ONE; -ISOVUE-M 300 61% 15ML VIAL As Ordered ONE; -LIDOCAINE 1% SDV 30ML VIAL As Ordered ONE; +PANT40TA29 PO; -PANT40TA3 PO; -TRIAMCINOLONE ACETONIDE SUSP 40 MG/ML VIAL (J3301) As Ordered ONE; -diazePAM 5 MG TAB As Ordered ONE; -diphenhydrAMINE 25MG CAP As Ordered ONE; -oxyCODONE 5MG TAB As Ordered ONE
== END ==
LOC: M LAB REF 16:52
PROVIDERS: ATTEND Nurse Practitioner Family
DX: N39.0 Urinary tract infection, site not specified (principal)

== ENCOUNTER → 2020-01-04 | Outpatient (CLI) | payer OTHER ==
--- NOTE | 2020-01-04 15:58 | ECWPNPC ---
PATIENT NAME: MARGA GUZMAN : 1960 GENDER: FEMALE VISIT DATE: 01/04/2020 DISCHARGE DATE: 01/04/20 1435 VISIT LOCKED DATE TIME: PHYSICIAN: RICHARDSON BEASLEY RESOURCE: RICHARDSON BEASLEY REASON FOR APPOINTMENT 1. LOW BACK HISTORY OF PRESENT ILLNESS DEPRESSION SCREENING: HERE FOR POST PROCEDURE FOLLOW-UP. HAD BILATERAL SIJ IN SEPTEMBER. WAS DOING QUITE WELL FOR SEVERAL WEEKS. PAIN HAS GRADUALLY RETURNED TO BASELINE. RATING PAIN LEVEL A 7/10 VAS. REVIEWED MRI OF THE LS-SPINE AND DISCUSS TREATMENT OPTIONS. PHQ-2 (2015 EDITION) LITTLE INTEREST OR PLEASURE IN DOING THINGS?NOT AT ALL FEELING DOWN, DEPRESSED, OR HOPELESS?NOT AT ALL TOTAL SCORE0 GENERAL: -. FALL RISK SCREENING: SCREENING :NO FALLS REPORTED IN THE LAST YEAR FELL IN FEBRUARY LAST PAIN SCREENING: PATIENT HAS A COMPLAINT OF ACUTE OR CHRONIC PAIN :YES LOCATION OF PAIN:LOW BACK INTENSITY OF PAIN (SCALE OF 1 TO 10):7 WHAT DOES YOUR PAIN FEEL LIKE:ACHING DURATION:CONTINOUS PAIN IS INCREASED BY:ACTIVITIES, PROLONGED STANDING, OTHERS HURT TO SIT FOR TOO LONG WELL PAIN IS DECREASED BY:USE OF PAIN MEDICATIONS NURSING NOTE: -. PAIN CENTER INTAKE QUESTIONS: DO YOU HAVE A HISTORY OF MRSA? :YES YEARS AGO DO YOU TAKE A BLOOD THINNERS? :NO DO YOU HAVE ANY BLEEDING DISORDERS? :NO ANY NEW NUMBNESS OR WEAKNESS IN YOUR LEGS OR ARMS? :YES LEGS ANY PACEMAKER,DEFIBRILLATOR, OR DORSAL COLUMN STIMULATOR? :NO DO YOU HAVE ANY RASHES OR OPEN SORES? :NO ARE YOU ALLERGIC TO IV DYE? :NO ARE YOU DIABETIC? :NO ANY NEW PROBLEMS WITH YOUR MEDICATIONS? :NO HAVE YOU RECEIVED A VACCINE IN THE PAST 30 DAYS? :NO DO YOU PLAN TO RECEIVE A VACCINE IN THE NEXT 21 DAYS? :NO DO YOU NEED ANY PRESCRIPTION? :NO DO YOU TAKE ANY IMMUNOSUPPRESSIVE MEDICATIONS? :NO IS THERE A CHANCE YOU COULD BE ? :NO ARE YOU BREAST FEEDING? :NO CURRENT MEDICATIONS TAKING MAGNESIUM OXIDE 500 MG TABLET DIRECTED ORALLY BID, NOTES: 09/11/19829 TAKING CALCIUM CARB-ERGOCALCIFEROL 500-200 MG-UNIT TABLET 1 TABLET WITH MEALS ORALLY TWICE A DAY, NOTES: 09/11/19829 TAKING TYLENOL EXTRA STRENGTH 500 MG TABLET 1 TABLET NEEDED ORALLY EVERY 8 HRS, NOTES: 09/10/191499 TAKING DRISDOL 85307 UNIT CAPSULE 1 CAPSULE ORALLY WEEKLY, NOTES: 4 DAYS AGO TAKING ATENOLOL 25 MG TABLET 1 TABLET ORALLY BID, NOTES: 82909/11/19 TAKING ATORVASTATIN CALCIUM 40 MG TABLET 1 TABLET ORALLY ONCE A DAY, NOTES: 09/10/191999 TAKING PROAIR HFA 108 (90 BASE) MCG/ACT AEROSOL SOLUTION 2 PUFFS NEEDED INHALATION QID PRN, NOTES: NONE RECENTLY TAKING PANTOPRAZOLE SODIUM 40 MG TABLET DELAYED RELEASE 1 TABLET ORALLY ONCE A DAY, NOTES: 82909/11/19 TAKING XANAX 1 MG TABLET 1 TABLET NEEDED ORALLY TWICE A DAY NEEDED, NOTES: 09/10/191499 TAKING AMILORIDE HCL 5 MG TABLET 1 TABLET WITH FOOD ORALLY ONCE A DAY, NOTES: 09/10/191999 TAKING PERCOCET 7.5-325 MG TABLET 1 TABLET NEEDED ORALLY EVERY 8-12H PRN MDD2 #50 TAB SHOULD LAST 30 DAYS, NOTES: 09/10/19999 NOT-TAKING LOSARTAN POTASSIUM 100 MG TABLET 1 TABLET ORALLY ONCE A DAY NOT-TAKING ATENOLOL 50 MG TABLET 1 TABLET ORALLY ONCE A DAY IN A.M. 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 1 SON(S) , 2 DAUGHTER(S) - HEALTHY. DAUGHTERS: 1988, 1998. SOCIAL HISTORY GENERAL: TOBACCO USE ARE YOU A:NONSMOKER LATEX QUESTIONNAIRE LATEX ALLERGY : HAVE YOU EVER DEVELOPED ANY TYPE OF REACTION AFTER HANDLING LATEX PRODUCTS SUCH RUBBER GLOVES, CONDOMS, DIAPHRAGMS, BALLOONS, SOCKS, OR UNDERWEAR?NO LATEX ALLERGY : HAVE YOU EVER DEVELOPED ANY TYPE OF REACTION DURING OR AFTER DENTAL APPOINTMENT, VAGINAL/RECTAL EXAMINATION, SURGICAL PROCEDURE, OR ANY OTHER EXPOSURE?NO LATEX RISK : HAVE YOU EVER HAD ANY DIFFICULTY BREATHING OR HIVES AFTER EATING OR HANDLING ANY FRUITS, OR VEGETABLES; SUCH KIWI, BANANAS, STONE FRUITS, OR CHESTNUTSNO LATEX RISK : DO YOU HAVE A PREVIOUS PERSONAL HISTORY OF MORE THAN NINE SURGERIES, SPINA BIFIDA, OR REPEATED CATHERIZATIONS? NO LATEX RISK : ARE YOU FREQUENTLY EXPOSED TO LATEX PRODUCTS IN YOUR OCCUPATION?NO DATE ASKED : 01/04/2020 ALCOHOL SCREENING DID YOU HAVE A DRINK CONTAINING ALCOHOL IN THE PAST YEAR?YES HOW OFTEN DID YOU HAVE A DRINK CONTAINING ALCOHOL IN THE PAST YEAR?TWO TO THREE TIMES PER WEEK (3 POINTS) POINTS3 INTERPRETATIONPOSITIVE RECREATIONAL DRUG USE DRUG USE?NO CAFFEINE CAFFEINE USE?YES HOW OFTEN AND HOW MUCH? MAYBE 1 PEPSI EVERY OTHER DAY AND RARE EXPRESSO SEXUAL HX HAD SEX IN THE LAST 12 MONTHS (VAGINAL, ORAL, OR ANAL)?NO LMP:04/10/2014 HAVE YOU EVER HAD AN STD?NO HIV / HEP-C SCREENING HIV TEST OFFERED TO PATIENT:YES 06/10/2017 PT DECLINED DATE OFFERED:06/10/2017 HEP-C TEST OFFERED TO PATIENT:YES 06/10/2017 PT DECLINED DATE OFFERED:06/10/2017 TEST ACCEPTED:NO BROCHURE PROVIDED TO PATIENTYES EPISCOPAL [id number] NONE NO MANDAEISM BELIEFS THAT WOULD IMPACT HEALTH CARE. LANGUAGE LANGUAGES SPOKEN:YEMENI EDUCATION LEVEL OF EDUCATION:HIGH SCHOOL LEARNING BARRIERS / SPECIAL NEEDS BARRIERS TO LEARNING?NO VISION IMPAIRED?YES :CORRECTIVE LENSES DOMESTIC VIOLENCE STATUS: DO YOU FEEL SAFE IN YOUR ENVIRONMENT?YES DIET: NO CONCENTRATED SWEETS.. EXERCISE: TRIES TO WALK BUT IT HURTS TOO MUCH, TAKES SOMA TO TRY TO BE ABLE TO DO STUFF. PAIN CLINIC PFS, CLERGY, PUBLIC HEALTH REFERRALS PFS REFERRAL NEEDED?NO CLERGY REFERRAL NEEDED?NO PUBLIC HEALTH REFERRAL NEEDED?NO HAS THE PATIENT BEEN EDUCATED REGARDING HIS/HER PLAN OF CARE?YES HAS THE PATIENT BEEN EDUCATED REGARDING PAIN, THE RISK FOR PAIN, THE IMPORTANCE OF EFFECTIVE PAIN MANAGEMENT, AND THE PAIN ASSESSMENT PROCESS?YES ADVANCE DIRECTIVE ADVANCE DIRECTIVE DISCUSSED WITH PATIENT:YES 09/10/2019 PT DOES NOT HAVE ANY ADVANCED DIRECTIVES AND SHE DECLINES INFORMATION ON HCP AT THIS TIME. HOSPITALIZATION/MAJOR DIAGNOSTIC PROCEDURE SEIZURE UNSURE OF REASON/ POSSIBLE RXN TO TRAMADOL MAR 21 2016 PNEUMONIA FEB 2016 LOW K+ 01/2019 HIGH K+ 02/2019 REVIEW OF SYSTEMS CONSTITUTIONAL: ANY RECENT FEVER NO . CHILLS NO . GASTROENTEROLOGY: BOWEL INCONTINENCE NO . ANY NEW CHANGE IN BOWEL CONTROL? NO . HISTORY OF UNUSUAL ABDOMINAL PAIN OR CRAMPING NOT MENTIONED NO . CONSTIPATION NO . GENITOURINARY: ANY NEW CHANGE IN BLADDER CONTROL? NO . IS THERE A CHANCE YOU COULD BE ? NO . URINARY INCONTINENCE NO . CARDIOLOGY: NEW CHEST PRESSURE NO . HISTORY OF CHEST PAIN,IRREGULAR HEART BEAT NOT MENTIONED NO . RESPIRATORY: COUGH NO . SHORTNESS OF BREATH NO . VITAL SIGNS WT 218.2 LBS, HT 63 IN, BMI 38.65 INDEX, BP 129/81 MM HG, HR 104 /MIN, RR 16 /MIN, TEMP 97.6 F, OXYGEN SAT % 96%, SAFE IN ENV? (Y/N) YES, NA INITIALS CA 13:59, REVIEWED BY: TRACY. EXAMINATION GENERAL EXAMINATION: GENERAL ALERT,NO DISTRESS . PSYCH AFFECT NORMAL . LUNGS: LUNG SOUNDS ARE CLEAR . HEART: HEART RATE REGULAR . MUSCULOSKELETAL: MST 5/5 BILAT. LOWER EXTREMITIES . LUMBAR: TENDERNESS BILAT. SIJ . POSITIVE GREGORY'S TESTING BILATERAL LOWER EXTREMITIES.. DIAGNOSTIC TESTS REVIEWEDMRI L/S SPINE. 2017. ASSESSMENTS BILATERAL SACROILIITIS - M46.1 (PRIMARY) TREATMENT BILATERAL SACROILIITIS NOTES: BILATERAL SIJ. PROCEDURE CODES FA211 ESTABILISHED PATIENT [facility] FACILITY CHARGE DISPOSITION & COMMUNICATION FOLLOW UP POST PROCEDURE (REASON: BILATERAL SIJ) ELECTRONICALLY SIGNED BY EUSEBIO GOULD ON 01/04/2020 AT 02:42 PM EDT DISCLAIMER : THIS IS A VISIT SUMMARY EXTRACTED FROM THE [employer] CHART. IT IS NOT A COPY OF THE [employer] PROGRESS NOTE. RUBIO
== END ==
LOC: M PAIN 14:15
PROVIDERS: ATTEND Nurse Practitioner Family
DX: M46.1 Sacroiliitis, not elsewhere classified (principal); M79.18 Myalgia, other site; K52.9 Noninfective gastroenteritis and colitis, unspecified; J45.909 Unspecified asthma, uncomplicated; F41.9 Anxiety disorder, unspecified; K21.9 Gastro-esophageal reflux disease without esophagitis; N18.9 Chronic kidney disease, unspecified; I12.9 Hypertensive chronic kidney disease with stage 1 through stage 4 chronic kidney disease, or unspecified chronic kidney disease; G40.909 Epilepsy, unspecified, not intractable, without status epilepticus; Z79.891 Long term (current) use of opiate analgesic; Z79.899 Other long term (current) drug therapy; Z88.5 Allergy status to narcotic agent

== ENCOUNTER → 2020-03-28 | Outpatient (CLI) | payer OTHER | LOC: M LABSMTC 12:25 | PROVIDERS: ATTEND Anesthesiology | DX: Z20.822 Contact with and (suspected) exposure to COVID-19 (principal) ==

== ENCOUNTER → 2020-04-02 | Outpatient (CLI) | payer OTHER ==
[~2020-04-02] MED LIST changes: +BUPIVACAINE HCL 0.25% 30ML VIAL As Ordered ONE; +ISOVUE-M 300 61% 15ML VIAL As Ordered ONE; +LIDOCAINE 1% SDV 30ML VIAL As Ordered ONE; +TRIAMCINOLONE ACETONIDE SUSP 40 MG/ML VIAL (J3301) As Ordered ONE; +diazePAM 5MG TABLET As Ordered ONE; +diphenhydrAMINE 25MG CAP As Ordered ONE; +oxyCODONE 5MG TAB As Ordered ONE
--- NOTE | 2020-04-04 00:25 | ECWPNPC ---
PATIENT NAME: MARGA GUZMAN : 1960 GENDER: FEMALE VISIT DATE: 04/02/2020 DISCHARGE DATE: 04/02/201511 VISIT LOCKED DATE TIME: PHYSICIAN: IVETT BELL MD RESOURCE: IVETT BELL MD REASON FOR APPOINTMENT 1. BILATERAL SACROILIAC JOINT BLOCK HISTORY OF PRESENT ILLNESS GENERAL: -. FALL RISK SCREENING: SCREENING :ONE FALL WITHOUT INJURY IN THE PAST YEAR PAIN SCREENING: PATIENT HAS A COMPLAINT OF ACUTE OR CHRONIC PAIN :YES LOCATION OF PAIN:LOW BACK INTENSITY OF PAIN (SCALE OF 1 TO 10):8 WHAT DOES YOUR PAIN FEEL LIKE:ACHING DURATION:CONTINOUS, CONSTANT PAIN IS INCREASED BY:ACTIVITIES PAIN IS DECREASED BY:USE OF PAIN MEDICATIONS TREATMENT/MEDICATIONS USED TO MANAGE PAIN:OPIOIDS LEVEL OF RELIEF FROM PAIN TREATMENTS IN THE PAST:100% PAIN HAS INTERFERED WITH THE FOLLOWING:BATHING/DRESSING, WALKING ABILITY, HOUSEWORK, SLEEP, TRANSPORTATION, TOILETING NURSING NOTE: -. PAIN CENTER INTAKE QUESTIONS: DO YOU HAVE A HISTORY OF MRSA? :YES HX OF MRSA TO HANDS MORE THAN 10 YEARS AGO DO YOU TAKE A BLOOD THINNERS? :NO DO YOU HAVE ANY BLEEDING DISORDERS? :NO ANY NEW NUMBNESS OR WEAKNESS IN YOUR LEGS OR ARMS? :NO ANY PACEMAKER,DEFIBRILLATOR, OR DORSAL COLUMN STIMULATOR? :NO DO YOU HAVE ANY RASHES OR OPEN SORES? :NO ARE YOU ALLERGIC TO IV DYE? :NO ARE YOU DIABETIC? :NO ANY NEW PROBLEMS WITH YOUR MEDICATIONS? :NO HAVE YOU RECEIVED A VACCINE IN THE PAST 30 DAYS? :NO DO YOU PLAN TO RECEIVE A VACCINE IN THE NEXT 21 DAYS? :NO DO YOU NEED ANY PRESCRIPTION? :NO DO YOU TAKE ANY IMMUNOSUPPRESSIVE MEDICATIONS? :NO ANY HISTORY OF SEIZURES? :YES LAST SEIZURE 03/2016 ANY HISTORY OF CARDIAC ISSUES OR EVENTS? :NO DO YOU HAVE SLEEP APNEA? :YES DO YOU WEAR A CPAP?NO ANY RECENT HEAD INJURY? :NO DO YOU HAVE ANY NEW INFECTIONS? :NO IS THERE A CHANCE YOU COULD BE ? :NO ARE YOU BREAST FEEDING? :NO WHEN DID YOU LAST EAT? : 04/01/20 WHEN DID YOU LAST DRINK? : 04/02/20 1030 WHAT DID YOU LAST DRINK? : WATER NAME OF PERSON DRIVING YOU HOME? : ASHLEY DO YOU HAVE ANY OTHER QUESTIONS OR CONCERNS? : - CURRENT MEDICATIONS TAKING MAGNESIUM OXIDE 500 MG TABLET DIRECTED ORALLY BID TAKING CALCIUM CARB-ERGOCALCIFEROL 500-200 MG-UNIT TABLET 1 TABLET WITH MEALS ORALLY TWICE A DAY TAKING TYLENOL EXTRA STRENGTH 500 MG TABLET 1 TABLET NEEDED ORALLY EVERY 8 HRS TAKING DRISDOL 41452 UNIT CAPSULE 1 CAPSULE ORALLY WEEKLY TAKING ATENOLOL 25 MG TABLET 1 TABLET ORALLY BID, NOTES: 04/02/20 TAKING ATORVASTATIN CALCIUM 40 MG TABLET 1 TABLET ORALLY ONCE A DAY, NOTES: 04/01/20 TAKING PROAIR HFA 108 (90 BASE) MCG/ACT AEROSOL SOLUTION 2 PUFFS NEEDED INHALATION QID PRN TAKING PANTOPRAZOLE SODIUM 40 MG TABLET DELAYED RELEASE 1 TABLET ORALLY ONCE A DAY TAKING XANAX 1 MG TABLET 1 TABLET NEEDED ORALLY TWICE A DAY NEEDED, NOTES: 03/30/20 TAKING AMILORIDE HCL 5 MG TABLET 1 TABLET WITH FOOD ORALLY ONCE A DAY, NOTES: 04/01/20 TAKING PERCOCET 7.5-325 MG TABLET 1 TABLET NEEDED ORALLY EVERY 8-12H PRN MDD2 #50 TAB SHOULD LAST 30 DAYS, NOTES: 04/01/20 NOT-TAKING LOSARTAN POTASSIUM 100 MG TABLET 1 TABLET ORALLY ONCE A DAY NOT-TAKING ATENOLOL 50 MG TABLET 1 TABLET ORALLY ONCE A DAY IN A.M. 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 1 SON(S) , 2 DAUGHTER(S) - HEALTHY. DAUGHTERS: 1988, 1998. SOCIAL HISTORY GENERAL: TOBACCO USE ARE YOU A:NONSMOKER LATEX QUESTIONNAIRE LATEX ALLERGY : HAVE YOU EVER DEVELOPED ANY TYPE OF REACTION AFTER HANDLING LATEX PRODUCTS SUCH RUBBER GLOVES, CONDOMS, DIAPHRAGMS, BALLOONS, SOCKS, OR UNDERWEAR?NO LATEX ALLERGY : HAVE YOU EVER DEVELOPED ANY TYPE OF REACTION DURING OR AFTER DENTAL APPOINTMENT, VAGINAL/RECTAL EXAMINATION, SURGICAL PROCEDURE, OR ANY OTHER EXPOSURE?NO DATE ASKED : 01/04/2020 LATEX RISK : HAVE YOU EVER HAD ANY DIFFICULTY BREATHING OR HIVES AFTER EATING OR HANDLING ANY FRUITS, OR VEGETABLES; SUCH KIWI, BANANAS, STONE FRUITS, OR CHESTNUTSNO LATEX RISK : DO YOU HAVE A PREVIOUS PERSONAL HISTORY OF MORE THAN NINE SURGERIES, SPINA BIFIDA, OR REPEATED CATHERIZATIONS? NO LATEX RISK : ARE YOU FREQUENTLY EXPOSED TO LATEX PRODUCTS IN YOUR OCCUPATION?NO ALCOHOL SCREENING DID YOU HAVE A DRINK CONTAINING ALCOHOL IN THE PAST YEAR?YES HOW OFTEN DID YOU HAVE A DRINK CONTAINING ALCOHOL IN THE PAST YEAR?TWO TO THREE TIMES PER WEEK (3 POINTS) POINTS3 INTERPRETATIONPOSITIVE RECREATIONAL DRUG USE DRUG USE?NO CAFFEINE CAFFEINE USE?YES HOW OFTEN AND HOW MUCH? MAYBE 1 PEPSI EVERY OTHER DAY AND RARE EXPRESSO SEXUAL HX HAD SEX IN THE LAST 12 MONTHS (VAGINAL, ORAL, OR ANAL)?NO LMP:04/10/2014 HAVE YOU EVER HAD AN STD?NO HIV / HEP-C SCREENING HIV TEST OFFERED TO PATIENT:YES 06/10/2017 PT DECLINED DATE OFFERED:06/10/2017 HEP-C TEST OFFERED TO PATIENT:YES 06/10/2017 PT DECLINED DATE OFFERED:06/10/2017 TEST ACCEPTED:NO BROCHURE PROVIDED TO PATIENTYES GNOSTICIST [id number] NONE NO SCIENTOLOGY BELIEFS THAT WOULD IMPACT HEALTH CARE. LANGUAGE LANGUAGES SPOKEN:NAMIBIAN EDUCATION LEVEL OF EDUCATION:HIGH SCHOOL LEARNING BARRIERS / SPECIAL NEEDS BARRIERS TO LEARNING?NO VISION IMPAIRED?YES :CORRECTIVE LENSES DOMESTIC VIOLENCE STATUS: DO YOU FEEL SAFE IN YOUR ENVIRONMENT?YES DIET: NO CONCENTRATED SWEETS.. EXERCISE: TRIES TO WALK BUT IT HURTS TOO MUCH, TAKES SOMA TO TRY TO BE ABLE TO DO STUFF. PAIN CLINIC PFS, CLERGY, PUBLIC HEALTH REFERRALS PFS REFERRAL NEEDED?NO CLERGY REFERRAL NEEDED?NO PUBLIC HEALTH REFERRAL NEEDED?NO HAS THE PATIENT BEEN EDUCATED REGARDING HIS/HER PLAN OF CARE?YES HAS THE PATIENT BEEN EDUCATED REGARDING PAIN, THE RISK FOR PAIN, THE IMPORTANCE OF EFFECTIVE PAIN MANAGEMENT, AND THE PAIN ASSESSMENT PROCESS?YES ADVANCE DIRECTIVE ADVANCE DIRECTIVE DISCUSSED WITH PATIENT:YES PT DOES NOT HAVE ANY ADVANCED DIRECTIVES AND SHE DECLINES INFORMATION ON HCP AT THIS TIME. HOSPITALIZATION/MAJOR DIAGNOSTIC PROCEDURE SEIZURE UNSURE OF REASON/ POSSIBLE RXN TO TRAMADOL MAR 21 2016 PNEUMONIA FEB 2016 LOW K+ 01/2019 HIGH K+ 02/2019 VITAL SIGNS WT 223.2 LBS, HT 63 IN, BMI 39.53 INDEX, BP 122/83 MM HG, HR 97 /MIN, RR 16 /MIN, TEMP 97.4 F, OXYGEN SAT % 93%, SAFE IN ENV? (Y/N) Y, NA INITIALS SC 12:56, REVIEWED BY: EM. EXAMINATION GENERAL EXAMINATION: THE PATIENT IS ALERT, ORIENTED TIMES THREE AND COOPERATIVE. LUNGS ARE CLEAR TO AUSCULTATION. HEART SHOWS REGULAR RHYTHM, NO MURMURS AND NO GALLOPS. ASSESSMENTS SACROILIITIS, NOT ELSEWHERE CLASSIFIED - M46.1 (PRIMARY) TREATMENT SACROILIITIS, NOT ELSEWHERE CLASSIFIED [facility] (PAIN)[id number] MEDICATION: VALIUM TAB 10MG ORALLY (DIAZEPAM)RIGOBERTO GARCIA 04/02/2020 1:22:14 PM > LOT [id number], EXP 10/2020 SILVANO BOOGIE 04/02/2020 1:28:40 PM > VERIFIED RIGOBERTO GARCIA 04/02/2020 1:33:16 PM > ADMINISTERED MEDICATION: OXYCODONE HCL TAB 10MG ORALLYRIGOBERTO GARCIA 04/02/2020 1:22:46 PM > LOT [id number], EXP 04/2021 SILVANO BOOGIE 04/02/2020 1:29:02 PM > VERIFIED RIGOBERTO GARCIA 04/02/2020 1:33:31 PM > ADMINISTERED MEDICATION: (PAIN) BENADRYL TAB 25MG ORALLY (DIPHENHYDRAMINE)RIGOBERTO GARCIA 04/02/2020 1:23:16 PM > LOT [id number], EXP 07/2022 SILVANO BOOGIE 04/02/2020 1:29:50 PM > VERIFIED RIGOBERTO GARCIA 04/02/2020 1:33:53 PM > ADMINISTERED PROCEDURES PAIN NURSING RECORD PROCEDURE IN ROOM 1355, PHYSICIAN IN ROOM 1445, START 1448, FINISH 1452, PHYSICIAN OUT OF ROOM 1454, OUT OF ROOM 1503, ECG NORMAL SINUS, PATIENT SHIELDED NO, SAFETY STRAP YES, PREP CHLOROPREP E JOSE, RUG HOOKER, DRESSING TEGADERM DR BELL LOC: 1. ALERT, ORIENTED, RIGOBERTO GARCIA 04/02/2020 2:10:00 PM > RESP: 1. REGULAR, NO DYSPNEA, RIGOBERTO GARCIA 04/02/2020 2:10:04 PM > COLOR: 1. PINK, RIGOBERTO GARCIA 04/02/2020 2:10:08 PM > SKIN: 1. WARM, DRY, RIGOBERTO GARCIA 04/02/2020 2:10:13 PM > POSITION: 1. PRONE, RIGOBERTO GARCIA 04/02/2020 2:10:17 PM > VITALS: 157/86, 96, 18, 96%, RIGOBERTO GARCIA 04/02/2020 2:10:35 PM > 144/81, 96, 18 94%, RIGOBERTO GARCIA 04/02/2020 2:19:35 PM > 148/82, 101, 18, 97%, RIGOBERTO GARCIA 04/02/2020 2:31:13 PM > 142/90, 97, 16, 96%, RIGOBERTO GARCIA 04/02/2020 2:49:19 PM > 150/86, 96, 18, 86%, RIGOBERTO GARCIA 04/02/2020 3:00:14 PM > DISCHARGE: POST PAIN 4, DRESSING SITE DRY AND INTACT, IV N/A, GAIT STEADY, TEACHING COMPLETED, PATIENT ACKNOWLEDGES UNDERSTANDING YES, PATIENT DISCHARGED AT 1508 PN SI PRE PROCEDURE DIAGNOSIS SACROILIITIS, SACROILIAC JOINT DYSFUNCTION POST PROCEDURE DIAGNOSIS SACROILIITIS, SACROILIAC JOINT DYSFUNCTION PROCEDURE BILATERAL SACROILIAC JOINT BLOCK SURGEON DR. IVETT BELL TELEVISION PRESENTER NONE ANESTHESIA LOCAL PRE PROCEDURE NOTE THE PATIENT WITH HISTORY OF CHRONIC LOW BACK PAIN. I EVALUATED THE PATIENT AND REVIEWED THE CHART. I WENT OVER THE RISKS, ALTERNATIVES, AND BENEFITS ASSOCIATED WITH THIS PROCEDURE. THE PATIENT WOULD LIKE TO PROCEED AND GAVE CONSENT TO PERFORM THE PROCEDURE. THE PATIENT DENIES UNEXPLAINABLE WEIGHT LOSS, FEVER, CHILLS, OR NEW CHANGES IN URINARY OR BOWEL CONTROL. THE PATIENT IS COVID-19 NEGATIVE DESCRIPTION OF PROCEDURE THE PATIENT WAS BROUGHT TO THE PROCEDURE ROOM AND PLACED IN THE PRONE POSITION. THE LUMBOSACRAL AREA WAS CLEANED WITH CHLORAPREP SOLUTION AND DRAPED ASEPTICALLY. THE PROCEDURE WAS DONE UNDER STERILE CONDITIONS. A TIMEOUT WAS PERFORMED WHERE LATERALITY AND THE SITE OF THE PROCEDURE WERE CHECKED AND CONFIRMED WITH EVERYONE IN THE ROOM. UNDER FLUOROSCOPIC GUIDANCE, THE TARGET POINT WAS SELECTED AT THE LOWER BORDER OF THE RIGHT AND LEFT SACROILIAC JOINT. TARGET POINT WAS SELECTED AFTER MEDIAL ROTATION AND TILT OF THE MAGNIFIER OR THE C-ARM. I CONFIRMED AGAIN WITH EVERYONE IN THE ROOM THE LATERALITY OF THE TARGET AT 1449. LIDOCAINE 0.5% WAS USED TO NUMB THE SKIN AND THE SUBCUTANEOUS TISSUE BELOW IT. SPINAL NEEDLES, 22-GAUGE, WERE ADVANCED UNDER FLUOROSCOPIC GUIDANCE AND FOLLOWING PATIENT FEEDBACK UNTIL THE TARGETS WERE TOUCHED. THE POSITION OF THE NEEDLES WAS VERIFIED WITH AP AND OBLIQUE VIEWS. AFTER PROPER POSITION OF THE NEEDLES WAS ACHIEVED, ISOVUE-M DYE 30%, 0.1 ML, WAS INJECTED SHOWING ADEQUATE SPREAD OF THE DYE. KENALOG 40 MG WAS INJECTED AT EACH SITE. THEN, A SOLUTION OF 3.0 ML OF BUPIVACAINE 0.125% WAS USED TO FLUSH EACH NEEDLE. THE MEDICATIONS WERE VERIFIED WITH THE NURSE. THERE WAS NO EVIDENCE OF BLOOD, PARESTHESIA OR CEREBROSPINAL FLUID DURING THE PROCEDURE. THE PATIENT WAS SENT TO THE RECOVERY ROOM. THE PATIENT WAS MOVING THE EXTREMITIES AND DOING WELL. THERE WERE NO COMPLICATIONS DURING THE PROCEDURE. ESTIMATED BLOOD LOSS WAS LESS THAN 5 ML. FLUOROSCOPIC TIME WAS 20 SECONDS. POST PROCEDURE NOTE DEPENDING ON THE RESULTS, CONSIDER A NEW MRI THE LAST ONE WAS DONE IN 2017. THE PROCEDURE DONE WAS DISCUSSED WITH THE PATIENT. THE PATIENT WILL BE SEEN IN A FOLLOW UP IN THE NEXT FEW WEEKS. I AM LOOKING FOR LONG LASTING PAIN RELIEF FOR THE PATIENT WITH THIS INTERVENTION. INSTRUCTIONS WERE GIVEN, QUESTIONS WERE ANSWERED, AND THE PATIENT EXPRESSED UNDERSTANDING AND AGREES WITH THE PLAN. I, JAXSON CAMPOS, DOCUMENTED THE ABOVE INFORMATION ACTING A SCRIBE FOR DR. BELL. I HAVE REVIEWED THE ABOVE DOCUMENT, WRITTEN BY JAXSON CAMPOS, INSIDE CHANNEL ACCOUNT MANAGER, AND I VERIFY THAT IT IS ACCURATE PROCEDURE CODES 05978 INJECT SACROILIAC JOINT, MODIFIERS: 50 DISPOSITION & COMMUNICATION FOLLOW UP FOLLOW UP WITH INSTRUCTIONAL MEDIA SERVICES TECHNICIAN (REASON: POST BILATERAL SACROILIAC JOINT BLOCK) ELECTRONICALLY SIGNED BY IVETT BELL MD, MD ON 04/03/2020 AT 12:50 PM EST DISCLAIMER : THIS IS A VISIT SUMMARY EXTRACTED FROM THE [employer] CHART. IT IS NOT A COPY OF THE [employer] PROGRESS NOTE. RUBIO
== END ==
LOC: M PAIN 13:00
PROVIDERS: ATTEND Anesthesiology
DX: M46.1 Sacroiliitis, not elsewhere classified (principal); G47.30 Sleep apnea, unspecified; J45.909 Unspecified asthma, uncomplicated; K21.9 Gastro-esophageal reflux disease without esophagitis; G40.909 Epilepsy, unspecified, not intractable, without status epilepticus; Z86.14 Personal history of Methicillin resistant Staphylococcus aureus infection; Z86.59 Personal history of other mental and behavioral disorders; Z86.19 Personal history of other infectious and parasitic diseases; Z88.5 Allergy status to narcotic agent; Z79.899 Other long term (current) drug therapy
CPT/HCPCS: G0260; J3301; Q9967

== ENCOUNTER → 2020-04-09 | Outpatient (REF) | payer OTHER ==
[~2020-04-09] MED LIST changes: -BUPIVACAINE HCL 0.25% 30ML VIAL As Ordered ONE; -ISOVUE-M 300 61% 15ML VIAL As Ordered ONE; -LIDOCAINE 1% SDV 30ML VIAL As Ordered ONE; -LISI-538 PO; +LISI20TA33 PO; -LISI40TA PO; +LISI40TA4 PO; -TRIAMCINOLONE ACETONIDE SUSP 40 MG/ML VIAL (J3301) As Ordered ONE; -diazePAM 5MG TABLET As Ordered ONE; -diphenhydrAMINE 25MG CAP As Ordered ONE; -oxyCODONE 5MG TAB As Ordered ONE
[2020-04-09 18:05] LABS: PERCENT SATURATION 2.8 % (13.2-45.0)
== END ==
LOC: M LAB REF 16:52
PROVIDERS: ATTEND Nurse Practitioner Family
DX: D50.9 Iron deficiency anemia, unspecified (principal)

== ENCOUNTER 2020-04-23 11:53 | Outpatient (CLI) | payer OTHER ==
[~2020-04-23] VITALS: Ht 160 cm; Wt 101.8 kg
[~2020-04-23 11:53] MED LIST changes: +ALBUTEROL SULFATE 2.5 MG/0.5 ML INH NEB SOLN INH PRN; +EPINEPHrine INJ 1 MG/ML 1ML AMP IM PRN; +LISI-538 PO; -LISI20TA33 PO; +LISI40TA PO; -LISI40TA4 PO; +diphenhydrAMINE 50MG/ML VIAL (J1200) IV PRN; +methylPREDNISolone 125MG 2ML VIAL IV PRN
[2020-04-23 12:00] VITALS: BP 151/68
[2020-04-23] MEDS ORDERED: NS 1,000 ML IV SCH (12:30)
[2020-04-23] MEDS ORDERED: FERRIC CARBOXYMALTOSE INJ 750 MG, VIAL MATE ADAPTER 1 EACH in NS 250 ML IV ONE (12:30)
[2020-04-23 14:30] VITALS: BP 114/55
[2020-04-23 16:08] VITALS: BP 129/60
== END 2020-04-23 16:10 | disposition home or self-care (01) ==
LOC: M INFU 11:53
PROVIDERS: ATTEND Internal Medicine Nephrology
DX: D50.9 Iron deficiency anemia, unspecified (principal); Z88.6 Allergy status to analgesic agent
CPT/HCPCS: 96365; 96366; J1439

== ENCOUNTER 2020-04-30 12:06 | Outpatient (CLI) | payer OTHER ==
[~2020-04-30] VITALS: Ht 160 cm; Wt 101.8 kg
[~2020-04-30 12:06] MED LIST changes: -LISI-538 PO; +LISI20TA33 PO; -LISI40TA PO; +LISI40TA4 PO
[2020-04-30 12:10] VITALS: BP 148/78
[2020-04-30] MEDS ORDERED: FERRIC CARBOXYMALTOSE INJ 750 MG, VIAL MATE ADAPTER 1 EACH in NS 250 ML IV ONE (12:30)
[2020-04-30] MEDS ORDERED: NS 1,000 ML IV SCH (12:30)
[2020-04-30 14:45] VITALS: BP 109/53
== END 2020-04-30 14:45 | disposition home or self-care (01) ==
LOC: M INFU 12:06
PROVIDERS: ATTEND Internal Medicine Nephrology
DX: D50.9 Iron deficiency anemia, unspecified (principal)
CPT/HCPCS: 96365; 96366; J1439

== ENCOUNTER → 2020-06-02 | Outpatient (CLI) | payer OTHER ==
[~2020-06-02] MED LIST changes: -ALBUTEROL SULFATE 2.5 MG/0.5 ML INH NEB SOLN INH PRN; -EPINEPHrine INJ 1 MG/ML 1ML AMP IM PRN; -diphenhydrAMINE 50MG/ML VIAL (J1200) IV PRN; -methylPREDNISolone 125MG 2ML VIAL IV PRN
--- NOTE | 2020-06-06 01:15 | ECWPNPC ---
PATIENT NAME: MARGA GUZMAN : 1960 GENDER: FEMALE VISIT DATE: 06/02/2020 DISCHARGE DATE: 06/02/20 1422 VISIT LOCKED DATE TIME: PHYSICIAN: RICHARDSON BEASLEY RESOURCE: RICHARDSON BEASLEY REASON FOR APPOINTMENT 1. POST BILATERAL SACROILIAC JOINT INJECTION/MED MANAGEMENT/NEEDS UTOX HISTORY OF PRESENT ILLNESS GENERAL: HERE FOR POST PROCEDURE FOLLOW-UP. HAD BILATERAL SACROILIAC JOINT BLOCK ON 04/02/2020. WAS DOING WELL UNTIL SHE FELL APPROXIMATELY 3 WEEKS AFTER PROCEDURE PAIN IS LOCATED IN THE USUAL AREA OF THE LOW BACK AND SACROILIAC REGION. REVIEWED MRI OF THE LS-SPINE AND DISCUSS TREATMENT PLAN. FINDS CURRENT MEDICATION SOMEWHAT HELPFUL AT REDUCING PAIN AND KEEPING HER FUNCTIONAL. DENIES ADVERSE SIDE EFFECTS WITH MEDICATION.-. FALL RISK SCREENING: SCREENING ONE FALL COUPLE DAYS AFTER POST PROCEDURE DID NOT GO TO THE ER. PAIN SCREENING: PATIENT HAS A COMPLAINT OF ACUTE OR CHRONIC PAIN :YES LOCATION OF PAIN:LOW BACK INTENSITY OF PAIN (SCALE OF 1 TO 10):7 WHAT DOES YOUR PAIN FEEL LIKE:ACHING DURATION:CONTINOUS, CONSTANT, ALL DAY PAIN IS INCREASED BY:ACTIVITIES PAIN IS DECREASED BY:USE OF PAIN MEDICATIONS NURSING NOTE: -. PAIN CENTER INTAKE QUESTIONS: DO YOU HAVE A HISTORY OF MRSA? :YES YEARS AGO DO YOU TAKE A BLOOD THINNERS? :NO DO YOU HAVE ANY BLEEDING DISORDERS? :NO ANY NEW NUMBNESS OR WEAKNESS IN YOUR LEGS OR ARMS? :YES LEGS ANY PACEMAKER,DEFIBRILLATOR, OR DORSAL COLUMN STIMULATOR? :NO DO YOU HAVE ANY RASHES OR OPEN SORES? :NO ARE YOU ALLERGIC TO IV DYE? :NO ARE YOU DIABETIC? :NO ANY NEW PROBLEMS WITH YOUR MEDICATIONS? :NO HAVE YOU RECEIVED A VACCINE IN THE PAST 30 DAYS? :NO DO YOU PLAN TO RECEIVE A VACCINE IN THE NEXT 21 DAYS? :NO DO YOU NEED ANY PRESCRIPTION? :NO DO YOU TAKE ANY IMMUNOSUPPRESSIVE MEDICATIONS? :NO IS THERE A CHANCE YOU COULD BE ? :NO ARE YOU BREAST FEEDING? :NO CURRENT MEDICATIONS TAKING MAGNESIUM OXIDE 500 MG TABLET DIRECTED ORALLY BID TAKING CALCIUM CARB-ERGOCALCIFEROL 500-200 MG-UNIT TABLET 1 TABLET WITH MEALS ORALLY TWICE A DAY TAKING TYLENOL EXTRA STRENGTH 500 MG TABLET 1 TABLET NEEDED ORALLY EVERY 8 HRS TAKING DRISDOL 96796 UNIT CAPSULE 1 CAPSULE ORALLY WEEKLY TAKING ATENOLOL 25 MG TABLET 1 TABLET ORALLY 50MG BID TAKING ATORVASTATIN CALCIUM 40 MG TABLET 1 TABLET ORALLY ONCE A DAY TAKING PROAIR HFA 108 (90 BASE) MCG/ACT AEROSOL SOLUTION 2 PUFFS NEEDED INHALATION QID PRN TAKING XANAX 1 MG TABLET 1 TABLET NEEDED ORALLY TWICE A DAY NEEDED TAKING AMILORIDE HCL 5 MG TABLET 1 TABLET WITH FOOD ORALLY ONCE A DAY TAKING PANTOPRAZOLE SODIUM 40 MG TABLET DELAYED RELEASE 1 TABLET ORALLY ONCE A DAY TAKING PERCOCET 7.5-325 MG TABLET 1 TABLET NEEDED ORALLY EVERY 8-12H PRN MDD2 #50 TAB SHOULD LAST 30 DAYS TAKING ZINC 25 MG TABLET 1 TABLET ORALLY ONCE A DAY NOT-TAKING LOSARTAN POTASSIUM 100 MG TABLET 1 TABLET ORALLY ONCE A DAY NOT-TAKING ATENOLOL 50 MG TABLET 1 TABLET ORALLY ONCE A DAY IN A.M. 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 CHRONIC LOW BACK PAIN FOR OVER 1 YEAR CHRONIC DIARRHEA ASTHMA ANXIETY KIDNEY STONES C-DIFF GERD SNORING CHRONIC KIDNEY DISEASE MVP ESSENTIAL HYPERTENSION SEIZURE DISORDER ALLERGIES TRAMADOL : UNSURE IF SEIZURE FROM THIS SOCIAL HISTORY GENERAL: TOBACCO USE ARE YOU A:NONSMOKER LATEX QUESTIONNAIRE LATEX ALLERGY : HAVE YOU EVER DEVELOPED ANY TYPE OF REACTION AFTER HANDLING LATEX PRODUCTS SUCH RUBBER GLOVES, CONDOMS, DIAPHRAGMS, BALLOONS, SOCKS, OR UNDERWEAR?NO LATEX ALLERGY : HAVE YOU EVER DEVELOPED ANY TYPE OF REACTION DURING OR AFTER DENTAL APPOINTMENT, VAGINAL/RECTAL EXAMINATION, SURGICAL PROCEDURE, OR ANY OTHER EXPOSURE?NO LATEX RISK : HAVE YOU EVER HAD ANY DIFFICULTY BREATHING OR HIVES AFTER EATING OR HANDLING ANY FRUITS, OR VEGETABLES; SUCH KIWI, BANANAS, STONE FRUITS, OR CHESTNUTSNO LATEX RISK : DO YOU HAVE A PREVIOUS PERSONAL HISTORY OF MORE THAN NINE SURGERIES, SPINA BIFIDA, OR REPEATED CATHERIZATIONS? NO LATEX RISK : ARE YOU FREQUENTLY EXPOSED TO LATEX PRODUCTS IN YOUR OCCUPATION?NO DATE ASKED : 06/02/2020 ALCOHOL USE: YES. ALCOHOL SCREENING DID YOU HAVE A DRINK CONTAINING ALCOHOL IN THE PAST YEAR?YES HOW OFTEN DID YOU HAVE A DRINK CONTAINING ALCOHOL IN THE PAST YEAR?TWO TO THREE TIMES PER WEEK (3 POINTS) POINTS3 INTERPRETATIONPOSITIVE RECREATIONAL DRUG USE DRUG USE?NO CAFFEINE CAFFEINE USE?YES HOW OFTEN AND HOW MUCH? MAYBE 1 PEPSI EVERY OTHER DAY AND RARE EXPRESSO SEXUAL HX HAD SEX IN THE LAST 12 MONTHS (VAGINAL, ORAL, OR ANAL)?NO LMP:04/10/2014 HAVE YOU EVER HAD AN STD?NO HIV / HEP-C SCREENING HIV TEST OFFERED TO PATIENT:YES 06/10/2017 PT DECLINED DATE OFFERED:06/10/2017 HEP-C TEST OFFERED TO PATIENT:YES 06/10/2017 PT DECLINED DATE OFFERED:06/10/2017 TEST ACCEPTED:NO BROCHURE PROVIDED TO PATIENTYES GNOSTICIST [id number] NONE NO CHEONDOISM BELIEFS THAT WOULD IMPACT HEALTH CARE. LANGUAGE LANGUAGES SPOKEN:PER[place] EDUCATION LEVEL OF EDUCATION:HIGH SCHOOL LEARNING BARRIERS / SPECIAL NEEDS CHANGE FROM LAST VISIT?YES BARRIERS TO LEARNING?NO HEARING IMPAIRED?NO VISION IMPAIRED?YES :CORRECTIVE LENSES COGNITIVELY IMPAIRED?NO READINESS TO LEARN?YES LEARNING PREFERENCES?NO LEARNING CAPABILITIES PRESENT?YES EMOTIONAL BARRIERS?NO SPECIAL DEVICES?NO NURSERY TEACHER NEEDED?NO DOMESTIC VIOLENCE STATUS: DO YOU FEEL SAFE IN YOUR ENVIRONMENT?YES DIET: NO CONCENTRATED SWEETS.. EXERCISE: TRIES TO WALK BUT IT HURTS TOO MUCH, TAKES SOMA TO TRY TO BE ABLE TO DO STUFF. - PFS REFERRAL NEEDED?NO CLERGY REFERRAL NEEDED?NO PUBLIC HEALTH REFERRAL NEEDED?NO HAS THE PATIENT BEEN EDUCATED REGARDING HIS/HER PLAN OF CARE?YES HAS THE PATIENT BEEN EDUCATED REGARDING PAIN, THE RISK FOR PAIN, THE IMPORTANCE OF EFFECTIVE PAIN MANAGEMENT, AND THE PAIN ASSESSMENT PROCESS?YES ADVANCE DIRECTIVE ADVANCE DIRECTIVE DISCUSSED WITH PATIENT:YES PT DOES NOT HAVE ANY ADVANCED DIRECTIVES AND SHE DECLINES INFORMATION ON HCP AT THIS TIME. REVIEW OF SYSTEMS CONSTITUTIONAL: ANY RECENT FEVER NO . CHILLS NO . GASTROENTEROLOGY: BOWEL INCONTINENCE NO . ANY NEW CHANGE IN BOWEL CONTROL? NO . HISTORY OF UNUSUAL ABDOMINAL PAIN OR CRAMPING NOT MENTIONED NO . CONSTIPATION NO . GENITOURINARY: ANY NEW CHANGE IN BLADDER CONTROL? NO . IS THERE A CHANCE YOU COULD BE ? NO . URINARY INCONTINENCE NO . CARDIOLOGY: NEW CHEST PRESSURE NO . HISTORY OF CHEST PAIN,IRREGULAR HEART BEAT NOT MENTIONED NO . RESPIRATORY: COUGH NO . SHORTNESS OF BREATH NO . VITAL SIGNS WT 224.2 LBS, HT 63 IN, BMI 39.71 INDEX, BP 143/80 MM HG, HR 87 /MIN, RR 16 /MIN, TEMP 97.0 F, OXYGEN SAT % 95%, SAFE IN ENV? (Y/N) YES, NA INITIALS DE 13:52T.ERASTO CASTILLO. EXAMINATION GENERAL EXAMINATION: GENERAL ALERT,NO DISTRESS . PSYCH AFFECT NORMAL . LUNGS: LUNG SOUNDS ARE CLEAR . HEART: HEART RATE REGULAR . MUSCULOSKELETAL: MST 5/5 BILAT. LOWER EXTREMITIES . LUMBAR: TENDERNESS BILAT. SIJ . POSITIVE GREGORY'S TESTING BILATERAL LOWER EXTREMITIES.. DIAGNOSTIC TESTS REVIEWEDMRI L/S SPINE. 2017. ASSESSMENTS OTHER CHRONIC PAIN - G89.29 (PRIMARY) BILATERAL SACROILIITIS - M46.1 TREATMENT OTHER CHRONIC PAIN CONTINUE PERCOCET TABLET, 7.5-325 MG, 1 TABLET NEEDED, ORALLY, EVERY 8-12H PRN MDD2 #50 TAB SHOULD LAST 30 DAYS, 30 DAYS, 50, REFILLS 0 LAB: ORAL FLUID TEST GROUP DEONTE MAURER 06/02/2020 2:25:24 PM > LAST DOSE: PERCOCET 06/01/2020 PAIN PROCEDURE LOGDATE OF [id number]:BILATERAL SACROILIAC JOINT BLOCKAMOUNT OF PRE SEDATEOXYCODONE 10 MG, VALIUM 10 MG, BENADRYL 25 MGRESULT:MARKED REDUCTION IN PAIN X3 WEEKS MEDICATION: OXYCODONE HCL TAB 10MG ORALLY (ORDERED FOR 06/09/2020) MEDICATION: VALIUM TAB 10MG ORALLY (DIAZEPAM) (ORDERED FOR 06/09/2020) MED: PAIN BENADRYL TAB 25MG ORALLY DIPHENHYDRAMINE (ORDERED FOR 06/09/2020) NOTES: BILATERAL SACROILIAC JOINT BLOCK , ISTOP REGISTRY REVIEWED AND DEMONSTRATES COMPLLIANCE. BRINGS IN MEDICATIONS WHICH IS APPROPRIATE FOR WHAT WAS DISPENSED. RECENT URINE TOXICOLOGY REVIEWED. NO UNAUTHORIZED MEDICATIONS. NO ILLICIT SUBSTANCES AND PRESCRIBED MEDICATIONS WERE PRESENT. PROCEDURE CODES FA211 ESTABILISHED PATIENT [facility] FACILITY CHARGE DISPOSITION & COMMUNICATION FOLLOW UP POST PROCEDURE (REASON: BILATERAL SACROILIAC JOINT BLOCK ) ELECTRONICALLY SIGNED BY EUSEBIO GOULD ON 06/05/2020 AT 10:03 AM EDT DISCLAIMER : THIS IS A VISIT SUMMARY EXTRACTED FROM THE [employer] CHART. IT IS NOT A COPY OF THE [employer] PROGRESS NOTE. RUBIO
== END ==
LOC: M PAIN 14:00
PROVIDERS: ATTEND Nurse Practitioner Family
DX: M46.1 Sacroiliitis, not elsewhere classified (principal); G89.29 Other chronic pain; J45.909 Unspecified asthma, uncomplicated; K21.9 Gastro-esophageal reflux disease without esophagitis; G40.909 Epilepsy, unspecified, not intractable, without status epilepticus; Z86.14 Personal history of Methicillin resistant Staphylococcus aureus infection; Z86.59 Personal history of other mental and behavioral disorders; Z88.5 Allergy status to narcotic agent; Z79.899 Other long term (current) drug therapy

== ENCOUNTER → 2020-06-14 | Outpatient (CLI) | payer OTHER | LOC: M LABSMTC 11:31 | PROVIDERS: ATTEND Anesthesiology | DX: Z20.822 Contact with and (suspected) exposure to COVID-19 (principal) ==

== ENCOUNTER → 2020-07-31 | Outpatient (CLI) | payer OTHER ==
[~2020-07-31] MED LIST changes: -CALC500T44 PO; +OYST500T92 PO
== END ==
LOC: M LABSMTC 13:29
PROVIDERS: ATTEND Anesthesiology
DX: Z20.822 Contact with and (suspected) exposure to COVID-19 (principal)

== ENCOUNTER → 2020-08-05 | Outpatient (CLI) | payer OTHER ==
[~2020-08-05] MED LIST changes: +BUPIVACAINE HCL 0.25% 30ML VIAL As Ordered ONE; +ISOVUE-M 300 61% 15ML VIAL As Ordered ONE; +LIDOCAINE 1% SDV 30ML VIAL As Ordered ONE; +TRIAMCINOLONE ACETONIDE SUSP 40 MG/ML VIAL (J3301) As Ordered ONE; +diazePAM 5MG TABLET As Ordered ONE; +diphenhydrAMINE 25MG CAP As Ordered ONE; +oxyCODONE 5MG TAB As Ordered ONE
--- NOTE | 2020-08-05 17:29 | REP ---
INDICATION: SIJ. COMPARISON: None. TECHNIQUE: Six views. 17.3 seconds of fluoroscopy time is reported. FINDINGS: A sequence of 6 last image hold fluoroscopically obtained spot radiographs the SI joints bilaterally document needle position and contrast injection associated with injection procedure. IMPRESSION: Procedural imaging. <Electronically signed by David Mccarthy > 08/05/20 3413
--- NOTE | 2020-08-07 02:20 | ECWPNPC ---
PATIENT NAME: MAGRA GUZMAN : 1960 GENDER: FEMALE VISIT DATE: 08/05/2020 DISCHARGE DATE: 08/05/20 1537 VISIT LOCKED DATE TIME: PHYSICIAN: IVETT BELL MD RESOURCE: IVETT BELL MD REASON FOR APPOINTMENT 1. BILATERAL SACROILIAC JOINT BLOCK HISTORY OF PRESENT ILLNESS GENERAL: -. FALL RISK SCREENING: SCREENING FELL ONE MONTH AGO WITH SCRAPES. PAIN SCREENING: PATIENT HAS A COMPLAINT OF ACUTE OR CHRONIC PAIN :YES LOCATION OF PAIN:LOW BACK INTENSITY OF PAIN (SCALE OF 1 TO 10):9 WHAT DOES YOUR PAIN FEEL LIKE:ACHING, SHARP, SORE, SHOOTING DURATION:CONTINOUS NURSING NOTE: -. PAIN CENTER INTAKE QUESTIONS: DO YOU HAVE A HISTORY OF MRSA? :YES A LONG TIME AGO ON BACK OF HANDS AND BETWEEN EYES DO YOU TAKE A BLOOD THINNERS? :NO DO YOU HAVE ANY BLEEDING DISORDERS? :NO ANY NEW NUMBNESS OR WEAKNESS IN YOUR LEGS OR ARMS? :NO ANY PACEMAKER,DEFIBRILLATOR, OR DORSAL COLUMN STIMULATOR? :NO DO YOU HAVE ANY RASHES OR OPEN SORES? :NO ARE YOU ALLERGIC TO IV DYE? :NO ARE YOU DIABETIC? :NO ANY NEW PROBLEMS WITH YOUR MEDICATIONS? :NO HAVE YOU RECEIVED A VACCINE IN THE PAST 30 DAYS? :NO DO YOU PLAN TO RECEIVE A VACCINE IN THE NEXT 21 DAYS? :NO DO YOU TAKE ANY IMMUNOSUPPRESSIVE MEDICATIONS? :NO ANY HISTORY OF SEIZURES? :NO ANY HISTORY OF CARDIAC ISSUES OR EVENTS? :NO DO YOU HAVE ANY KIDNEY OR LIVER DISEASE? :YES CKD DO YOU HAVE SLEEP APNEA? :YES DO YOU WEAR A CPAP?NO ANY RECENT HEAD INJURY? :NO DO YOU HAVE ANY NEW INFECTIONS? :NO IS THERE A CHANCE YOU COULD BE ? :NO ARE YOU BREAST FEEDING? :NO WHEN DID YOU LAST EAT? : -08/04/20 @ 1800 WHEN DID YOU LAST DRINK? : -08/05/20 @ 1000 WHAT DID YOU LAST DRINK? : -WATER NAME OF PERSON DRIVING YOU HOME? : - DO YOU HAVE ANY OTHER QUESTIONS OR CONCERNS? : -DENIES CURRENT MEDICATIONS TAKING MAGNESIUM OXIDE 500 MG TABLET DIRECTED ORALLY BID TAKING CALCIUM CARB-ERGOCALCIFEROL 500-200 MG-UNIT TABLET 1 TABLET WITH MEALS ORALLY TWICE A DAY TAKING TYLENOL EXTRA STRENGTH 500 MG TABLET 1 TABLET NEEDED ORALLY EVERY 8 HRS TAKING DRISDOL 39326 UNIT CAPSULE 1 CAPSULE ORALLY WEEKLY TAKING ATENOLOL 25 MG TABLET 1 TABLET ORALLY 50MG BID TAKING ATORVASTATIN CALCIUM 40 MG TABLET 1 TABLET ORALLY ONCE A DAY TAKING PROAIR HFA 108 (90 BASE) MCG/ACT AEROSOL SOLUTION 2 PUFFS NEEDED INHALATION QID PRN TAKING XANAX 1 MG TABLET 1 TABLET NEEDED ORALLY TWICE A DAY NEEDED TAKING AMILORIDE HCL 5 MG TABLET 1 TABLET WITH FOOD ORALLY ONCE A DAY TAKING PANTOPRAZOLE SODIUM 40 MG TABLET DELAYED RELEASE 1 TABLET ORALLY ONCE A DAY TAKING ZINC 25 MG TABLET 1 TABLET ORALLY ONCE A DAY TAKING PERCOCET 7.5-325 MG TABLET 1 TABLET NEEDED ORALLY EVERY 8-12H PRN MDD2 #50 TAB SHOULD LAST 30 DAYS TAKING POTASSIUM CHLORIDE 10 MEQ CAPSULE EXTENDED RELEASE 2 CAPSULES WITH FOOD ORALLY DAILY NOT-TAKING LOSARTAN POTASSIUM 100 MG TABLET 1 TABLET ORALLY ONCE A DAY NOT-TAKING ATENOLOL 50 MG TABLET 1 TABLET ORALLY ONCE A DAY IN A.M. 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 (Y/N) YES, NA INITIALS AW 1315, REVIEWED BY: ERICK. EXAMINATION GENERAL EXAMINATION: THE PATIENT IS ALERT, ORIENTED TIMES THREE AND COOPERATIVE. LUNGS ARE CLEAR TO AUSCULTATION. HEART SHOWS REGULAR RHYTHM, NO MURMURS AND NO GALLOPS. ASSESSMENTS SACROILIITIS, NOT ELSEWHERE CLASSIFIED - M46.1 (PRIMARY) TREATMENT SACROILIITIS, NOT ELSEWHERE CLASSIFIED [facility] FLUORO GUIDANCE (PAIN)[id number] MEDICATION: VALIUM TAB 10MG ORALLY (DIAZEPAM)KIP BYNUM 08/05/2020 2:11:06 PM > VERIFIED. JONATAN ALEMAN 08/05/2020 2:16:10 PM > ADMINISTERED MEDICATION: OXYCODONE HCL TAB 10MG ORALLYKIP BYNUM 08/05/2020 2:11:30 PM > VERIFIED. JONATAN ALEMAN 08/05/2020 2:16:32 PM > ADMINISTERED MED: PAIN BENADRYL TAB 25MG ORALLY DIPHENHYDRAMINEKIP BYNUM 08/05/2020 2:11:45 PM > VERIFIED. [facility] 08/05/2020 2:16:50 PM > ADMINISTERED PROCEDURES PAIN NURSING RECORD PROCEDURE IN ROOM 1445, PHYSICIAN IN ROOM 1503, START 1506, FINISH 1510, PHYSICIAN OUT OF ROOM 1510, OUT OF ROOM 1520, ECG NORMAL SINUS, PATIENT SHIELDED YES, SAFETY STRAP YES, PREP CHLOROPREP Denisse ALEMAN RN, DRESSING TEGADERM LOC: 1. ALERT, ORIENTED [facility] 08/05/2020 2:54:49 PM > RESP: 1. REGULAR, NO DYSPNEA [facility] 08/05/2020 2:54:53 PM > COLOR: 1. PINK [facility] 08/05/2020 2:54:57 PM > SKIN: 1. WARM, DRY [facility] 08/05/2020 2:55:01 PM > POSITION: 1. PRONE [facility] 08/05/2020 2:55:05 PM > VITALS: HR 88, 100%, 161/101, R 6, PAIN 7/10 [facility] 08/05/2020 2:55:50 PM > HR88, 99%, 147/92, R16, PAIN 6/10 [facility] 08/05/2020 3:06:09 PM > HR 86, 100%, 147/86, R14, PAIN 6/10 [facility] 08/05/2020 1520 PM > EXIT VITALS HR 91, 94%, R14, 125/80, [id number]@1530 NOTES Denisse ALEMAN RN COMPLETION OF PROCEDURE APPOINTMENT: POST PAIN 6, DRESSING SITE DRY AND INTACT, IV N/A, GAIT STEADY, TEACHING COMPLETED, PATIENT ACKNOWLEDGES UNDERSTANDING YES, PROCEDURE APPOINTMENT COMPLETED AT 1530 BY: Denisse ALEMAN RN : CRITERIA MET FOR COMPLETION OF APPOINTMENT @1530 PN SI PRE PROCEDURE DIAGNOSIS SACROILIITIS, SACROILIAC JOINT DYSFUNCTION POST PROCEDURE DIAGNOSIS SACROILIITIS, SACROILIAC JOINT DYSFUNCTION PROCEDURE BILATERAL SACROILIAC JOINT BLOCK SURGEON DR. IVETT BELL FISH AND WILDLIFE BIOLOGIST NONE ANESTHESIA LOCAL PRE PROCEDURE NOTE THE PATIENT WITH HISTORY OF CHRONIC LOW BACK PAIN. I EVALUATED THE PATIENT AND REVIEWED THE CHART. I WENT OVER THE RISKS, ALTERNATIVES, AND BENEFITS ASSOCIATED WITH THIS PROCEDURE. THE PATIENT WOULD LIKE TO PROCEED AND GAVE CONSENT TO PERFORM THE PROCEDURE. THE PATIENT DENIES UNEXPLAINABLE WEIGHT LOSS, FEVER, CHILLS, OR NEW CHANGES IN URINARY OR BOWEL CONTROL. THE PATIENT IS COVID-19 NEGATIVE DESCRIPTION OF PROCEDURE THE PATIENT WAS BROUGHT TO THE PROCEDURE ROOM AND PLACED IN THE PRONE POSITION. THE LUMBOSACRAL AREA WAS CLEANED WITH CHLORAPREP SOLUTION AND DRAPED ASEPTICALLY. THE PROCEDURE WAS DONE UNDER STERILE CONDITIONS. A TIMEOUT WAS PERFORMED WHERE THE CONSENTED SITE WAS VERIFIED WITH EVERYONE IN THE ROOM. UNDER FLUOROSCOPIC GUIDANCE, THE TARGET POINT WAS SELECTED AT THE LOWER BORDER OF THE RIGHT AND LEFT SACROILIAC JOINT. TARGET POINT WAS SELECTED AFTER MEDIAL ROTATION AND TILT OF THE MAGNIFIER OR THE C-ARM. I CONFIRMED AGAIN THE SITE OF TARGET. LIDOCAINE 0.5% WAS USED TO NUMB THE SKIN AND THE SUBCUTANEOUS TISSUE BELOW IT. SPINAL NEEDLES, 22-GAUGE, WERE ADVANCED UNDER FLUOROSCOPIC GUIDANCE AND FOLLOWING PATIENT FEEDBACK UNTIL THE TARGETS WERE TOUCHED. THE POSITION OF THE NEEDLES WAS VERIFIED WITH AP AND OBLIQUE VIEWS. AFTER PROPER POSITION OF THE NEEDLES WAS ACHIEVED, ISOVUE-M DYE 30%, 0.1 ML, WAS INJECTED SHOWING ADEQUATE SPREAD OF THE DYE. KENALOG 20 MG WAS INJECTED AT EACH SITE. THEN, A SOLUTION OF 3.0 ML OF BUPIVACAINE 0.125% WAS USED TO FLUSH EACH NEEDLE. THE MEDICATIONS WERE VERIFIED WITH THE NURSE. THERE WAS NO EVIDENCE OF BLOOD, PARESTHESIA OR CEREBROSPINAL FLUID DURING THE PROCEDURE. THE PATIENT WAS SENT TO THE RECOVERY ROOM. THE PATIENT WAS MOVING THE EXTREMITIES AND DOING WELL. THERE WERE NO COMPLICATIONS DURING THE PROCEDURE. ESTIMATED BLOOD LOSS WAS LESS THAN 5 ML. FLUOROSCOPIC TIME WAS 17 SECONDS. POST PROCEDURE NOTE THE PROCEDURE DONE WAS DISCUSSED WITH THE PATIENT. THE PATIENT WILL BE SEEN IN A FOLLOW UP IN THE NEXT FEW WEEKS. I AM LOOKING FOR LONG LASTING PAIN RELIEF FOR THE PATIENT WITH THIS INTERVENTION. INSTRUCTIONS WERE GIVEN, QUESTIONS WERE ANSWERED, AND THE PATIENT EXPRESSED UNDERSTANDING AND AGREES WITH THE PLAN. I, JAXSON CAMPOS, DOCUMENTED THE ABOVE INFORMATION ACTING A SCRIBE FOR DR. BELL. I HAVE REVIEWED THE ABOVE DOCUMENT, WRITTEN BY JAXSON CAMPOS, COMMERCIAL DEVELOPMENT MANAGER, AND I VERIFY THAT IT IS ACCURATE PROCEDURE CODES 93430 INJECT SACROILIAC JOINT, MODIFIERS: 50 DISPOSITION & COMMUNICATION FOLLOW UP FOLLOW UP WITH DIRECT SALES CONSULTANT (REASON: POST BILATERAL SACROILIAC JOINT BLOCK) ELECTRONICALLY SIGNED BY IVETT BELL MD, MD ON 08/06/2020 AT 05:05 PM EDT DISCLAIMER : THIS IS A VISIT SUMMARY EXTRACTED FROM THE [employer] CHART. IT IS NOT A COPY OF THE [employer] PROGRESS NOTE. RUBIO
== END ==
LOC: M PAIN 13:20
PROVIDERS: ATTEND Anesthesiology
DX: M46.1 Sacroiliitis, not elsewhere classified (principal); G47.30 Sleep apnea, unspecified; J45.909 Unspecified asthma, uncomplicated; K21.9 Gastro-esophageal reflux disease without esophagitis; Z86.14 Personal history of Methicillin resistant Staphylococcus aureus infection; Z86.59 Personal history of other mental and behavioral disorders; Z88.5 Allergy status to narcotic agent; Z79.899 Other long term (current) drug therapy
CPT/HCPCS: G0260; J3301; Q9967

== ENCOUNTER → 2020-08-29 | Outpatient (CLI) | payer OTHER ==
[~2020-08-29] MED LIST changes: -BUPIVACAINE HCL 0.25% 30ML VIAL As Ordered ONE; -ISOVUE-M 300 61% 15ML VIAL As Ordered ONE; -LIDOCAINE 1% SDV 30ML VIAL As Ordered ONE; -TRIAMCINOLONE ACETONIDE SUSP 40 MG/ML VIAL (J3301) As Ordered ONE; -diazePAM 5MG TABLET As Ordered ONE; -diphenhydrAMINE 25MG CAP As Ordered ONE; -oxyCODONE 5MG TAB As Ordered ONE
--- NOTE | 2020-09-04 00:48 | ECWPNPC ---
PATIENT NAME: MARGA GUZMAN : 1960 GENDER: FEMALE VISIT DATE: 08/29/2020 DISCHARGE DATE: 08/29/20 1528 VISIT LOCKED DATE TIME: PHYSICIAN: RICHARDSON BEASLEY RESOURCE: RICHARDSON BEASLEY REASON FOR APPOINTMENT 1. POST BILATERAL SACROILIAC JOINT BLOCK HISTORY OF PRESENT ILLNESS GENERAL: HERE FOR POST PROCEDURE F/U.HAD BILATERAL SIJ ON 08/05/20. REPORTING NO IMPROVEMENT IN PAIN POST PROCEDURE. PATIENT FELL 2 WEEKS AGO AND HIT HER HEAD AND HER LOWER BACK ON THE FLOOR. HAS BEEN HAVING SEVERE SACRAL PAIN. ALSO TELLING ME ABOUT INABILITY TO GET FROM A KNEELING POSITION ON THE FLOOR UP TO STANDING POSITION. NO RECENT MRI IMAGING. -. FALL RISK SCREENING: SCREENING THREE FALLS REPORTED IN THE LAST YEAR WITH INJURY. PATIENT DENIED MEDICAL TREATMENT.. PAIN SCREENING: PATIENT HAS A COMPLAINT OF ACUTE OR CHRONIC PAIN :NO NURSING NOTE: -. PAIN CENTER INTAKE QUESTIONS: DO YOU HAVE A HISTORY OF MRSA? :YES YEARS AGO DO YOU TAKE A BLOOD THINNERS? :NO DO YOU HAVE ANY BLEEDING DISORDERS? :NO ANY NEW NUMBNESS OR WEAKNESS IN YOUR LEGS OR ARMS? :YES KNEES AND LEGS ANY PACEMAKER,DEFIBRILLATOR, OR DORSAL COLUMN STIMULATOR? :NO DO YOU HAVE ANY RASHES OR OPEN SORES? :NO ARE YOU ALLERGIC TO IV DYE? :NO ARE YOU DIABETIC? :NO ANY NEW PROBLEMS WITH YOUR MEDICATIONS? :NO HAVE YOU RECEIVED A VACCINE IN THE PAST 30 DAYS? :NO DO YOU PLAN TO RECEIVE A VACCINE IN THE NEXT 21 DAYS? :NO DO YOU NEED ANY PRESCRIPTION? :YES OXYCODONE DO YOU TAKE ANY IMMUNOSUPPRESSIVE MEDICATIONS? :NO IS THERE A CHANCE YOU COULD BE ? :NO ARE YOU BREAST FEEDING? :NO CURRENT MEDICATIONS TAKING OXYCODONE HCL 7.5 MG TABLET 1 TABLET NEEDED ORALLY EVERY 8 TO 12 HRS NEEDED TAKING MAGNESIUM OXIDE 500 MG TABLET DIRECTED ORALLY BID TAKING CALCIUM CARB-ERGOCALCIFEROL 500-200 MG-UNIT TABLET 1 TABLET WITH MEALS ORALLY TWICE A DAY TAKING TYLENOL EXTRA STRENGTH 500 MG TABLET 1 TABLET NEEDED ORALLY EVERY 8 HRS TAKING DRISDOL 42017 UNIT CAPSULE 1 CAPSULE ORALLY WEEKLY TAKING ATENOLOL 25 MG TABLET 1 TABLET ORALLY 50MG BID TAKING ATORVASTATIN CALCIUM 40 MG TABLET 1 TABLET ORALLY ONCE A DAY TAKING PROAIR HFA 108 (90 BASE) MCG/ACT AEROSOL SOLUTION 2 PUFFS NEEDED INHALATION QID PRN TAKING XANAX 1 MG TABLET 1 TABLET NEEDED ORALLY TWICE A DAY NEEDED TAKING AMILORIDE HCL 5 MG TABLET 1 TABLET WITH FOOD ORALLY ONCE A DAY TAKING PANTOPRAZOLE SODIUM 40 MG TABLET DELAYED RELEASE 1 TABLET ORALLY ONCE A DAY TAKING ZINC 25 MG TABLET 1 TABLET ORALLY ONCE A DAY TAKING PERCOCET 7.5-325 MG TABLET 1 TABLET NEEDED ORALLY EVERY 8-12H PRN MDD2 #50 TAB SHOULD LAST 30 DAYS TAKING POTASSIUM CHLORIDE 10 MEQ CAPSULE EXTENDED RELEASE 2 CAPSULES WITH FOOD ORALLY DAILY TAKING LOSARTAN POTASSIUM 100 MG TABLET 1 TABLET ORALLY ONCE A DAY TAKING ATENOLOL 50 MG TABLET 1 TABLET ORALLY ONCE A DAY IN A.M. 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 CHRONIC LOW BACK PAIN FOR OVER 1 YEAR CHRONIC DIARRHEA ASTHMA ANXIETY KIDNEY STONES C-DIFF GERD SNORING CHRONIC KIDNEY DISEASE MVP ESSENTIAL HYPERTENSION SEIZURE DISORDER ALLERGIES TRAMADOL : UNSURE IF SEIZURE FROM THIS SOCIAL HISTORY GENERAL: TOBACCO USE ARE YOU A:NONSMOKER LATEX QUESTIONNAIRE LATEX ALLERGY : HAVE YOU EVER DEVELOPED ANY TYPE OF REACTION AFTER HANDLING LATEX PRODUCTS SUCH RUBBER GLOVES, CONDOMS, DIAPHRAGMS, BALLOONS, SOCKS, OR UNDERWEAR?NO LATEX ALLERGY : HAVE YOU EVER DEVELOPED ANY TYPE OF REACTION DURING OR AFTER DENTAL APPOINTMENT, VAGINAL/RECTAL EXAMINATION, SURGICAL PROCEDURE, OR ANY OTHER EXPOSURE?NO LATEX RISK : HAVE YOU EVER HAD ANY DIFFICULTY BREATHING OR HIVES AFTER EATING OR HANDLING ANY FRUITS, OR VEGETABLES; SUCH KIWI, BANANAS, STONE FRUITS, OR CHESTNUTSNO LATEX RISK : DO YOU HAVE A PREVIOUS PERSONAL HISTORY OF MORE THAN NINE SURGERIES, SPINA BIFIDA, OR REPEATED CATHERIZATIONS? NO LATEX RISK : ARE YOU FREQUENTLY EXPOSED TO LATEX PRODUCTS IN YOUR OCCUPATION?NO DATE ASKED : 08/29/2020 ALCOHOL USE: YES. OCCASIONAL. ALCOHOL SCREENING DID YOU HAVE A DRINK CONTAINING ALCOHOL IN THE PAST YEAR?YES HOW OFTEN DID YOU HAVE A DRINK CONTAINING ALCOHOL IN THE PAST YEAR?TWO TO THREE TIMES PER WEEK (3 POINTS) POINTS3 INTERPRETATIONPOSITIVE RECREATIONAL DRUG USE DRUG USE?NO CAFFEINE CAFFEINE USE?YES HOW OFTEN AND HOW MUCH? MAYBE 1 PEPSI EVERY OTHER DAY AND RARE EXPRESSO SEXUAL HX HAD SEX IN THE LAST 12 MONTHS (VAGINAL, ORAL, OR ANAL)?NO LMP:04/10/2014 HAVE YOU EVER HAD AN STD?NO HIV / HEP-C SCREENING HIV TEST OFFERED TO PATIENT:YES 06/10/2017 PT DECLINED DATE OFFERED:06/10/2017 HEP-C TEST OFFERED TO PATIENT:YES 06/10/2017 PT DECLINED DATE OFFERED:06/10/2017 TEST ACCEPTED:NO BROCHURE PROVIDED TO PATIENTYES [id number] NONE NO GNOSTICIST BELIEFS THAT WOULD IMPACT HEALTH CARE. LANGUAGE LANGUAGES SPOKEN:HAITIAN EDUCATION LEVEL OF EDUCATION:HIGH SCHOOL LEARNING BARRIERS / SPECIAL NEEDS CHANGE FROM LAST VISIT?NO BARRIERS TO LEARNING?NO HEARING IMPAIRED?NO VISION IMPAIRED?YES :CORRECTIVE LENSES COGNITIVELY IMPAIRED?NO READINESS TO LEARN?YES LEARNING PREFERENCES?NO LEARNING CAPABILITIES PRESENT?YES EMOTIONAL BARRIERS?NO SPECIAL DEVICES?NO SOFTWARE ARCHITECT NEEDED?NO DOMESTIC VIOLENCE STATUS: DO YOU FEEL SAFE IN YOUR ENVIRONMENT?YES DIET: NO CONCENTRATED SWEETS.. EXERCISE: TRIES TO WALK BUT IT HURTS TOO MUCH, TAKES SOMA TO TRY TO BE ABLE TO DO STUFF. - PFS REFERRAL NEEDED?NO CLERGY REFERRAL NEEDED?NO PUBLIC HEALTH REFERRAL NEEDED?NO HAS THE PATIENT BEEN EDUCATED REGARDING HIS/HER PLAN OF CARE?YES HAS THE PATIENT BEEN EDUCATED REGARDING PAIN, THE RISK FOR PAIN, THE IMPORTANCE OF EFFECTIVE PAIN MANAGEMENT, AND THE PAIN ASSESSMENT PROCESS?YES ADVANCE DIRECTIVE ADVANCE DIRECTIVE DISCUSSED WITH PATIENT:YES PT DOES NOT HAVE ANY ADVANCED DIRECTIVES AND SHE DECLINES INFORMATION ON HCP AT THIS TIME. REVIEW OF SYSTEMS CONSTITUTIONAL: ANY RECENT FEVER NO . CHILLS NO . GASTROENTEROLOGY: BOWEL INCONTINENCE NO . ANY NEW CHANGE IN BOWEL CONTROL? NO . HISTORY OF UNUSUAL ABDOMINAL PAIN OR CRAMPING NOT MENTIONED NO . CONSTIPATION NO . GENITOURINARY: ANY NEW CHANGE IN BLADDER CONTROL? NO . IS THERE A CHANCE YOU COULD BE ? NO . URINARY INCONTINENCE NO . CARDIOLOGY: NEW CHEST PRESSURE NO . HISTORY OF CHEST PAIN,IRREGULAR HEART BEAT NOT MENTIONED NO . RESPIRATORY: COUGH NO . SHORTNESS OF BREATH NO . VITAL SIGNS WT 217 LBS, HT 63 IN, BMI 38.44 INDEX, BP 128/84 MM HG, HR 95 /MIN, RR 18 /MIN, TEMP 98.4 F, OXYGEN SAT % 93%, SAFE IN ENV? (Y/N) YES, REVIEWED BY: ALIVIA SCHAFER MA. EXAMINATION GENERAL EXAMINATION: GENERALNO ACUTE DISTRESS, WELL NOURISHED AND HYDRATED. PSYCHAPPROPRIATE MOOD AND AFFECT . LUNGS:CLEAR TO AUSCULTATION BILATERALLY, NO WHEEZES, RHONCHI, RALES. HEART:NO MURMURS, REGULAR RATE AND RHYTHM. MUSCULOSKELETAL:WEAKNESS NOTED OVER BILATERAL LOWER EXTREMITIES . NEUROLOGIC EXAM:NORMAL SENSATION TO LIGHT TOUCH LOWER EXTREMITIES. . ASSESSMENTS WEAKNESS OF BOTH LEGS - M62.81 (PRIMARY) OTHER CHRONIC PAIN - G89.29 SACROILIITIS, NOT ELSEWHERE CLASSIFIED - M46.1 TREATMENT WEAKNESS OF BOTH LEGS START PERCOCET TABLET, 7.5-325 MG, 1 TABLET NEEDED, ORALLY, Q6-8H PRN MDD3 #50 TABS SHOULD LAST 30 DAYS, 30 DAYS, 50 STOP OXYCODONE HCL TABLET, 7.5 MG, 1 TABLET NEEDED, ORALLY, EVERY 8 TO [address] [facility] MRI SPINE, L.S. WITHOUT [id number],NICOLE 09/01/2020 11:20:17 AM > NO AUTH REQUIRED FOR MRI L/S W/O CONTRAST. REFRENCE [id number]. NOTES: DUE TO ONSET OF LOWER EXTREMITY WEAKNESS OVER THE PAST MONTH I'M ORDERING AN MRI OF THE LUMBOSACRAL SPINE. I WILL CONSIDER REFERRAL TO NEUROLOGY AFTER REVIEWING THIS. PATIENT HAS DIFFICULTY GETTING TO A STANDING POSITION AFTER BEING ON HER KNEES AND DESCRIBES WEAKNESS IN HER LOWER EXTREMITIES. OTHER CHRONIC PAIN PAIN PROCEDURE LOGDATE OF PROCEDURE1PROCEDURE:BILATERAL SACROILIAC JOINT BLOCKAMOUNT OF PRE SEDATEVALIUM 10MG, OXYCODONE 10MG, BENADRYL 25MGRESULT:NO IMPROVEMENT POST PROCEDURE PROCEDURE CODES [id number] ESTABILISHED PATIENT [facility] FACILITY CHARGE DISPOSITION & COMMUNICATION FOLLOW UP 6 WEEKS (REASON: MRI REVIEW) ELECTRONICALLY SIGNED BY EUSEBIO GOULD ON 09/03/2020 AT 12:40 PM EDT DISCLAIMER : THIS IS A VISIT SUMMARY EXTRACTED FROM THE [facility] CHART. IT IS NOT A COPY OF THE [facility] PROGRESS NOTE. RUBIO
== END ==
LOC: M PAIN 14:45
PROVIDERS: ATTEND Nurse Practitioner Family
DX: M62.81 Muscle weakness (generalized) (principal); G89.29 Other chronic pain; M46.1 Sacroiliitis, not elsewhere classified; J45.909 Unspecified asthma, uncomplicated; K21.9 Gastro-esophageal reflux disease without esophagitis; G40.909 Epilepsy, unspecified, not intractable, without status epilepticus; Z86.14 Personal history of Methicillin resistant Staphylococcus aureus infection; Z86.59 Personal history of other mental and behavioral disorders; Z88.5 Allergy status to narcotic agent; Z79.899 Other long term (current) drug therapy

== ENCOUNTER → 2020-12-01 | Outpatient (REF) | payer OTHER ==
[~2020-12-01] MED LIST changes: -KLOR10TA76 PO; +POTA-136 PO
[2020-12-01 17:56] LABS: MAGNESIUM LEVEL 1.5 MG/DL (1.8-2.4); PERCENT SATURATION 91.6 % (13.2-45.0)
[2020-12-02 13:43] LABS: BILIRUBIN,DIRECT 0.4 MG/DL (0.0-0.2); BILIRUBIN,TOTAL 0.8 MG/DL (0.2-1.0); TOTAL PROTEIN 6.8 GM/DL (6.4-8.2)
== END ==
LOC: M LAB REF 17:07
PROVIDERS: ATTEND Internal Medicine Nephrology
DX: D50.9 Iron deficiency anemia, unspecified (principal); E83.42 Hypomagnesemia

== ENCOUNTER → 2020-12-15 | Outpatient (CLI) | payer OTHER ==
--- NOTE | 2020-12-15 09:35 | REP ---
INDICATION: ABN LABS, LIVER DISORDERS MRI 1ST US 2ND COMPARISON: None TECHNIQUE: Real time B-mode rico scale ultrasound examination using curved array transducer. FINDINGS: Liver is minimally enlarged measuring 19.5 cm in craniocaudal length and moderately hyperechoic suggesting fatty infiltration. No focal hepatic lesion identified. Pancreas is incompletely evaluated due to interposed bowel gas, but visualized portions appear normal. Gallbladder is normal without gallstones, wall thickening, or pericholecystic fluid. No biliary ductal dilatation is appreciated and the common bile duct measures 3.0 mm in diameter. The right kidney is normal in reniform shape without hydronephrosis and measures 10.7 x 4.7 x 5.1 cm. No nephrolithiasis, obvious cystic or renal mass lesion identified. No ascites. IMPRESSION: Essentially normal age-appropriate abdominal ultrasound. <Electronically signed by Dario Hassan > 12/15/20 [id number]
== END ==
LOC: M RAD 07:45
PROVIDERS: ATTEND Internal Medicine Nephrology
DX: R74.8 Abnormal levels of other serum enzymes (principal); K77 Liver disorders in diseases classified elsewhere

== ENCOUNTER → 2020-12-15 | Outpatient (CLI) | payer OTHER ==
--- NOTE | 2020-12-15 12:17 | REPVR ---
PROCEDURE INFORMATION: Exam: MR Lumbar Spine Without Contrast Exam date and time: 12/15/2020 8:31 AM Age: 60 years old Clinical indication: Low back pain; Additional info: Weakness dominic legs / sacralitis mri 1st US 2nd TECHNIQUE: Imaging protocol: Multiplanar magnetic resonance images of the lumbar spine without intravenous contrast. COMPARISON: CT Spine, lumbar w/o contrast 11/12/2016 11:36 AM FINDINGS: Vertebrae: There is no fracture or listhesis. Marrow signal is within normal limits. Spinal cord: Normal signal. No cord compression. L1-L2: No significant disc disease. No significant spinal canal stenosis. No neural foraminal stenosis. L2-L3: There is shallow disc bulging. There is mild facet and ligamentous hypertrophy. The spinal canal and neural foramina are patent. L3-L4: There is shallow disc bulging. There is mild facet and ligamentous hypertrophy. The spinal canal and neural foramina are patent. L4-L5: There is diffuse disc bulging with a left foraminal annular tear. There is moderate facet and ligamentous hypertrophy. The spinal canal and neural foramina are patent. L5-S1: There is diffuse disc bulging. There is moderate facet hypertrophy. Right foraminal disc material comes into close contact with the exiting right L5 nerve root. Soft tissues: Unremarkable. IMPRESSION: Degenerative disc disease and spondylosis. At L5/S1, right foraminal disc material comes into close contact with the exiting right L5 nerve root. Electronically signed by: Radha Tucker On 12/15/2020 12:16:48 PM
== END ==
LOC: M RAD 07:49
PROVIDERS: ATTEND Nurse Practitioner Family
DX: M51.36 Other intervertebral disc degeneration, lumbar region (principal); M62.81 Muscle weakness (generalized)

== ENCOUNTER → 2021-01-22 | Outpatient (CLI) | payer OTHER | LOC: M PAIN 10:15 | PROVIDERS: ATTEND Nurse Practitioner Family | DX: M51.16 Intervertebral disc disorders with radiculopathy, lumbar region (principal); G89.29 Other chronic pain; J45.909 Unspecified asthma, uncomplicated; K21.9 Gastro-esophageal reflux disease without esophagitis; G40.909 Epilepsy, unspecified, not intractable, without status epilepticus; Z86.14 Personal history of Methicillin resistant Staphylococcus aureus infection; Z86.59 Personal history of other mental and behavioral disorders; Z88.5 Allergy status to narcotic agent; Z79.899 Other long term (current) drug therapy ==

== ENCOUNTER → 2021-04-28 | Outpatient (CLI) | payer OTHER ==
[~2021-04-28] MED LIST changes: +LOSA100T45 PO; -LOSA100T50 PO; +POTA-151 PO; -POTA20TA6 PO
== END ==
LOC: M PAIN 14:00
PROVIDERS: ATTEND Nurse Practitioner Family
DX: M51.16 Intervertebral disc disorders with radiculopathy, lumbar region (principal); G89.29 Other chronic pain; J45.909 Unspecified asthma, uncomplicated; K21.9 Gastro-esophageal reflux disease without esophagitis; G40.909 Epilepsy, unspecified, not intractable, without status epilepticus; Z86.14 Personal history of Methicillin resistant Staphylococcus aureus infection; Z86.59 Personal history of other mental and behavioral disorders; Z88.5 Allergy status to narcotic agent; Z79.899 Other long term (current) drug therapy

== ENCOUNTER 2021-06-02 14:13 | Outpatient (RCR) | payer OTHER | END 2021-06-18 | LOC: M PT 14:13 | PROVIDERS: ATTEND Orthopaedic Surgery | DX: M47.816 Spondylosis without myelopathy or radiculopathy, lumbar region (principal) ==

== ENCOUNTER 2021-07-02 15:11 | Outpatient (RCR) | payer OTHER | END 2021-07-18 | LOC: M PT 15:11 | PROVIDERS: ATTEND Orthopaedic Surgery | DX: M47.816 Spondylosis without myelopathy or radiculopathy, lumbar region (principal) ==

== ENCOUNTER 2021-07-23 15:12 | Outpatient (RCR) | payer OTHER | END 2021-08-18 | LOC: M PT 15:12 | PROVIDERS: ATTEND Orthopaedic Surgery | DX: M47.816 Spondylosis without myelopathy or radiculopathy, lumbar region (principal) ==

== ENCOUNTER → 2021-08-24 | Outpatient (CLI) | payer OTHER | LOC: M PAIN 11:45 | PROVIDERS: ATTEND Anesthesiology | DX: M51.16 Intervertebral disc disorders with radiculopathy, lumbar region (principal); G89.29 Other chronic pain; J45.909 Unspecified asthma, uncomplicated; K21.9 Gastro-esophageal reflux disease without esophagitis; G40.909 Epilepsy, unspecified, not intractable, without status epilepticus; Z86.14 Personal history of Methicillin resistant Staphylococcus aureus infection; Z86.59 Personal history of other mental and behavioral disorders; Z88.5 Allergy status to narcotic agent; Z79.899 Other long term (current) drug therapy ==

== ENCOUNTER → 2022-01-10 | Outpatient (CLI) | payer OTHER | LOC: M LABSMTC 11:35 | PROVIDERS: ATTEND Anesthesiology | DX: Z01.812 Encounter for preprocedural laboratory examination (principal); Z20.822 Contact with and (suspected) exposure to COVID-19 ==

== ENCOUNTER → 2022-01-14 | Outpatient (CLI) | payer OTHER ==
[~2022-01-14] MED LIST changes: +ISOVUE-M 300 61% 15ML VIAL As Ordered ONE; +LIDOCAINE 1% SDV 30ML VIAL As Ordered ONE; +diazePAM 5MG TABLET As Ordered ONE; +methylPREDNISolone SUSP 40MG/ML 1ML VIAL (DEPO MEDROL) As Ordered ONE; +oxyCODONE 5MG TAB As Ordered ONE
== END ==
LOC: M PAIN 14:15
PROVIDERS: ATTEND Anesthesiology
DX: M51.16 Intervertebral disc disorders with radiculopathy, lumbar region (principal); G89.29 Other chronic pain; G47.30 Sleep apnea, unspecified; J45.909 Unspecified asthma, uncomplicated; I10 Essential (primary) hypertension; G40.909 Epilepsy, unspecified, not intractable, without status epilepticus; Z86.59 Personal history of other mental and behavioral disorders; Z88.5 Allergy status to narcotic agent; Z79.899 Other long term (current) drug therapy
CPT/HCPCS: 62323; J1030; Q9967

== ENCOUNTER → 2022-02-10 | Outpatient (CLI) | payer OTHER ==
[~2022-02-10] MED LIST changes: -ISOVUE-M 300 61% 15ML VIAL As Ordered ONE; -LIDOCAINE 1% SDV 30ML VIAL As Ordered ONE; -diazePAM 5MG TABLET As Ordered ONE; -methylPREDNISolone SUSP 40MG/ML 1ML VIAL (DEPO MEDROL) As Ordered ONE; -oxyCODONE 5MG TAB As Ordered ONE
== END ==
LOC: M PAIN 14:15
PROVIDERS: ATTEND Anesthesiology
DX: Z20.828 Contact with and (suspected) exposure to other viral communicable diseases (principal); Z11.9 Encounter for screening for infectious and parasitic diseases, unspecified

== ENCOUNTER → 2022-04-26 | Outpatient (CLI) | payer OTHER | LOC: M LABSMTC 11:45 | PROVIDERS: ATTEND Anesthesiology | DX: Z01.812 Encounter for preprocedural laboratory examination (principal); Z11.52 Encounter for screening for COVID-19 ==

== ENCOUNTER → 2022-04-29 | Outpatient (CLI) | payer OTHER ==
[~2022-04-29] MED LIST changes: +BUPIVACAINE HCL 0.25% 30ML VIAL As Ordered ONE; +ISOVUE-M 300 61% 15ML VIAL As Ordered ONE; +LIDOCAINE 1% SDV 30ML VIAL As Ordered ONE; +diazePAM 5MG TABLET As Ordered ONE; +oxyCODONE 5MG TAB As Ordered ONE
== END ==
LOC: M PAIN 12:30
PROVIDERS: ATTEND Anesthesiology
DX: M51.16 Intervertebral disc disorders with radiculopathy, lumbar region (principal); G89.29 Other chronic pain; G47.30 Sleep apnea, unspecified; J45.909 Unspecified asthma, uncomplicated; K21.9 Gastro-esophageal reflux disease without esophagitis; I10 Essential (primary) hypertension; G40.909 Epilepsy, unspecified, not intractable, without status epilepticus; Z86.14 Personal history of Methicillin resistant Staphylococcus aureus infection; Z86.59 Personal history of other mental and behavioral disorders; Z88.5 Allergy status to narcotic agent; Z79.899 Other long term (current) drug therapy
CPT/HCPCS: 64483; J1100; S0020

== ENCOUNTER → 2022-08-03 | Outpatient (CLI) | payer OTHER ==
[~2022-08-03] MED LIST changes: -BUPIVACAINE HCL 0.25% 30ML VIAL As Ordered ONE; -ISOVUE-M 300 61% 15ML VIAL As Ordered ONE; -LIDOCAINE 1% SDV 30ML VIAL As Ordered ONE; -LOSA100T45 PO; +LOSA100T46 PO; +POTA-298 PO; -POTA1TAB14 PO; -diazePAM 5MG TABLET As Ordered ONE; -oxyCODONE 5MG TAB As Ordered ONE
== END ==
LOC: M PAIN 14:45
PROVIDERS: ATTEND Nurse Practitioner Family
DX: M51.16 Intervertebral disc disorders with radiculopathy, lumbar region (principal); G89.29 Other chronic pain; J45.909 Unspecified asthma, uncomplicated; K21.9 Gastro-esophageal reflux disease without esophagitis; I10 Essential (primary) hypertension; G40.909 Epilepsy, unspecified, not intractable, without status epilepticus; Z86.14 Personal history of Methicillin resistant Staphylococcus aureus infection; Z86.59 Personal history of other mental and behavioral disorders; Z88.5 Allergy status to narcotic agent; Z79.899 Other long term (current) drug therapy

== ENCOUNTER → 2022-08-09 | Outpatient (CLI) | payer OTHER ==
[2022-08-09 21:44] LABS: BASO # 0.1 10^3/uL (0.0-0.2); BASO % 0.7 % (0.0-1.0); EOS # 0.3 10^3/uL (0.0-0.5); EOS % 2.5 % (0.0-3.0); HEMATOCRIT 45.4 % (36.0-47.0); HEMOGLOBIN 14.8 g/dl (12.0-15.5); LYMPH # 2.2 10^3/uL (1.5-5.0); LYMPH % 18.4 % (24.0-44.0); MEAN CORPUSCULAR HEMOGLOBIN 30.4 pg (27.0-33.0); MEAN CORPUSCULAR HGB CONC 32.6 g/dl (32.0-36.5); MEAN CORPUSCULAR VOLUME 93.2 fl (80.0-96.0); MONO # 0.8 10^3/uL (0.0-0.8); MONO % 6.9 % (2.0-8.0); NEUTROPHILS # 8.4 10^3/uL (1.5-8.5); PLATELET COUNT, AUTOMATED 389 10^3/uL (150-450); RED BLOOD COUNT 4.87 10^6/uL (4.00-5.40); WHITE BLOOD COUNT 11.8 10^3/uL (4.0-10.0)
[2022-08-09 22:01] LABS: HEMOGLOBIN A1c 5.4 % (4.0-6.0)
[2022-08-09 23:18] LABS: ALBUMIN 3.9 G/DL (3.2-5.2); ALKALINE PHOSPHATASE 115 U/L (46-116); ALT/SGPT 52 U/L (7.0-40); AST/SGOT 41 U/L (<34); BILIRUBIN,TOTAL 0.6 MG/DL (0.3-1.2); BLOOD UREA NITROGEN 16 MG/DL (9-23); CALCIUM LEVEL 10.1 MG/DL (8.3-10.6); CARBON DIOXIDE LEVEL 25 MMOL/L (20-31); CHLORIDE LEVEL 102 MMOL/L (98-107); CHOLESTEROL LEVEL 210 MG/DL (<200); CHOLESTEROL RISK RATIO 5.18 (<5); FERRITIN 46.4 NG/ML (7.3-270.7); FOLATE > 24.00 NG/ML (>5.4); GLOMERULAR FILTRATION RATE > 60.0 (>45); GLUCOSE, FASTING 107 MG/DL (74-106); HDL CHOLESTEROL 40.5 MG/DL (>40); IRON (FE) 54 UG/DL (50-170); LDL CHOLESTEROL 117.1 MG/DL (<100); NON-HDL-C 169.5 MG/DL; PERCENT SATURATION 13.4 % (13.2-45.0); POTASSIUM SERUM 4.2 MMOL/L (3.5-5.1); SODIUM LEVEL 136 MMOL/L (136-145); TOTAL 25(OH) VITAMIN D 40.1 NG/ML (20.0-100.0); TOTAL IRON BINDING CAPACITY 402 UG/DL (250-425); TOTAL PROTEIN 7.7 G/DL (5.7-8.2); TRIGLYCERIDES LEVEL 262 MG/DL (<150); VITAMIN B12 LEVEL 810 PG/ML (211-911)
== END ==
LOC: M WUC 15:28
PROVIDERS: ATTEND Family Medicine
DX: R20.2 Paresthesia of skin (principal); E61.1 Iron deficiency; E66.9 Obesity, unspecified

== ENCOUNTER → 2022-08-24 | Outpatient (CLI) | payer OTHER | LOC: M PAIN 15:15 | PROVIDERS: ATTEND Nurse Practitioner Family | DX: M51.16 Intervertebral disc disorders with radiculopathy, lumbar region (principal); G89.29 Other chronic pain; M79.18 Myalgia, other site; M54.50 Low back pain, unspecified; K52.9 Noninfective gastroenteritis and colitis, unspecified; J45.909 Unspecified asthma, uncomplicated; F41.9 Anxiety disorder, unspecified; K21.9 Gastro-esophageal reflux disease without esophagitis; N18.9 Chronic kidney disease, unspecified; I12.9 Hypertensive chronic kidney disease with stage 1 through stage 4 chronic kidney disease, or unspecified chronic kidney disease; G40.909 Epilepsy, unspecified, not intractable, without status epilepticus; M19.90 Unspecified osteoarthritis, unspecified site; Z79.891 Long term (current) use of opiate analgesic; Z79.899 Other long term (current) drug therapy; Z88.5 Allergy status to narcotic agent ==

== ENCOUNTER → 2022-08-27 | Outpatient (CLI) | payer OTHER | LOC: M PAIN 15:00 | PROVIDERS: ATTEND Nurse Practitioner Family | DX: Z79.891 Long term (current) use of opiate analgesic (principal) ==